=== PATIENT | male | born 1940 | race Caucasian/White ===

== ENCOUNTER → 2018-08-05 | Day surgery (SDC) | payer OTHER ==
[~2018-08-05] VITALS: Ht 193 cm; Wt 144.2 kg
[~2018-08-05] MED LIST: ASPIRIN EC81 MG PO; ATORVASTATIN CA20 MG PO; CLOPIDOGREL75 MG PO; COMBIVENT RESPIM4 GM IH; COUMADIN5 MG PO; FUROSEMIDE40 MG PO; LEVOTHYROXINE50 MCG PO; LIDOCAINE 1% W/EPINEPHRINE 20 ML VIAL ONE; METFORMIN HCL500 MG PO; METOPROLOL TART50 MG PO; POTASSIUM CHLO20 ME1 PO; UMECLIDINIUM INH; VILANTEROL INH
[2018-08-05 12:15] VITALS: BP 109/57
[2018-08-05 12:40] VITALS: BP 86/48
--- NOTE | 2018-08-05 14:20 | Operative Report ---
DATE OF PROCEDURE: August 05, 2018 INDICATIONS: Palpitations with history of atrial fibrillation. PROCEDURE PERFORMED: Insertable loop recorder. COMPLICATIONS: None. BLOOD LOSS: None. RECOMMENDATIONS: Remote monitoring. Left anterior chest wall was anesthetized using subcutaneous lidocaine. A [employer] LINQ, serial number [id number], was inserted without complications. Skin approximated using Dermabond. Patient discharged home the same day. Job#: [id number]
== END | disposition home or self-care (01) ==
LOC: CATH LAB 10:37
PROVIDERS: ATTEND Internal Medicine Interventional Cardiology
DX: I48.91 Unspecified atrial fibrillation (principal); C34.90 Malignant neoplasm of unspecified part of unspecified bronchus or lung; I87.2 Venous insufficiency (chronic) (peripheral); E66.9 Obesity, unspecified; F17.210 Nicotine dependence, cigarettes, uncomplicated; Z79.02 Long term (current) use of antithrombotics/antiplatelets; Z79.84 Long term (current) use of oral hypoglycemic drugs; Z79.82 Long term (current) use of aspirin; Z79.01 Long term (current) use of anticoagulants; Z68.38 Body mass index [BMI] 38.0-38.9, adult
CPT/HCPCS: 33282; C1764

== ENCOUNTER 2019-11-09 16:26 | Inpatient (IN) | payer MEDICARE ==
[~2019-11-09] VITALS: Ht 188 cm; Wt 149.7 kg
[~2019-11-09 16:26] MED LIST changes: -LIDOCAINE 1% W/EPINEPHRINE 20 ML VIAL ONE
--- NOTE | 2019-11-09 16:30 | NUR ---
RT NOTIFIED UPON PATIENTS ARRIVAL OF NEED FOR BIPAP.
[2019-11-09 17:03] LABS: BASOPHILS % 0.1 % (0.0-1.0); HEMATOCRIT 43.8 % (38.2-49.6); LYMPHOCYTES # (AUTO) 0.6 (1.0-3.2); LYMPHOCYTES % 5.2 % (18.0-39.1); MEAN CORPUSCULAR HEMOGLOBIN 30.7 pg (28-32); MEAN CORPUSCULAR VOLUME 96.1 fL (81-99); MONOCYTES # (AUTO) 1.4 (0.2-0.8); MONOCYTES % 11.5 % (4.4-11.3); NEUTROPHILS # (AUTO) 9.8 (2.1-6.9); NEUTROPHILS % 82.9 % (38.7-80.0); PLATELET COUNT 215 x10e3/uL (140-360); RED BLOOD COUNT 4.56 x10e6/uL (4.3-5.7); RED CELL DISTRIBUTION WIDTH 13.4 % (11.7-14.4)
[2019-11-09 17:22] LABS: ALBUMIN 3.1 g/dL (3.5-5.0); ALBUMIN/GLOBULIN RATIO 0.8 (0.8-2.0); ANION GAP 16.2 mmol/L (8-16); CALCIUM 8.7 mg/dL (8.4-10.2); CREATININE, SERUM 1.32 mg/dL (0.72-1.25); POTASSIUM 4.2 mmol/L (3.5-5.1)
[2019-11-09 17:29] LABS: B-TYPE NATRIURETIC PEPTIDE2 60.3 pg/mL (0-100)
[2019-11-09] MEDS ORDERED: SODIUM CHLORIDE 0.9% 1000ML 1,000 ML ONE ×2 (17:37→21:08)
--- NOTE | 2019-11-09 17:39 | Diagnostic Imaging Report ---
EXAM: CHEST SINGLE (PORTABLE) DATE: 11/09/2019 4:36 PM INDICATION: COPD COMPARISON: None FINDINGS: Implanted cardiac monitoring device is noted overlying the left hemithorax. The trachea is midline. Increased opacity present within the left lower lung zone which may reflect atelectasis and/or small pleural effusion. There is no evidence for large focal consolidation or pneumothorax. Suspected calcified granuloma noted overlying the right upper lung zone. The cardiomediastinal silhouette is partially obscured but appears grossly unremarkable. No acute osseous abnormality identified. IMPRESSION: Increased opacity within the left lower lung zone which likely reflects atelectasis and/or small pleural effusion. Underlying airspace process cannot be entirely excluded on the basis of this examination. Signed by: Dr. Jackson Delgado MD on 11/09/2019 5:36 PM
[2019-11-09] MEDS: LEVOFLOXACIN 750MG/D5W 150ML 150 ML IV SCH (17:41)
[2019-11-09] MEDS: PIPER-TAZ 3.375 GM 50 ML IV SCH (17:41)
[2019-11-09] MEDS ORDERED: SODIUM CHLORIDE 0.9% IV ONE (17:45)
[2019-11-09 18:46] LABS: ABG PCO2 60 mmHg (41-51); ABG PH 7.31 (7.31-7.41)
[2019-11-09 18:47] LABS: ABG HCO3 30 mmol/L (23-28); ABG PO2 155 mmHg (80-105)
[2019-11-09] MEDS ORDERED: DEXTROSE 50% SYRINGE 50 ML IV PRN (19:15)
[2019-11-09 20:20] VITALS: BP_SYST 150; BP_DIAS 42; BP_DIAS 82
--- NOTE | 2019-11-09 20:20 | NUR ---
Received to 193 from ER. Placed on EKG, pulse ox & NBP for monitoring. IV NS bolus infusing at this time. Admission history, vaccine review & Initial admission history completed. See interventions. Placed in Droplet isolation for Flu.
[2019-11-09 20:28] LABS: CREATINE KINASE MB 7.2 ng/mL (0-5.0)
[2019-11-09] MEDS ORDERED: ELIQUIS5 MG PO (20:47)
[2019-11-09] MEDS ORDERED: PACERONE400 MG PO (20:47)
[2019-11-09 20:49] VITALS: BP 139/77
[2019-11-09 21:00] VITALS: BP 137/74
[2019-11-09] MEDS: ALBUTEROL/IPRATROPIUM 3 ML NEB NEB SCH (21:00)
[2019-11-09] MEDS: INSULIN LISPRO 100 UNIT/1 ML 3ML VIAL SQ SCH (21:00)
[2019-11-09] MEDS ORDERED: ATORVASTATIN 20 MG TAB PO SCH (21:00)
[2019-11-09] MEDS ORDERED: OSELTAMIVIR PHOSPHATE 75 MG CAP PO ONE (21:25)
[2019-11-09] MEDS: OSELTAMIVIR PHOSPHATE 75 MG CAP PO SCH (21:27)
[2019-11-09] MEDS: ATORVASTATIN 40 MG TAB PO SCH (21:27)
[2019-11-09 21:45] VITALS: BP 142/80
[2019-11-09 23:00] VITALS: BP 135/74
[2019-11-10] VITALS (22 sets, daily range): BP systolic 95–151; BP diastolic 62–97
[2019-11-10] MEDS: PIPER-TAZ 3.375 GM 50 ML IV SCH ×4 (00:13→18:22)
[2019-11-10] MEDS: ALBUTEROL/IPRATROPIUM 3 ML NEB NEB SCH ×4 (01:30→19:30)
--- NOTE | 2019-11-10 02:40 | Consultation ---
DATE OF CONSULTATION: The patient of Dr. Wang, Dr. Kindra Delarosa, Dr. Gomez. HISTORY OF PRESENT ILLNESS: Apurva 79-year-old gentleman admitted with shortness of breath, was blue in the emergency room, placed on BiPAP and is positive for influenza A, did not receive his flu shot. He has had a history of atrial fibrillation. He has a loop recorder. He has no history of sleep apnea, though he does snore. History of lung cancer with right upper lobe wedge resection three years ago. Continues to smoke three cigarettes a day. ALLERGIES: NO KNOWN ALLERGIES. MEDICATIONS: Include: 1. Spiriva. 2. Metformin. 3. Potassium. 4. Warfarin. 5. Anoro aspirin. 6. Lipitor. 7. Plavix. 8. Lasix. 9. Levothyroxine. 10. Metoprolol. SOCIAL HISTORY: Born in [place]. 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 PHYSICAL EXAMINATION: GENERAL: A well-developed, burly white male. VITAL SIGNS: Temperature 99.6, pulse 88, respirations 29, blood pressure 120/80. HEAD: Normocephalic and atraumatic. LUNGS: Diminished breath sounds bilaterally. HEART: Regular rhythm. ABDOMEN: Obese. EXTREMITIES: Edematous, stasis changes. IMPRESSION: Apparent left lower lobe pneumonia, influenza. PLAN: Plan is to continue a Tamiflu 2 regimens. Continue BiPAP as tolerated. Avoid intubation if possible. Cigarette smoking cessation was recommended. Monitor blood sugars. Continue bronchodilators. Thank you for this kind of referral. MD SOLANGE Rice/NEO /[id number]
[2019-11-10 05:42] LABS: BASOPHILS % 0.2 % (0.0-1.0); EOSINOPHILS % 0.1 % (0.0-6.0); HEMATOCRIT 41.3 % (38.2-49.6); HEMOGLOBIN 12.6 g/dL (14.0-18.0); LYMPHOCYTES # (AUTO) 0.9 (1.0-3.2); LYMPHOCYTES % 9.6 % (18.0-39.1); MEAN CORPUSCULAR HGB CONC 30.5 g/dL (31-35); MEAN CORPUSCULAR VOLUME 98.3 fL (81-99); MONOCYTES # (AUTO) 1.2 (0.2-0.8); MONOCYTES % 13.1 % (4.4-11.3); NEUTROPHILS # (AUTO) 6.8 (2.1-6.9); NEUTROPHILS % 76.7 % (38.7-80.0); PLATELET COUNT 194 x10e3/uL (140-360); RED CELL DISTRIBUTION WIDTH 13.4 % (11.7-14.4)
[2019-11-10 05:54] LABS: ANION GAP 12.1 mmol/L (8-16); BLOOD UREA NITROGEN 13 mg/dL (7-26); BUN/CREATININE RATIO 14 (6-25); CALCIUM 7.9 mg/dL (8.4-10.2); CARBON DIOXIDE 27 mmol/L (22-29); CHLORIDE 103 mmol/L (98-107); CREATININE, SERUM 0.91 mg/dL (0.72-1.25); EST GLOMERULAR FILTRATION RATE > 60 ML/MIN (60-); GLUCOSE 130 mg/dL (74-118); POTASSIUM 4.1 mmol/L (3.5-5.1); SODIUM 138 mmol/L (136-145)
[2019-11-10] MEDS: LEVOTHYROXINE SODIUM 50 MCG TAB PO SCH (06:14)
[2019-11-10] MEDS: INSULIN LISPRO 100 UNIT/1 ML 3ML VIAL SQ SCH ×4 (07:30→21:36)
--- NOTE | 2019-11-10 08:24 | Diagnostic Imaging Report ---
Chest, 1 view, 11/10/2019. History: Shortness of breath. Comparison: 11/09/2019. Findings: The cardiomediastinal silhouette and pulmonary vasculature are within normal limits for a portable exam. A calcified granuloma is present in the right upper lobe. Patchy opacities are present in the lingula and left lower lobe. The right lung is clear. There are no acute osseous or soft tissue abnormalities. Impression: Left sided pulmonary opacities without significant change. Signed by: Tj Stevenson on 11/10/2019 8:21 AM
[2019-11-10] MEDS: CLOPIDOGREL BISULFATE 75 MG TAB PO SCH (11:26)
[2019-11-10] MEDS: ASPIRIN 81 MG ENTERIC COATED PO SCH (11:26)
[2019-11-10] MEDS: OSELTAMIVIR PHOSPHATE 75 MG CAP PO SCH ×2 (11:26→17:59)
[2019-11-10] MEDS: METOPROLOL TARTRATE 50 MG TAB PO SCH (11:27)
[2019-11-10 11:52] LABS: CREATINE KINASE MB 5.7 ng/mL (0-5.0)
[2019-11-10] MEDS: AMIODARONE HCL 200 MG TAB PO SCH (12:03)
[2019-11-10] MEDS: APIXABAN 5 MG TABLET PO SCH (12:04)
[2019-11-10] MEDS: POTASSIUM CHLORIDE 20 MEQ TAB CR PO SCH (12:04)
--- NOTE | 2019-11-10 13:20 | NUR ---
Pt sleeping soundly and no family present. Followed up w/ RN. Will follow up w/ pt as able. JAMI SWANN [employer] Spiritual Care Department O: [phone]
[2019-11-10 14:01] LABS: BILIRUBIN,URINE NEGATIVE (NEGATIVE); CLARITY,URINE SL CLOUDY (CLEAR); COLOR,URINE YELLOW (YELLOW); KETONES,URINE NEGATIVE (NEGATIVE); LEUKOCYTE ESTERASE ,URINE NEGATIVE (NEGATIVE); NITRITE,URINE NEGATIVE (NEGATIVE); PROTEIN,URINE DIPSTICK TRACE (NEGATIVE); URINE UROBILINOGEN 0.2 mg/dL (0.2 - 1)
[2019-11-10 14:10] LABS: AMORPHOUS SEDIMENT,URINE MODERATE (FEW); BACTERIA,URINE MODERATE /HPF; EPITHELIAL CELLS,URINE FEW /LPF; RBC,URINE 0-5 /HPF (0-5)
[2019-11-10] MEDS ORDERED: SODIUM CHLORIDE 0.9% 250ML 250 ML ONE (14:21)
[2019-11-10] MEDS: FUROSEMIDE 40 MG TAB PO SCH (14:28)
--- NOTE | 2019-11-10 15:07 | Diagnostic Imaging Report ---
EXAMINATION: CT scan of the chest without contrast. TECHNIQUE: Spiral CT images of the chest were performed from the lung apices to the level of the adrenal glands. No intravenous contrast was administered per referring physician request. Coronal and sagittal reformatted images were obtained. COMPARISON: Chest radiograph 11/09/2019, chest radiograph 11/10/2019 CLINICAL HISTORY:Shortness of breath, pneumonia DISCUSSION: ABSENCE OF INTRAVENOUS CONTRAST DECREASES SENSITIVITY FOR DETECTION OF FOCAL LESIONS AND VASCULAR PATHOLOGY. LINES/TUBES: None. LUNGS AND AIRWAYS: Postsurgical changes in the anterior right lung apex. Scattered foci of bandlike atelectasis or fibrotic change in the right upper lobe, lingula and, to a lesser extent the left lower lobe. Multifocal groundglass and nodular opacities predominantly within the lingula but also affecting the lower lobes. Calcified granuloma in the right lower lobe superior segment abutting the major fissure. Otherwise no gross mass lesion. No bronchiectasis. Filling defect in the left lower lobe posterior basal segmental bronchus. PLEURA: No pneumothorax or pleural effusions. HEART AND MEDIASTINUM: Visualized thyroid gland is unremarkable. No ectasia or aneurysmal dilatation of the thoracic aorta. Pulmonary outflow tract is of normal caliber. Atherosclerotic calcification of the aortic arch and [place] coronary arteries. No pericardial effusion. LYMPH NODES: Hilar and mediastinal lymph nodes are increased in number but not enlarged by CT criteria. ABDOMEN: Visualized portions of the liver, spleen, gallbladder, adrenals, and pancreas are unremarkable with the exception of a subcentimeter hypoattenuating lesion in hepatic segment 5, partially visualized, too small to further characterize but likely to represent a small cyst. BONES AND SOFT TISSUES: No osseous destructive lesions. No focal soft tissue abnormalities. IMPRESSION: Patchy multifocal groundglass and nodular opacities predominantly within the lingula and affecting the lower lobes to a lesser extent are nonspecific though concerning for viral or atypical infection. Left lower lobe basal segmental mucous plugging. Postsurgical changes of the right lung apex with scattered foci of bandlike atelectasis or fibrotic change. Atherosclerotic vascular disease. Signed by: Dr. Justin Dyer M.D. on 11/10/2019 3:03 PM
--- NOTE | 2019-11-10 16:04 | History and Physical ---
PRIMARY CARE PHYSICIAN: Dr. Fidel Delarosa. CONSULTANTS: 1. Dr. Elijah Mariee. 2. Dr. Justin Sharp. CHIEF COMPLAINT: Sepsis with acute respiratory failure, required BiPAP, pneumonia, influenza A. HISTORY OF PRESENT ILLNESS: The patient is a 79-year-old male with multiple chronic medical problems. The patient has COPD. He also has coronary artery disease. The patient came to the hospital with respiratory failure, but required BiPAP. The patient is also influenza A positive. Chest x-ray showed bilateral lower lobe infiltrates, more so on the left compared to the right. The patient is admitted for further evaluation and treatment. He is admitted to the ICU because of the respiratory failure on BiPAP. The patient's lactic acid level was also elevated. PAST MEDICAL HISTORY: Diabetes type 2, coronary artery disease, atrial fibrillation, COPD, smoker, hypothyroidism, hypertension, dyslipidemia, obstructive sleep apnea. PAST SURGICAL HISTORY: Loop recorder. SOCIAL HISTORY: The patient is a smoker. He does not use alcohol. No regular drugs. ALLERGIES: NO KNOWN ALLERGIES. HOME MEDICATIONS: List is reviewed. REVIEW OF SYSTEMS: As mentioned above. PHYSICAL EXAMINATION: VITAL SIGNS: Temperature 100, blood pressure 120/70, pulse rate is 85, respirations 18. GENERAL: The patient is more awake, more comfortable. HEENT: Normocephalic, atraumatic. Anicteric. NECK: Supple grossly. PULMONARY: Bilaterally coarse with some rhonchi and diminished breath sounds at the bases. CARDIOVASCULAR: S1 and S2. Regular rate and rhythm. ABDOMEN: Soft, obese. EXTREMITIES: 1+ edema with chronic venous skin changes. NEUROLOGIC: No focal deficits. The patient is awake. LABORATORY DATA: Chemistry; sodium is 138, potassium 4.1, chloride 103, bicarb 27, BUN 13, creatinine 0.9, glucose 130. Lactic acid level was 2.8. WBC is 11.8, hemoglobin 14, hematocrit 43.8, platelets 215. Serologies, influenza A positive. IMAGING TESTS: Chest x-ray shown that the patient has bilateral infiltrates, more significant in the right. IMPRESSION: 1. Sepsis without shock. The patient has fever and lactic acid level was elevated associated with respiratory failure, required BiPAP. 2. Acute exacerbation of chronic obstructive pulmonary disease with acute hypoxia. 3. Multiple baseline problems. PLAN: Continue with antibiotics. Nebulizer treatment. Insulin sliding scale coverage. Home medication. Steroids. Neb treatments. Pain control if needed. We will monitor the patient closely. The patient has already been seen by Dr. Elijah Mariee and associates and Dr. Justin Sharp. MD ANGEL Chase/NEO /[id number]
[2019-11-10] MEDS: LEVOFLOXACIN 750MG/D5W 150ML 150 ML IV SCH (17:59)
--- NOTE | 2019-11-10 21:16 | Consultation ---
DATE OF CONSULTATION: 11/10/2019 Cardiology Consultation REQUESTING PHYSICIAN: Diogo Wang MD REASON FOR CONSULTATION: Atrial fibrillation. HISTORY OF PRESENT ILLNESS: This is a 79-year-old man with hypertension, diabetes mellitus, atrial fibrillation, status post PVI, peripheral arterial disease, history of lung cancer with right upper lobe wedge resection, who presents with complaints of shortness of breath. The patient reports he began to feel poorly on Thursday with fever and chills. The patient complained of shortness of breath while in the ER. However, the patient called the EMS yesterday after he fell out of bed and was unable to get back up. The patient was found to be hypoxic and the patient was transported to the ER for further care. Testing in the ER demonstrated the patient was positive for influenza A and the patient was admitted to the ICU for BiPAP support. Cardiology is consulted for management of his cardiac conditions. He denies chest pain, shortness of breath, palpitations, orthopnea, or PND. REVIEW OF SYSTEMS: Negative except as per HPI. PAST MEDICAL HISTORY: 1. Hypertension. 2. Diabetes mellitus. 3. Atrial fibrillation, status post PVI. 4. Peripheral arterial disease, status post intervention. 5. History of lung cancer, status post wedge resection. ALLERGIES: PLEASE SEE EMR. MEDICATIONS: Please see medication list. SOCIAL HISTORY: Does smoke as well as drink alcohol. FAMILY HISTORY: Noncontributory to current illness. PHYSICAL EXAMINATION: VITAL SIGNS: Temperature 98.3 degrees, pulse 85, respiratory rate 29, blood pressure 135/82, and oxygen saturation 96% on nasal cannula. GENERAL: Obese gentleman, well developed, in no acute distress, awake and alert. HEENT: Normocephalic, atraumatic. Pupils equal. No scleral icterus. NECK: Supple. No thyromegaly or cervical lymphadenopathy. No carotid bruits. LUNGS: Clear to auscultation bilaterally. No wheezes or crackles. CARDIOVASCULAR: Normal rate. Regular rhythm. No murmur. Normal S1 and S2. ABDOMEN: Soft and nontender. EXTREMITIES: Trace edema. NEUROLOGIC: Nonfocal exam. LABORATORY DATA: Sodium 138, potassium 4.1, chloride 103, CO2 of 27, BUN 13, and creatinine 0.91. WBC 8.86, hemoglobin 12.6, hematocrit 41.3, platelets 194. Chest x-ray; left-sided pulmonary opacities without significant change. Telemetry; normal sinus rhythm. IMPRESSION: 1. Left-sided pneumonia. 2. Influenza A. 3. Acute hypoxic respiratory failure. 4. Atrial fibrillation, status post PVI. 5. Peripheral arterial disease, status post intervention. 6. Hypertension. 7. Diabetes mellitus. RECOMMENDATIONS: Continue home cardiac medications. Monitor the patient closely on telemetry. Antibiotics and antimicrobial therapy per primary service. The patient's last echocardiogram at the office revealed preserved LV systolic function with the estimated LVEF of 50% to 55%. Monitor volume status closely to keep the patient euvolemic. No further cardiac evaluation is indicated at this time. Thank you for this consult. We will continue to follow. Crys Solomon MD ABS/MODL /[id number]
[2019-11-10] MEDS: ATORVASTATIN 40 MG TAB PO SCH (21:33)
[2019-11-11] VITALS (25 sets, daily range): BP systolic 99–149; BP diastolic 52–85
[2019-11-11] MEDS: ALBUTEROL/IPRATROPIUM 3 ML NEB NEB SCH ×4 (00:30→20:00)
[2019-11-11] MEDS: PIPER-TAZ 3.375 GM 50 ML IV SCH ×4 (00:30→17:03)
[2019-11-11 05:21] LABS: BASOPHILS % 0.1 % (0.0-1.0); EOSINOPHILS # (AUTO) 0.2 (0.0-0.4); EOSINOPHILS % 2.5 % (0.0-6.0); HEMATOCRIT 39.8 % (38.2-49.6); HEMOGLOBIN 12.1 g/dL (14.0-18.0); LYMPHOCYTES # (AUTO) 0.8 (1.0-3.2); LYMPHOCYTES % 11.6 % (18.0-39.1); MEAN CORPUSCULAR HEMOGLOBIN 30.3 pg (28-32); MEAN CORPUSCULAR HGB CONC 30.4 g/dL (31-35); MEAN CORPUSCULAR VOLUME 99.5 fL (81-99); MONOCYTES # (AUTO) 0.9 (0.2-0.8); MONOCYTES % 12.4 % (4.4-11.3); NEUTROPHILS # (AUTO) 5.3 (2.1-6.9); PLATELET COUNT 191 x10e3/uL (140-360); RED CELL DISTRIBUTION WIDTH 13.2 % (11.7-14.4)
[2019-11-11 05:52] LABS: ALANINE AMINOTRANSFERASE 89 IU/L (0-55); ALBUMIN 2.6 g/dL (3.5-5.0); ALBUMIN/GLOBULIN RATIO 0.8 (0.8-2.0); ALKALINE PHOSPHATASE 64 IU/L (40-150); ANION GAP 13.3 mmol/L (8-16); BLOOD UREA NITROGEN 14 mg/dL (7-26); BUN/CREATININE RATIO 13 (6-25); CALCIUM 8.4 mg/dL (8.4-10.2); CARBON DIOXIDE 31 mmol/L (22-29); CHLORIDE 102 mmol/L (98-107); CREATININE, SERUM 1.08 mg/dL (0.72-1.25); EST GLOMERULAR FILTRATION RATE > 60 ML/MIN (60-); GLUCOSE 136 mg/dL (74-118); PHOSPHORUS 2.6 MG/DL (2.3-4.7); POTASSIUM 4.3 mmol/L (3.5-5.1); SODIUM 142 mmol/L (136-145)
[2019-11-11 06:00] LABS: THYROID STIMULATING HORMONE 0.996 uIU/mL (0.350-4.940)
[2019-11-11] MEDS: LEVOTHYROXINE SODIUM 50 MCG TAB PO SCH (06:03)
[2019-11-11] MEDS: INSULIN LISPRO 100 UNIT/1 ML 3ML VIAL SQ SCH ×4 (07:30→20:56)
[2019-11-11] MEDS: ASPIRIN 81 MG ENTERIC COATED PO SCH (08:21)
[2019-11-11] MEDS: APIXABAN 5 MG TABLET PO SCH ×2 (08:21→16:38)
[2019-11-11] MEDS: AMIODARONE HCL 200 MG TAB PO SCH (08:21)
[2019-11-11] MEDS: OSELTAMIVIR PHOSPHATE 75 MG CAP PO SCH ×2 (08:22→16:38)
[2019-11-11] MEDS: POTASSIUM CHLORIDE 20 MEQ TAB CR PO SCH (08:22)
[2019-11-11] MEDS: FUROSEMIDE 40 MG TAB PO SCH (08:22)
[2019-11-11] MEDS: CLOPIDOGREL BISULFATE 75 MG TAB PO SCH (08:22)
[2019-11-11] MEDS: METOPROLOL TARTRATE 50 MG TAB PO SCH (08:23)
[2019-11-11] MEDS ORDERED: PREDNISONE 20 MG TAB PO ONE (09:15)
[2019-11-11] MEDS: DOXYCYCLINE HYCLATE TABLET 100 MG TAB PO SCH ×2 (09:17→20:56)
--- NOTE | 2019-11-11 09:32 | Diagnostic Imaging Report ---
Chest, portable AP view History: Pneumonia and hypoxia Comparison: Chest CT dated test IMPRESSION: The cardiac silhouette is stable in size. Unchanged left pulmonary opacities in the lingula and lower lobe. No sizable pleural effusion. No pneumothorax. No acute osseous abnormalities. Signed by: Willem Cabrales MD on 11/11/2019 9:29 AM
[2019-11-11 10:17] LABS: ABG PH 7.24 (7.31-7.41)
[2019-11-11 10:18] LABS: ABG HCO3 34 mmol/L (23-28); ABG PCO2 80 mmHg (41-51); ABG PO2 167 mmHg (80-105)
--- NOTE | 2019-11-11 10:35 | NUR ---
Pt sleeping soundly and no family present. Followed up w/ RN. Will follow up w/ pt as able. JAMI SWANN [employer] Spiritual Care Department O: [phone]
[2019-11-11] MEDS ORDERED: ETOMIDATE 40 MG/ 20ML VIAL IV ONE (12:41)
[2019-11-11] MEDS ORDERED: SUCCINYLCHOLINE CHLORIDE 20 MG/ML 10ML VIAL ONE (12:41)
[2019-11-11] MEDS ORDERED: CEPACOL SORE THROAT LOZENGES PO PRN (13:30)
[2019-11-11] MEDS: VANCOMYCIN 1GM/NS 250 ML 250 ML IV SCH ×2 (14:38→22:19)
--- NOTE | 2019-11-11 15:31 | Progress Note ---
DATE: 11/11/2019 Cardiology Progress Note SUBJECTIVE: The patient denies chest pain or shortness of breath. OBJECTIVE: VITAL SIGNS: Temperature 100.4 degrees, pulse 78, respiratory rate 18, blood pressure 142/72, oxygen saturation 95% on 8 L nasal cannula. GENERAL: Morbidly obese gentleman in no acute distress. Awake and alert. LUNGS: Clear to auscultation bilaterally. No wheezes or crackles. CARDIOVASCULAR: Normal rate, regular rhythm. No murmur. Normal S1, S2. ABDOMEN: Soft, nontender. EXTREMITIES: Trace edema. CARDIAC MEDICATIONS: Metoprolol tartrate 100 mg p.o. daily, furosemide 80 mg p.o. daily, Plavix 75 mg p.o. daily, amiodarone 200 mg p.o. daily, apixaban 5 mg p.o. daily, aspirin 81 mg p.o. daily, levothyroxine 25 mcg p.o. daily, atorvastatin 40 mg p.o. daily. LABORATORY DATA: WBC 7.27, hemoglobin 12.1, hematocrit 39.8, platelets 191. Sodium 142, potassium 4.3, chloride 102, CO2 of 31, BUN 14, and creatinine 1.08. TELEMETRY: Normal sinus rhythm. IMPRESSION: 1. Left-sided pneumonia. 2. Influenza A. 3. Acute hypoxic respiratory failure. 4. Atrial fibrillation, status post PVI. 5. Peripheral arterial disease status post intervention. 6. Hypertension. 7. Diabetes mellitus. RECOMMENDATIONS: Continue home cardiac medications. Apixaban should be dosed twice daily. We will adjust this medication. Monitor patient closely on telemetry. Antibiotics and antimicrobial therapy per primary service. The patient's last echocardiogram at the office revealed preserved LV systolic function with estimated LVEF 50% to 55%. Monitor patient closely. Monitor volume status closely. Keep patient euvolemic. No further cardiac evaluation is indicated at this time. Thank you for this consult. We will continue to follow. Crys Solomon MD ABS/MODL /[id number]
[2019-11-11] MEDS: PREDNISONE 20 MG TAB PO SCH (16:38)
[2019-11-11] MEDS: BENZONATATE 100 MG CAP PO SCH (16:38)
[2019-11-11] MEDS: ATORVASTATIN 40 MG TAB PO SCH (20:56)
[2019-11-12] VITALS (23 sets, daily range): BP systolic 104–145; BP diastolic 59–122
[2019-11-12] MEDS: PIPER-TAZ 3.375 GM 50 ML IV SCH ×5 (00:38→23:50)
[2019-11-12] MEDS: ALBUTEROL/IPRATROPIUM 3 ML NEB NEB SCH ×4 (00:45→19:10)
[2019-11-12] MEDS: LEVOTHYROXINE SODIUM 50 MCG TAB PO SCH (05:36)
[2019-11-12 05:38] LABS: BASOPHILS % 0.1 % (0.0-1.0); HEMATOCRIT 39.1 % (38.2-49.6); HEMOGLOBIN 11.6 g/dL (14.0-18.0); LYMPHOCYTES # (AUTO) 0.5 (1.0-3.2); LYMPHOCYTES % 6.8 % (18.0-39.1); MEAN CORPUSCULAR HEMOGLOBIN 29.8 pg (28-32); MEAN CORPUSCULAR HGB CONC 29.7 g/dL (31-35); MEAN CORPUSCULAR VOLUME 100.5 fL (81-99); MONOCYTES # (AUTO) 0.6 (0.2-0.8); MONOCYTES % 9.1 % (4.4-11.3); NEUTROPHILS # (AUTO) 5.9 (2.1-6.9); NEUTROPHILS % 83.6 % (38.7-80.0); PLATELET COUNT 188 x10e3/uL (140-360); RED BLOOD COUNT 3.89 x10e6/uL (4.3-5.7); RED CELL DISTRIBUTION WIDTH 12.9 % (11.7-14.4)
[2019-11-12 05:47] LABS: ANION GAP 11.6 mmol/L (8-16); BLOOD UREA NITROGEN 17 mg/dL (7-26); BUN/CREATININE RATIO 16 (6-25); CALCIUM 8.6 mg/dL (8.4-10.2); CARBON DIOXIDE 32 mmol/L (22-29); CHLORIDE 101 mmol/L (98-107); CREATININE, SERUM 1.08 mg/dL (0.72-1.25); EST GLOMERULAR FILTRATION RATE > 60 ML/MIN (60-); GLUCOSE 204 mg/dL (74-118); POTASSIUM 4.6 mmol/L (3.5-5.1); SODIUM 140 mmol/L (136-145)
--- NOTE | 2019-11-12 07:39 | Diagnostic Imaging Report ---
EXAMINATION: CHEST SINGLE (PORTABLE) INDICATION: ^sob ^[id number] ^[id number] COMPARISON: 11/11/2019 FINDINGS: AP view TUBES and LINES: Cardiac loop recorder overlying the left mid chest remains unchanged. LUNGS: Lungs are well inflated. Worsening bilateral interstitial edema. Bibasilar atelectasis are unchanged. PLEURA: Small left pleural effusion, unchanged. No pneumothorax. HEART AND MEDIASTINUM: Stable moderate enlargement of the cardiac silhouette. Enlarged pulmonary arteries consistent with pulmonary hypertension. BONES AND SOFT TISSUES: No acute osseous lesion. Soft tissues are unremarkable. UPPER ABDOMEN: No free air under the diaphragm. IMPRESSION: Interval worsening bilateral interstitial edema with a stable small left pleural effusion. Signed by: Dr. Melony Juarez M.D. on 11/12/2019 7:36 AM
[2019-11-12] MEDS: ASPIRIN 81 MG ENTERIC COATED PO SCH (08:08)
[2019-11-12] MEDS: VANCOMYCIN 1GM/NS 250 ML 250 ML IV SCH ×2 (08:08→20:33)
[2019-11-12] MEDS: PREDNISONE 20 MG TAB PO SCH (08:09)
[2019-11-12] MEDS: CLOPIDOGREL BISULFATE 75 MG TAB PO SCH (08:09)
[2019-11-12] MEDS: POTASSIUM CHLORIDE 20 MEQ TAB CR PO SCH (08:09)
[2019-11-12] MEDS: FUROSEMIDE 40 MG TAB PO SCH (08:09)
[2019-11-12] MEDS: APIXABAN 5 MG TABLET PO SCH ×2 (08:09→16:12)
[2019-11-12] MEDS: METOPROLOL TARTRATE 50 MG TAB PO SCH (08:09)
[2019-11-12] MEDS: AMIODARONE HCL 200 MG TAB PO SCH (08:09)
[2019-11-12] MEDS: INSULIN LISPRO 100 UNIT/1 ML 3ML VIAL SQ SCH ×4 (08:10→20:59)
[2019-11-12] MEDS: DOXYCYCLINE HYCLATE TABLET 100 MG TAB PO SCH ×2 (08:10→20:33)
[2019-11-12] MEDS: OSELTAMIVIR PHOSPHATE 75 MG CAP PO SCH ×2 (08:10→16:12)
[2019-11-12] MEDS: BENZONATATE 100 MG CAP PO SCH (08:10)
[2019-11-12 08:40] LABS: BAND NEUTROPHILS % (MANUAL) 2 %; LYMPHOCYTES % (MANUAL) 4 % (19-48); MONOCYTES % (MANUAL) 2 % (3.4-9.0); NEUTROPHILS % (MANUAL) 92 % (40-74); PLATELET ESTIMATE ADEQUATE; PLATELET MORPHOLOGY COMMENT NORMAL; RBC MORPHOLOGY COMMENT ABNORMAL
[2019-11-12] MEDS: ALPRAZOLAM 0.25 MG TAB PO PRN ×3 (09:27→23:21)
--- NOTE | 2019-11-12 17:14 | Progress Note ---
DATE: 11/12/2019 Cardiology Progress Note SUBJECTIVE: Mr. Mitchell continues to remain weak. His shortness of breath is improved. He denies any leg swelling. PHYSICAL EXAMINATION: VITAL SIGNS: Afebrile, heart rate 69, blood pressure 124/88, and O2 saturation is 91%. CARDIOVASCULAR: Regular rhythm. Systolic murmur. LUNGS: Decreased breath sounds. EXTREMITIES: 1+ edema bilaterally. LABORATORY DATA: Telemetry shows sinus rhythm. Hemoglobin 11.6. Creatinine is normal. ASSESSMENT: 1. Pneumonia and influenza. 2. Atrial fibrillation. RECOMMENDATIONS: The patient remains anticoagulated with apixaban. He has remained in sinus rhythm. At this point, this anticoagulation as well as low-dose amiodarone as well as beta-tamela should be continued. Aspirin can be discontinued. The patient can remain on clopidogrel and Eliquis only. MD BRYAN Gu/NEO /[id number]
[2019-11-12] MEDS: QUETIAPINE FUMARATE 25 MG TAB PO SCH (20:33)
[2019-11-12] MEDS: ATORVASTATIN 40 MG TAB PO SCH (20:33)
[2019-11-13] VITALS (27 sets, daily range): BP systolic 101–157; BP diastolic 56–127
[2019-11-13] MEDS: ALBUTEROL/IPRATROPIUM 3 ML NEB NEB SCH ×4 (01:15→20:22)
[2019-11-13 05:55] LABS: BASOPHILS % 0.3 % (0.0-1.0); EOSINOPHILS # (AUTO) 0.1 (0.0-0.4); EOSINOPHILS % 1.1 % (0.0-6.0); HEMATOCRIT 40.1 % (38.2-49.6); HEMOGLOBIN 12.2 g/dL (14.0-18.0); LYMPHOCYTES % 11.3 % (18.0-39.1); MEAN CORPUSCULAR HGB CONC 30.4 g/dL (31-35); MEAN CORPUSCULAR VOLUME 98.5 fL (81-99); MONOCYTES # (AUTO) 0.9 (0.2-0.8); MONOCYTES % 9.5 % (4.4-11.3); NEUTROPHILS # (AUTO) 6.9 (2.1-6.9); NEUTROPHILS % 77.2 % (38.7-80.0); PLATELET COUNT 203 x10e3/uL (140-360); RED BLOOD COUNT 4.07 x10e6/uL (4.3-5.7); RED CELL DISTRIBUTION WIDTH 12.7 % (11.7-14.4)
[2019-11-13] MEDS: LEVOTHYROXINE SODIUM 50 MCG TAB PO SCH (06:05)
[2019-11-13] MEDS: PIPER-TAZ 3.375 GM 50 ML IV SCH ×4 (06:05→23:35)
[2019-11-13 06:39] LABS: ALANINE AMINOTRANSFERASE 88 IU/L (0-55); ALBUMIN 2.6 g/dL (3.5-5.0); ALBUMIN/GLOBULIN RATIO 0.7 (0.8-2.0); ALKALINE PHOSPHATASE 57 IU/L (40-150); ANION GAP 13.4 mmol/L (8-16); BLOOD UREA NITROGEN 16 mg/dL (7-26); BUN/CREATININE RATIO 20 (6-25); CALCIUM 8.4 mg/dL (8.4-10.2); CARBON DIOXIDE 33 mmol/L (22-29); CHLORIDE 100 mmol/L (98-107); CREATININE, SERUM 0.82 mg/dL (0.72-1.25); EST GLOMERULAR FILTRATION RATE > 60 ML/MIN (60-); GLUCOSE 121 mg/dL (74-118); POTASSIUM 4.4 mmol/L (3.5-5.1); SODIUM 142 mmol/L (136-145)
[2019-11-13] MEDS ORDERED: PREDNISONE 20 MG TAB PO SCH (07:30)
[2019-11-13] MEDS: INSULIN LISPRO 100 UNIT/1 ML 3ML VIAL SQ SCH ×4 (07:30→20:56)
[2019-11-13] MEDS: AMIODARONE HCL 200 MG TAB PO SCH (08:11)
[2019-11-13] MEDS: POTASSIUM CHLORIDE 20 MEQ TAB CR PO SCH (08:11)
[2019-11-13] MEDS: APIXABAN 5 MG TABLET PO SCH ×2 (08:11→16:46)
[2019-11-13] MEDS: OSELTAMIVIR PHOSPHATE 75 MG CAP PO SCH ×2 (08:12→16:46)
[2019-11-13] MEDS: FUROSEMIDE 40 MG TAB PO SCH (08:12)
[2019-11-13] MEDS: DOXYCYCLINE HYCLATE TABLET 100 MG TAB PO SCH ×2 (08:12→20:09)
[2019-11-13] MEDS: METOPROLOL TARTRATE 50 MG TAB PO SCH (08:12)
[2019-11-13] MEDS: CLOPIDOGREL BISULFATE 75 MG TAB PO SCH (08:12)
[2019-11-13] MEDS: ALPRAZOLAM 0.25 MG TAB PO PRN (08:13)
[2019-11-13 08:41] LABS: ANION GAP 12.3 mmol/L (8-16); BLOOD UREA NITROGEN 15 mg/dL (7-26); BUN/CREATININE RATIO 16 (6-25); CALCIUM 8.7 mg/dL (8.4-10.2); CARBON DIOXIDE 34 mmol/L (22-29); CHLORIDE 98 mmol/L (98-107); CREATININE, SERUM 0.92 mg/dL (0.72-1.25); EST GLOMERULAR FILTRATION RATE > 60 ML/MIN (60-); GLUCOSE 173 mg/dL (74-118); POTASSIUM 4.3 mmol/L (3.5-5.1); SODIUM 140 mmol/L (136-145)
[2019-11-13 08:53] LABS: BASOPHILS % 0.3 % (0.0-1.0); EOSINOPHILS # (AUTO) 0.1 (0.0-0.4); HEMATOCRIT 42.2 % (38.2-49.6); HEMOGLOBIN 12.9 g/dL (14.0-18.0); LYMPHOCYTES # (AUTO) 0.9 (1.0-3.2); LYMPHOCYTES % 10.2 % (18.0-39.1); MEAN CORPUSCULAR HEMOGLOBIN 30.1 pg (28-32); MEAN CORPUSCULAR HGB CONC 30.6 g/dL (31-35); MEAN CORPUSCULAR VOLUME 98.4 fL (81-99); MONOCYTES # (AUTO) 0.9 (0.2-0.8); MONOCYTES % 10.4 % (4.4-11.3); NEUTROPHILS # (AUTO) 6.9 (2.1-6.9); NEUTROPHILS % 77.4 % (38.7-80.0); PLATELET COUNT 198 x10e3/uL (140-360); RED BLOOD COUNT 4.29 x10e6/uL (4.3-5.7); RED CELL DISTRIBUTION WIDTH 12.6 % (11.7-14.4)
[2019-11-13] MEDS: VANCOMYCIN 1GM/NS 250 ML 250 ML IV SCH ×2 (09:03→20:48)
--- NOTE | 2019-11-13 13:55 | Progress Note ---
DATE: 11/13/2019 Cardiology Progress Note SUBJECTIVE: Mr. Mitchell is weak. He has had some shortness of breath. PHYSICAL EXAMINATION: VITAL SIGNS: Afebrile, heart rate is 78, and blood pressure is 148/90. CARDIOVASCULAR: Regular rhythm, systolic murmur. LUNGS: Clear to auscultation with decreased breath sounds bilaterally. EXTREMITIES: Trace edema bilaterally. LABORATORY DATA: Telemetry shows sinus rhythm. Hemoglobin is 12.9. Serum creatinine is normal. Chest x-ray done yesterday shows mild pleural effusions and pulmonary edema bilaterally. ASSESSMENT: 1. Pneumonia and influenza. 2. Atrial fibrillation. 3. Venous insufficiency. RECOMMENDATIONS: Anticoagulate with apixaban. The patient is in sinus rhythm. Amiodarone should also be continued. Aspirin will be discontinued. MD BRYAN Gu/NEO /[id number]
--- NOTE | 2019-11-13 14:11 | NUR ---
consult pneumonea flue chf [phone] DICTATED
--- NOTE | 2019-11-13 14:11 | NUR ---
consult pneumonea flue chf [phone]
--- NOTE | 2019-11-13 18:00 | NUR ---
PT LETHARGIC ABG CALLED TO DR JOHNS, RAPID RESPONSE FOR INTUBATION. JUJU NOTIFIED. OBTAINED ORDERS FOR SEDATION.
[2019-11-13 18:31] LABS: ABG PH 7.27 (7.31-7.41)
[2019-11-13 18:33] LABS: ABG HCO3 42 mmol/L (23-28); ABG PCO2 93 mmHg (41-51); ABG PO2 92 mmHg (80-105)
[2019-11-13] MEDS: FENTANYL CITRATE INJ 2,000 MCG in SODIUM CHLORIDE 0.9% 250ML 210 ML IV PRN (19:00)
--- NOTE | 2019-11-13 19:24 | Diagnostic Imaging Report ---
EXAMINATION: CHEST SINGLE (PORTABLE) INDICATION: Intubated, verify tube position COMPARISON: Chest x-ray 11/12/2019 FINDINGS: TUBES and LINES: ET tube tip within the mid intrathoracic trachea. LUNGS/PLEURA: Lungs are within normal limits. Prominent pulmonary vasculature. Bilateral lower lung haziness. No pneumothorax. HEART AND MEDIASTINUM: Cardiac size is mildly enlarged. BONES AND SOFT TISSUES: No acute osseous lesion. Soft tissues are unremarkable. Degenerative changes in the spine and shoulders. UPPER ABDOMEN: No free air under the diaphragm. IMPRESSION: 1. ET tube tip within the mid intrathoracic trachea. 2. Mild cardiomegaly and pulmonary vascular congestion. 3. Bilateral lower lung haziness may be due to atelectasis or pleural effusions. Pneumonia not excluded. Signed by: Manish Flores DO on 11/13/2019 7:21 PM
[2019-11-13] MEDS: QUETIAPINE FUMARATE 25 MG TAB PO SCH (20:09)
[2019-11-13] MEDS: ATORVASTATIN 40 MG TAB PO SCH (20:09)
[2019-11-13 20:38] LABS: ABG PH 7.39 (7.31-7.41)
[2019-11-13 20:39] LABS: ABG HCO3 42 mmol/L (23-28); ABG PCO2 69 mmHg (41-51); ABG PO2 184 mmHg (80-105)
--- NOTE | 2019-11-13 20:45 | NUR ---
Dr. Diane noted of critical ABG results. ABG ordered for AM. No vent changes. Addendum: 11/13/19 at 2249 by Pato Fong RN notified
[2019-11-14] VITALS (26 sets, daily range): BP systolic 104–143; BP diastolic 58–98
[2019-11-14] MEDS: ALBUTEROL/IPRATROPIUM 3 ML NEB NEB SCH ×2 (00:30→07:25)
[2019-11-14 05:04] LABS: BASOPHILS % 0.1 % (0.0-1.0); EOSINOPHILS # (AUTO) 0.1 (0.0-0.4); EOSINOPHILS % 1.4 % (0.0-6.0); HEMATOCRIT 39.1 % (38.2-49.6); LYMPHOCYTES # (AUTO) 1.1 (1.0-3.2); LYMPHOCYTES % 12.8 % (18.0-39.1); MEAN CORPUSCULAR HGB CONC 30.7 g/dL (31-35); MEAN CORPUSCULAR VOLUME 97.8 fL (81-99); MONOCYTES # (AUTO) 0.7 (0.2-0.8); MONOCYTES % 8.3 % (4.4-11.3); NEUTROPHILS # (AUTO) 6.5 (2.1-6.9); NEUTROPHILS % 76.7 % (38.7-80.0); PLATELET COUNT 196 x10e3/uL (140-360); RED CELL DISTRIBUTION WIDTH 12.6 % (11.7-14.4)
[2019-11-14 05:24] LABS: BLOOD UREA NITROGEN 18 mg/dL (7-26); BUN/CREATININE RATIO 22 (6-25); CALCIUM 8.6 mg/dL (8.4-10.2); CARBON DIOXIDE 37 mmol/L (22-29); CHLORIDE 100 mmol/L (98-107); CREATININE, SERUM 0.83 mg/dL (0.72-1.25); EST GLOMERULAR FILTRATION RATE > 60 ML/MIN (60-); GLUCOSE 108 mg/dL (74-118); SODIUM 144 mmol/L (136-145)
[2019-11-14] MEDS: PIPER-TAZ 3.375 GM 50 ML IV SCH ×3 (05:42→17:54)
[2019-11-14] MEDS: LEVOTHYROXINE SODIUM 50 MCG TAB PO SCH (05:42)
[2019-11-14] MEDS: FENTANYL CITRATE INJ 2,000 MCG in SODIUM CHLORIDE 0.9% 250ML 210 ML IV PRN (05:42)
[2019-11-14 06:15] LABS: ABG PH 7.39 (7.31-7.41)
[2019-11-14 06:16] LABS: ABG HCO3 43 mmol/L (23-28); ABG PCO2 71 mmHg (41-51); ABG PO2 152 mmHg (80-105)
[2019-11-14] MEDS: INSULIN LISPRO 100 UNIT/1 ML 3ML VIAL SQ SCH ×4 (07:30→20:48)
--- NOTE | 2019-11-14 07:45 | NUR ---
PT AT BEDSIDE, STATES SHE DID NOT WANT AWAKE AT ALL WANTED HIM TO BE COMPLETELY SEDATED THIS RN AND DATA CONTROL CLERK SUPERVISOR EXPLAINED THAT PT WAS SEDATED ENOUGH TO BE COMFORTABLE BUT NEEDED TO BE SOMEWHAT RESPONSIVE IN ORDER TO ASSESS NEUROLOGICAL STATUS. VERBALIZED UNDERSTANDING BUT STATS THIS WAS NOT HIS WISHES
--- NOTE | 2019-11-14 07:50 | NUR ---
THIS RN AND RIGGER THIRD IN ROOM, SPOKE TO PATIENT AT LENGTH PT FIRST STATED HE WANTED THE TUBE OUT THEN ASKED WHAT HIS PROGNOSIS WOULD BE, THIS RN EXPLAINED THE PROCESS OF EXTUBATING AND THE POSSIBILITY OF EVENTS THAT COULD HAPPEN IF PATIENT IS EXTUBATED BEFORE BEING ABLE TO BREATHE ADEQUATELY. PT VERBALIZED UNDERSTANDING AT THIS TIME THIS RN DIRECTLY ASKED AGAIN DO YOU WANT THE BREATHING TUBE REMOVED PT DID NOT RESPOND OR WRITE ANYTHING AT THIS TIME. THIS RN ASKED IF HE WAS OKAY PT NODDED HEAD YES NOTHING FURTHER WAS WRITTEN DOWN.
--- NOTE | 2019-11-14 08:04 | NUR ---
Rapid called and pt intubated on 11/13/19. Pt will be placed on PT hold. New orders needed to resume skilled PT when appropriate. Thank you. Addendum: 11/14/19 at 0806 by CARLA BOLDEN PTA Amended: Links added.
[2019-11-14] MEDS: DOXYCYCLINE HYCLATE TABLET 100 MG TAB PO SCH (09:00)
[2019-11-14] MEDS: OSELTAMIVIR PHOSPHATE 75 MG CAP PO SCH ×2 (09:00→17:00)
[2019-11-14] MEDS: FUROSEMIDE 40 MG TAB PO SCH (09:00)
[2019-11-14] MEDS: APIXABAN 5 MG TABLET PO SCH (09:00)
[2019-11-14] MEDS: METOPROLOL TARTRATE 50 MG TAB PO SCH (09:00)
[2019-11-14] MEDS: CLOPIDOGREL BISULFATE 75 MG TAB PO SCH (09:00)
[2019-11-14] MEDS ORDERED: MIDAZOLAM HCL 2 MG/2 ML VIAL IV PRN (09:00)
[2019-11-14] MEDS: AMIODARONE HCL 200 MG TAB PO SCH (09:00)
[2019-11-14] MEDS: POTASSIUM CHLORIDE 20 MEQ TAB CR PO SCH (09:00)
--- NOTE | 2019-11-14 09:00 | Diagnostic Imaging Report ---
EXAMINATION: CHEST SINGLE (PORTABLE) INDICATION: Respiratory failure COMPARISON: Chest radiograph 11/13/2019 FINDINGS: LINES/TUBES:Endotracheal tube terminates 3 7-m above the yeison. EKG leads overlie the chest. LUNGS:The lungs are well-inflated. There is perihilar fullness and indistinctness of the pulmonary vasculature. PLEURA:No pleural effusion or pneumothorax. MEDIASTINUM:The cardiomediastinal silhouette appears normal in size and shape. BONES/SOFT TISSUES:No acute osseous injury. ABDOMEN:No free air under the diaphragm. IMPRESSION: Mild interstitial edema. Mild bibasilar subsegmental atelectasis. Signed by: Chivo Pickett MD on 11/14/2019 8:56 AM
[2019-11-14] MEDS: VANCOMYCIN 1GM/NS 250 ML 250 ML IV SCH ×2 (09:08→20:48)
[2019-11-14] MEDS ORDERED: PANTOPRAZOLE 40 MG 10ML VIAL IV ONE (09:30)
--- NOTE | 2019-11-14 09:30 | NUR ---
PT EXPLAINED THAT HE NEEDED AN NGT AT THIS TIME, PT NODDING HEAD NO, THIS RN DIRECTLY ASKED DO YOU NOT WANT AN NGT THAT WILL ALLOW US TO GIVE NUTRITION DOWN THE LINE AND ALSO GIVE MEDICATIONS PT NODDED HEAD NO.
--- NOTE | 2019-11-14 10:00 | NUR ---
IN ROOM, PT WROTE DOWN " PULL THE PLUG, " NODDED HEAD TO WANTING TO HAVE THE TUBE REMOVED THIS RN EXPLAINED THAT WAS HIS RIGHT BUT VERSED HAS BEEN GIVEN 40 MINUTES AGO AND WHEN ASKED BEFORE PT DID NOT RESPOND PT AND STATES THEY UNDERSTOOD WHAT I WAS SAYING AND AGREED TO TALK TO CHAPLAIN FARRELL FOR AN ETHICS CONSULT TO MAKE A DECISION.
[2019-11-14] MEDS: PROPOFOL IV EMULSION 10MG/ML 100 ML IV SCH (11:24)
--- NOTE | 2019-11-14 13:15 | NUR ---
ICU Staff submitted an Ethics Consult Service request concerning the patient's Advanced Directives and the patient's 's desire for clinical information before removal of his breathing tube. Assessment: The district sales manager spoke with the pt & his . The pt appeared anxious and uncomfortable. His was anxious and frustrated stating they needed more information concerning her 's illness and prognosis. She stated that they needed answers to their questions to make an informed decision. The district sales manager shared the pt's 's request with pt's nurse who relayed her request for follow up with one of his physicians who later spoke with them. Recommendation: Given the pt/'s emotional state concerning his illness they could benefit from additional Spiritual Care services. Thank you for this consult. The district sales manager will follow up as able to provide spiritual/emotion support. Please re-consult as needed. JAMI SWANN Serologist/Ethics Consult Service [facility] O: [phone]
--- NOTE | 2019-11-14 16:26 | Consultation ---
DATE OF CONSULTATION: HISTORY OF PRESENT ILLNESS: This is a very pleasant 79-year-old gentleman, comes in with shortness of breath. He was hypoxemic in the emergency room. He was placed on BiPAP. His test for influenza A came back positive. He did not receive the flu vaccination. He also has history of atrial fibrillation. The patient also have obesity, diabetes mellitus, hypothyroidism. He was admitted, started on IV antibiotic. I was asked to see him. The patient is currently in the Intensive Care Unit. Events noted since review and consulted review of systems on admission, he does have history of hypertension, diabetes mellitus type 2 with neuropathy, atrial fibrillation status post PVI, peripheral vascular disease, history of lung cancer with right upper lobe wedge resection, comes in with shortness of breath and fever and chills, feeling really bad, came to emergency room and was hypoxemic, started on BiPAP. He has been seen by Cardiology, been seen by Pulmonary. Infectious Disease was asked to see the patient. PAST MEDICAL HISTORY: Hypertension, diabetes with neuropathy, atrial fibrillation, PVI, peripheral vascular disease, lung cancer. PAST SURGICAL HISTORY: Lung wedge resection. SOCIAL HISTORY: He does smoke and drink, unfortunately, details not available. FAMILY HISTORY: Hypertension. REVIEW OF SYSTEMS: He is currently in Intensive Care Unit. Does not seems to be short of breath, but stable. PHYSICAL EXAMINATION: GENERAL: The patient is intubated, comfortable, follows commands, does not seem in acute distress. VITAL SIGNS: Stable. Currently afebrile. When he first came, he is running 100.4. HEENT: Not icteric. NECK: Supple. CHEST: Few rhonchi bilateral. COR: S1 and S2. No S3, S4, or murmur. ABDOMEN: Soft. Bowel sounds present. No tenderness. EXTREMITIES: No edema. LABORATORY DATA: Reviewed. When he first came his white count was 7.27, hemoglobin 12, platelet 191. His blood gas also noted when he first came in pH 7.24 with pCO2 of 80, pO2 of 167. Sodium 144, potassium 4, and creatinine 0.83. White count is 8.4, hemoglobin 12. His chest x-ray showed an ET tube with mild cardiomegaly, congestion bilateral lungs haziness. IMPRESSION: 1. Respiratory failure due to community-acquired pneumonia, influenza A. 2. Concern about superimposed bacterial infection. 3. History of lung cancer. 4. History of congestive heart failure. PLAN: 1. I agree with blood cultures. 2. I agree with sputum cultures. 3. I agree with diabetic control. 4. He is currently on vancomycin and Zosyn and Tamiflu as well as doxycycline. 5. Continue with above for the time being. Plan on 8 days treatment of antibiotic. Discussed with the Medical team. We will follow vancomycin level to manage his fluid status, congestive heart failure to manage his vent as per Pulmonary. I agree with the plan. MD ASHLEY Pacheco/NEO /[id number]
--- NOTE | 2019-11-14 17:31 | Progress Note ---
DATE: SUBJECTIVE: The patient remains in intensive care unit, remains intubated. Family at the bedside. OBJECTIVE: HEENT: Normocephalic. CHEST: Few crackles bilateral. COR: S1 and S2. No S3, S4 or murmur. ABDOMEN: Soft. ASSESSMENT: 1. Sepsis on admission, influenza present on present admission. 2. Superimposed bacterial pneumonia. 3. Atrial fibrillation. 4. Obesity. PLAN: Continue with antibiotic as ordered. Discontinue doxycycline. Continue supportive care. Discussed with the medical team at length. MD ASHLEY Pacheco/MODL /[id number]
--- NOTE | 2019-11-14 18:42 | NUR ---
Nutrition Intervention Note RD Recommendation(s) for Physician: If pt is to remain intubated, recommend enteral nutrition -If on propofol: Vital High Protein @ goal rate of 70 mL/hr Water flush per MD (provides 1680 kcal, 147 g protein, and 1404 mL water/fluid) *propofol @ 12 mL/hr would provide an additional 317 kcal -If not on propofol: Vital 1.2 @ goal rate of 75 mL/hr Water flush per MD (provides 2160 kcal, 135 g protein, and 1460 mL water/fluid) Plan of Care: RD following, monitoring for tolerance and adequacy Nutrition reason for involvement: Length of stay/mechanical ventilation RD Assessment (11/14/19) Pt is a 79 year old male admitted with pneumonia, hypoxia, respiratory distress, and renal insufficiency. Pt was intubated on 11/13 and receiving propofol @ 12 mL/hr (provides 317 kcal) per RN at time of visit. There were no family members present. Per documentation, pt was previously eating 25-100% of meals during admission. If pt is to remain intubated, recommend enteral nutrition. Will continue to monitor. Principal Problems/Diagnoses: pneumonia, hypoxia, respiratory distress, and renal insufficiency PMH: diabetes, CAD, afib, COPD, smoker, hypothyroid, HTN, dyslipidemia, and obstructive sleep apnea I/O:1920/1800 GI: last recorded BM 11/14 Skin: intact Labs: (11/14/19) HgbA1c 7.5%, Glu 173 Meds: piperacillin/tazobactam, propofol, midazolam, vancomycin, fentanyl, potassium chloride, atorvastatin, insulin lispro, levothyroxine, metorpolol, lasix, pantoprazole, Ht: 74 inches Wt: 330 lbs BMI: 42.4 kg/m2 IBW: 190 lbs Malnutrition Evaluation (11/14/19) The patient does not meet criteria for a specified degree of malnutrition at this time. Will re-evaluate at follow-up as appropriate. Nutrition Prescription (Diet Order): NPO Estimated Nutritional Needs: 9080-3770 calories/day (22-25 kcal/kg IBW) 130-216 g protein/day (1.5-2.5 g pro/kg IBW) Diet Adequacy: Not meeting calorie needs, Not meeting protein needs (pt is NPO) Tolerance: Pt is NPO Diet Education Needs Assessment: Diet education not indicated at this time. Nutrition Care Level: Moderate Nutrition Diagnosis: Swallowing difficulty related to respiratory failure/mechanical ventilation as evidenced by NPO status. Goal: Patient will meet 75-100% of estimated needs by follow up Progress: N/A Interventions: -Tube feeding recommendation - Composition, Rate, Route, Collaboration with other providers Monitoring/Evaluation: -Total energy intake, Total protein intake, Formula/Solution, IVF, Prescription medication, Weight change Signed: Inez Sanford RD, LD
--- NOTE | 2019-11-14 19:02 | Progress Note ---
DATE: 11/14/2019 Cardiology Progress Note. SUBJECTIVE: No major events overnight. OBJECTIVE: VITAL SIGNS: Temperature afebrile, pulse 67, respiratory rate 20, blood pressure 110/72, saturating 97% on mechanical ventilation. GENERAL: Well developed, well nourished, intubated and sedated. No acute distress. CARDIOVASCULAR: Regular rate and rhythm. No murmurs, rubs, or gallops. LUNGS: Bibasilar crackles and rhonchi. ABDOMEN: Obese, soft, nontender. INPATIENT MEDICATIONS: Reviewed. LABORATORY DATA: Reviewed. TELEMETRY DATA: Reviewed, shows normal sinus rhythm. ASSESSMENT/PLAN: 1. Influenza pneumonia. 2. Atrial fibrillation. 3. Venous insufficiency. RECOMMENDATIONS: Anticoagulation, apixaban, currently in sinus rhythm. Continue amiodarone. Discontinue aspirin. We will continue to follow. MD CELINA Oviedo/NEO /[id number]
[2019-11-14] MEDS: ATORVASTATIN 40 MG TAB PO SCH (20:14)
[2019-11-14] MEDS: ENOXAPARIN SODIUM INJ 100 MG/ML SYR SC SCH (20:48)
[2019-11-15] VITALS (24 sets, daily range): BP systolic 106–188; BP diastolic 58–110
[2019-11-15] MEDS: PIPER-TAZ 3.375 GM 50 ML IV SCH ×4 (00:17→18:00)
[2019-11-15] MEDS: PROPOFOL IV EMULSION 10MG/ML 100 ML IV SCH ×2 (01:18→06:36)
[2019-11-15] MEDS: FENTANYL CITRATE INJ 2,000 MCG in SODIUM CHLORIDE 0.9% 250ML 210 ML IV PRN (01:40)
[2019-11-15 05:07] LABS: BASOPHILS % 0.4 % (0.0-1.0); EOSINOPHILS # (AUTO) 0.3 (0.0-0.4); EOSINOPHILS % 3.9 % (0.0-6.0); HEMATOCRIT 38.6 % (38.2-49.6); HEMOGLOBIN 11.9 g/dL (14.0-18.0); LYMPHOCYTES # (AUTO) 1.4 (1.0-3.2); LYMPHOCYTES % 18.6 % (18.0-39.1); MEAN CORPUSCULAR HEMOGLOBIN 30.1 pg (28-32); MEAN CORPUSCULAR HGB CONC 30.8 g/dL (31-35); MEAN CORPUSCULAR VOLUME 97.7 fL (81-99); MONOCYTES # (AUTO) 0.6 (0.2-0.8); MONOCYTES % 8.5 % (4.4-11.3); NEUTROPHILS % 67.8 % (38.7-80.0); PLATELET COUNT 223 x10e3/uL (140-360); RED BLOOD COUNT 3.95 x10e6/uL (4.3-5.7)
[2019-11-15] MEDS: LEVOTHYROXINE SODIUM 50 MCG TAB PO SCH (05:15)
[2019-11-15 05:27] LABS: ANION GAP 11.9 mmol/L (8-16); BLOOD UREA NITROGEN 18 mg/dL (7-26); BUN/CREATININE RATIO 22 (6-25); CALCIUM 8.4 mg/dL (8.4-10.2); CARBON DIOXIDE 35 mmol/L (22-29); CHLORIDE 104 mmol/L (98-107); CREATININE, SERUM 0.82 mg/dL (0.72-1.25); EST GLOMERULAR FILTRATION RATE > 60 ML/MIN (60-); GLUCOSE 108 mg/dL (74-118); POTASSIUM 3.9 mmol/L (3.5-5.1); SODIUM 147 mmol/L (136-145)
--- NOTE | 2019-11-15 07:05 | NUR ---
Pt sleeping soundly and no family present. Will follow as able. JAMI SWANN Elementary Teacher Spiritual Care Department O: [phone] Pager: [phone] ([phone] number calling from)
--- NOTE | 2019-11-15 07:19 | Diagnostic Imaging Report ---
EXAMINATION: CHEST SINGLE (PORTABLE) INDICATION: ^intubated ^[id number] ^[id number] COMPARISON: 11/12/2019 FINDINGS: AP view TUBES and LINES: Partially seen endotracheal tube. The tip cannot be evaluated due to underpenetration. LUNGS: Limited by body habitus. Patient's chin obscures lung apices. Pulmonary vascular congestion and mild interstitial edema. PLEURA: Bilateral small pleural effusions. No visible pneumothorax. HEART AND MEDIASTINUM: The cardiomediastinal silhouette is enlarged. BONES AND SOFT TISSUES: No acute osseous lesion. Soft tissues are unremarkable. UPPER ABDOMEN: No free air under the diaphragm. IMPRESSION: Limited as above. Pulmonary vascular congestion and mild interstitial edema, slightly worsened from prior exam. Small bilateral pleural effusions, increased or new from prior exam. Underlying atelectasis/pneumonia cannot be excluded. Signed by: Dr. Kasi Bazan MD on 11/15/2019 7:16 AM
[2019-11-15] MEDS: INSULIN LISPRO 100 UNIT/1 ML 3ML VIAL SQ SCH ×4 (07:30→21:00)
[2019-11-15] MEDS: AMIODARONE HCL 200 MG TAB PO SCH (09:00)
[2019-11-15] MEDS: CLOPIDOGREL BISULFATE 75 MG TAB PO SCH (09:00)
[2019-11-15] MEDS: VANCOMYCIN 1GM/NS 250 ML 250 ML IV SCH ×3 (09:00→21:25)
[2019-11-15] MEDS: METOPROLOL TARTRATE 50 MG TAB PO SCH (09:00)
[2019-11-15] MEDS: POTASSIUM CHLORIDE 20 MEQ TAB CR PO SCH (09:00)
[2019-11-15] MEDS: FUROSEMIDE 40 MG TAB PO SCH (09:00)
[2019-11-15] MEDS: ENOXAPARIN SODIUM INJ 100 MG/ML SYR SC SCH ×2 (10:01→21:25)
[2019-11-15] MEDS: PANTOPRAZOLE 40 MG 10ML VIAL IV SCH (10:02)
--- NOTE | 2019-11-15 10:45 | NUR ---
PT WAKING UP FROM SEDATION, VERY ALERT AND ABLE TO WRITE. PT WROTE "I WANT TO NOW, JUST PROLONGING IT" EXPLAINED TO PT MD WILL BE HERE SHORTLY AND WILL DISCUSS HIS WANTS THEN. PT AGREED TO WAIT FOR DR. BURDICK. WILL CONTINUE TO MONITOR
--- NOTE | 2019-11-15 10:53 | NUR ---
PT REFUSED TO HAVE TEMP OR FINGERSTICK TAKEN. WILL CONTINUE TO MONITOR
--- NOTE | 2019-11-15 11:24 | NUR ---
PT REMAINS IN ICU ON VENT CXR TODAY WORSE IV ABX ZOSYN AND VANCOMYCIN ASKED DR BRAY FOR LTAC EVAL "TOO UNSTABLE" DR SUTHERLAND AWARE OF PT
[2019-11-15] MEDS ORDERED: DEXAMETHASONE SOD PHOS INJ 4 MG/ML VIAL IV NR (13:15)
--- NOTE | 2019-11-15 13:33 | NUR ---
ASSESSMENT: Spiritual concern Pt accepting of his own mortality. Pt's , grandson and friend at bedside following extubation. Intervention: Provided calming pastoral presence and supportive listening. Outcome: Will continue to follow as able. JAMI SWANN Director Of Career Services Spiritual Care Department O: [phone] Pager: [phone] ([phone] number calling from)
[2019-11-15 14:20] LABS: ABG HCO3 38 mmol/L (23-28); ABG PCO2 60 mmHg (41-51); ABG PH 7.41 (7.31-7.41); ABG PO2 141 mmHg (80-105)
--- NOTE | 2019-11-15 15:09 | NUR ---
pt O2 sats 83% and is refusing to wear oxygen via nc or bipap. pt states "I want to right now". notified pts of his response and stated "that is what he wishes and wants and there's nothing I can do about it, thank you for calling me". will continue to monitor
--- NOTE | 2019-11-15 15:57 | NUR ---
am vanc dose given now d/t pt refused this a.m. had conversation w/pt and he agreed to now wear bipap and receive antibiotics. still wants to be DNAR at this time. will continue to monitor
--- NOTE | 2019-11-15 19:00 | NUR ---
Report received from Myesha Snyder RN. Pt received resting in bed AAOx3. Care plan reviewed. Pt stated he wants to continue DNR status and would like information regarding hospice care. Pt has order for palliative care in the morning per report from Nehemiah Elizabeth manager cardiac cath. Addendum: 11/16/19 at 0639 by Ana Khoury RN *Palliative care consult
--- NOTE | 2019-11-15 20:30 | NUR ---
Pts present and pt notified of his wishes for hospice/palliative care consult and order for them to see the pt tomorrow. Pt continues to refuse Bipap and fingersticks at this time.
[2019-11-15] MEDS: ATORVASTATIN 40 MG TAB PO SCH (20:46)
[2019-11-16] VITALS (20 sets, daily range): BP systolic 105–172; BP diastolic 52–95
[2019-11-16] MEDS: LEVOTHYROXINE SODIUM 50 MCG TAB PO SCH (06:00)
[2019-11-16] MEDS: PIPER-TAZ 3.375 GM 50 ML IV SCH ×4 (06:22→17:50)
[2019-11-16] MEDS: INSULIN LISPRO 100 UNIT/1 ML 3ML VIAL SQ SCH ×4 (07:30→21:00)
[2019-11-16] MEDS: ENOXAPARIN SODIUM INJ 100 MG/ML SYR SC SCH ×2 (09:00→21:31)
--- NOTE | 2019-11-16 10:11 | NUR ---
GOT PALLIATIVE ORDER OVER PRINTER WILL DISCUSS WITH PALLIATIVE NURSE AND ASSIST IF POSSIBLE.
[2019-11-16] MEDS: AMIODARONE HCL 200 MG TAB PO SCH (10:51)
[2019-11-16] MEDS: PANTOPRAZOLE 40 MG 10ML VIAL IV SCH (10:51)
[2019-11-16] MEDS: POTASSIUM CHLORIDE 20 MEQ TAB CR PO SCH (10:51)
[2019-11-16] MEDS: VANCOMYCIN 1GM/NS 250 ML 250 ML IV SCH ×2 (10:51→21:31)
[2019-11-16] MEDS: METOPROLOL TARTRATE 50 MG TAB PO SCH (10:52)
[2019-11-16] MEDS: CLOPIDOGREL BISULFATE 75 MG TAB PO SCH (10:52)
[2019-11-16] MEDS: FUROSEMIDE 40 MG TAB PO SCH (10:54)
--- NOTE | 2019-11-16 13:42 | NUR ---
ASSESSMENT: Spiritual concern Pt states "It's not that I want to , it's just that I'm not afraid of dying." Pt states in light of his illness, he doesn't "want to be a burden" to his . Pt states he is considering hospice care at home. Intervention: Provided nonjudgmental pastoral listening. Facilitated storytelling. Outcome: Pt expressed appreciation for support. No need to continue to follow at this time. JAMI SWANN Pointer Machine Operator Spiritual Care Department O: [phone]
--- NOTE | 2019-11-16 14:51 | NUR ---
SPOKE WITH DR BRAY REGARDING FAMILY REQUEST FOR HOSPICE EVALUATION. PSYCHIATRY TO SEE PATIENT 1ST BEFORE HOSPICE THEN HE WILL RE-EVALUATE HOSPICE CONSULT TOMORROW .
--- NOTE | 2019-11-16 15:00 | NUR ---
SPOKE WITH FAMILY THEY WANT HOSPICE INFORMATION. TEXTED MD ASKING, WILL MAKE REFERRAL WHEN GET ORDER
--- NOTE | 2019-11-16 19:34 | Progress Note ---
DATE: SUBJECTIVE: Mr. Mitchell is feeling better. He is off the vent, afebrile. REVIEW OF SYSTEMS: He is just weak. PHYSICAL EXAMINATION: GENERAL: He is currently alert and oriented. Follows commands. VITAL SIGNS: Stable, currently afebrile. HEENT: Not icteric. NECK: Supple. CHEST: Clear bilateral. COR: S1 and S2. No S3, S4, or murmurs. ABDOMEN: Soft. IMPRESSION: 1. Sepsis, resolved. 2. Respiratory failure, resolved. 3. Pneumonia with influenza with superimposed bacteria, resolved. Would recommend to discontinue vancomycin, discontinue Zosyn, take him off respiratory failure. This is day #7 of antibiotic. Can discontinue antibiotic in the morning. The patient is apparently DNR. MD ASHLEY Pacheco/MODHien /[id number]
[2019-11-16] MEDS: ATORVASTATIN 40 MG TAB PO SCH (21:31)
[2019-11-17] VITALS (8 sets, daily range): BP systolic 120–156; BP diastolic 57–99
[2019-11-17] MEDS: PIPER-TAZ 3.375 GM 50 ML IV SCH ×2 (00:40→06:05)
--- NOTE | 2019-11-17 04:36 | NUR ---
PT REFUSING BIPAP. WORE TOTAL OF 2 HRS DURING SHIFT, 1 HOUR AT A TIME. STATES "I DONT NEED IT" DESPITE EDUCATION REINFORCED.
[2019-11-17] MEDS: LEVOTHYROXINE SODIUM 50 MCG TAB PO SCH (06:05)
[2019-11-17] MEDS: INSULIN LISPRO 100 UNIT/1 ML 3ML VIAL SQ SCH ×4 (07:30→21:00)
[2019-11-17] MEDS: PANTOPRAZOLE 40 MG 10ML VIAL IV SCH (09:28)
[2019-11-17] MEDS: AMIODARONE HCL 200 MG TAB PO SCH (09:29)
[2019-11-17] MEDS: FUROSEMIDE 40 MG TAB PO SCH (09:30)
[2019-11-17] MEDS: POTASSIUM CHLORIDE 20 MEQ TAB CR PO SCH (09:30)
[2019-11-17] MEDS: METOPROLOL TARTRATE 50 MG TAB PO SCH (09:31)
[2019-11-17] MEDS: APIXABAN 5 MG TABLET PO SCH ×2 (09:31→16:42)
--- NOTE | 2019-11-17 16:58 | NUR ---
Follow up Note RD Recommendation(s) for Physician: -Continue current diet regimen Plan of Care: RD following, monitoring for tolerance and adequacy Nutrition reason for involvement: follow up RD Assessment (11/17/19). Pt was extubated and is now on a diet. Per documentation, pt consumed 50% of meals today. Prior to admission, pt reports eating >50% of meals. Pt is unsure if he had any recent wt changes and usually weighs 340 lbs; however, pt has a wt of 331 lbs in chart. No N/V/D/C noted. Will continue to monitor. (11/14/19) Pt is a 79 year old male admitted with pneumonia, hypoxia, respiratory distress, and renal insufficiency. Pt was intubated on 11/13 and receiving propofol @ 12 mL/hr (provides 317 kcal) per RN at time of visit. There were no family members present. Per documentation, pt was previously eating 25-100% of meals during admission. If pt is to remain intubated, recommend enteral nutrition. Will continue to monitor. Principal Problems/Diagnoses: pneumonia, hypoxia, respiratory distress, and renal insufficiency PMH: diabetes, CAD, afib, COPD, smoker, hypothyroid, HTN, dyslipidemia, and obstructive sleep apnea I/O:1450/2900 GI: last recorded BM 11/14 Skin: intact Labs: (11/17/19) Reviewed (11/14/19) HgbA1c 7.5%, Glu 173 Meds: metroprolol, lasix, protonix, levothyroxine, Lipitor, insulin lispro Ht: 74 inches Wt: 330 lbs BMI: 42.4 kg/m2 IBW: 190 lbs Malnutrition Evaluation (11/14/19) The patient does not meet criteria for a specified degree of malnutrition at this time. Will re-evaluate at follow-up as appropriate. Nutrition Prescription (Diet Order): Cardiac/ADA diet with mechanical soft diet consistency Estimated Nutritional Needs: 7242-5047 calories/day (22-25 kcal/kg IBW) 130-216 g protein/day (1.5-2.5 g pro/kg IBW) Diet Adequacy: Pt reports eating 50% of his meals. Tolerance: Tolerating PO Diet Education Needs Assessment: Pt was not interested in diet education materials at time of visit. Nutrition Care Level: low Nutrition Diagnosis: Swallowing difficulty related to respiratory failure/mechanical ventilation as evidenced by NPO status. (RESOLVED) Goal: Patient will meet 75-100% of estimated needs by follow up Progress: progressing Interventions: -carbohydrate/fat/sodium- modified diet Monitoring/Evaluation: -Total energy intake, Total protein intake, Modified diet, Weight change Signed: Inez Sanford RD, LD
--- NOTE | 2019-11-17 19:59 | Consultation ---
DATE OF CONSULTATION: 11/17/2019 Psychiatric Consultation REASON FOR CONSULTATION: Evaluate the patient's mood. HISTORY OF PRESENT ILLNESS: The patient is a 79-year-old male, admitted to the hospital for pneumonia, hypoxia, respiratory distress, and renal insufficiency. Psychiatric consultation is called to evaluate the patient's mood. As per the medical record, the patient has history of diabetes, coronary artery disease, AFib, COPD, smoker, hypothyroidism, hypertension, dyslipidemia, obstructive sleep apnea. He apparently told staff that he was depressed and considering hospice. Upon evaluation today, the patient is found to be in the room in the ICU. He is sitting up. He is obese. He is using nasal cannula and on oxygen. The patient is oriented to situation. He is calm and cooperative. He claims that he is hospitalized due to respiratory problem and the flu. He has been very anxious due to his health scare. The patient claims that he was spoke to by staff members regarding hospice. He admitted that he did not want to be a burden to his family members. However, he spoke to the attending, Dr. Wang and was told that he is getting better and so, he is feeling happy at this time, and does not want to . He does not want to be on hospice and he wants to get better. The patient denies any depression, but admits to some anxiety as he does not know what is going on at this time regarding his health. He denies feeling hopeless or helpless. Denies passive wishes, suicidal ideation. Denies any thoughts of hurting other people. Denies any hallucination. Denies any problem with sleep or appetite. The patient is oriented to self, place, year, and time. He is calm and cooperative. PAST PSYCHIATRIC HISTORY: The patient denies any past psychiatric history. He denies past suicide attempts. He claims he drinks alcohol occasionally. He denies any drug use. FAMILY HISTORY: Denies. SOCIAL HISTORY: The patient lives with his . MENTAL STATUS EXAM: The patient is elderly male, obese, oriented to situation. Mood is anxious. Affect is blunt. Psychomotor state is passive. Denies suicidal or homicidal ideation. Denies any hallucination. Thought process is concrete. No delusion or paranoia elicited. Insight and judgment are fair. Memory appears to be grossly intact. CURRENT MEDICATION: 1. Insulin. 2. Eliquis. 3. Lopressor. 4. Potassium chloride. 5. Lasix. 6. Amiodarone. 7. Pantoprazole. 8. Levothyroxine. 9. Atorvastatin. 10. Hydralazine. 11. Benzocaine/menthol. 12. Dextrose. CURRENT LABS: WBC 7.38, RBC 3.95, hemoglobin 11.9, hematocrit 38.6, platelets 223. Sodium 147, potassium 3.9, chloride 104, CO2 35, BUN 18, and creatinine 0.82. AST 100, ALT 88. ASSESSMENT: 1. Adjustment disorder with mixed mood. 2. Rule out major depression. PLAN: 1. Add a small dose of Zoloft 25 mg p.o. daily. 2. Monitor for mood. 3. Supportive therapy. 4. Discussed with nursing staff and Case Management. Thank you for this consultation. Dictated by Anya Pacheco PA-C Talia Butler MD QTV/MODL /[id number]
[2019-11-17] MEDS: ATORVASTATIN 40 MG TAB PO SCH (21:45)
--- NOTE | 2019-11-17 23:23 | Progress Note ---
DATE: 11/17/2019 SUBJECTIVE: No major events overnight. OBJECTIVE: VITAL SIGNS: Temperature afebrile, pulse 63, respiratory rate 18, blood pressure 120/99, saturating 95% on 8 L nasal cannula. GENERAL: Elderly man, well-developed, well-nourished, in no acute distress. CARDIOVASCULAR: Regular rate and rhythm. No murmurs, rubs, or gallops. LUNGS: Coarse breath sounds in bilateral bases. ABDOMEN: Soft, nontender, nondistended, obese. NEURO AND PSYCH: Alert and oriented. INPATIENT MEDICATIONS: Reviewed. LABORATORY DATA: Reviewed. TELEMETRY DATA: Reviewed, shows normal sinus rhythm. Occasional sinus bradycardia. ASSESSMENT AND PLAN: 1. Influenza pneumonia. 2. Atrial fibrillation with rapid ventricular response, now in sinus rhythm. 3. Venous insufficiency. RECOMMENDATIONS: Continue apixaban, amiodarone, and metoprolol. Remains in normal sinus rhythm. MD CELINA Oviedo/NEO /[id number]
[2019-11-18] VITALS (7 sets, daily range): BP systolic 130–166; BP diastolic 72–115
[2019-11-18 05:20] LABS: BASOPHILS % 0.5 % (0.0-1.0); EOSINOPHILS # (AUTO) 0.2 (0.0-0.4); EOSINOPHILS % 3.3 % (0.0-6.0); HEMATOCRIT 40.8 % (38.2-49.6); LYMPHOCYTES # (AUTO) 0.9 (1.0-3.2); LYMPHOCYTES % 13.9 % (18.0-39.1); MEAN CORPUSCULAR HGB CONC 29.4 g/dL (31-35); MONOCYTES # (AUTO) 0.8 (0.2-0.8); MONOCYTES % 13.4 % (4.4-11.3); NEUTROPHILS # (AUTO) 4.1 (2.1-6.9); NEUTROPHILS % 67.8 % (38.7-80.0); PLATELET COUNT 261 x10e3/uL (140-360); RED CELL DISTRIBUTION WIDTH 12.6 % (11.7-14.4)
[2019-11-18 05:37] LABS: BLOOD UREA NITROGEN 15 mg/dL (7-26); BUN/CREATININE RATIO 19 (6-25); CALCIUM 8.7 mg/dL (8.4-10.2); CARBON DIOXIDE 37 mmol/L (22-29); CHLORIDE 99 mmol/L (98-107); CREATININE, SERUM 0.78 mg/dL (0.72-1.25); EST GLOMERULAR FILTRATION RATE > 60 ML/MIN (60-); GLUCOSE 116 mg/dL (74-118); SODIUM 144 mmol/L (136-145)
[2019-11-18] MEDS: LEVOTHYROXINE SODIUM 50 MCG TAB PO SCH (06:22)
[2019-11-18] MEDS: INSULIN LISPRO 100 UNIT/1 ML 3ML VIAL SQ SCH ×4 (07:30→20:35)
[2019-11-18] MEDS: PANTOPRAZOLE 40 MG 10ML VIAL IV SCH (09:36)
[2019-11-18] MEDS: POTASSIUM CHLORIDE 20 MEQ TAB CR PO SCH (09:38)
[2019-11-18] MEDS: APIXABAN 5 MG TABLET PO SCH ×2 (09:38→16:43)
[2019-11-18] MEDS: FUROSEMIDE 40 MG TAB PO SCH (09:39)
[2019-11-18] MEDS: SERTRALINE HCL 50 MG TAB PO SCH (09:40)
[2019-11-18] MEDS: AMIODARONE HCL 200 MG TAB PO SCH (10:16)
[2019-11-18] MEDS ORDERED: BISACODYL 10 MG SUPP PR PRN (11:00)
--- OUTSIDE RECORDS SUMMARY | 2019-11-18 11:06 | XMS REPORT ---
Author Author [facility] Address Unknown Phone Unavailable Care Team Providers Care Police Superintendent Name Role Phone KEATON BRAY Unavailable Unavailable Problems This patient has no known problems. Allergies, Adverse Reactions, Alerts This patient has no known allergies or adverse reactions. Medications This patient has no known medications. Encounters Start Date/Time End Date/Time Encounter Type Admission Type Attending [facility] Care Facility Care Department Encounter ID 2019-03-10 14:06:00 2019-03-10 14:06:00 Outpatient [facility] [id number] Results Test Description Test Time Test Comments Text Results Atomic Results Result Comments CHEST SINGLE (PORTABLE) 2019-11-15 07:13:00 [place] [address] Patient Name: JACK HURLEY MR #: [id number] : 1940 Age/Sex: 79/M Req #: [id number] Adm Physician: KEATON BRAY MD Ordered by: PERNELL BURDICK MD Report #: [id number] Location: ICU Room/Bed: [place] [address] Procedure: [id number] DX/CHEST SINGLE (PORTABLE) Exam Date: 11/15/19 Exam Time: 519 REPORT STATUS: Signed EXAMINATION: CHEST SINGLE (PORTABLE) INDICA TION: intubated [id number] COMPARISON: 11/12/2019 FINDINGS: AP view TUBES and LINES: Partially seen endotracheal tube. The tip cannot be evaluated due to underpenetration. LUNGS: Limited by body habitus. Patient's chin obscures lung apices. Pulmonary vascular congestion and mild interstitial edema. PLEURA: Bilateral small pleural effusions. No visible pneumothorax. HEART AND MEDIASTINUM: The cardiomediastinal silhouette is enlarged. BONES AND SOFT TISSUES: No acute osseous lesion. Soft tissues are unremarkable. UPPER ABDOMEN: No free air under the diaphragm. IMPRESSION: Limited as above. Pulmonary vascular congestion and mild interstitial edema, slightly worsened from prior exam. Small bilateral pleural effusions, increased or new from prior exam. Underlying atelectasis/pneumonia cannot be excluded. Signed by: Dr. Kasi Amezquita MD on 11/15/2019 7:16 AM Dictated By: KASI AMEZQUITA MD 5 Transcribed By: LUIS on 11/15/19715 COPY TO: PERNELL BURDICK MD CHEST SINGLE (PORTABLE) 2019-11-14 08:55:00 [place] [address] Patient Name: JACK HURLEY MR #: [id number] : 1940 Age/Sex: 79/M Req #: [id number] Adm Physician: KEATON BRAY MD Ordered by: PERNELL BURDICK MD Report #: [id number] Location: ICU Room/Bed: ICU [facility] Procedure: [id number] DX/CHEST SINGLE (PORTABLE) Exam Date: 11/14/19 Exam Time: 0555 REPORT STATUS: Signed EXAMINATION: CHEST SINGLE (PORTABLE) INDICA TION: Respiratory failure COMPARISON: Chest radiograph 11/13/2019 FINDINGS: LINES/TUBES:Endotracheal tube terminates 3 7-m above the yeison. EKG leads overlie the chest. LUNGS:The lungs are well-inflated. There is perihilar fullness and indistinctness of the pulmonary vasculature. PLEURA:No pleural effusion or pneumothorax. MEDIASTINUM:The cardiomediastinal silhouette appears normal in size and shape. BONES/SOFT TISSUES:No acute osseous injury. ABDOMEN:No free air under the diaphragm. IMPRESSION: Mild interstitial edema. Mild bibasilar subsegmental atelectasis. Signed by: Tiffanie Hernandez MD on 11/14/2019 8:56 AM Dictated By: TIFFANIE HERNANDEZ MD 5 Transcribed By: LUIS on 11/14/19855 COPY TO: PERNELL BURDICK MD CHEST SINGLE (PORTABLE) 2019-11-13 19:18:00 [place] [address] Patient Name: JACK HURLEY MR #: [id number] : 1940 Age/Sex: 79/M Req #: [id number] Adm Physician: KEATON BRAY MD Ordered by: TJ BRAY DO Report #: [id number] Location: ICU Room/Bed: ICU [facility] Procedure: [id number] DX/CHEST SINGLE (PORTABLE) Exam Date: 11/13/19 Exam Time: 1825 REPORT STATUS: Signed EXAMINATION: CHEST SINGLE (PORTABLE) INDIC ATION: Intubated, verify tube position COMPARISON: Chest x-ray 11/12/2019 FINDINGS: TUBES and LINES: ET tube tip within the mid intrathoracic trachea. LUNGS/PLEURA: Lungs are within normal limits. Prominent pulmonary vasculature. Bilateral lower lung haziness. No pneumothorax. HEART AND MEDIASTINUM: Cardiac size is mildly enlarged. BONES AND SOFT TISSUES: No acute osseous lesion. Soft tissues are unremarkable. Degenerative changes in the spine and shoulders. UPPER ABDOMEN: No free air under the diaphragm. IMPRESSION: 1. ET tube tip within the mid intrathoracic trachea. 2. Mild cardiomegaly and pulmonary vascular congestion. 3. Bilateral lower lung haziness may be due to atelectasis or pleural effusions. Pneumonia not excluded. Signed by: Manish Bach DO on 11/13/2019 7:21 PM Dictated By: MANISH BACH DO 20 Transcribed By: LUIS on 11/13/191920 COPY TO: TJ BRAY DO CHEST SINGLE (PORTABLE) 2019-11-12 07:34:00 [place] [address] Patient Name: JACK HURLEY MR #: [id number] : 1940 Age/Sex: 79/M Req #: [id number] Adm Physician: KEATON BRAY MD Ordered by: PERNELL BURDICK MD Report #: [id number] Location: ICU Room/Bed: ICU [facility] Procedure: [id number] DX/CHEST SINGLE (PORTABLE) Exam Date: 11/12/19 Exam Time: 0600 REPORT STATUS: Signed EXAMINATION: CHEST SINGLE (PORTABLE) INDICA TION: sob [id number] COMPARISON: 11/11/2019 FINDINGS: AP view TUBES and LINES: Cardiac loop recorder overlying the left mid chest remains unchanged. LUNGS: Lungs are well inflated. Worsening bilateral interstitial edema. Bibasilar atelectasis are unchanged. PLEURA: Small left pleural effusion, unchanged. No pneumothorax. HEART AND MEDIASTINUM: Stable moderate enlargement of the cardiac silhouette. Enlarged pulmonary arteries consistent with pulmonary hypertension. BONES AND SOFT TISSUES: No acute osseous lesion. Soft tissues are unremarkable. UPPER ABDOMEN: No free air under the diaphragm. IMPRESSION: Interval worsening bilateral interstitial edema with a stable small left pleural effusion. Signed by: Dr. Melony Juarez M.D. on 11/12/2019 7:36 AM Dictated By: MELONY JUAREZ MD 5 Transcrib ed By: LUIS on 11/12/19735 COPY TO: PERNELL BURDICK MD CHEST SINGLE (PORTABLE) 2019-11-11 09:27:00 [place] [address] Patient Name: JACK HURLEY MR #: [id number] : 1940 Age/Sex: 79/M Req #: [id number] Adm Physician: KEATON BRAY MD Ordered by: PERNELL BURDICK MD Report #: [id number] Location: ICU Room/Bed: ICU [facility] Procedure: [id number] DX/CHEST SINGLE (PORTABLE) Exam Date: 11/11/19 Exam Time: 0815 REPORT STATUS: Signed Chest, portable AP view History: Pneumonia and h ypoxia Comparison: Chest CT dated test IMPRESSION: The cardiac silhouette is stable in size. Unchanged left pulmonary opacities in the lingula and lower lobe. No sizable pleural effusion. No pneumothorax. No acute osseous abnormalities. Signed by: Willem Lofton MD on 11/11/2019 9:29 AM Dictated By: WILLEM LOFTON MD 8 Transcribed By: LUIS on 11/11/19928 COPY TO: PERNELL BURDICK MD CT CHEST WO 2019-11-10 14:50:00 [facility] [address] [place] [address] Patient Name: JACK HURLEY MR #: [id number] : 1940 Age/Sex: 79/M Req #: [id number] Adm Physician: KEATON BRAY MD Ordered by: KEATON BRAY MD Report #: [id number] Location: ICU Room/Bed: ICU [facility] Procedure: [id number] CT/CT CHEST WO Exam Date: 11/10/19 Exam Time: 1353 REPORT STATUS: Signed EXAMINATION: CT scan of the chest without contrast. TECHNIQUE: Spiral CT images of the chest were performed from the lung apices to the level of the adrenal glands. No intravenous contrast was administered per referring physician request. Coronal and sagittal reformatted images were obtained. COMPARISON: Chest radiograph 11/09/2019, chest radiograph 11/10/2019 CLINICAL HISTORY:Shortness of breath, pneumonia DISCUSSION: ABSENCE OF INTRAVENOUS CONTRAST DECREASES SENSITIVITY FOR DETECTION OF FOCAL LESIONS AND VASCULAR PATHOLOGY. LINES/TUBES: None. LUNGS AND AIRWAYS: Postsurgical changes in the anterior right lung apex. Scattered foci of bandlike atelectasis or fibrotic change in the right upper lobe, lingula and, to a lesser extent the left lower lobe. Multifocal groundglass and nodular opacities predominantly within the lingula but also affecting the lower lobes. Calcified granuloma in the right lower lobe superior segment abutting the major fissure. Otherwise no gross mass lesion. No bronchiectasis. Filling defect in the left lower lobe posterior basal segmental bronchus. PLEURA: No pneumothorax or pleural effusions. HEART AND MEDIASTINUM: Visualized thyroid gland is unremarkable. No ectasia or aneurysmal dilatation of the thoracic aorta. Pulmonary outflow tract is of normal caliber. Atherosclerotic calcification of the aortic arch and [place] coronary arteries. No pericardial effusion. LYMPH NODES: Hilar and mediastinal lymph nodes are increased in number but not enlarged by CT criteria. ABDOMEN: Visualized portions of the liver, spleen, gallbladder, adrenals, and pancreas are unremarkable with the exception of a subcentimeter hypoattenuating lesion in hepatic segment 5, partially visualized, too small to further characterize but likely to represent a small cyst. BONES AND SOFT TISSUES: No osseous destructive lesions. No focal soft tissue abnormalities. IMPRESSION: Patchy multifocal groundglass and nodular opacities predominantly within the lingula and affecting the lower lobes to a lesser extent are nonspecific though concerning for viral or atypical infection. Left lower lobe basal segmental mucous plugging. Postsurgical changes of the right lung apex with scattered foci of bandlike atelectasis or fibrotic change. Atherosclerotic vascular disease. Signed by: Dr. Pernell Dyer M.D. on 11/10/2019 3:03 PM Dictated By: PERNELL DYER MD 1503 Transcribed By: LUIS on 11/10/19 1503 COPY TO: KEATON BRAY MD CHEST SINGLE (PORTABLE) 2019-11-10 08:19:00 [place] [address] Patient Name: JACK HURLEY MR #: [id number] : 1940 Age/Sex: 79/M Req #: [id number] Adm Physician: KEATON BRAY MD Ordered by: PERNELL BURDICK MD Report #: [id number] Location: ICU Room/Bed: ICU [facility] Procedure: [id number] DX/CHEST SINGLE (PORTABLE) Exam Date: 11/10/19 Exam Time: 0540 REPORT STATUS: Signed Chest, 1 view, 11/10/2019. History: Shor tness of breath. Comparison: 11/09/2019. Findings: The cardiomediastinal silhouette and pulmonary vasculature are within normal limits for a portable exam. A calcified granuloma is present in the right upper lobe. Patchy opacities are present in the lingula and left lower lobe. The right lung is clear. There are no acute osseous or soft tissue abnormalities. Impression: Left sided pulmonary opacities without significant change. Signed by: Tj Stevenson on 11/10/2019 8:21 AM Dictated By: TJ STEVENSON MD 0 Transcribed By: LUIS on 11/10/19820 COPY TO: PERNELL BURDICK MD CHEST SINGLE (PORTABLE) 2019-11-09 17:31:00 [place] [address] Patient Name: JACK HURLEY MR #: [id number] : 1940 Age/Sex: 79/M Req #: [id number] Adm Physician: Ordered by: TJ BRAY DO Report #: [id number] Location: ER Room/Bed: Procedure: [id number] DX/CHEST SINGLE (PORTABLE) Exam Date: 11/09/19 Exam Time: 1715 REPORT STATUS: Signed EXAM: CHEST SINGLE (PORTABLE) DATE: 11/09/2019 4:36 PM INDICATION: COPD COMPARISON: None FINDINGS: Implanted cardiac monitoring device is noted overlying the left hemithorax. The trachea is midline. Increased opacity present within the left lower lung zone which may reflect atelectasis and/or small pleural effusion. There is no evidence for large focal consolidation or pneumothorax. Suspected calcified granuloma noted overlying the right upper lung zone. The cardiomediastinal silhouette is partially obscured but appears grossly unremarkable. No acute osseous abnormality identified. IMPRESSION: Increased opacity within the left lower lung zone which likely reflects atelectasis and/or small pleural effusion. Underlying airspace process cannot be entirely excluded on the basis of this examination. Signed by: Dr. Jackson Delgado MD on 11/09/2019 5:36 PM Dictated By: JACKSON DELGADO MD 1736 Transcribed By: LUIS on 11/09/19 173 COPY TO: TJ BRAY DO
--- OUTSIDE RECORDS SUMMARY | 2019-11-18 11:06 | XMS REPORT | Summary of Care ---
Author Author KELI Tilley, ANMOL Organization Unknown Address Unknown Phone Unavailable Care Team Providers Care Colorer Machine Name Role Phone KELI Tilley, ANMOL Unavailable Unavailable LORA ROBERTS, RENATO Unavailable Unavailable BIENVENIDO ROBERTS, LEONARDO GUNTER Unavailable Unavailable JEAN ROBERTS, ZEKE Unavailable Unavailable Functional Status Name Dates Details Functional status health issues are not documented Status: Name Dates Details Cognitive status health issues are not documented Status: Problems Name Dates Details Nodule of right lung (793.11, R91.1) Status: Active Primary cancer of right upper lobe of lung (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.3, C34.11) Status: Active Medications Name Dates Details Aspirin 81 MG TABS Active Atorvastatin Calcium 40 MG Oral Tablet * Refills: 0 Active Clopidogrel Bisulfate 75 MG Oral Tablet * Refills: 0 Active Dofetilide 500 MCG Oral Capsule * Refills: 0 Active Furosemide 80 MG Oral Tablet * Refills: 0 Active Levothyroxine Sodium TABS * Refills: 0 Active MetFORMIN HCl - 500 MG Oral Tablet * Refills: 0 Active Metoprolol Tartrate 100 MG Oral Tablet * Refills: 0 Active Potassium Chloride 20 MEQ TBCR * Refills: 0 Active Warfarin Sodium 7.5 MG Oral Tablet * Refills: 0 Active Allergies and Adverse Reactions Name Dates Details No Known Allergies (Allergy) Status: Active Procedures Procedure Dates Details History of Thoracoscopy Completed 12-May-2018 Immunization Name Dates Details Immunizations not documented Social History Name Dates Details - Status: Name Dates Details Current every day smoker Vital Signs Date Test Result Details 5-Qin-741852:00 BP Systolic 140 mm[Hg] Status: Comments: Location: LUE; Position: Sitting BP Diastolic 84 mm[Hg] Status: Comments: Location: LUE; Position: Sitting Height 76 in Status: Weight 315 lb Status: Body Mass Index Calculated 38.34 kg/m2 Status: Body Surface Area Calculated 2.69 m2 Status: Heart Rate 67 /min Status: Results Date Description Value Details 76-Ywu-678127:23 XRAY Chest 2 views [id number] Chest 2 views SEE NOTES Comments: Clinical Indication: Coughing - preop examComparison: 02/16/2018FINDINGS:The PA and lateral chest radiographs shows normal lung volumes withoutinterstitial or airspace opacities, pleural effusions or pn eumothorax.The heart size and pulmonary vasculature are normal. The trachea is midline.There are no clinically significant osseous abnormalities noted.IMPRESSION:No chest radiographic evidence of acute cardiopulmonary disease.SL: [id number]--Kynr by: Bakari Bae MDDictated Date/time: 05/10/18 11:16Electronically Signed by: Bakari Bae MD 05/10/1811:16FINAL REPORT 13-Aqc-04972:24 XRAY Chest 2 views 80941 Chest 2 views SEE NOTES Comments: Patient Name: JACK HURLEY : 2Age: 77 years, Male MR: [id number]: Chest 2 views DX 05/28/2018 9:25 AM CDTExamination: Chest, 2 views. Indication: Pulmonary nodule. P ostoperative evaluation.Clinical information: - R91.1 Solitary pulmonary nodule.Comparison: Portable chest 05/14/2018. CT biopsy 02/16/2018Findings:Lines/tubes: None.Heart: Normal cardiac silhouette.Vessels: The pulmonary vasculature is within normal limits. Atheroscleroticcalcifications of the aortic arch.Mediastinum: No mediastinal or hilar mass or lymphadenopathy. Lungs: No parenchymal mass. No focal consolidation. Pulmonary nodulemeasuring 9.9 mm projects over the right upper lobe between the right [id number] and 6th ribs.Pleura: No pleural effusion. No pneumothorax.Soft tissues: Normal. No axillary mass or lymphadenopathy.Bones: No acute osseous abnormality. Degenerative changes of the thoracicspine.IMPRESSION:No acute radiographic abnormality.Right upper lobe pulmonary nodule.SL: [id number]--Tbff by: Diogo Menchaca MDDictated Date/time: 05/28/18 10:30Electronically Signed by: Diogo Menchaca MD 05/28/1810:37FINAL REPORT Plan of Care Name Dates Details Planned Observations Planned Goals not documented Interventions Provided Plan* He will continue to follow up with his oncologist. I would be happy to see her in the future if needed. Instructions Name Dates Details Instructions not documented Encounters Appointment; JANIS NASCIMENTO M.D. Encounter Diagnosis: Problem not documented On: 18-Dec-2017 10:00 Appointment; RADIOLOGY, MD PROVIDER Encounter Diagnosis: Problem not documented On: 08-Feb-2018 10:00 Appointment; JANIS NASCIMENTO M.D. Encounter Diagnosis: Problem not documented On: 22-Feb-2018 9:15 Appointment; ANMOL DICKEY M.D. Encounter Diagnosis: Problem not documented On: 19-Apr-2018 13:15 Appointment; ANMOL DICKEY M.D. Encounter Diagnosis: Problem not documented On: 31-May-2018 10:00
[2019-11-18] MEDS: SENNA-S TABLET PO SCH (16:43)
--- NOTE | 2019-11-18 17:04 | Progress Note ---
DATE: 11/18/2019 Cardiology Progress Note SUBJECTIVE: No major events overnight. Still on high-flow nasal cannula. OBJECTIVE: VITAL SIGNS: Temperature afebrile, pulse 56, respiratory rate 20, blood pressure 146/94, and saturating 95% on 6 L nasal cannula. GENERAL: Well-developed, well-nourished male, in no acute distress. CARDIOVASCULAR: Regular rate and rhythm. No murmurs, rubs, or gallops. LUNGS: Coarse breath sounds bilaterally. ABDOMEN: Soft, nontender, and nondistended. Obese. NEURO AND PSYCH: Alert and oriented x3. INPATIENT MEDICATIONS: Reviewed. LABORATORY DATA: Reviewed. TELEMETRY DATA: Reviewed. Shows normal sinus rhythm with sinus bradycardia. ASSESSMENT AND PLAN: 1. Influenza pneumonia. 2. Respiratory failure, now extubated. 3. Atrial fibrillation with rapid ventricular response, now in sinus rhythm. 4. Chronic venous insufficiency. RECOMMENDATIONS: Continue apixaban and amiodarone. We will cut the dose of metoprolol given bradycardia. Continues to recover from his pneumonia. Thank you for this consult. We will continue to follow. MD EVANGELINA OviedoP/MODL /[id number]
[2019-11-18] MEDS: ATORVASTATIN 40 MG TAB PO SCH (20:40)
--- NOTE | 2019-11-18 20:56 | Progress Note ---
DATE: 11/18/2019 Psychiatric Progress Note SUBJECTIVE: The patient evaluated and events noted. The patient is in the room. He is alert, awake, and oriented to situation. is in the room. He states that he is doing really well. He denies any depression, but reports feeling less anxious. He denies any problem with sleep or appetite. He denies any hallucination. He denies any suicidal ideation. He denies any hallucination. He denies any side effects from medication. ASSESSMENT: Adjustment disorder with mixed mood. PLAN: 1. Continue with Zoloft 25 mg p.o. daily. 2. Monitor for mood. 3. Supportive therapy. Dictated by Anya Pacheco PA-C Talia Butler MD QTV/MODL /[id number]
--- NOTE | 2019-11-18 23:49 | NUR ---
received patient from ICU, he is on med surg, and with telemetry status. he is awake alert oriented, moved with the bed. per reports he worked with PT and able to walk to bathroom. he had 2x bowel movements today. no distress noted at this time, will continue to monitor.
[2019-11-19] VITALS (7 sets, daily range): BP systolic 92–174; BP diastolic 57–97
--- NOTE | 2019-11-19 03:02 | NUR ---
Disregard this discharge assessment as the nurse documented on incorrect pt. Nurse Linda Lares RN to correct upon return this morning at 0700 and Charge nurse Myesha Snyder RN will be notified of need for data correction as well. Addendum: 11/19/19 at 0304 by Ana Khoury RN Amended: Links added. Addendum: 11/19/19 at 0712 by Gadiel Black RN Done.
[2019-11-19] MEDS: HYDRALAZINE HCL 20 MG/ML VIAL IV PRN ×2 (04:54→22:00)
[2019-11-19] MEDS: LEVOTHYROXINE SODIUM 50 MCG TAB PO SCH (06:38)
[2019-11-19] MEDS: INSULIN LISPRO 100 UNIT/1 ML 3ML VIAL SQ SCH ×4 (07:30→22:00)
[2019-11-19] MEDS: APIXABAN 5 MG TABLET PO SCH ×2 (08:30→18:05)
[2019-11-19] MEDS: PANTOPRAZOLE 40 MG 10ML VIAL IV SCH (08:30)
[2019-11-19] MEDS: POTASSIUM CHLORIDE 20 MEQ TAB CR PO SCH (08:31)
[2019-11-19] MEDS: SENNA-S TABLET PO SCH ×2 (08:31→17:00)
[2019-11-19] MEDS: AMIODARONE HCL 200 MG TAB PO SCH (08:31)
[2019-11-19] MEDS: METOPROLOL TARTRATE 50 MG TAB PO SCH (08:32)
[2019-11-19] MEDS: SERTRALINE HCL 50 MG TAB PO SCH (08:32)
[2019-11-19] MEDS: FUROSEMIDE 40 MG TAB PO SCH (08:36)
--- NOTE | 2019-11-19 11:34 | NUR ---
Rounds performed, order received for home O2. Home O2 eval pending, awaiting O2 sat documentation, spoke to RT. PT working with patient.
--- NOTE | 2019-11-19 13:48 | NUR ---
Spoke with patient, he states [facility]. Informed him he will likely remain with [facility]. Patient is on Bipap at this time. States he does not have one at home. Patient states he is probably going home on [place]. Choice signed for rhema, and choice and order placed on the chart but not sent d/t patient likely remaining here through Thursday. Also SNF is a possibility
--- NOTE | 2019-11-19 18:00 | NUR ---
Handoff report to Laura NAVA, made aware patient requires C-pap when sleeping
--- NOTE | 2019-11-19 18:11 | Progress Note ---
DATE: 11/19/2019 SUBJECTIVE: The patient denies chest pain or shortness of breath. He was noted to desaturate off supplemental oxygen. OBJECTIVE: VITAL SIGNS: Temperature 97.6 degrees, pulse 78, respiratory rate 24, blood pressure 154/96, oxygen saturation 99% on 3 L nasal cannula. GENERAL: Morbidly obese gentleman in no acute distress. Awake and alert. LUNGS: Clear to auscultation bilaterally. No wheezes or crackles. CARDIOVASCULAR: Normal rate, regular rhythm. No murmur. Normal S1, S2. ABDOMEN: Soft, nontender. EXTREMITIES: Trace edema. CARDIAC MEDICATIONS: 1. Lasix 80 mg p.o. daily. 2. Metoprolol tartrate 50 mg p.o. daily. 3. Amiodarone 200 mg p.o. daily. 4. Apixaban 5 mg p.o. b.i.d. 5. Levothyroxine 75 mcg p.o. daily. 6. Atorvastatin 40 mg p.o. at bedtime. LABORATORY DATA: None today. TELEMETRY: Normal sinus rhythm. IMPRESSION: 1. Influenza. 2. Pneumonia. 3. Sepsis secondary to above. 4. Acute respiratory failure, now extubated. 5. Atrial fibrillation with rapid ventricular response, currently sinus rhythm. 6. Chronic venous insufficiency. 7. Peripheral arterial disease, status post intervention. 8. Hypertension. 9. Diabetes mellitus. RECOMMENDATIONS: Continue current cardiac medications. Monitor the patient closely on telemetry. Continue Eliquis for CVA prophylaxis. Monitor volume status closely. Goal to keep patient euvolemic. No further cardiac evaluation is indicated at this time. Continue supportive care. Thank you for this consult. We will continue to follow. Crys Solomon MD ABS/MODL /[id number]
--- NOTE | 2019-11-19 20:00 | NUR ---
pt received. pt assessed. no ss of distress noted. assisted pt up to bedside commode and back to bed. tele in place. 02 nc noted. no co pain. will cont to follow poc. call davey within reach.
[2019-11-19] MEDS: ATORVASTATIN 40 MG TAB PO SCH (22:00)
[2019-11-20] VITALS (8 sets, daily range): BP systolic 131–163; BP diastolic 61–84
[2019-11-20] MEDS ORDERED: ALBUTEROL/IPRATROPIUM 3 ML NEB NEB SCH (01:00)
--- NOTE | 2019-11-20 03:00 | NUR ---
pt stated bed was uncomfortable. assisted pt to reclining chair. no distress noted. call davey within reach.
--- NOTE | 2019-11-20 03:50 | NUR ---
pt resting in chair. no ss of distress noted. call davey within reach.
[2019-11-20] MEDS: LEVOTHYROXINE SODIUM 50 MCG TAB PO SCH (05:31)
--- NOTE | 2019-11-20 07:00 | NUR ---
BEDSIDE SHIFT REPORT RECEIVED FROM THE JUICE BAR TEAM MEMBER RN. EDUCATED PT ABOUT FALL PRECAUTIONS. CALL LIGHT WITH IN EASY REACH. INSTRUCTED PT TO USE CALL LIGHT FOR ALL THE NEEDS. PT VERBALIZED UNDERSTANDING. BED IS LOW AND LOCKED. SIDE RAILS X2. BED ALARM IS ON. AT BEDSIDE. PT DENIES NEEDS AT THIS TIME.
[2019-11-20] MEDS: INSULIN LISPRO 100 UNIT/1 ML 3ML VIAL SQ SCH ×4 (07:30→20:54)
[2019-11-20] MEDS: AMIODARONE HCL 200 MG TAB PO SCH (08:24)
[2019-11-20] MEDS: FUROSEMIDE 40 MG TAB PO SCH (08:25)
[2019-11-20] MEDS: APIXABAN 5 MG TABLET PO SCH ×2 (08:25→16:18)
[2019-11-20] MEDS: METOPROLOL TARTRATE 50 MG TAB PO SCH (08:26)
[2019-11-20] MEDS: SERTRALINE HCL 50 MG TAB PO SCH (08:26)
[2019-11-20] MEDS: POTASSIUM CHLORIDE 20 MEQ TAB CR PO SCH (08:27)
[2019-11-20] MEDS: PANTOPRAZOLE 40 MG 10ML VIAL IV SCH (08:35)
[2019-11-20] MEDS: SENNA-S TABLET PO SCH ×2 (08:35→16:18)
--- NOTE | 2019-11-20 10:00 | NUR ---
PT REFUSED SENNA TABLET AND INFORMED DOESN'T WANT ANY MORE
[2019-11-20] MEDS: ALBUTEROL/IPRATROPIUM 3 ML NEB NEB SCH ×3 (14:00→23:00)
--- NOTE | 2019-11-20 17:12 | Progress Note ---
DATE: 11/20/2019 Cardiology Progress Note SUBJECTIVE: The patient denies chest pain or shortness of breath. OBJECTIVE: VITAL SIGNS: Temperature 96.6 degrees, pulse 56, respiratory rate 20, blood pressure 159/81, oxygen saturation 96% on 2 L nasal cannula. GENERAL: Morbidly obese woman, no acute distress. Awake and alert. LUNGS: Clear to auscultation bilaterally. No wheeze or crackles. CARDIOVASCULAR: Normal rate, regular rhythm. No murmur. Normal S1, S2. ABDOMEN: Soft, nontender. EXTREMITIES: Trace edema. CARDIAC MEDICATIONS: Apixaban 5 mg p.o. b.i.d., metoprolol tartrate 50 mg p.o. daily, furosemide 80 mg p.o. daily, amiodarone 200 mg p.o. daily, levothyroxine 25 mcg p.o. daily, atorvastatin 40 mg p.o. at bedtime. LABORATORY DATA: None today. TELEMETRY: Sinus bradycardia. IMPRESSION: 1. Influenza. 2. Pneumonia. 3. Sepsis secondary to above. 4. Acute respiratory failure, now extubated. 5. Atrial fibrillation with rapid ventricular response, currently sinus rhythm. 6. Chronic venous insufficiency. 7. Peripheral arterial disease, status post intervention. 8. Hypertension. 9. Diabetes mellitus. RECOMMENDATIONS: Continue current cardiac medications. Monitor patient closely on telemetry. Continue Eliquis for CVA prophylaxis. Monitor volume status. Goal to keep the patient net even. No further cardiac evaluation is indicated at this time. Continue supportive care. Thank you for this consult. We will continue to follow. Crys Solomon MD ABS/MODL /[id number]
--- NOTE | 2019-11-20 19:00 | NUR ---
BEDSIDE SHIFT REPORT GIVEN TO THE PAPER FEEDER RN. PT DENIED FURTHER NEEDS
--- NOTE | 2019-11-20 19:25 | NUR ---
Received bedside report from day nurse. Patient sitting in chair, no s/s of distress at this time. All safety measures in place. Family at bedside. Will continue to monitor.
[2019-11-20] MEDS: ATORVASTATIN 40 MG TAB PO SCH (20:54)
--- NOTE | 2019-11-20 22:11 | NUR ---
Patient sitting in recliner chair on room air. No s/s of distress at this time. All safety measures in place. Call light placed within reach. Will continue to monitor.
[2019-11-21] VITALS (8 sets, daily range): BP systolic 132–194; BP diastolic 63–84
[2019-11-21] MEDS: ALBUTEROL/IPRATROPIUM 3 ML NEB NEB SCH ×5 (03:00→23:20)
[2019-11-21] MEDS: LEVOTHYROXINE SODIUM 50 MCG TAB PO SCH (05:51)
--- NOTE | 2019-11-21 07:00 | NUR ---
BEDSIDE SHIFT REPORT RECEIVED FROM THE QUALITY SYSTEM MANAGER RN. EDUCATED PT ABOUT FALL PRECAUTIONS. CALL LIGHT WITH IN EASY REACH. INSTRUCTED PT TO USE CALL LIGHT FOR ALL THE NEEDS. PT VERBALIZED UNDERSTANDING. BED IS LOW AND LOCKED. SIDE RAILS X2. PT DENIES NEEDS AT THIS TIME.
--- NOTE | 2019-11-21 07:10 | NUR ---
Bedside report given to oncoming nurse. Patient resting in recliner chair, no s/s of distress or c/o pain at this time. All safety measures in place.
[2019-11-21] MEDS: INSULIN LISPRO 100 UNIT/1 ML 3ML VIAL SQ SCH ×4 (07:30→21:00)
[2019-11-21] MEDS: AMIODARONE HCL 200 MG TAB PO SCH (08:02)
[2019-11-21] MEDS: APIXABAN 5 MG TABLET PO SCH ×2 (08:02→17:00)
[2019-11-21] MEDS: FUROSEMIDE 40 MG TAB PO SCH (08:02)
[2019-11-21] MEDS: METOPROLOL TARTRATE 50 MG TAB PO SCH (08:03)
[2019-11-21] MEDS: SERTRALINE HCL 50 MG TAB PO SCH (08:03)
[2019-11-21] MEDS: PANTOPRAZOLE 40 MG 10ML VIAL IV SCH (08:04)
[2019-11-21] MEDS: SENNA-S TABLET PO SCH ×2 (08:04→16:41)
[2019-11-21] MEDS: POTASSIUM CHLORIDE 20 MEQ TAB CR PO SCH (08:04)
[2019-11-21 11:20] LABS: BASOPHILS % 0.3 % (0.0-1.0); EOSINOPHILS # (AUTO) 0.1 (0.0-0.4); EOSINOPHILS % 1.9 % (0.0-6.0); HEMATOCRIT 38.1 % (38.2-49.6); HEMOGLOBIN 12.1 g/dL (14.0-18.0); LYMPHOCYTES # (AUTO) 0.8 (1.0-3.2); LYMPHOCYTES % 11.2 % (18.0-39.1); MEAN CORPUSCULAR HEMOGLOBIN 30.5 pg (28-32); MEAN CORPUSCULAR HGB CONC 31.8 g/dL (31-35); MONOCYTES # (AUTO) 0.9 (0.2-0.8); MONOCYTES % 13.2 % (4.4-11.3); NEUTROPHILS # (AUTO) 4.9 (2.1-6.9); NEUTROPHILS % 72.4 % (38.7-80.0); PLATELET COUNT 268 x10e3/uL (140-360); RED BLOOD COUNT 3.97 x10e6/uL (4.3-5.7); RED CELL DISTRIBUTION WIDTH 13.4 % (11.7-14.4)
[2019-11-21 11:35] LABS: BLOOD UREA NITROGEN 11 mg/dL (7-26); BUN/CREATININE RATIO 12 (6-25); CARBON DIOXIDE 30 mmol/L (22-29); CHLORIDE 98 mmol/L (98-107); CREATININE, SERUM 0.91 mg/dL (0.72-1.25); EST GLOMERULAR FILTRATION RATE > 60 ML/MIN (60-); GLUCOSE 157 mg/dL (74-118); SODIUM 137 mmol/L (136-145)
--- NOTE | 2019-11-21 12:30 | NUR ---
TIJERINA REMOVED PER THE ORDER FROM DR. BRAY. PT TOLERATED WELL. DENIED FURTHER NEEDS.
--- NOTE | 2019-11-21 12:35 | NUR ---
VOID DUE AT 1830.
--- NOTE | 2019-11-21 15:11 | NUR ---
Received order for home health. Anticipate dc tomorrow. CM spoke to pt at bedside. Pt is agreeable to have home health set up. States to use company in network with insurance. Choice letter signed for [facility], [facility] and [facility]. Copy to pt. IMM letter delivered and explained to pt. He verbalized understanding. Signed copy in chart. Copy to pt. CM contact information given to pt's for any questions/concerns. Pt declines need for any DME. States he has his walker already that he uses. Home O2 eval was completed. Pt sat 93% on RA, and 92% on exertion. Home Health referral was faxed to [facility] at [phone]/ .
--- NOTE | 2019-11-21 15:30 | NUR ---
PT VOIDED 300 ML. DENIES NEEDS AT THIS TIME. NO DISCOMFORT NOTED.
--- NOTE | 2019-11-21 19:00 | NUR ---
BEDSIDE SHIFT REPORT GIVEN TO THE CROSSBAR FRAME WIRER RN. PT DENIED FURTHER NEEDS.
--- NOTE | 2019-11-21 19:16 | NUR ---
RECEIVED PT SITTING ON THE CHAIR AOX3 .DENIES PAIN .RESPIRATIONS ARE EVEN AND UNLABORED .CALL LIGHT WITH IN REACH .CONTINUE TO MONITOR
[2019-11-21] MEDS: ATORVASTATIN 40 MG TAB PO SCH (22:03)
[2019-11-22] VITALS: BP 166/74
[2019-11-22] MEDS: ALBUTEROL/IPRATROPIUM 3 ML NEB NEB SCH ×2 (03:00→07:59)
[2019-11-22 04:00] VITALS: BP 140/72
[2019-11-22] MEDS: LEVOTHYROXINE SODIUM 50 MCG TAB PO SCH (06:00)
--- NOTE | 2019-11-22 06:04 | NUR ---
PT RESTED DURING THE NIGHT .DENIES PAIN ..CALL LIGHT WITH IN REACH .CONTINUE TO MONITOR
--- NOTE | 2019-11-22 07:09 | NUR ---
BEDSIDE REPORT GIVEN TO THE ONCOMING NURSE .PT IS IN STABLE CONDITION
[2019-11-22] MEDS: INSULIN LISPRO 100 UNIT/1 ML 3ML VIAL SQ SCH (07:30)
[2019-11-22 08:10] VITALS: BP 146/66
[2019-11-22] MEDS: SENNA-S TABLET PO SCH (08:54)
[2019-11-22] MEDS: APIXABAN 5 MG TABLET PO SCH (08:55)
[2019-11-22] MEDS: POTASSIUM CHLORIDE 20 MEQ TAB CR PO SCH (08:56)
[2019-11-22] MEDS: METOPROLOL TARTRATE 50 MG TAB PO SCH (08:56)
[2019-11-22] MEDS: AMIODARONE HCL 200 MG TAB PO SCH (08:56)
[2019-11-22] MEDS: SERTRALINE HCL 50 MG TAB PO SCH (08:57)
[2019-11-22] MEDS ORDERED: OMEPRAZOLE 20 MG CAP PO SCH (09:00)
[2019-11-22] MEDS: FUROSEMIDE 40 MG TAB PO SCH (09:02)
--- NOTE | 2019-11-22 09:36 | NUR ---
Follow up Note RD Recommendation(s) for Physician: -Continue current diet regimen Plan of Care: RD following, monitoring for tolerance and adequacy Nutrition reason for involvement: follow up RD Assessment 11/22: Follow up: Pt was seen sitting in his chair, consuming breakfast. Pt reported that he has good appetite, denied N/V/C/D/chewing or swallowing issues. Pt also denied education. Pt did have some complaints regarding diet restrictions, reported to the pt the MD wants him to follow this diet. Pt verbalized understanding and reported his and himself try to follow the DM diet at home. Pt is on NC. Possible d/c today. Pt has been consuming 25-75% of his meals per meal assessment. Will continue to monitor. (11/17/19). Pt was extubated and is now on a diet. Per documentation, pt consumed 50% of meals today. Prior to admission, pt reports eating >50% of meals. Pt is unsure if he had any recent wt changes and usually weighs 340 lbs; however, pt has a wt of 331 lbs in chart. No N/V/D/C noted. Will continue to monitor. (11/14/19) Pt is a 79 year old male admitted with pneumonia, hypoxia, respiratory distress, and renal insufficiency. Pt was intubated on 11/13 and receiving propofol @ 12 mL/hr (provides 317 kcal) per RN at time of visit. There were no family members present. Per documentation, pt was previously eating 25-100% of meals during admission. If pt is to remain intubated, recommend enteral nutrition. Will continue to monitor. Principal Problems/Diagnoses: pneumonia, hypoxia, respiratory distress, and renal insufficiency PMH: diabetes, CAD, afib, COPD, smoker, hypothyroid, HTN, dyslipidemia, and obstructive sleep apnea I/O:4312/2800 ml GI: last recorded BM 11/22 Skin: intact Labs: 11/22: POC GM: 137-167 (11/17/19) Reviewed (11/14/19) HgbA1c 7.5%, Glu 173 Meds: metroprolol, lasix, protonix, levothyroxine, Lipitor, insulin lispro, K-DUR given, dulcolax Ht: 74 inches Wt: 330 lbs BMI: 42.4 kg/m2 IBW: 190 lbs Malnutrition Evaluation (11/14/19) The patient does not meet criteria for a specified degree of malnutrition at this time. Will re-evaluate at follow-up as appropriate. Nutrition Prescription (Diet Order): Cardiac/ADA diet with mechanical soft diet consistency Estimated Nutritional Needs: 7361-1354 calories/day (22-25 kcal/kg IBW) 130-216 g protein/day (1.5-2.5 g pro/kg IBW) Diet Adequacy: Pt reports eating 50% of his meals. Tolerance: Tolerating PO Diet Education Needs Assessment: Pt was not interested in diet education materials at time of visit. Nutrition Care Level: low Nutrition Diagnosis: Swallowing difficulty related to respiratory failure/mechanical ventilation as evidenced by NPO status. (RESOLVED) Goal: Patient will meet 75-100% of estimated needs by follow up Progress: progressing Interventions: -carbohydrate/fat/sodium/mech soft- modified diet Monitoring/Evaluation: -Total energy intake, Total protein intake, Modified diet, Weight change Signed: Tatiana Monreal RD, LD
[2019-11-22 10:04] VITALS: BP 146/66
--- NOTE | 2019-11-22 11:38 | NUR ---
Spoke with Chiquita with intake at [facility]. They will be able to see pt on 11/24/19 HOME HEALTH DISCHARGE NOTE PATIENT ADDRESS WHERE SERVICE WILL BE RECEIVED: [address], [place] [address] PATIENT CONTACT NUMBER: [phone] NAME OF HOME HEALTH COMPANY: [facility] TELEPHONE/FAX NUMBER OF COMPANY: P [phone] / F [phone] ADDRESS OF COMPANY: [facility] [place] [address] SERVICES TO RECEIVE: SN, PT, OT ANTICIPATED DATE SERVICES WILL BEGIN: November 24, 2019 Please call the company above if you have not received a call to schedule a home visit within 24 hours of discharge.
--- NOTE | 2019-11-22 12:08 | Progress Note ---
DATE: Cardiology Progress Note SUBJECTIVE: The patient feels better. Denies any chest pain or shortness of breath. OBJECTIVE: VITAL SIGNS: Temperature is 97.4, heart rate is 60, respirations are 20, blood pressure is 146/66, and oxygen saturation is 99% on 3 L nasal cannula. GENERAL: Well-appearing, in no apparent distress. CARDIOVASCULAR: Regular rate and rhythm. No murmurs. Normal S1 and S2. LUNGS: Clear to auscultation. ABDOMEN: Soft, nontender, and nondistended. EXTREMITIES: Trace edema. CARDIOVASCULAR MEDICATIONS: Reviewed. LABORATORY DATA: Showed a creatinine of 0.9 yesterday with a hemoglobin of 12. Telemetry monitoring revealed normal sinus rhythm. IMPRESSION: 1. Influenza. 2. Pneumonia. 3. Sepsis. 4. Acute respiratory failure, now improved. 5. Paroxysmal atrial fibrillation. 6. Chronic venous insufficiency. 7. Peripheral arterial disease. 8. Hypertension. 9. Diabetes mellitus. RECOMMENDATIONS: Continue current cardiovascular medications. Vital signs are stable. Continue Eliquis for CVA prophylaxis. Maintain the patient at night even with diuresis. No further cardiac testing is required at this point in time. He is safe for discharge from cardiovascular standpoint. Angelo De La Torre DO BM/MODL /[id number]
[2019-11-22 12:21] VITALS: BP 178/93
--- NOTE | 2019-11-22 12:49 | Discharge Summary ---
PRIMARY CARE PHYSICIAN: Dr. Amrit Delarosa. CONSULTANTS: 1. Dr. Mariee. 2. Dr. Keila Miles. 3. Dr. Talia Butler. 4. Dr. Justin Sharp. FINAL DIAGNOSES: 1. Status post respiratory failure, status post ventilator support. 2. Influenza. 3. Pneumonia. 4. Atrial fibrillation with rapid ventricular rate response, resolved. 5. Morbid obesity. 6. Baseline sleep apnea, pulmonary hypertension, multiple other medical problems. SUMMARY: The patient is a 79-year-old male came in with sepsis associated with influenza and pneumonia, went into respiratory failure, required intubation. The patient did better. He was subsequently extubated on BiPAP and then subsequently transferred out of the ICU. The patient responded to antibiotics. He did much better. He completed the course of Tamiflu. He is off antibiotics. His rapid atrial fibrillation is now resolved to control rate. The patient is on Eliquis. He did not require oxygen. Oxygen evaluation was done and the patient passed. The patient is comfortable. He will go home today. He will resume his home medication. I will change the amiodarone from 400 mg to 200 mg daily. We will change Eliquis from 5 mg daily to 5 mg twice a day. 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 The patient is stable and discharged home today. Prescription for amiodarone 200 mg daily given and Eliquis 5 mg b.i.d. given. Medication reconciliation is done. MD ANGEL Chase/NEO /[id number]
== END 2019-11-22 11:50 | disposition home health service (06) | DRG 871 ==
LOC: ER 16:26 → ERHOLD 17:43 → ICU 20:20 → IMCU 11-18 23:30 → MED/SURG2 11-19 18:37
PROVIDERS: ADMIT Internal Medicine; ATTEND Internal Medicine
PROC: 5A1945Z Respiratory Ventilation, 24-96 Consecutive Hours (ICD-10-PCS; principal; 2019-11-13)
PROC: 0BH18EZ Insertion of Endotracheal Airway into Trachea, Via Natural or Artificial Opening Endoscopic (ICD-10-PCS; 2019-11-13)
DX: A41.89 Other specified sepsis (principal); J15.9 Unspecified bacterial pneumonia; J96.01 Acute respiratory failure with hypoxia; Z68.41 Body mass index [BMI] 40.0-44.9, adult; J44.1 Chronic obstructive pulmonary disease with (acute) exacerbation; J44.0 Chronic obstructive pulmonary disease with (acute) lower respiratory infection; J09.X2 Influenza due to identified novel influenza A virus with other respiratory manifestations; I48.0 Paroxysmal atrial fibrillation; Z79.01 Long term (current) use of anticoagulants; E66.01 Morbid (severe) obesity due to excess calories; G47.30 Sleep apnea, unspecified; I27.20 Pulmonary hypertension, unspecified; E11.51 Type 2 diabetes mellitus with diabetic peripheral angi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; Z79.4 Long term (current) use of insulin; I87.2 Venous insufficiency (chronic) (peripheral); F43.23 Adjustment disorder with mixed anxiety and depressed mood; Z85.118 Personal history of other malignant neoplasm of bronchus and lung; E03.9 Hypothyroidism, unspecified; I11.0 Hypertensive heart disease with heart failure; I50.9 Heart failure, unspecified; F17.210 Nicotine dependence, cigarettes, uncomplicated
CPT/HCPCS: 36415; 36600; 71045; 71250; 80048; 80053; 80202; 81001; 82550; 82553; 82805; 82948; 83036; 83605; 83735; 83880; 84100; 84443; 84484; 85025; 87040; 87070; 87205; 87400; 93005; 94002; 94003; 94640; 94660; 96372; 96376; 97139; 99284; J0330; J0360; J1100; J1650; J2250; J2543; J3370; J7030; J7050; J7512

== ENCOUNTER 2020-05-11 12:48 | Emergency (ER) | payer MEDICARE ==
[~2020-05-11] VITALS: Ht 188 cm; Wt 149.7 kg
[~2020-05-11 12:48] MED LIST changes: +ELIQUIS5 MG PO; +PACERONE400 MG PO
--- OUTSIDE RECORDS SUMMARY | 2020-05-11 12:51 | XMS REPORT | Summary of Care ---
Author Author [facility] Organization [facility] Address Unknown Phone Unavailable Encounter CRISTOBAL Quintero(MATT) [id number] Date(s): 05/28/18 - 05/28/18 [facility] [id number] [place] [address]- Discharge Disposition: Home or Self Care Attending Physician: Carlin Marcus MD Vital Signs No data available for this section Problem List Condition Effective Dates Status Health Status Informan t AF (atrial Active fibrillation)(Confir med) H/O Active hyperlipidemia(Confi rmed) Abnormal Resolved angiogram(Confirmed) 1 Poor circulation of Resolved extremity(Confirmed) Borderline Active diabetes(Confirmed) 1lower legs with stents Allergies, Adverse Reactions, Alerts Substance Reaction Severity Status NKDA Active Medications No data available for this section Results ELECTROLYTES Most recent to 1 oldest [Reference Range]: Sodium Lvl [135-145 142 mEq/L mEq/L] (05/28/18 9:45 AM) Potassium Lvl 4.5 mEq/L [3.5-5.1 mEq/L] (05/28/18 9:45 AM) Chloride Lvl [95-109 105 mEq/L mEq/L] (05/28/18 9:45 AM) CO2 [24-32 mEq/L] 30 mEq/L (05/28/18 9:45 AM) AGAP [10.0-20.0 11.5 mEq/L mEq/L] (05/28/18 9:45 AM) CHEM PANEL Most recent to 1 oldest [Reference Range]: Creatinine Lvl 1.11 mg/dL [0.50-1.40 mg/dL] (05/28/18 9:45 AM) eGFR 65 mL/min/1.73m2 1 *NA* (05/28/18 9:45 AM) BUN [7-22 mg/dL] 22 mg/dL (05/28/18 9:45 AM) Glucose Lvl [70-99 135 mg/dL mg/dL] *HI* (05/28/18 9:45 AM) Calcium Lvl 8.9 mg/dL [8.5-10.5 mg/dL] (05/28/18 9:45 AM) 1Result Comment: The eGFR is calculated using the CKD-EPI formula. In most young, healthy individuals the eGFR will be >90 mL/min/1.73m2. The eGFR declines with age. An eGFR of 60-89 may be normal in some populations, particularly the elderly, for whom the CKD-EPI formula has not been extensively validated. Use of the eGFR is not recommended in the following populations: Individuals with unstable creatinine concentrations, including patients and those with serious co-morbid conditions. Patients with extremes in muscle mass or diet. The data above are obtained from the National Kidney Disease Education Program ( NKDEP) which additionally recommends that when the eGFR is used in patients with extremes of body mass index for purposes of drug dosing, the eGFR should be mul tiplied by the estimated BMI. HEMATOLOGY Most recent to 1 oldest [Reference Range]: WBC [3.7-10.4 K/CMM] 9.4 K/CMM (05/28/18 9:45 AM) RBC [4.70-6.10 4.71 M/CMM M/CMM] (05/28/18 9:45 AM) Hgb [14.0-18.0 g/dL] 13.9 g/dL *LOW* (05/28/18 9:45 AM) Hct [42.0-54.0 %] 42.9 % (05/28/18 9:45 AM) MCV [80.0-94.0 fL] 91.1 fL (05/28/18 9:45 AM) MCH [27.0-31.0 pg] 29.6 pg (05/28/18 9:45 AM) MCHC [32.0-36.0 32.5 g/dL g/dL] (05/28/18 9:45 AM) RDW [11.5-14.5 %] 14.3 % (05/28/18 9:45 AM) MPV [7.4-10.4 fL] 9.0 fL (05/28/18 9:45 AM) Platelet [133-450 270 K/CMM K/CMM] (05/28/18 9:45 AM) Segs [45.0-75.0 %] 64.5 % (05/28/18 9:45 AM) Lymphocytes 19.0 % [20.0-40.0 %] *LOW* (05/28/18 9:45 AM) Monocytes [2.0-12.0 10.7 % %] (05/28/18 9:45 AM) Eosinophils [0.0-4.0 4.9 % %] *HI* (05/28/18 9:45 AM) Basophils [0.0-1.0 0.9 % %] (05/28/18 9:45 AM) Segs-Bands # 6.1 K/CMM [1.5-8.1 K/CMM] (05/28/18 9:45 AM) Lymphocytes # 1.8 K/CMM [1.0-5.5 K/CMM] (05/28/18 9:45 AM) Monocytes # [0.0-0.8 1.0 K/CMM K/CMM] *HI* (05/28/18 9:45 AM) Eosinophils # 0.5 K/CMM [0.0-0.5 K/CMM] (05/28/18 9:45 AM) Basophils # [0.0-0.2 0.1 K/CMM K/CMM] (05/28/18 9:45 AM) Immunizations Given and Recorded Vaccine Date Status Refusal Reason pneumococcal 23-valent vaccine 05/13/18 Given Procedures Procedure Date Related Diagnosis Body Site Status Angiography1 Completed Cardiac ablation using fluoroscopy guidance Compl eted 1stents in legs Social History Social History Type Response Alcohol Current, Type Beer, Liquor. Frequency: Daily. Smoking Status Current every day smoker; R denita to change: No; Concerns about tobacco use in household: No; Exposure to Tobacco S moke None; Cigarette Smoking Last 365 Days No; Reg Smoking Cessation Coun seling No entered on: 05/12/18 Assessment and Plan No data available for this section
--- OUTSIDE RECORDS SUMMARY | 2020-05-11 12:51 | XMS REPORT | Summary of Care ---
Author Author [facility] [place] [place] Organization [facility] [place] [place] Address Unknown Phone Unavailable Encounter CRISTOBAL Quintero(MATT) [id number] Date(s): 01/26/18 - 01/29/[address] 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 (Final) - Hypertensive heart disease with heart failure (Final) - Chronic systolic (congestive) heart failure (Final) - Morbid (severe) obesity due to excess calories (Final) - Nicotine dependence, cigarettes, uncomplicated (Final) - Body mass index (BMI) 38.0-38.9, adult (Final) - Supraventricular tachycardia (Final) - Obstructive sleep apnea (adult) (pediatric) (Final) - Solitary pulmonary nodule (Final) - Abnormal coagulation profile (Final) - long term care administrator (current) use of oral hypoglycemic drugs (Final) - Adverse effect of anticoagulants, initial encounter (Final) - Hypothyroidism, unspecified (Final) - Centrilobular emphysema (Final) - Other chronic pain (Final) - Anemia, unspecified (Final) - Atrial premature depolarization (Final) - Dysuria (Final) - Discharge Disposition: Home or Self Care Attending Physician: Anju Lamb MD Admitting Physician: Anju Lamb MD Referring Physician: Anju Lamb MD Vital Signs 1 2 3 Most recent to oldest [Reference Range]: 193.04 cm (01/26/18 5:57 AM) Height 145.636 kg (01/28/18 5:11 AM) Current Weight 97.2 DegF (01/29/18 4:00 AM) 97.6 DegF (01/29/18 12:00 AM) 97.1 DegF (01/28/18 7:25 PM) Temperature Oral [96.4-99.1 DegF] 117/56 mmHg (01/29/18 11:00 AM) 123/58 mmHg (01/29/18 9:00 AM) 121/65 mmHg (01/29/18 6:08 AM) Blood Pressure [90-140/60-90 mmHg] 18 BRMIN (01/28/18 5:35 PM) 18 BRMIN (01/28/18 12:23 PM) 18 BRMIN (01/28/18 9:23 AM) Respiratory Rate [14-20 BRMIN] 143.636 kg (01/26/18 5:57 AM) Weight 38.55 m2 (01/26/18 5:57 AM) Body Mass Index Problem List No data available for this section Allergies, Adverse Reactions, Alerts Substance Reaction Severity Status NKDA Active Medications ANES fentaNYL 25 microgram, 0.5 mL, Route: IVP, Drug form: INJ, Q5Min, Dosing Weight 143.636, kg, PRN Pain Score 4-6, Priority: Routine, Start date: 01/26/18 9:48:00 CIGARETTE EXAMINER, Dur ation: 4 doses or times, Stop date: 01/27/18 0:00:00 CIGARETTE EXAMINER Notes: (Same as: Sublimaze) Preservative free. Start Date: 01/26/18 Stop Date: 01/27/18 Status: Completed ANES flumazenil 0.2 mg, 2 mL, Route: IVP, Drug form: INJ, PRN, Dosing Weight 143.636, kg, PRN Be nzodiazepine Reversal, Initial dose, Start date: 01/26/18 9:48:00 CIGARETTE EXAMINER, Duration: 30 day, Stop date: 02/25/18 10:47:00 CDT Notes: (Same as: Romazicon) Start Date: 01/26/18 Stop Date: 01/29/18 Status: Discontinued ANES hydrALAZINE 10 mg, 0.5 mL, Route: IVP, Drug form: INJ, Q20Min, Dosing Weight 143.636, kg, OH N Elevated BP, Start date: 01/26/18 9:48:00 CIGARETTE EXAMINER, Duration: 2 doses or times, Sto p date: 01/27/18 0:00:00 CIGARETTE EXAMINER Notes: (Same as: Apresoline)Push over 5 minutes Start Date: 01/26/18 Stop Date: 01/27/18 Status: Completed ANES labetalol 10 mg, 2 mL, Route: IVP, Drug form: INJ, Q5Min, Dosing Weight 143.636, kg, PRN E levated BP, Start date: 01/26/18 9:48:00 CIGARETTE EXAMINER, Duration: 5 doses or times, Stop d ate: 01/27/18 0:00:00 CIGARETTE EXAMINER Start Date: 01/26/18 Stop Date: 01/27/18 Status: Completed ANES naloxone 0.4 mg, 1 mL, Route: IVP, Drug form: INJ, Q2MIN, Dosing Weight 143.636, kg, PRN Narcotic Reversal, Start date: 01/26/18 9:48:00 CIGARETTE EXAMINER, Duration: 8 doses or times, Stop date: 01/27/18 0:00:00 CIGARETTE EXAMINER Notes: Same as Narcan Start Date: 01/26/18 Stop Date: 01/27/18 Status: Completed ANES ondansetron 4 mg, 2 mL, Route: IVP, Drug form: INJ, ONCE, Dosing Weight 143.636, kg, PRN Geremias sea & Vomiting, Start date: 01/26/18 9:48:00 CIGARETTE EXAMINER Notes: (Same as: Tommie) MEDICATION WASTE Product Size: 4 mgProduct Was sanjiv: ___ mg Start Date: 01/26/18 Stop Date: 01/29/18 Status: Discontinued atorvastatin 40 mg, 1 tab, Route: PO, Drug form: TAB, Bedtime, Dosing Weight 143.636, kg, Sta rt date: 01/26/18 21:00:00 CIGARETTE EXAMINER, Duration: 30 day, Stop date: 02/24/18 21:00:00 C DT Notes: (Same as: Lipitor) Start Date: 01/26/18 Stop Date: 01/29/18 Status: Discontinued atorvastatin 40 mg oral tablet 40 mg = 1 tab, PO, Bedtime, # 30 tab, 0 Refill(s) Start Date: 01/26/18 Status: Ordered cisatracurium (ANES) Route: IV, Drug form: INJ, ONCE, Stop date: 01/26/18 9:12:00 CIGARETTE EXAMINER Start Date: 01/26/18 Stop Date: 01/26/18 Status: Completed clopidogrel 75 mg, 1 tab, Route: PO, Drug form: TAB, Daily, Dosing Weight 143.636, kg, Start date: 01/27/18 9:00:00 CIGARETTE EXAMINER, Duration: 30 day, Stop date: 02/25/18 9:00:00 CDT Notes: (Same As: Plavix) Start Date: 01/27/18 Stop Date: 01/29/18 Status: Discontinued clopidogrel 75 mg oral tablet 75 mg = 1 tab, PO, Daily, # 30 tab, 0 Refill(s) Start Date: 01/26/18 Status: Ordered Dextrose 50% Syringe 12.5 gm, 25 mL, Route: IVP, Drug Form: INJ, Dosing Weight 143.636, kg, PRN, PRN Blood Glucose Results, Start date: 01/26/18 22:24:00 CIGARETTE EXAMINER, Duration: 30 day, Stop date: 02/25/18 23:23:00 CDT Start Date: 01/26/18 Stop Date: 01/29/18 Status: Discontinued Dextrose 50% Syringe 25 gm, 50 mL, Route: IVP, Drug Form: INJ, Dosing Weight 143.636, kg, PRN, PRN Bl ood Glucose Results, Start date: 01/26/18 22:24:00 CIGARETTE EXAMINER, Duration: 30 day, Stop d ate: 02/25/18 23:23:00 CDT Start Date: 01/26/18 Stop Date: 01/29/18 Status: Discontinued dofetilide 500 microgram, 1 cap, Route: PO, Drug form: CAP, ONCE, Start date: 01/29/18 13:4 5:00 CIGARETTE EXAMINER, Stop date: 01/29/18 13:45:00 CIGARETTE EXAMINER Notes: (Same as: Tikosyn)Providers should enter the orders via the "Dofetilide I nitiation Orders MPP" to ensure compliance with the REMS program. Start Date: 01/29/18 Stop Date: 01/29/18 Status: Deleted dofetilide 500 microgram, 1 cap, Route: PO, Drug form: CAP, Q12H, Dosing Weight 143.636, kg , Start date: 01/26/18 21:00:00 CIGARETTE EXAMINER, Duration: 30 day, Stop date: 02/25/18 9:00: 00 CDT Notes: (Same as: Tikosyn)Providers should enter the orders via the "Dofetilide I nitiation Orders MPP" to ensure compliance with the REMS program. Start Date: 01/26/18 Stop Date: 01/29/18 Status: Discontinued dofetilide 500 mcg oral capsule 500 microgram = 1 cap, PO, Q12H, # 14 cap, 0 Refill(s) Start Date: 01/29/18 Stop Date: 01/29/18 Status: Discontinued dofetilide 500 mcg oral capsule 500 microgram = 1 cap, PO, Q12H, # 60 cap, 0 Refill(s) Start Date: 01/29/18 Status: Ordered fentaNYL (ANES) Route: IV, Drug form: INJ, ONCE, Stop date: 01/26/18 9:12:00 CIGARETTE EXAMINER Start Date: 01/26/18 Stop Date: 01/26/18 Status: Completed furosemide 80 mg, 1 tab, Route: PO, Drug form: TAB, BID, Dosing Weight 143.636, kg, Start d ate: 01/27/18 9:00:00 CIGARETTE EXAMINER, Duration: 30 day, Stop date: 02/25/18 17:00:00 CDT Notes: (Same as: Lasix) May cause GI upset. Give with food or milk. Start Date: 01/27/18 Stop Date: 01/29/18 Status: Discontinued furosemide 80 mg oral tablet 80 mg = 1 tab, PO, BID, 0 Refill(s) Start Date: 01/26/18 Status: Ordered glucagon 1 mg, Route: IM, Drug form: PDR/INJ, PRN, Dosing Weight 143.636, kg, PRN Blood G lucose Results, Start date: 01/26/18 22:24:00 CIGARETTE EXAMINER, Duration: 30 day, Stop date: 02/25/18 23:23:00 CDT Start Date: 01/26/18 Stop Date: 01/29/18 Status: Discontinued insulin lispro 2 unit, 0.02 mL, Route: SUB-Q, Drug form: SOLN, TID-Before Meals, Dosing Weight 143.636, kg, PRN Blood Glucose Results, Start date: 01/26/18 22:24:00 CIGARETTE EXAMINER, Durat ion: 30 day, Stop date: 02/25/18 22:23:00 CDT Notes: (Same as: Humalog ) Roll in palms of hands gently; Do not shake `vigorou sly. "Single Patient Use Only " WASTE: F/P - Black; E - Municipal Trash [address] able for 28 days at room temperature.Expires in days from Da te Start Date: 01/26/18 Stop Date: 01/29/18 Status: Discontinued insulin lispro 4 unit, 0.04 mL, Route: SUB-Q, Drug form: SOLN, TID-Before Meals, Dosing Weight 143.636, kg, PRN Blood Glucose Results, Start date: 01/26/18 22:24:00 CIGARETTE EXAMINER, Durat ion: 30 day, Stop date: 02/25/18 22:23:00 CDT Notes: (Same as: Humalog ) Roll in palms of hands gently; Do not shake `vigorou sly. "Single Patient Use Only " WASTE: F/P - Black; E - [facility] [address] [address] able for 28 days at room temperature.Expires in days from Da te Start Date: 01/26/18 Stop Date: 01/29/18 Status: Discontinued insulin lispro 3 unit, 0.03 mL, Route: SUB-Q, Drug form: SOLN, TID-Before Meals, Dosing Weight 143.636, kg, PRN Blood Glucose Results, Start date: 01/26/18 22:24:00 CIGARETTE EXAMINER, Durat ion: 30 day, Stop date: 02/25/18 22:23:00 CDT Notes: (Same as: Humalog ) Roll in palms of hands gently; Do not shake `vigorou sly. "Single Patient Use Only " WASTE: F/P - Black; E - [facility] [address] [address] able for 28 days at room temperature.Expires in days from Da te Start Date: 01/26/18 Stop Date: 01/29/18 Status: Discontinued insulin lispro 5 unit, 0.05 mL, Route: SUB-Q, Drug form: SOLN, TID-Before Meals, Dosing Weight 143.636, kg, PRN Blood Glucose Results, Start date: 01/26/18 22:24:00 CIGARETTE EXAMINER, Durat ion: 30 day, Stop date: 02/25/18 22:23:00 CDT Notes: (Same as: Humalog ) Roll in palms of hands gently; Do not shake `vigorou sly. "Single Patient Use Only " WASTE: F/P - Black; E - [facility] [address] able for 28 days at room temperature.Expires in days from Da te Start Date: 01/26/18 Stop Date: 01/29/18 Status: Discontinued insulin lispro 1 unit, 0.01 mL, Route: SUB-Q, Drug form: SOLN, TID-Before Meals, Dosing Weight 143.636, kg, PRN Blood Glucose Results, Start date: 01/26/18 22:24:00 CIGARETTE EXAMINER, Durat ion: 30 day, Stop date: 02/25/18 22:23:00 CDT Notes: (Same as: Humalog ) Roll in palms of hands gently; Do not shake `vigorou sly. "Single Patient Use Only " WASTE: F/P - Black; E - [facility] [address] able for 28 days at room temperature.Expires in days from Da te Start Date: 01/26/18 Stop Date: 01/29/18 Status: Discontinued insulin lispro 2 unit, 0.02 mL, Route: SUB-Q, Drug form: SOLN, Bedtime, Dosing Weight 143.636, kg, PRN Blood Glucose Results, Start date: 01/26/18 22:24:00 CIGARETTE EXAMINER, Duration: 30 d ay, Stop date: 02/25/18 22:23:00 CDT Notes: (Same as: Humalog ) Roll in palms of hands gently; Do not shake `vigorou sly. "Single Patient Use Only " WASTE: F/P - Black; E - [facility] [address] able for 28 days at room temperature.Expires in days from Da te Start Date: 01/26/18 Stop Date: 01/29/18 Status: Discontinued insulin lispro 5 unit, 0.05 mL, Route: SUB-Q, Drug form: SOLN, Bedtime, Dosing Weight 143.636, kg, PRN Blood Glucose Results, Start date: 01/26/18 22:24:00 CIGARETTE EXAMINER, Duration: 30 d ay, Stop date: 02/25/18 22:23:00 CDT Notes: (Same as: Humalog ) Roll in palms of hands gently; Do not shake `vigorou sly. "Single Patient Use Only " WASTE: F/P - Black; E - [facility] [address] able for 28 days at room temperature.Expires in days from Da te Start Date: 01/26/18 Stop Date: 01/29/18 Status: Discontinued insulin lispro 4 unit, 0.04 mL, Route: SUB-Q, Drug form: SOLN, Bedtime, Dosing Weight 143.636, kg, PRN Blood Glucose Results, Start date: 01/26/18 22:24:00 CIGARETTE EXAMINER, Duration: 30 d ay, Stop date: 02/25/18 22:23:00 CDT Notes: (Same as: Humalog ) Roll in palms of hands gently; Do not shake `vigorou sly. "Single Patient Use Only " WASTE: F/P - Black; E - [facility] [address] able for 28 days at room temperature.Expires in days from Da te Start Date: 01/26/18 Stop Date: 01/29/18 Status: Discontinued insulin lispro 3 unit, 0.03 mL, Route: SUB-Q, Drug form: SOLN, Bedtime, Dosing Weight 143.636, kg, PRN Blood Glucose Results, Start date: 01/26/18 22:24:00 CIGARETTE EXAMINER, Duration: 30 d ay, Stop date: 02/25/18 22:23:00 CDT Notes: (Same as: Humalog ) Roll in palms of hands gently; Do not shake `vigorou sly. "Single Patient Use Only " WASTE: F/P - Black; E - [facility] [address] able for 28 days at room temperature.Expires in days from Da te Start Date: 01/26/18 Stop Date: 01/29/18 Status: Discontinued insulin lispro 1 unit, 0.01 mL, Route: SUB-Q, Drug form: SOLN, Bedtime, Dosing Weight 143.636, kg, PRN Blood Glucose Results, Start date: 01/26/18 22:24:00 CIGARETTE EXAMINER, Duration: 30 d ay, Stop date: 02/25/18 22:23:00 CDT Notes: (Same as: Humalog ) Roll in palms of hands gently; Do not shake `vigorou sly. "Single Patient Use Only " WASTE: F/P - Black; E - [facility] [address] able for 28 days at room temperature.Expires in days from Da te Start Date: 01/26/18 Stop Date: 01/29/18 Status: Discontinued levothyroxine 25 microgram, 1 tab, Route: PO, Drug form: TAB, Q630AM, Dosing Weight 143.636, k g, Start date: 01/27/18 6:30:00 CIGARETTE EXAMINER, Duration: 30 day, Stop date: 02/25/18 6:30: 00 CDT Start Date: 01/27/18 Stop Date: 01/29/18 Status: Discontinued levothyroxine 25 mcg (0.025 mg) oral tablet 25 microgram = 1 tab, PO, Daily, # 30 tab, 0 Refill(s) Start Date: 01/26/18 Status: Ordered Lovenox 60 mg, 0.6 mL, Route: SUB-Q, Drug form: INJ, ONCE, Dosing Weight 143.636, kg, St art date: 01/28/18 17:40:00 CIGARETTE EXAMINER, Stop date: 01/28/18 17:40:00 CIGARETTE EXAMINER Notes: Nurse to ensure documentation of patient education per anticoagulation po licy. (Same as: Lovenox) Start Date: 01/28/18 Stop Date: 01/28/18 Status: Completed Lovenox 60 mg, 0.6 mL, Route: SUB-Q, Drug form: INJ, ONCE, Dosing Weight 143.636, kg, Pr iority: STAT, Start date: 01/27/18 18:25:00 CIGARETTE EXAMINER, Stop date: 01/27/18 18:25:00 CS T Notes: Nurse to ensure documentation of patient education per anticoagulation po licy. (Same as: Lovenox) Start Date: 01/27/18 Stop Date: 01/27/18 Status: Completed magnesium sulfate 2 gm, 50 mL, Route: IVPB, Drug form: INJ, ONCE, Dosing Weight 143.636, kg, Start date: 01/26/18 22:25:00 CIGARETTE EXAMINER, Stop date: 01/26/18 22:25:00 CIGARETTE EXAMINER Notes: WASTE: F/P - Sink; E - Municipal Trash Bin Start Date: 01/26/18 Stop Date: 01/26/18 Status: Completed metFORMIN 500 mg oral tablet 500 mg = 1 tab, PO, BID-Meals, # 30 tab, 0 Refill(s) Start Date: 01/26/18 Status: Ordered metFORMIN 500 mg oral tablet 500 mg, 1 tab, Route: PO, Drug form: TAB, BID-Meals, Dosing Weight 143.636, kg, Start date: 01/27/18 8:00:00 CIGARETTE EXAMINER, Duration: 30 day, Stop date: 02/25/18 17:00:00 CDT Notes: (Same as: Glucophage) Take with meal Start Date: 01/27/18 Stop Date: 01/29/18 Status: Discontinued metoprolol tartrate 100 mg, 1 tab, Route: PO, Drug form: TAB, Q12H, Dosing Weight 143.636, kg, Start date: 01/26/18 21:00:00 CIGARETTE EXAMINER, Duration: 30 day, Stop date: 02/25/18 9:00:00 CDT Notes: (Same as: Lopressor) Start Date: 01/26/18 Stop Date: 01/29/18 Status: Discontinued metoprolol tartrate 100 mg oral tablet 100 mg = 1 tab, PO, BID, # 60 tab, 0 Refill(s) Start Date: 01/26/18 Status: Ordered nicotine 14 mg, 1 patch, Route: TOP, Drug form: ERFILM, Daily, Dosing Weight 143.636, kg, Priority: NOW, Start date: 01/27/18 16:50:00 CIGARETTE EXAMINER, Duration: 30 day, Stop date: 02/26/18 9:00:00 CDT Start Date: 01/27/18 Stop Date: 01/29/18 Status: Discontinued NS 1,000 mL 1,000 mL, Rate: 100 ml/hr, Infuse over: 10 hr, Route: IVPB, Dosing Weight 143.63 6 kg, Total Volume: 1,000, Start date: 01/26/18 5:56:00 CIGARETTE EXAMINER, Duration: 30 day, S top date: 02/25/18 5:55:00 CDT, 2.8, m2 Start Date: 01/26/18 Stop Date: 01/29/18 Status: Discontinued pantoprazole 40 mg, 1 tab, Route: PO, Drug form: ECTAB, Daily, Dosing Weight 143.636, kg, Sta rt date: 01/27/18 9:00:00 CIGARETTE EXAMINER, Duration: 14 day, Stop date: 02/09/18 9:00:00 CDT Start Date: 01/27/18 Stop Date: 01/29/18 Status: Discontinued potassium chloride 20 mEq, 1 tab, Route: PO, Drug form: ERTAB, Daily, Dosing Weight 143.636, kg, St art date: 01/27/18 9:00:00 CIGARETTE EXAMINER, Duration: 30 day, Stop date: 02/25/18 9:00:00 CD T Notes: (Same as: K-Dur 20)"Do Not Crush" With food and full glass of water Start Date: 01/27/18 Stop Date: 01/29/18 Status: Discontinued potassium chloride 20 mEq, PO, Daily, 0 Refill(s) Start Date: 01/26/18 Status: Ordered propofol (ANES) Route: IV, Drug form: INJ, ONCE, Stop date: 01/26/18 9:12:00 CIGARETTE EXAMINER Start Date: 01/26/18 Stop Date: 01/26/18 Status: Completed protamine (ANES) Route: IV, Drug form: INJ, ONCE, Stop date: 01/26/18 12:10:00 CIGARETTE EXAMINER Start Date: 01/26/18 Stop Date: 01/26/18 Status: Completed remove patch 1 patch, Route: TOP, Drug form: ERFILM, Daily, Start date: 01/28/18 9:00:00 CIGARETTE EXAMINER, Duration: 30 day, Stop date: 02/26/18 9:00:00 CDT Notes: Remove old patch before application of new patch.WASTE: F/P - P Waste Jarvis ck; E - P Waste Black Start Date: 01/28/18 Stop Date: 01/29/18 Status: Discontinued Saline Flush 0.9% 10 ml, Route: IVP, Drug Form: INJ, Dosing Weight 143.636, kg, PRN, PRN Line Flus h, Start date: 01/26/18 18:44:00 CIGARETTE EXAMINER, Duration: 30 day, Stop date: 02/25/18 19:4 3:00 CDT Notes: Same as: BD Posiflush Sterile Start Date: 01/26/18 Stop Date: 01/29/18 Status: Discontinued Saline Flush 0.9% 10 ml, Route: IVP, Drug Form: INJ, Dosing Weight 143.636, kg, Q12H, Start date: 01/26/18 21:00:00 CIGARETTE EXAMINER, Duration: 30 day, Stop date: 02/25/18 9:00:00 CDT Notes: Same as: BD Posiflush Sterile Start Date: 01/26/18 Stop Date: 01/29/18 Status: Discontinued Sodium Chloride 0.9% IV (ANES) 1000 mL Route: IV, Total Volume: 1,000, Start date: 01/26/18 8:08:00 CIGARETTE EXAMINER, Stop date: 9:08:00 CIGARETTE EXAMINER Start Date: 01/26/18 Stop Date: 01/26/18 Status: Completed Spiriva 18 mcg inhalation capsule 18 microgram = 1 inhalation, INHALATION, RDaily, 0 Refill(s) Start Date: 01/29/18 Status: Ordered Spiriva 18 mcg inhalation capsule 18 microgram, 1 inhalation, Route: INHALATION, Drug form: CAP, RDaily, Dosing We ight 143.636, kg, Start date: 01/27/18 8:00:00 CIGARETTE EXAMINER, Duration: 30 day, Stop date: 02/25/18 8:00:00 CDT Notes: (Same As: Spiriva) Start Date: 01/27/18 Stop Date: 01/29/18 Status: Discontinued sucralfate 1 gm, 1 tab, Route: PO, Drug form: TAB, Q12H, Dosing Weight 143.636, kg, Start d ate: 01/26/18 21:00:00 CIGARETTE EXAMINER, Duration: 14 day, Stop date: 02/09/18 9:00:00 CDT Notes: May interfere w/enteral feeds - Take 1 hr before or 2 hr after antacids, dairy pdt, meals & minerals - On empty stomach.For patients unable to swallow tablet, dissolve in 10mL - 30mL of water or juice and stir before giving. (Same As: Carafate) Start Date: 01/26/18 Stop Date: 01/29/18 Status: Discontinued warfarin 7.5 mg, 1 tab, Route: PO, Drug form: TAB, Q5PM, Dosing Weight 143.636, kg, Start date: 01/28/18 17:00:00 CIGARETTE EXAMINER, Duration: 1 doses or times, Stop date: 01/28/18 17 :00:00 CIGARETTE EXAMINER Notes: Nurse to ensure documentation of patient education per anticoagulation po licy.Avoid large intake of vitamin-K containing foods diet.WASTE: F/P - P Waste Black; E - P Waste Black(Same As: Coumadin) Start Date: 01/28/18 Stop Date: 01/28/18 Status: Completed warfarin 7.5 mg, Route: PO, Drug form: TAB, Daily, Dosing Weight 143.636, kg, Start date: 01/27/18 9:00:00 CIGARETTE EXAMINER, Duration: 30 day, Stop date: 02/25/18 9:00:00 CDT Start Date: 01/27/18 Stop Date: 01/27/18 Status: Discontinued warfarin 7.5 mg, 1 tab, Route: PO, Drug form: TAB, Q5PM, Dosing Weight 143.636, kg, Start date: 01/29/18 17:00:00 CIGARETTE EXAMINER, Duration: 1 doses or times, Stop date: 01/29/18 17 :00:00 CIGARETTE EXAMINER Notes: Nurse to ensure documentation of patient education per anticoagulation po licy.Avoid large intake of vitamin-K containing foods diet.WASTE: F/P - P Waste Black; E - P Waste Black(Same As: Coumadin) Start Date: 01/29/18 Stop Date: 01/29/18 Status: Completed warfarin 7.5 mg, 1 tab, Route: PO, Drug form: TAB, ONCE, Dosing Weight 143.636, kg, Prior ity: STAT, Start date: 01/27/18 18:25:00 CIGARETTE EXAMINER, Stop date: 01/27/18 18:25:00 CIGARETTE EXAMINER Notes: Nurse to ensure documentation of patient education per anticoagulation po licy.Avoid large intake of vitamin-K containing foods diet.WASTE: F/P - P Waste Black; E - P Waste Black(Same As: Coumadin) Start Date: 01/27/18 Stop Date: 01/27/18 Status: Completed warfarin 7.5 mg oral tablet 7.5 mg = 1 tab, PO, Daily, 0 Refill(s) Start Date: 01/26/18 Status: Ordered Results BLOOD BANK RESULTS 1 2 3 Most recent to oldest [Reference Range]: B POS *Unknown* (01/26/18 6:02 AM) ABO/Rh Negative (01/26/18 6:02 AM) Antibody Scrn ELECTROLYTES 1 2 3 Most recent to oldest [Reference Range]: 141 mEq/L (01/29/18 5:09 AM) 143 mEq/L (01/28/18 4:38 AM) 142 mEq/L (01/27/18 4:14 AM) Sodium Lvl [135-145 mEq/L] 3.9 mEq/L (01/29/18 5:09 AM) 3.7 mEq/L (01/28/18 4:38 AM) 3.9 mEq/L (01/27/18 4:14 AM) Potassium Lvl [3.5-5.1 mEq/L] 106 mEq/L (01/29/18 5:09 AM) 106 mEq/L (01/28/18 4:38 AM) 107 mEq/L (01/27/18 4:14 AM) Chloride Lvl [95-109 mEq/L] 28 mEq/L (01/29/18 5:09 AM) 31 mEq/L (01/28/18 4:38 AM) 30 mEq/L (01/27/18 4:14 AM) CO2 [24-32 mEq/L] 10.9 mEq/L (01/29/18 5:09 AM) 9.7 mEq/L *LOW* (01/28/18 4:38 AM) 8.9 mEq/L *LOW* (01/27/18 4:14 AM) AGAP [10.0-20.0 mEq/L] CHEM PANEL 1 2 3 Most recent to oldest [Reference Range]: 0.97 mg/dL (01/29/18 5:09 AM) 0.85 mg/dL (01/28/18 4:38 AM) 0.76 mg/dL (01/27/18 4:14 AM) Creatinine Lvl [0.50-1.40 mg/dL] 76 mL/min/1.73m2 1 *NA* (01/29/18 5:09 AM) 85 mL/min/1.73m2 2 *NA* (01/28/18 4:38 AM) 89 mL/min/1.73m2 3 *NA* (01/27/18 4:14 AM) eGFR 15 mg/dL (01/29/18 5:09 AM) 13 mg/dL (01/28/18 4:38 AM) 11 mg/dL (01/27/18 4:14 AM) BUN [7-22 mg/dL] 142 mg/dL *HI* (01/29/18 5:09 AM) 135 mg/dL *HI* (01/28/18 4:38 AM) 139 mg/dL *HI* (01/27/18 4:14 AM) Glucose Lvl [70-99 mg/dL] 8.3 mg/dL *LOW* (01/29/18 5:09 AM) 8.4 mg/dL *LOW* (01/28/18 4:38 AM) 8.6 mg/dL (01/27/18 4:14 AM) Calcium Lvl [8.5-10.5 mg/dL] 2.2 mg/dL *LOW* (01/29/18 5:09 AM) 2.0 mg/dL *LOW* (01/28/18 4:38 AM) 2.8 mg/dL (01/27/18 4:14 AM) Phosphorus [2.5-4.5 mg/dL] 2.0 mg/dL (01/29/18 5:09 AM) 2.1 mg/dL (01/28/18 4:38 AM) 2.3 mg/dL (01/27/18 4:14 AM) Magnesium Lvl [1.8-2.4 mg/dL] 1Result Comment: The eGFR is calculated using [...] be mul tiplied by the estimated BMI. 2Result Comment: The eGFR is calculated using the [...] be mul tiplied by the estimated BMI. 3Result Comment: The eGFR is calculated using the [...] be mul tiplied by the estimated BMI. PARATHYROID PROFILE 1 2 3 Most recent to oldest [Reference Range]: 1.11 mMol/L (01/29/18 5:09 AM) 1.09 mMol/L (01/28/18 4:38 AM) Ca Ion WB [1.05-1.25 mMol/L] 1.11 mMol/L (01/29/18 5:09 AM) 1.06 mMol/L (01/28/18 4:38 AM) Ca Norm WB [1.05-1.25 mMol/L] URINE AND STOOL 1 2 3 Most recent to oldest [Reference Range]: Slight *ABN* (01/27/18 7:06 PM) UA Turbidity [Clear] Yellow *NA* (01/27/18 7:06 PM) UA Color [Yellow] 5.0 (01/27/18 7:06 PM) UA pH [5.0-8.0] 1.017 (01/27/18 7:06 PM) UA Spec Grav [<=1.030] Negative mg/dL *NA* (01/27/18 7:06 PM) UA Glucose [Negative mg/dL] Large *ABN* (01/27/18 7:06 PM) UA Blood [Negative] Negative mg/dL *NA* (01/27/18 7:06 PM) UA Ketones [Negative mg/dL] 70 mg/dL *ABN* (01/27/18 7:06 PM) UA Protein [Negative mg/dL] <=1.0 mg/dL *NA* (01/27/18 7:06 PM) UA Urobilinogen [0.1-1.0 mg/dL] Negative *NA* (01/27/18 7:06 PM) UA Bili [Negative] Small *ABN* (01/27/18 7:06 PM) UA Leuk Est [Negative] Negative (01/27/18 7:06 PM) UA Nitrite [Negative] 36 /HPF *HI* (01/27/18 7:06 PM) UA WBC [0-5 /HPF] >182 /HPF *HI* (01/27/18 7:06 PM) UA RBC [0-2 /HPF] Many /HPF *ABN* (01/27/18 7:06 PM) UA Bacteria [None Seen /HPF] None Seen *NA* (01/27/18 7:06 PM) UA Sq Epi Few /LPF *NA* (01/27/18 7:06 PM) UA Mucus [None Seen /LPF] HEMATOLOGY 1 2 3 Most recent to oldest [Reference Range]: 9.4 K/CMM (01/29/18 5:09 AM) 10.3 K/CMM (01/28/18 4:38 AM) 11.8 K/CMM *HI* (01/27/18 4:14 AM) WBC [3.7-10.4 K/CMM] 4.02 M/CMM *LOW* (01/29/18 5:09 AM) 3.97 M/CMM *LOW* (01/28/18 4:38 AM) 4.13 M/CMM *LOW* (01/27/18 4:14 AM) RBC [4.70-6.10 M/CMM] 12.5 g/dL *LOW* (01/29/18 5:09 AM) 12.4 g/dL *LOW* (01/28/18 4:38 AM) 12.8 g/dL *LOW* (01/27/18 4:14 AM) Hgb [14.0-18.0 g/dL] 37.2 % *LOW* (01/29/18 5:09 AM) 36.8 % *LOW* (01/28/18 4:38 AM) 38.1 % *LOW* (01/27/18 4:14 AM) Hct [42.0-54.0 %] 92.4 fL (01/29/18 5:09 AM) 92.7 fL (01/28/18 4:38 AM) 92.3 fL (01/27/18 4:14 AM) MCV [80.0-94.0 fL] 31.1 pg *HI* (01/29/18 5:09 AM) 31.3 pg *HI* (01/28/18 4:38 AM) 31.0 pg (01/27/18 4:14 AM) MCH [27.0-31.0 pg] 33.6 g/dL (01/29/18 5:09 AM) 33.7 g/dL (01/28/18 4:38 AM) 33.6 g/dL (01/27/18 4:14 AM) MCHC [32.0-36.0 g/dL] 14.3 % (01/29/18 5:09 AM) 14.1 % (01/28/18 4:38 AM) 14.3 % (01/27/18 4:14 AM) RDW [11.5-14.5 %] 8.7 fL (01/29/18 5:09 AM) 8.6 fL (01/28/18 4:38 AM) 8.5 fL (01/27/18 4:14 AM) MPV [7.4-10.4 fL] 221 K/CMM (01/29/18 5:09 AM) 218 K/CMM (01/28/18 4:38 AM) 221 K/CMM (01/27/18 4:14 AM) Platelet [133-450 K/CMM] 68.0 % (01/29/18 5:09 AM) 73.3 % (01/28/18 4:38 AM) 81.7 % *HI* (01/27/18 4:14 AM) Segs [45.0-75.0 %] 16.9 % *LOW* (01/29/18 5:09 AM) 14.4 % *LOW* (01/28/18 4:38 AM) 7.3 % *LOW* (01/27/18 4:14 AM) Lymphocytes [20.0-40.0 %] 10.4 % (01/29/18 5:09 AM) 8.9 % (01/28/18 4:38 AM) 9.6 % (01/27/18 4:14 AM) Monocytes [2.0-12.0 %] 3.8 % (01/29/18 5:09 AM) 3.0 % (01/28/18 4:38 AM) 0.6 % (01/27/18 4:14 AM) Eosinophils [0.0-4.0 %] 0.9 % (01/29/18 5:09 AM) 0.4 % (01/28/18 4:38 AM) 0.8 % (01/27/18 4:14 AM) Basophils [0.0-1.0 %] 6.4 K/CMM (01/29/18 5:09 AM) 7.5 K/CMM (01/28/18 4:38 AM) 9.7 K/CMM *HI* (01/27/18 4:14 AM) Segs-Bands # [1.5-8.1 K/CMM] 1.6 K/CMM (01/29/18 5:09 AM) 1.5 K/CMM (01/28/18 4:38 AM) 0.9 K/CMM *LOW* (01/27/18 4:14 AM) Lymphocytes # [1.0-5.5 K/CMM] 1.0 K/CMM *HI* (01/29/18 5:09 AM) 0.9 K/CMM *HI* (01/28/18 4:38 AM) 1.1 K/CMM *HI* (01/27/18 4:14 AM) Monocytes # [0.0-0.8 K/CMM] 0.4 K/CMM (01/29/18 5:09 AM) 0.3 K/CMM (01/28/18 4:38 AM) 0.1 K/CMM (01/27/18 4:14 AM) Eosinophils # [0.0-0.5 K/CMM] 0.1 K/CMM (01/29/18 5:09 AM) 0.1 K/CMM (01/27/18 4:14 AM) 0.1 K/CMM (01/26/18 8:02 PM) Basophils # [0.0-0.2 K/CMM] 19.9 seconds *HI* (01/29/18 5:09 AM) 18.3 seconds *HI* (01/28/18 4:38 AM) 17.8 seconds *HI* (01/27/18 3:00 PM) PT [12.0-14.7 seconds] 1.68 *HI* (01/29/18 5:09 AM) 1.51 *HI* (01/28/18 4:38 AM) 1.46 *HI* (01/27/18 3:00 PM) INR [0.85-1.17] 177 seconds *NA* (01/26/18 1:13 PM) 355 seconds *NA* (01/26/18 10:56 AM) 366 seconds *NA* (01/26/18 10:18 AM) POC Activated Clotting Time 43.9 seconds *HI* (01/29/18 5:09 AM) 44.2 seconds *HI* (01/28/18 4:38 AM) 40.7 seconds *HI* (01/27/18 3:00 PM) PTT [22.9-35.8 seconds] Immunizations No data available for this section Procedures No data available for this section Social History Social History Type Response Smoking Status Current every day smoker; R denita to change: No; Concerns about tobacco use in household: No; Exposure to Tobacco S moke None; Cigarette Smoking Last 365 Days No; Reg Smoking Cessation Coun seling No entered on: 02/16/18 Assessment and Plan Extracted from: Title: EP Discharge Summary * Author: Alec Molina MD Date: 01/29/18 Patient: JACK MITCHELL Age: 77 years Sex: Male : 1940 Associated Diagnoses: None Author: Alec Molina MD Results Review General results Labs (Last four charted values) WBC 9.4(JAN 29)10.3(JAN 28)H 11.8(JAN 27)H 12.1(JAN 26) Hgb L 12.5(JAN 29)L 12.4(JAN 28)L 12.8(JAN 27)L 13.1(JAN 26) Hct L 37.2(JAN 29)L 36.8(JAN 28)L 38.1(JAN 27)L 39.9(JAN 26) Plt 221(JAN 29)218(JAN 28)221(JAN 27)229(JAN 26) Na 141(JAN 29)143(JAN 28)142(JAN 27)144(JAN 26) K 3.9(JAN 29)3.7(JAN 28)3.9(JAN 27)3.8(JAN 26) CO2 28(JAN 29)31(JAN 28)30(JAN 27)30(JAN 26) Cl 106(JAN 29)106(JAN 28)107(JAN 27)107(JAN 26) Cr 0.97(JAN 29)0.85(JAN 28)0.76(JAN 27)1.01(JAN 26) BUN 15(JAN 29)13(JAN 28)11(JAN 27)13(JAN 26) Glucose Random H 142(JAN 29)H 135(JAN 28)H 139(JAN 27)H 226(JAN 26) Mg 2.0(JAN 29)2.1(JAN 28)2.3(JAN 27)L 1.6(JAN 26) Phos L 2.2(JAN 29)L 2.0(JAN 28)2.8(JAN 27)3.0(JAN 26) Ca L 8.3(JAN 29)L 8.4(JAN 28)8.6(JAN 27)8.5(JAN 26) PT H 19.9(JAN 29)H 18.3(JAN 28)H 17.8(JAN 27)H 18.9(JAN 26) INR H 1.68(JAN 29)H 1.51(JAN 28)H 1.46(JAN 27)H 1.57(JAN 26) PTT H 43.9(JAN 29)H 44.2(JAN 28)H 40.7(JAN 27) Physical Examination General: Alert and oriented, No acute distress. Eye: Normal conjunctiva, Vision unchanged. HENT: Normocephalic, Oral mucosa is moist. Neck: Supple, No jugular venous distention. Respiratory: Symmetrical chest wall expansion, faint expiratory wheezing, no crackles . Cardiovascular: Normal rate, Regular rhythm. Gastrointestinal: Soft, Non-tender, Non-distended. Musculoskeletal No swelling. No deformity. Integumentary: No pallor, No rash. Neurologic: Alert, Oriented, No focal deficits. Psychiatric: Cooperative, Appropriate mood & affect. Hospital Course Mr. Mitchell is a 77-year-old man with a active heavy tobacco abuse (40-50 pack years, currently 5-10 cigarettes per day), morbid obesity, chronic A. fib, chronic systolic heart failure, and hypertension who was admitted for PVI ablation. During his workup for his pulmonary vein isolation, CT of the chest on 01/21/2018 revealed a 1.3 cm spiculated nodule in the right upper lobe. He is s/p PVI 01/26/18 and admitted for Dofetilide initiation. Has received 6 doses. QTc remains stable at 484. He is in sinus rhythm with PACs. He will continue on Tikosyn 500 mcg PO BID until follow up with Dr. Lamb in 2 week. He was also restarted on Warfarin 7.5 mg daily. For his pulmonary nodule, Pulmonary and IR were consulted. They plan for outpatient biopsy, and to hold Plavix for 5 days prior, which he takes for PAD with stents. His dysuria resolved after one day without any treatment for UTI, and urine culture is thus far negative. Follow up with PCP if urinary symptoms recur. Discharge Plan Discharge Summary Plan Discharge Status: improved. Discharge instructions given: to patient. Discharge disposition: discharge to home self care. Prescriptions: written and given to patient. Diagnosis Afib ([id number] I48.91, Working, Medical). Course Well controlled. Education and Follow-up Counseled: patient. Addendum I have seen and examined rh e patient with Dr. Molina on 01-29-18. I have reviewed all by Adonis, clinical information. I was present during the discharge of the patient. Anju ROBERTS on 02/01/2018 11:21 Extracted from: Title: [facility] Progress Note Author: Nataliia Rocha Date: 01/29/18 [employer] ATTENDANT Patient: JACK MITCHELL Age: 77 years Sex: Male : 1940 Associated Diagnoses: None Author: Whit Rocha [employer] ATTENDANT Chief Complaint post PVI ablation 01/26 no complaints wwants to go home Subjective sitting at side of bed denies chest pain comfortable in RA no complaints wwants to go home Review of Systems Constitutional: No fever, No chills. Eye: No icterus. Respiratory: No shortness of breath, No cough. Cardiovascular: No chest pain, No peripheral edema. Gastrointestinal: no Constipation, no Abdominal pain. Genitourinary: No dysuria, No hematuria. Integumentary: Skin lesion, No rash, No pruritus. Neurologic: Alert and oriented X4. Health Status Allergies: Allergic Reactions (All) Severity Not Documented NKDA- No reactions were documented., Allergies (1) ActiveReaction NKDANone Documented Current medications: Home Medications (9) Active atorvastatin 40 mg oral tablet 40 mg = 1 tab, PO, Bedtime clopidogrel 75 mg oral tablet 75 mg = 1 tab, PO, Daily dofetilide 500 mcg oral capsule 500 microgram = 1 cap, PO, Q12H furosemide 80 mg oral tablet 80 mg = 1 tab, PO, BID levothyroxine 25 mcg (0.025 mg) oral tablet 25 microgram = 1 tab, PO, Daily metFORMIN 500 mg oral tablet 500 mg = 1 tab, PO, BID-Meals metoprolol tartrate 100 mg oral tablet 100 mg = 1 tab, PO, BID potassium chloride 20 mEq, PO, Daily warfarin 7.5 mg oral tablet 7.5 mg = 1 tab, PO, Daily , Medications (32) Active Scheduled: (15) atorvastatin 40mg tab 40 mg 1 tab, PO, Bedtime clopidogrel 75 mg TAB 75 mg 1 tab, PO, Daily dofetilide 500 microgram CAP 500 microgram 1 cap, PO, Q12H furosemide 80 mg TAB 80 mg 1 tab, PO, BID levothyroxine 25 microgram TAB 25 microgram 1 tab, PO, Q630AM metFORMIN 500 mg TAB 500 mg 1 tab, PO, BID-Meals metoprolol tartrate 100 mg TAB 100 mg 1 tab, PO, Q12H nicotine 14 mg/24hr PATCH 14 mg 1 patch, TOP, Daily nicotine patch removal 1 patch, TOP, Daily pantoprazole 40 mg ECT 40 mg 1 tab, PO, Daily potassium chloride 20 mEq ERT 20 mEq 1 tab, PO, Daily sodium chloride 0.9% 10ml sterile flush syr BD 10 ml, IVP, Q12H sucralfate 1 gm TAB 1 gm 1 tab, PO, Q12H tiotropium bromide 18 microgram INH cap 5's 18 microgram 1 inhalation, INHALATION, RDaily warfarin 7.5 mg TAB 7.5 mg 1 tab, PO, Q5PM Continuous: (1) sodium chloride 0.9% 1000 ml INJ 1,000 mL 1,000 mL, IVPB, 100 ml/hr PRN: (16) Dextrose 50% 50 ml INJ syringe 12.5 gm 25 mL, IVP, PRN Dextrose 50% 50 ml INJ syringe 25 gm 50 mL, IVP, PRN flumazenil 0.5 mg/5 ml VL INJ 0.2 mg 2 mL, IVP, PRN glucagon recombinant 1 mg PDR 1 mg, IM, PRN insulin lispro 100 unit/ml 3 ml Vial 1 unit 0.01 mL, SUB-Q, TID-Before Meals insulin lispro 100 unit/ml 3 ml Vial 2 unit 0.02 mL, SUB-Q, TID-Before Meals insulin lispro 100 unit/ml 3 ml Vial 3 unit 0.03 mL, SUB-Q, TID-Before Meals insulin lispro 100 unit/ml 3 ml Vial 4 unit 0.04 mL, SUB-Q, TID-Before Meals insulin lispro 100 unit/ml 3 ml Vial 5 unit 0.05 mL, SUB-Q, TID-Before Meals insulin lispro 100 unit/ml 3 ml Vial 1 unit 0.01 mL, SUB-Q, Bedtime insulin lispro 100 unit/ml 3 ml Vial 3 unit 0.03 mL, SUB-Q, Bedtime insulin lispro 100 unit/ml 3 ml Vial 4 unit 0.04 mL, SUB-Q, Bedtime insulin lispro 100 unit/ml 3 ml Vial 5 unit 0.05 mL, SUB-Q, Bedtime insulin lispro 100 unit/ml 3 ml Vial 2 unit 0.02 mL, SUB-Q, Bedtime ondansetron 4 mg/2ml INJ VL 4 mg 2 mL, IVP, ONCE sodium chloride 0.9% 10ml sterile flush syr BD 10 ml, IVP, PRN Problem list: No qualifying data available Objective VS/Measurements Measurements from flowsheet : Measurements 01/26/2018 05:57 Heparin Dosing Weight (kg) 109.53 01/26/2018 05:57 Height 193.04 cm Height Collection Method Stated Weight 143.636 kg Dosing Weight Difference Percent 2.597 % Dosing Weight Collection Method Measured Body Surface Area 2.7753 m2 Body Mass Index 38.55 m2 , Vital Signs (last 24 hrs) Last Charted Temp Oral97.2 DegF (JAN 29 04:00) Heart Rate Utnara93 bpm (JAN 29 12:01) Resp Rate 18 BRMIN (JAN 28 17:35) CEE643 mmHg (JAN 29 11:00) DBPL 56mmHg (JAN 29 11:00) VvK275 % (JAN 29 09:00) General: Alert and oriented, No acute distress. Eye: Pupils are equal, round and reactive to light, Extraocular movements are intact, Normal conjunctiva, Vision unchanged. HENT: Normocephalic, Tympanic membranes are clear, Normal hearing, Oral mucosa is moist. Neck: Supple, Non-tender. Respiratory: Lungs are clear to auscultation, Respirations are non-labored, Breath sounds are equal. Cardiovascular: Normal rate. irregular rhythm Gastrointestinal: Soft, Non-tender, Non-distended, Normal bowel sounds. Musculoskeletal Normal range of motion. Normal strength. No tenderness. No swelling. Integumentary: Warm, Dry, Intact, No pallor. Neurologic: Alert, Oriented, Normal sensory, Normal motor function, No focal deficits, Cranial Nerves II-XII are grossly intact, Gag reflex normal. Psychiatric: Cooperative. Review / Management Results review: Labs (Last four charted values) WBC 9.4(JAN 29)10.3(JAN 28)H 11.8(JAN 27)H 12.1(JAN 26) Hgb L 12.5(JAN 29)L 12.4(JAN 28)L 12.8(JAN 27)L 13.1(JAN 26) Hct L 37.2(JAN 29)L 36.8(JAN 28)L 38.1(JAN 27)L 39.9(JAN 26) Plt 221(JAN 29)218(JAN 28)221(JAN 27)229(JAN 26) Na 141(JAN 29)143(JAN 28)142(JAN 27)144(JAN 26) K 3.9(JAN 29)3.7(JAN 28)3.9(JAN 27)3.8(JAN 26) CO2 28(JAN 29)31(JAN 28)30(JAN 27)30(JAN 26) Cl 106(JAN 29)106(JAN 28)107(JAN 27)107(JAN 26) Cr 0.97(JAN 29)0.85(JAN 28)0.76(JAN 27)1.01(JAN 26) BUN 15(JAN 29)13(JAN 28)11(JAN 27)13(JAN 26) Glucose Random H 142(JAN 29)H 135(JAN 28)H 139(JAN 27)H 226(JAN 26) Mg 2.0(JAN 29)2.1(JAN 28)2.3(JAN 27)L 1.6(JAN 26) Phos L 2.2(JAN 29)L 2.0(JAN 28)2.8(JAN 27)3.0(JAN 26) Ca L 8.3(JAN 29)L 8.4(JAN 28)8.6(JAN 27)8.5(JAN 26) PT H 19.9(JAN 29)H 18.3(JAN 28)H 17.8(JAN 27)H 18.9(JAN 26) INR H 1.68(JAN 29)H 1.51(JAN 28)H 1.46(JAN 27)H 1.57(JAN 26) PTT H 43.9(JAN 29)H 44.2(JAN 28)H 40.7(JAN 27). CT chest dated 01/21/18- reviewed with Dr. Jha Impression and Plan Mr Mitchell is a 77 y/o male with PMH of PAH (Paroxysmal Atrial FIBrillation), s/p PVI ablation today,, HTN, ?COPD, current smoker (for several years) Pulmonary Nodule- RUL, 1.3 cm, - also given spiculated, and patient histroy, would need biopsy of RUL. Will get IR consult , in plan for biopsy of RUL with IR - IR team Dr. Lynch recommendations note d - primary team informed of recommendatio ns - pt to be discharged today, [place] [phone] IR, wherein received, to call pt per IR PAF- paroxysmal atrial fibrillation- post PVI ablation. patient on meds per EP Cardiology. - plan for anticoagulation per Cardiolog y team Suspected COPD- given patient with long time hx of tobacco smoking and still current- will need outpatient PFT - wconitnue Spriva for home (RX given) Chronic systolic heart failure- meds per Cardiology Morbid Obesity/GAMAL- will need out patient sleep study Thank you for allowing us participate in caring this patient. Tobacco smoking- smoking cessation Discussed with Dr. Jha Addendum Hypophosphatemia- monitor l evel, out patient follow up, on KCL by Whit Rocha NP on 02/05/2018 11:06 Extracted from: Title: Interventional Radiology Author: Ana Cano NP Date: 01/27/18 Interventional Radiology Consultation Reason for consultation: targeted lung biopsy of right upper lobe lung nodule Referring Physician: Dr. Diego Delgado History of Present Illness: Mr. Mitchell is a 77 year old male with a past medical history of afib, CHF, chronic systolic CHF, hypertension, tobacco abuse, chronic back pain, morbid obesity, PVD, and morbid obesity. He was admitted on 01/26/18 for a PVI ablation and during his work up for pulmonary vein isolation was found to have a RUL lung nodule. Interventional Radiology is consulted for biopsy of this lesion. Past Medical History: afib chronic systolic CHF hypertension tobacco abuse chronic back pain PVD morbid obesity chronic bronchitis Past Surgical HIstory: hernia repair Social History: He is and lives with his . He is retired. Tobacco continues to smoke 5-10 cigarettes per day and has smoked for > 20 years. Family History: mom with CAD and diabetes dad wtih colon CA Allergies Reviewed: Allergies: NKDA Current Medications: Medications (33) Active Scheduled Meds (12): 01/26/18 atorvastatin 40 mg PO Bedtime 01/27/18 clopidogrel 75 mg PO Daily 01/26/18 dofetilide 500 microgram PO Q12 H 01/27/18 furosemide 80 mg PO BID 01/27/18 levothyroxine 25 microgram PO Q 630AM 01/27/18 metFORMIN (metFORMIN 500 mg ora l tablet) 500 mg PO BID-Meals 01/26/18 metoprolol (metoprolol tartrate ) 100 mg PO Q12H 01/27/18 pantoprazole 40 mg PO Daily 01/27/18 potassium chloride 20 mEq PO Da fabiano 01/26/18 sodium chloride (Saline Flush 0 .9%) 10 ml IVP Q12H 01/26/18 sucralfate 1 gm PO Q12H 01/27/18 tiotropium (Spiriva 18 mcg inha lation capsule) 18 microgram INHAL[address] RDaily Unscheduled Meds: None PRN Meds (15): 01/26/18 Dextrose 50% in Water IV (Dextr ose 50% Syringe) 12.5 gm IVP PRN 01/26/18 Dextrose 50% in Water IV (Dextr ose 50% Syringe) 25 gm IVP PRN 01/26/18 flumazenil (ANES flumazenil) 0. 2 mg IVP PRN 01/26/18 glucagon 1 mg IM PRN 01/26/18 insulin lispro 1 unit SUB-Q TID -Before Meals 01/26/18 insulin lispro 2 unit SUB-Q TID -Before Meals 01/26/18 insulin lispro 3 unit SUB-Q TID -Before Meals 01/26/18 insulin lispro 4 unit SUB-Q TID -Before Meals 01/26/18 insulin lispro 5 unit SUB-Q TID -Before Meals 01/26/18 insulin lispro 1 unit SUB-Q Bed time 01/26/18 insulin lispro 3 unit SUB-Q Bed time 01/26/18 insulin lispro 4 unit SUB-Q Bed time 01/26/18 insulin lispro 5 unit SUB-Q Bed time 01/26/18 insulin lispro 2 unit SUB-Q Bed time 01/26/18 sodium chloride (Saline Flush 0 .9%) 10 ml IVP PRN One Time Meds (5): (Completed) cisatracurium (cisatracurium (ANES)) IV ONCE (Completed) fentaNYL (fentaNYL (ANES)) IV ONCE 01/26/18 (Completed) magnesium sulfate 2 gm IVPB ONCE 25 ml/hr (Completed) propofol (propofol (ANES)) IV ONCE (Completed) protamine (protamine (ANES)) IV ONCE Continuous Infusions (1): 01/26/18 Sodium Chloride 0.9% IV 1,000 m L (NS 1,000 mL) 1,000 mL 100 ml/hr Labs: 24hr Labs 01/27 0414 Glucose Qwz433 H BUN11 Creatinine Lvl0.76 Sodium Aae807 Potassium Lvl3.9 Chloride Wqv750 CO230 AGAP8.9 L Calcium Lvl8.6 eGFR89 Magnesium Lvl2.3 Phosphorus2.8 WBC11.8 H RBC4.13 L Hgb12.8 L Hct38.1 L MCV92.3 MCH31.0 MCHC33.6 RDW14.3 Cmxywkrp567 MPV8.5 Segs81.7 H Monocytes9.6 Lymphocytes7.3 L Eosinophils0.6 Basophils0.8 Segs-Bands #9.7 H Lymphocytes #0.9 L Monocytes #1.1 H Eosinophils #0.1 Basophils #0.1 01/26 2044 POC Performing LocatioSee Note Glucose IYV699 H 01/26 2002 Glucose Nuo608 H BUN13 Creatinine Lvl1.01 Sodium Gea227 Potassium Lvl3.8 Chloride Zfb021 CO230 AGAP10.8 Calcium Lvl8.5 eGFR72 Magnesium Lvl1.6 L Phosphorus3.0 WBC12.1 H RBC4.32 L Hgb13.1 L Hct39.9 L MCV92.3 MCH30.3 MCHC32.8 RDW14.3 Sqwkmkin798 MPV8.7 Segs86.0 H Monocytes7.7 Lymphocytes5.1 L Eosinophils0.3 Basophils0.9 Segs-Bands #10.4 H Lymphocytes #0.6 L Monocytes #0.9 H Basophils #0.1 01/26 1844 PT18.9 H INR1.57 H WBC12.7 H RBC4.36 L Hgb13.3 L Hct40.6 L MCV93.1 MCH30.5 MCHC32.7 RDW14.3 Vbfgfqbh303 MPV8.7 Segs81.4 H Monocytes9.4 Lymphocytes8.2 L Eosinophils0.5 Basophils0.5 Segs-Bands #10.4 H Lymphocytes #1.0 Monocytes #1.2 H Eosinophils #0.1 Basophils #0.1 01/26 1313 POC Activated Tbbnchqb609 POC Performing LocatioSee Note 01/26 1228 POC Performing LocatioSee Note Glucose CWU440 H INR: 1.57 High (01/26/18 19:35:06)No qualifying data available. Imaging Studies: pulmonary vein mapping CTA 01/21/18- 1. Pulmonary vein anatomy and measureme nts are as above. 2. Right upper lobe spiculated nodule m easuring 1.3 cm, concerning for a primary neoplasm. Further evaluation with tissue diagnosis or PET/CT is recommended. 3. Left upper lobe cavitary lesion with peripheral groundglass opacity measuring up to 1.7 cm. This may represent a neoplastic process or an infectious/inflammatory process. Short-term follow-up CT thorax or PET/CT is recommended in 3 months. 4. Small left upper lobe 3 mm nodule, i ndeterminate. 5. Mild centrilobular emphysema. 6. Mildly ectatic ascending aorta measu ring up to 3.7 cm. 7. Fatty infiltration of the liver. Review of Systems: Constitutional Symptoms: no fever, + malaise Eyes: no visual changes Ears, Nose, Mouth, Throat: no dysphagia, no hearing deficit Cardiovascular: no chest pain, + hypertension, + afib, + chronic systolic CHF Respiratory: + chronic bronchitis, + chronic cough, RUL lung nodule Gastorintenstinal: no nausea, vomiting, diarrhea Genitourinary: no dysuria, no frequency, no urgency Musculoskeletal: + chronic back pain Integumentary: no rash, no hives Neurological: no weakness, no headache, no seizures Psychiatry: no anxiety, no depression, no insomnia Endocrine: no diabetes or thyroid dysfunction, + obesity Physical Examination: VitalsTmp(F)Tmp(C)JnlfjJJTQUHbpmcONTyY2WQI7HQDM5 01/27 11:00 113/[id number]--- --- 01/27 10:00 130/[id number]--- --- 01/27 09:00 114/[id number]-- ---- 01/27 08:2196.735.94oral ------ 01/27 08:00 8219----- ---- 24 Hr Tmax: 98.0F (36.67c) at 01/26 17:0 0Vital Signs are the last 5 in the past 48 hours. 24 Hr Tmin: 96.7F (35.94c) at 01/27 08: 21Weights are the last 5 in 60 days, plus initial. DateWt(kg)Wt(lb)Ht(cm)Ht(in)MethodBMIBSA 01/26 (initial)143.64 316.00Measured 38. 52.78 86163.04 76.00Stated 24 Hr Point of Care Glucoses 01/26 2044Glucose PKF261 H 01/26 1228Glucose WYR035 H Most Recent Scores: 01/27/18Pain Intensity NRS (0-10)0 01/27/18Glasgow Coma Score15 01/27/18Johns Torres Fall Score16 01/26/18Braden Score20 Lines, Tubes, and Drains: 01/26/2018 06:43 Peripheral Lines: Antec ubital Left Over the needle catheter Surgical Procedures: (no date)EPS PVI ABLATION CARTO [id number](primary surgeon unspecified) General: Active, alert, obese male in no acute distress Head: Normocephalic, atraumatic Eyes: sclera is clear Hearing: normal to spoken voice Speech: Adequate vocabulary, no impediments Nose: [place] nasal turbinates, septum midline, no drainage or deformities Mouth: moist mucous membranes, dentition is fair Neck: Supple, without JVD Resp: even and non labored, but diminished bilaterally with few scattered rhonchi throughout lung do CV: RRR, without murmurs, rubs or gallops ABD: large, soft with positive bowel sounds x 4 quads. Back/Extremities: lower extremities are with a trace of edema Neuro: He is alert and oriented to all spheres and follows simple commands. Skin: Clear, no rashes or jaundice Impression: 1. RUL lung nodule 2. chronic systolic CHF 3. afib 4. morbid obesity 5. tobacco abuse 6. anemia 7. hypertension Plan: Plan is for image guided targeted biopsy of right upper lobe lung nodule under moderate sedation in Interventional Radiology. However, patient has taken Plavix 75 mg and Coumadin (last doses were 01/24/18). Discussed with patient that he would need to be off of Plavix for 5 days and also INR would need to be < 1.5 prior to biopsy being done. Therefore, will place procedure on hold for now. Dr. Delgado of the primary team was notified via phone regarding need to defer biopsy at this time. He will let us know if patient will remain hospitalized to have procedure done on or after 01/29 or if patient will return for the procedure as an outpatient. THANK YOU FOR CONSULTING INTERVENTIONAL RADIOLOGY. IF YOU HAVE ANY QUESTIONS, PLEASE CONTACT [phone]. Addendum I have personally interview ed and examined the patient with the Nurse Practitioner and I by Syed, agree with assessment and p jayla as delineated in the note above. A total of approximately Jaswinder _20__ minutes was spent wit h the patient, with one half of the time spent on counseling, Vaibhav lab and imaging review and discussion. on D/W Dr Delgado. We will prefe r this performed as an outpatient and i asked that the primary 01/27/2018 team call our scheduling de mary ellen. 12:25
--- OUTSIDE RECORDS SUMMARY | 2020-05-11 12:51 | XMS REPORT | Summary of Care ---
Author Author [facility] Address Unknown Phone Unavailable Encounter [facility](FIN) [id number] Date(s): 05/12/18 - 05/14/18 [facility] [id number] [place] [address]- Encounter Diagnosis Solitary pulmonary nodule (Final) - Discharge Disposition: Home or Self Care Vital Signs 1 2 3 Most recent to oldest [Reference Range]: 193.04 cm (05/10/18 8:38 AM) Height 98.2 DegF (05/14/18 7:00 AM) 98 DegF (05/14/18 12:00 AM) 98.1 DegF (05/13/18 8:00 PM) Temperature Oral [96.4-99.1 DegF] 142/72 mmHg *HI* (05/14/18 12:03 PM) 133/65 mmHg (05/14/18 11:00 AM) 122/65 mmHg (05/14/18 10:00 AM) Blood Pressure [90-140/60-90 mmHg] 22 BRMIN *HI* (05/14/18 12:03 PM) 23 BRMIN *HI* (05/14/18 11:00 AM) 23 BRMIN *HI* (05/14/18 10:00 AM) Respiratory Rate [14-20 BRMIN] 57 bpm *LOW* (05/12/18 8:09 AM) 61 bpm (05/10/18 10:32 AM) Peripheral Pulse Rate [60-100 bpm] 159.1 kg (05/13/18 6:22 AM) 146.909 kg (05/10/18 8:38 AM) Weight 39.42 m2 (05/10/18 8:38 AM) Body Mass Index Problem List Condition Effective Dates Status Health Status Informan t AF (atrial Active fibrillation)(Confir med) H/O Active hyperlipidemia(Confi rmed) Abnormal Resolved angiogram(Confirmed) 1 Poor circulation of Resolved extremity(Confirmed) Borderline Active diabetes(Confirmed) 1lower legs with stents Allergies, Adverse Reactions, Alerts Substance Reaction Severity Status NKDA Active Medications *Please bring pt's own anoro ellipta to pharmacy for label* *Please bring pt's own anoro ellipta to pharmacy for label*, ATTN:RN, Drug form: MISC, Route: MISC, QSHIFT, 05/13/18 0:00:00 CDT, Duration: 30 day, Stop date: 0 06/11/18 16:00:00 CDT Start Date: 05/13/18 Stop Date: 05/14/18 Status: Discontinued acetaminophen 650 mg, 2 tab, Route: PO, Drug form: TAB, Q4H, Dosing Weight 146.909, kg, PRN Pa in Score 1-3, Start date: 05/12/18 12:47:00 CDT, Duration: 30 day, Stop date: 12:46:00 CDT Notes: Do not exceed 4 gm/day. (Same as: Tylenol) Start Date: 05/12/18 Stop Date: 05/14/18 Status: Discontinued acetaminophen-hydrocodone 325 mg-5 mg oral tablet 2 tab, Route: PO, Drug Form: TAB, Dosing Weight 146.909, kg, Q6H, PRN Pain Score 4-6, Start date: 05/12/18 12:47:00 CDT, Duration: 30 day, Stop date: 06/11/18 1 2:46:00 CDT Notes: (Same as: [place] 325/5) Do not exceed 4gm/day of acetaminophen. Start Date: 05/12/18 Stop Date: 05/14/18 Status: Discontinued albuterol-ipratropium 2.5-0.5 mg inhalation solution 3 ml, Route: NEB, Drug Form: SOLN, Dosing Weight 146.909, kg, RQID, PRN Respirat ory Pathway, Start date: 05/12/18 15:15:00 CDT, Duration: 30 day, Stop date: 15:14:00 CDT Notes: (Same as: Duoneb) Start Date: 05/12/18 Stop Date: 05/14/18 Status: Discontinued albuterol-ipratropium CFC free 100 mcg-20 mcg/inh inhalation aerosol 1 puff, INHALATION, QID, 0 Refill(s) Start Date: 05/10/18 Stop Date: 05/12/18 Status: Discontinued albuterol-ipratropium CFC free 100 mcg-20 mcg/inh inhalation aerosol 1 puff, Route: INHALATION, Drug Form: AERO, Dosing Weight 146.909, kg, QID, Star t date: 05/12/18 13:00:00 CDT, Duration: 30 day, Stop date: 06/11/18 9:00:00 CDT Notes: Same as: Combivent RespimatWASTE: Aerosol - Return to Pharmacy Start Date: 05/12/18 Stop Date: 05/12/18 Status: Discontinued Ancef + sterile water 10 mL 1 gm, Route: IVP, Q8H, Dosing Weight 146.909, kg, Start date: 05/12/18 20:00:00 CDT, Duration: 3 doses or times, Stop date: 05/13/18 12:00:00 CDT, ABX Indicatio n: Surgical Prophylaxis Notes: (Same As: Ancef, Kefzol) MEDICATION WASTE Product Size: 1000 mgP roduct Wasted: ___ mg Start Date: 05/12/18 Stop Date: 05/13/18 Status: Completed Anoro Ellipta 62.5 mcg-25 mcg inhalation powder 1 puff, INHALER, Daily, # 1 ea, 3 Refill(s) Start Date: 05/10/18 Stop Date: 05/12/18 Status: Discontinued Anoro Ellipta 62.5 mcg-25 mcg inhalation powder 1 puff, Route: INHALER, Drug Form: PWDR, Dosing Weight 146.909, kg, Daily, Start date: 05/13/18 9:00:00 CDT, Duration: 30 day, Stop date: 06/11/18 9:00:00 CDT Start Date: 05/13/18 Stop Date: 05/14/18 Status: Discontinued Anoro Ellipta 62.5 mcg-25 mcg inhalation powder 1 puff, Route: INHALER, Drug Form: PWDR, Dosing Weight 146.909, kg, Daily, Start date: 05/13/18 9:00:00 CDT, Duration: 30 day, Stop date: 06/11/18 9:00:00 CDT Notes: (Same as: Becky Beck) Start Date: 05/13/18 Stop Date: 05/12/18 Status: Canceled aspirin 81 mg tablet, enteric coated 81 mg = 1 tab, PO, Daily, last dose 05/06/18, # 90 tab, 3 Refill(s) Start Date: 05/10/18 Status: Ordered aspirin 81 mg tablet, enteric coated 81 mg, 1 tab, Route: PO, Drug form: ECTAB, Daily, Dosing Weight 146.909, kg, Sta rt date: 05/12/18 15:00:00 CDT, Duration: 30 day, Stop date: 06/11/18 9:00:00 CD T Notes: Do not crush or chew.(Same As: Ecotrin) Start Date: 05/12/18 Stop Date: 05/14/18 Status: Discontinued atorvastatin 40 mg, 1 tab, Route: PO, Drug form: TAB, Bedtime, Dosing Weight 146.909, kg, Sta rt date: 05/12/18 21:00:00 CDT, Duration: 30 day, Stop date: 06/10/18 21:00:00 C DT Notes: (Same as: Lipitor) Start Date: 05/12/18 Stop Date: 05/14/18 Status: Discontinued ceFAZolin (ANES) Route: IV, Drug form: INJ, ONCE, Stop date: 05/12/18 13:01:00 CDT Start Date: 05/12/18 Stop Date: 05/12/18 Status: Completed clopidogrel 75 mg, 1 tab, Route: PO, Drug form: TAB, Daily, Dosing Weight 146.909, kg, Start date: 05/13/18 9:00:00 CDT, Duration: 30 day, Stop date: 06/11/18 9:00:00 CDT Notes: (Same As: Plavix) Start Date: 05/13/18 Stop Date: 05/14/18 Status: Discontinued dexamethasone (ANES) Route: IV, Drug form: INJ, ONCE, Stop date: 05/12/18 13:01:00 CDT Start Date: 05/12/18 Stop Date: 05/12/18 Status: Completed Dextrose 50% Syringe 25 gm, 50 mL, Route: IVP, Drug Form: INJ, Dosing Weight 146.909, kg, PRN, PRN Bl ood Glucose Results, Start date: 05/12/18 12:02:00 CDT, Duration: 30 day, Stop d ate: 06/11/18 12:01:00 CDT Start Date: 05/12/18 Stop Date: 05/14/18 Status: Discontinued Dextrose 50% Syringe 12.5 gm, 25 mL, Route: IVP, Drug Form: INJ, Dosing Weight 146.909, kg, PRN, PRN Blood Glucose Results, Start date: 05/12/18 12:02:00 CDT, Duration: 30 day, Stop date: 06/11/18 12:01:00 CDT Start Date: 05/12/18 Stop Date: 05/14/18 Status: Discontinued dofetilide 500 microgram, 2 cap, Route: PO, Drug form: CAP, Q12H, Start date: 05/12/18 21:0 0:00 CDT, Duration: 30 day, Stop date: 06/11/18 9:00:00 CDT Notes: (Same as: Phillip)Providers should enter the orders via the "Dofetilide I nitiation Orders MPP" to ensure compliance with the REMS program. Start Date: 05/12/18 Stop Date: 05/13/18 Status: Discontinued dofetilide 500 mcg oral capsule dofetilide 500 mcg oral capsule, 500 microgram, Drug form: CAP, Route: PO, Q12H, 05/12/18 21:00:00 CDT, Duration: 30 day, Stop date: 06/11/18 9:00:00 CDT Start Date: 05/12/18 Stop Date: 05/12/18 Status: Deleted enoxaparin 80 mg/0.8 mL subcutaneous solution SUB-Q, Q12H, 05/10, 05/11,05/12, 0 Refill(s) Start Date: 05/10/18 Stop Date: 05/14/18 Status: Discontinued ePHEDrine (ANES) Route: IV, Drug form: INJ, ONCE, Stop date: 05/12/18 13:06:00 CDT Start Date: 05/12/18 Stop Date: 05/12/18 Status: Completed Exparel 20 mL, Route: InFILtration(local), Drug Form: INJ, Dosing Weight 146.909, kg, [employer], For Hemorrhoidectomy, Start date: 05/12/18 11:00:00 CDT, Duration: 1 day, Stop date: 05/13/18 10:59:00 CDT Notes: (Same as: Exparel) NOT FOR IV use Postoperative analgesia: Infi ltration (local): Dose is based on surgical site and volume required to cover th e area (in general, the maximum total dose is 266 mg).Bunionectomy: 7 mL into th e tissues surrounding the osteotomy and 1 mL into the subcutaneous tissue of the surgical site (total dose = 8 mL [106 mg])Hemorrhoidectomy: 30 mL (20 mL vial d iluted with 10 mL NS) divided and administered as 6 injections of 5 mL each (tot al dose = 30 mL [266 mg]) Start Date: 05/12/18 Stop Date: 05/14/18 Status: Discontinued fentaNYL (ANES) Route: IV, Drug form: INJ, ONCE, Stop date: 05/12/18 13:01:00 CDT Start Date: 05/12/18 Stop Date: 05/12/18 Status: Completed furosemide 80 mg, 2 tab, Route: PO, Drug form: TAB, BID, Dosing Weight 146.909, kg, Start d ate: 05/12/18 17:00:00 CDT, Duration: 30 day, Stop date: 06/11/18 9:00:00 CDT Notes: (Same as: Lasix) May cause GI upset. Give with food or milk. Start Date: 05/12/18 Stop Date: 05/14/18 Status: Discontinued glucagon 1 mg, Route: IM, Drug form: PDR/INJ, PRN, Dosing Weight 146.909, kg, PRN Blood G lucose Results, Start date: 05/12/18 12:02:00 CDT, Duration: 30 day, Stop date: 06/11/18 12:01:00 CDT Start Date: 05/12/18 Stop Date: 05/14/18 Status: Discontinued glycopyrrolate (ANES) Route: IV, Drug form: INJ, ONCE, Stop date: 05/12/18 12:56:00 CDT Start Date: 05/12/18 Stop Date: 05/12/18 Status: Completed hydrALAZINE 20 mg, 1 mL, Route: IVP, Drug form: INJ, Q4H, Dosing Weight 146.909, kg, PRN Hyp ertension, Start date: 05/12/18 12:09:00 CDT, Duration: 30 day, Stop date: 06/11 12:08:00 CDT, SBP > 150 Notes: (Same as: Apresoline)Push over 5 minutes Start Date: 05/12/18 Stop Date: 05/14/18 Status: Discontinued hydromorphone 4 mg, 2 tab, Route: PO, Drug form: TAB, Q4H, Dosing Weight 146.909, kg, PRN Pain Score 7-10, Start date: 05/12/18 12:47:00 CDT, Stop date: 06/11/18 12:46:00 CDT Notes: (Same as: Dilaudid) Start Date: 05/12/18 Stop Date: 05/14/18 Status: Discontinued insulin lispro 8 unit, 0.08 mL, Route: SUB-Q, Drug form: SOLN, TID-Before Meals, Dosing Weight 146.909, kg, PRN Blood Glucose Results, Start date: 05/12/18 12:02:00 CDT, Durat ion: 30 day, Stop date: 06/11/18 12:01:00 CDT Notes: (Same as: Humalog ) Roll in palms of hands gently; Do not shake `vigorou sly. "Single Patient Use Only " WASTE: F/P - Black; E - [employer] Trash Bin St able for 28 days at room temperature.Expires in days from Da te Start Date: 05/12/18 Stop Date: 05/14/18 Status: Discontinued insulin lispro 10 unit, 0.1 mL, Route: SUB-Q, Drug form: SOLN, TID-Before Meals, Dosing Weight 146.909, kg, PRN Blood Glucose Results, Start date: 05/12/18 12:02:00 CDT, Durat ion: 30 day, Stop date: 06/11/18 12:01:00 CDT Notes: (Same as: Humalog ) Roll in palms of hands gently; Do not shake `vigorou sly. "Single Patient Use Only " WASTE: F/P - Black; E - [employer] Trash [employer] [address] able for 28 days at room temperature.Expires in days from Da te Start Date: 05/12/18 Stop Date: 05/14/18 Status: Discontinued insulin lispro 6 unit, 0.06 mL, Route: SUB-Q, Drug form: SOLN, TID-Before Meals, Dosing Weight 146.909, kg, PRN Blood Glucose Results, Start date: 05/12/18 12:02:00 CDT, Durat ion: 30 day, Stop date: 06/11/18 12:01:00 CDT Notes: (Same as: Humalog ) Roll in palms of hands gently; Do not shake `vigorou sly. "Single Patient Use Only " WASTE: F/P - Black; E - [employer] Trash [facility] [address] able for 28 days at room temperature.Expires in days from Da te Start Date: 05/12/18 Stop Date: 05/14/18 Status: Discontinued insulin lispro 2 unit, 0.02 mL, Route: SUB-Q, Drug form: SOLN, TID-Before Meals, Dosing Weight 146.909, kg, PRN Blood Glucose Results, Start date: 05/12/18 12:02:00 CDT, Durat ion: 30 day, Stop date: 06/11/18 12:01:00 CDT Notes: (Same as: Humalog ) Roll in palms of hands gently; Do not shake `vigorou sly. "Single Patient Use Only " WASTE: F/P - Black; E - [employer] Trash [address] able for 28 days at room temperature.Expires in days from Da te Start Date: 05/12/18 Stop Date: 05/14/18 Status: Discontinued insulin lispro 4 unit, 0.04 mL, Route: SUB-Q, Drug form: SOLN, TID-Before Meals, Dosing Weight 146.909, kg, PRN Blood Glucose Results, Start date: 05/12/18 12:02:00 CDT, Durat ion: 30 day, Stop date: 06/11/18 12:01:00 CDT Notes: (Same as: Humalog ) Roll in palms of hands gently; Do not shake `vigorou sly. "Single Patient Use Only " WASTE: F/P - Black; E - [facility] Trash Bin [address] able for 28 days at room temperature.Expires in days from Da te Start Date: 05/12/18 Stop Date: 05/14/18 Status: Discontinued ketOROLAC (ANES) IV, ONCE Start Date: 05/12/18 Stop Date: 05/12/18 Status: Completed Lactated Ringers Injection IV (ANES) 1000 mL Route: IV, Total Volume: 1,000, Start date: 05/12/18 11:16:00 CDT, Stop date: 12:16:00 CDT Start Date: 05/12/18 Stop Date: 05/12/18 Status: Completed Lactated Ringers Injection IV 1000 mL 1,000 mL, Rate: 25 ml/hr, Infuse over: 40 hr, Route: IV, Dosing Weight 146.909 k g, Total Volume: 1,000, Start date: 05/12/18 11:17:00 CDT, Duration: 30 day, Sto p date: 06/11/18 11:16:00 CDT, 2.83, m2 Start Date: 05/12/18 Stop Date: 05/12/18 Status: Discontinued levothyroxine 25 microgram, 1 tab, Route: PO, Drug form: TAB, Q630AM, Dosing Weight 146.909, k g, Start date: 05/13/18 6:30:00 CDT, Duration: 30 day, Stop date: 06/11/18 6:30: 00 CDT Notes: Take 1 hour before or 2 hours after meal; Enteral feeds may interefere wi th the absorption of this medication. (Same as:Levothroid) Start Date: 05/13/18 Stop Date: 05/14/18 Status: Discontinued lidocaine (ANES) Route: IV, Drug form: INJ, ONCE, Stop date: 05/12/18 12:56:00 CDT Start Date: 05/12/18 Stop Date: 05/12/18 Status: Completed Lovenox 40 mg, 0.4 mL, Route: SUB-Q, Drug form: INJ, [id number], Dosing Weight 146.909, kg , Start date: 05/13/18 9:00:00 CDT, Duration: 30 day, Stop date: 06/11/18 9:00:0 0 CDT Notes: (Same as: Lovenox) Start Date: 05/13/18 Stop Date: 05/14/18 Status: Discontinued metoprolol 100 mg, 2 tab, Route: PO, Drug form: TAB, Q12H, Start date: 05/12/18 21:00:00 CD T, Duration: 30 day, Stop date: 06/11/18 9:00:00 CDT Notes: (Same as: Lopressor) Start Date: 05/12/18 Stop Date: 05/14/18 Status: Discontinued metoprolol tartrate 100 mg oral tablet metoprolol tartrate 100 mg oral tablet, 100 mg, Route: PO, BID, 05/12/18 17:00:0 0 CDT, Duration: 30 day, Stop date: 06/11/18 9:00:00 CDT Start Date: 05/12/18 Stop Date: 05/12/18 Status: Deleted midazolam (ANES) Route: IV, Drug form: SOLN, ONCE, Stop date: 05/12/18 12:56:00 CDT Start Date: 05/12/18 Stop Date: 05/12/18 Status: Completed neostigmine (ANES) Route: IV, Drug form: INJ, ONCE, Stop date: 05/12/18 13:42:00 CDT Start Date: 05/12/18 Stop Date: 05/12/18 Status: Completed [place] 5/325 oral tablet 1 tab, Route: PO, Drug Form: TAB, Dosing Weight 146.909, kg, Q4H, PRN Pain Score 1-3, Start date: 05/12/18 17:16:00 CDT, Duration: 30 day, Stop date: 06/11/18 1 7:15:00 CDT Notes: (Same as: [place] 325/5) Do not exceed 4gm/day of acetaminophen. Start Date: 05/12/18 Stop Date: 05/14/18 Status: Discontinued [place] 5/325 oral tablet 2 tab, Route: PO, Drug Form: TAB, Dosing Weight 146.909, kg, Q4H, PRN Pain Score 4-6, Start date: 05/12/18 17:16:00 CDT, Duration: 30 day, Stop date: 06/11/18 1 7:15:00 CDT Notes: (Same as: [place] 325/5) Do not exceed 4gm/day of acetaminophen. Start Date: 05/12/18 Stop Date: 05/14/18 Status: Discontinued normal saline 0.9% IV 1,000 mL 1,000 mL, Rate: 75 ml/hr, Infuse over: 13.3 hr, Route: IV, Dosing Weight 146.909 kg, Total Volume: 1,000, Start date: 05/12/18 12:47:00 CDT, Duration: 30 day, S top date: 06/11/18 12:46:00 CDT, 2.83, m2 Start Date: 05/12/18 Stop Date: 05/14/18 Status: Discontinued potassium chloride 20 mEq, 1 tab, Route: PO, Drug form: ERTAB, Daily, Dosing Weight 146.909, kg, St art date: 05/13/18 9:00:00 CDT, Duration: 30 day, Stop date: 06/11/18 9:00:00 CD T Notes: (Same as: K-Dur 20)"Do Not Crush"For patients unable to swallow tablet, d issolve in one half glass of water. Allow about 2 minutes for the tablets to dis integrate. Stir before giving to prepare slurry and administer.Please exclude Pa tients with feeding tube less than 14 [place] (Dobhoff, J-tube etc) and pediat moira and patients. With food and full glass of water Start Date: 05/13/18 Stop Date: 05/14/18 Status: Discontinued propofol (ANES) Route: IV, Drug form: INJ, ONCE, Stop date: 05/12/18 12:56:00 CDT Start Date: 05/12/18 Stop Date: 05/12/18 Status: Completed rocuronium (ANES) Route: IV, Drug form: INJ, ONCE, Stop date: 05/12/18 12:31:00 CDT Start Date: 05/12/18 Stop Date: 05/12/18 Status: Completed Sodium Chloride 0.9% IV (ANES) 1000 mL Route: IV, Total Volume: 1,000, Start date: 05/12/18 11:30:00 CDT, Stop date: 12:30:00 CDT Start Date: 05/12/18 Stop Date: 05/12/18 Status: Completed Spiriva 18 mcg inhalation capsule 18 microgram, 1 inhalation, Route: INHALATION, Drug form: CAP, RDaily, Dosing We ight 146.909, kg, Start date: 05/13/18 8:00:00 CDT, Duration: 30 day, Stop date: 06/11/18 8:00:00 CDT Notes: (Same As: Spiriva). Start Date: 05/13/18 Stop Date: 05/14/18 Status: Discontinued Results BLOOD BANK RESULTS 1 2 3 Most recent to oldest [Reference Range]: B POS *Unknown* (05/10/18 10:16 AM) ABO/Rh Negative (05/10/18 10:16 AM) Antibody Scrn Product available (05/10/18 8:39 AM) RBC product ELECTROLYTES 1 2 3 Most recent to oldest [Reference Range]: 139 mEq/L (05/14/18 6:50 AM) 138 mEq/L (05/13/18 3:52 AM) 143 mEq/L (05/12/18 1:53 PM) Sodium Lvl [135-145 mEq/L] 4.0 mEq/L (05/14/18 6:50 AM) 4.5 mEq/L (05/13/18 3:52 AM) 4.8 mEq/L (05/12/18 1:53 PM) Potassium Lvl [3.5-5.1 mEq/L] 104 mEq/L (05/14/18 6:50 AM) 106 mEq/L (05/13/18 3:52 AM) 109 mEq/L (05/12/18 1:53 PM) Chloride Lvl [95-109 mEq/L] 27 mEq/L (05/14/18 6:50 AM) 25 mEq/L (05/13/18 3:52 AM) 30 mEq/L (05/12/18 1:53 PM) CO2 [24-32 mEq/L] 12.0 mEq/L (05/14/18 6:50 AM) 11.5 mEq/L (05/13/18 3:52 AM) 8.8 mEq/L *LOW* (05/12/18 1:53 PM) AGAP [10.0-20.0 mEq/L] CHEM PANEL 1 2 3 Most recent to oldest [Reference Range]: 0.91 mg/dL (05/14/18 6:50 AM) 1.14 mg/dL (05/13/18 3:52 AM) 0.91 mg/dL (05/12/18 1:53 PM) Creatinine Lvl [0.50-1.40 mg/dL] 83 mL/min/1.73m2 1 *NA* (05/14/18 6:50 AM) 63 mL/min/1.73m2 2 *NA* (05/13/18 3:52 AM) 82 mL/min/1.73m2 3 *NA* (05/12/18 1:53 PM) eGFR 18 mg/dL (05/14/18 6:50 AM) 18 mg/dL (05/13/18 3:52 AM) 15 mg/dL (05/12/18 1:53 PM) BUN [7-22 mg/dL] 118 mg/dL *HI* (05/14/18 6:50 AM) 180 mg/dL *HI* (05/13/18 3:52 AM) 121 mg/dL *HI* (05/12/18 1:53 PM) Glucose Lvl [70-99 mg/dL] 8.4 mg/dL *LOW* (05/14/18 6:50 AM) 8.2 mg/dL *LOW* (05/13/18 3:52 AM) 8.0 mg/dL *LOW* (05/12/18 1:53 PM) Calcium Lvl [8.5-10.5 mg/dL] 1Result Comment: The eGFR is calculated [...] be mul tiplied by the estimated BMI. SPECIAL CHEMISTRY 1 2 3 Most recent to oldest [Reference Range]: 7.2 % *HI* (05/10/18 10:29 AM) Hgb A1C [<=5.6 %] URINE AND STOOL 1 2 3 Most recent to oldest [Reference Range]: Clear (05/10/18 10:16 AM) UA Turbidity [Clear] Ltyellow *NA* (05/10/18 10:16 AM) UA Color 5.0 (05/10/18 10:16 AM) UA pH [5.0-8.0] 1.008 (05/10/18 10:16 AM) UA Spec Grav [<=1.030] Negative mg/dL *NA* (05/10/18 10:16 AM) UA Glucose [Negative mg/dL] Negative (05/10/18 10:16 AM) UA Blood [Negative] Negative mg/dL *NA* (05/10/18 10:16 AM) UA Ketones [Negative mg/dL] Negative mg/dL (05/10/18 10:16 AM) UA Protein [Negative mg/dL] <=1.0 mg/dL *NA* (05/10/18 10:16 AM) UA Urobilinogen [0.1-1.0 mg/dL] Negative *NA* (05/10/18 10:16 AM) UA Bili [Negative] Negative (05/10/18 10:16 AM) UA Leuk Est [Negative] Negative (05/10/18 10:16 AM) UA Nitrite [Negative] 1 /HPF (05/10/18 10:16 AM) UA WBC [0-5 /HPF] 2 /HPF (05/10/18 10:16 AM) UA RBC [0-2 /HPF] None Seen *NA* (05/10/18 10:16 AM) UA Sq Epi HEMATOLOGY 1 2 3 Most recent to oldest [Reference Range]: 10.9 K/CMM *HI* (05/14/18 6:04 AM) 14.0 K/CMM *HI* (05/13/18 3:52 AM) 7.1 K/CMM (05/12/18 1:53 PM) WBC [3.7-10.4 K/CMM] 4.59 M/CMM *LOW* (05/14/18 6:04 AM) 4.43 M/CMM *LOW* (05/13/18 3:52 AM) 4.37 M/CMM *LOW* (05/12/18 1:53 PM) RBC [4.70-6.10 M/CMM] 13.8 g/dL *LOW* (05/14/18 6:04 AM) 13.2 g/dL *LOW* (05/13/18 3:52 AM) 13.3 g/dL *LOW* (05/12/18 1:53 PM) Hgb [14.0-18.0 g/dL] 42.0 % (05/14/18 6:04 AM) 40.4 % *LOW* (05/13/18 3:52 AM) 40.2 % *LOW* (05/12/18 1:53 PM) Hct [42.0-54.0 %] 91.5 fL (05/14/18 6:04 AM) 91.2 fL (05/13/18 3:52 AM) 92.1 fL (05/12/18 1:53 PM) MCV [80.0-94.0 fL] 30.0 pg (05/14/18 6:04 AM) 29.9 pg (05/13/18 3:52 AM) 30.5 pg (05/12/18 1:53 PM) MCH [27.0-31.0 pg] 32.8 g/dL (05/14/18 6:04 AM) 32.7 g/dL (05/13/18 3:52 AM) 33.1 g/dL (05/12/18 1:53 PM) MCHC [32.0-36.0 g/dL] 14.4 % (05/14/18 6:04 AM) 13.9 % (05/13/18 3:52 AM) 14.0 % (05/12/18 1:53 PM) RDW [11.5-14.5 %] 9.0 fL (05/14/18 6:04 AM) 9.2 fL (05/13/18 3:52 AM) 9.0 fL (05/12/18 1:53 PM) MPV [7.4-10.4 fL] 248 K/CMM (05/14/18 6:04 AM) 236 K/CMM (05/13/18 3:52 AM) 206 K/CMM (05/12/18 1:53 PM) Platelet [133-450 K/CMM] 69.1 % (05/14/18 6:04 AM) 85.7 % *HI* (05/13/18 3:52 AM) 66.2 % (05/12/18 1:53 PM) Segs [45.0-75.0 %] 17.4 % *LOW* (05/14/18 6:04 AM) 6.7 % *LOW* (05/13/18 3:52 AM) 23.5 % (05/12/18 1:53 PM) Lymphocytes [20.0-40.0 %] 9.6 % (05/14/18 6:04 AM) 7.3 % (05/13/18 3:52 AM) 7.5 % (05/12/18 1:53 PM) Monocytes [2.0-12.0 %] 2.8 % (05/14/18 6:04 AM) 2.2 % (05/12/18 1:53 PM) 3.1 % (05/10/18 10:16 AM) Eosinophils [0.0-4.0 %] 1.1 % *HI* (05/14/18 6:04 AM) 0.3 % (05/13/18 3:52 AM) 0.6 % (05/12/18 1:53 PM) Basophils [0.0-1.0 %] 7.5 K/CMM (05/14/18 6:04 AM) 12.0 K/CMM *HI* (05/13/18 3:52 AM) 4.7 K/CMM (05/12/18 1:53 PM) Segs-Bands # [1.5-8.1 K/CMM] 1.9 K/CMM (05/14/18 6:04 AM) 0.9 K/CMM *LOW* (05/13/18 3:52 AM) 1.7 K/CMM (05/12/18 1:53 PM) Lymphocytes # [1.0-5.5 K/CMM] 1.0 K/CMM *HI* (05/14/18 6:04 AM) 1.0 K/CMM *HI* (05/13/18 3:52 AM) 0.5 K/CMM (05/12/18 1:53 PM) Monocytes # [0.0-0.8 K/CMM] 0.3 K/CMM (05/14/18 6:04 AM) 0.2 K/CMM (05/12/18 1:53 PM) 0.3 K/CMM (05/10/18 10:16 AM) Eosinophils # [0.0-0.5 K/CMM] 0.1 K/CMM (05/14/18 6:04 AM) 0.1 K/CMM (05/10/18 10:16 AM) Basophils # [0.0-0.2 K/CMM] 14.7 seconds (05/10/18 10:16 AM) PT [12.0-14.7 seconds] 1.15 (05/10/18 10:16 AM) INR [0.85-1.17] 32.1 seconds (05/10/18 10:16 AM) PTT [22.9-35.8 seconds] Immunizations Given and Recorded Vaccine Date Status [...] No entered on: 05/12/18 Assessment and Plan Extracted from: Title: Clinical Document Author: Augustina Delarosa CALL OR CONTACT CENTRE COACH Date: 05/14/18 Discharge Summary Name: Record Number: Admission Date: 05/12/2018 Discharge Date: 05/14/2018 Copies to: Diagnoses: Right lung cancer Procedures: Right Thoracoscopy with wedge resection of the right upper lobe. Chief Complaint: Right lung cancer s/p wedge resection of the right upper lobe. PMH: right lung cancer, atrial fibrillation s/p ablation, smoker, DM, hypothyroidism, PVD Hospital course: Pt admitted with right lung cancer and underwent a right thoracoscopy with wedge resection of the right upper lobe. Pt did well after surgery. Chest tube was removed on post op day #2. Chest x ray was stable after chest tube removed and pt was discharged to home in stable condition. Discharge condition: Stable Discharge therapy: Medications: As per medication reconcillation sheet. Diet: Cardiac, Diabetic diet. Activity: As tolerated, no heavy lifting until follow up. Follow up: Pt is to follow up in two weeks with Dr. Marcus and his oncologist. Extracted from: Title: Clinical Document Author: Augustina Delarosa NP Date: 05/14/18 Progress Note - Daily [facility] Completed: Apr, 10:45 by Augustina Delarosa CALL OR CONTACT CENTRE COACH RM: [facility] - [address], [id number] (: 1940) M Attending: Carlin Marcus MDPhone: Service: Thoracic/Cardiac Darek Service Reason for Admission: R91.1 Working DRG: Code status: None Specified=FULL CODECurrent diet: Isolation: No Isolation/Standard Precautions Allergies: NKDA POD#2 SURGERY: s/p Right thoracoscopy with wedge resection of the right upper lobe. SUBJECTIVE: Pt up in the chair and doing well. OBJECTIVE 24hr Labs 05/14 0650 Glucose Ews618 H BUN18 Creatinine Lvl0.91 Sodium Syt831 Potassium Lvl4.0 Chloride Ygt699 CO227 AGAP12.0 Calcium Lvl8.4 L eGFR83 05/14 0604 WBC10.9 H RBC4.59 L Hgb13.8 L Hct42.0 MCV91.5 MCH30.0 MCHC32.8 RDW14.4 Fpduqsiw751 MPV9.0 Segs69.1 Monocytes9.6 Lcsigqwgqwi41.4 L Eosinophils2.8 Basophils1.1 H Segs-Bands #7.5 Lymphocytes #1.9 Monocytes #1.0 H Eosinophils #0.3 Basophils #0.1 05/13 2058 POC Performing LocatioSee Note Glucose DWR987 H 05/13 1623 POC Performing LocatioSee Note Glucose NUJ817 H 05/13 1152 POC Performing LocatioSee Note Glucose OTB436 H Nam still necessary (Yes/No): Line still necessary (Yes/No): VitalsTmp(F)VngwwBWJNRqP1PRA6 05/14 10:00----76-----23------ 06/15 09:00----70174/500405--- 05/14 08:00----22504/7020------ 05/14 07:00----12026/8320------ 05/14 06:00----66-----25------ 24 Hr Tmax: 98.1F (36.72c) at 05/13 20:0 0Vital Signs are the last 5 in the past 48 hours. DateWt(kg)Wt(lb)Ht(cm)Ht(in)Method .10 350.02Measured 05/10 (initial)146.91 323.20Measured .04 76.00Stated I&ORecordInOutBal 04/1524hr Tot 0 0 0 04/1424hr Tot [id number] Medications (28) Active Scheduled Meds (11): 05/12/18 aspirin (aspirin 81 mg tablet, enteric coated) 81 mg PO Daily 05/12/18 atorvastatin 40 mg PO Bedtime 05/13/18 clopidogrel 75 mg PO Daily 05/13/18 enoxaparin (Lovenox) 40 mg SUB- Q [id number] 05/12/18 furosemide 80 mg PO BID 05/13/18 levothyroxine 25 microgram PO Q 630AM 05/12/18 metoprolol 100 mg PO Q12H 05/13/18 non-formulary (*Please bring pt 's own anoro ellipta to pharmacy for label*) MISC QSHIFT 05/13/18 potassium chloride 20 mEq PO Da fabiano 05/13/18 tiotropium (Spiriva 18 mcg inha lation capsule) 18 microgram INHALATION RDaily 05/13/18 umeclidinium-vilanterol (Anoro Ellipta 62.5 mcg-25 mcg inhalation powder) 1 puff INHALER Daily Unscheduled Meds (1): 05/12/18 bupivacaine liposome (Exparel) 20 mL InFILtration(local) ONCALL PRN Meds (15): 05/12/18 Dextrose 50% in Water IV (Dextr ose 50% Syringe) 12.5 gm IVP PRN 05/12/18 Dextrose 50% in Water IV (Dextr ose 50% Syringe) 25 gm IVP PRN 05/12/18 acetaminophen-hydrocodone (acet aminophen-hydrocodone 325 mg-5 mg oral tablet) 2 tab PO Q6H 05/12/18 acetaminophen-hydrocodone (Norc o 5/325 oral tablet) 1 tab PO Q4H 05/12/18 acetaminophen-hydrocodone (Norc o 5/325 oral tablet) 2 tab PO Q4H 05/12/18 acetaminophen 650 mg PO Q4H 05/12/18 albuterol-ipratropium (albutero l-ipratropium 2.5-0.5 mg inhalation solution) 3 ml NEB RQID 05/12/18 glucagon 1 mg IM PRN 05/12/18 hydrALAZINE 20 mg IVP Q4H 05/12/18 hydromorphone 4 mg PO Q4H 05/12/18 insulin lispro 2 unit SUB-Q TID -Before Meals 05/12/18 insulin lispro 4 unit SUB-Q TID -Before Meals 05/12/18 insulin lispro 6 unit SUB-Q TID -Before Meals 05/12/18 insulin lispro 8 unit SUB-Q TID -Before Meals 05/12/18 insulin lispro 10 unit SUB-Q TI D-Before Meals One Time Meds: None Continuous Infusions (1): 05/12/18 Sodium Chloride 0.9% IV 1,000 m L (normal saline 0.9% IV 1,000 mL) 1,000 mL 75 ml/hr INCISIONS & DRAINS: Incisions clean, dry, intact. Right chest tube removed. PHYSICAL EXAM: Pt is alert and oriented x 3. WALLS. Lungs: clear and diminished. Heart: IRRR, no murmur. Rhythm AFib in the 60's. Abdomen: large, soft, nontender, BS+. Extremities: 1+ edema, +pulses. ASSESSMENT & PLAN: Pt with right lung cancer and is s/p right thoracoscopy with wedge resection of the right upper lobe. -Pt doing well. Right chest tube removed . Chest x ray post removal is stable. Pt tolerated well. -H/H 13.8/42, stable. -Will discharge to home and follow up [facility] Dr. Marcus and his oncologist two weeks after discharge. DIAGNOSES & PROBLEMS Right lung cancer s/p right thoracoscopy with wedge resection of the right upper lobe. Ready for Discharge (Yes/No)? 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 We discussed all the options and decided to proceed with a wedge resection thoracoscopically. In detail: The patient was taken to the operating room and was given general anesthesia with double-lumen endotracheal intubation. He was then positioned in left lateral decubitus and the right chest was prepped and draped in usual sterile manner. 3 small incisions were made 1 and the seventh intercostal space anterior axillary line 1 in the third intercostal space anterior axillary line and one posteriorly in the seventh intercostal space posterior axillary line. The thoracoscope was inserted and the lesion was identified in the upper lobe. There are area of the lung was then grabbed with a lung forceps and what was thought to be fairly generous wedge resection of the upper lobe was performed using the stapler. Frozen section did confirm adenocarcinoma with clean margins. A 32 Macedonian chest tube was then inserted from the middle incision and positioned posteriorly and superiorly. Was used to infiltrate all the incised areas. The incision was then closed with 2-0 Vicryl subcutaneous tissue skin wa s approximated with a running septically 4-0 Monocryl. Patient tolerated procedure well. Please send a copy of this to the chart my office Dr. Valentino and Dr Lewis
--- OUTSIDE RECORDS SUMMARY | 2020-05-11 12:51 | XMS REPORT | Summary of Care ---
Author Author [facility] Organization [facility] Address Unknown Phone Unavailable Encounter CRISTOBAL Quintero(MATT) [id number] Date(s): 01/21/18 - 01/21/18 [facility] [address] [employer] provided by [facility] [place] [address]- Encounter Diagnosis Persistent atrial fibrillation (Final) - 01/26/18 Shortness of breath (Final) - Solitary pulmonary nodule (Final) - Centrilobular emphysema (Final) - Fatty (change of) liver, not elsewhere classified (Final) - Thoracic aortic ectasia (Final) - Discharge Disposition: Home or Self Care Attending Physician: Anju Lamb MD Referring Physician: Anju Lamb MD Vital Signs Most recent to 1 2 oldest [Reference Range]: Height 193.04 cm 193.04 cm (01/21/18 10:12 AM) (01/21/18 9:47 AM) Weight 140 kg 140 kg (01/21/18 10:12 AM) (01/21/18 9:47 AM) Body Mass Index 37.57 m2 37.57 m2 (01/21/18 10:12 AM) (01/21/18 9:47 AM) Problem List No data available for this section Allergies, Adverse Reactions, Alerts Substance Reaction Severity Status NKDA Active Medications No data available for this section Results CHEM PANEL Most recent to 1 oldest [Reference Range]: eGFR 59 mL/min/1.73m2 1 *NA* (01/21/18 10:29 AM) POC Creatinine 1.2 mg/dL [0.5-1.4 mg/dL] (01/21/18 10:29 AM) 1Result Comment: The eGFR is calculated [...] be mul tiplied by the estimated BMI. Immunizations No data available for this section Procedures No data available for this section Social History Social History Type Response Smoking Status Current every day smoker; R denita to change: No; Concerns about tobacco use in household: No; Exposure to Tobacco S moke None; Cigarette Smoking Last 365 Days No; Reg Smoking Cessation Coun seling No entered on: 02/16/18 Assessment and Plan No data available for this section
--- OUTSIDE RECORDS SUMMARY | 2020-05-11 12:51 | XMS REPORT | Summary of Care ---
Author Author [facility] Organization [facility] Address Unknown Phone Unavailable Encounter HQ Encntr_alias(FIN) [id number] Date(s): 08/22/16 - 08/22/16 [facility] - [place] [address] [phone]- [phone] Discharge Disposition: Home or Self Care Attending Physician: Jorge Christensen MD Vital Signs No data available for this section Problem List No data available for this section Allergies, Adverse Reactions, Alerts No data available for this section Medications No data available for this section Results No data available for this section Immunizations No data available for this section Procedures No data available for this section Social History No data available for this section Assessment and Plan No data available for this section
--- OUTSIDE RECORDS SUMMARY | 2020-05-11 12:51 | XMS REPORT | Summary of Care ---
Author Author [facility] Organization [facility] Address Unknown Phone Unavailable Encounter CRISTOBAL Quintero(MATT) [id number] Date(s): 03/10/19 - 03/10/19 [facility] [address] [place] [address]- [phone] Discharge Disposition: Home or Self Care Attending Physician: Elijah Mariee MD Referring Physician: Elijah Mariee MD Vital Signs 1 2 3 Most recent to oldest [Reference Range]: 193.04 cm (03/10/19 2:13 PM) 193.04 cm (03/09/19 3:27 PM) Height 98.1 DegF (03/10/19 4:00 PM) 98.0 DegF (03/10/19 8:48 AM) Temperature Oral [96.4-99.1 DegF] 112/85 mmHg (03/10/19 5:54 PM) 128/83 mmHg (03/10/19 4:00 PM) 113/62 mmHg (03/10/19 2:12 PM) Blood Pressure [90-140/60-90 mmHg] 15 BRMIN (03/10/19 5:54 PM) 27 BRMIN *HI* (03/10/19 4:00 PM) 24 BRMIN *HI* (03/10/19 2:12 PM) Respiratory Rate [14-20 BRMIN] 147.273 kg (03/10/19 2:13 PM) 147.636 kg (03/09/19 3:27 PM) Weight 39.52 m2 (03/10/19 2:13 PM) 39.62 m2 (03/09/19 3:27 PM) Body Mass Index Problem List Condition Effective Dates Status Health Status Informan t AF (atrial Active fibrillation)(Confir med) H/O Active hyperlipidemia(Confi rmed) Abnormal Resolved angiogram(Confirmed) 1 Poor circulation of Resolved extremity(Confirmed) Borderline Active diabetes(Confirmed) 1lower legs with stents Allergies, Adverse Reactions, Alerts Substance Reaction Severity Status NKDA Active Medications AMIODarone 400 mg, 2 tab, Route: PO, Drug form: TAB, BID-Meals, Dosing Weight 147.636, kg, Start date: 03/10/19 17:00:00 CDT, Duration: 30 day, Stop date: 04/09/19 8:00:00 CDT Notes: (Same as: Cordarone) Start Date: 03/10/19 Stop Date: 03/10/19 Status: Discontinued AMIODarone 200 mg oral tablet 400 mg = 2 tab, PO, BID-Meals, 0 Refill(s) Start Date: 03/10/19 Status: Ordered AMIODarone 900 mg in D5W 500 ml IV 900 mg + Dextrose 5% in Water IV 482 mL 900 mg, 18 mL, Rate: 1 mg/min for 6 hours, then D/C, Dosing Weight 147.636, kg, Route: IV, Total Volume: 500, Start Date: 03/10/19 9:50:00 CDT, Duration: 6 hr, Stop date: 03/10/19 15:58:00 CDT, Replace Every: 24 hr Notes: Central administration only for concentration > 2 mg/ml. Use Glass Bottle or Non PVC Bag"Use 0.22 micron in-line filter" Start Date: 03/10/19 Stop Date: 03/10/19 Status: Completed Anoro Ellipta 62.5 mcg-25 mcg inhalation powder 1 puff, INHALER, Daily, # 1 ea, 3 Refill(s) Start Date: 03/10/19 Status: Ordered apixaban 5 mg oral tablet 5 mg = 1 tab, PO, Q12H, 0 Refill(s) Start Date: 03/10/19 Status: Ordered aspirin 81 mg tablet, enteric coated 81 mg, 1 tab, Route: PO, Drug form: ECTAB, Daily, Dosing Weight 147.636, kg, Sta rt date: 03/11/19 9:00:00 CDT, Duration: 30 day, Stop date: 04/09/19 9:00:00 CDT Notes: Do not crush or chew.(Same As: Ecotrin) Start Date: 03/11/19 Stop Date: 03/10/19 Status: Canceled atorvastatin 40 mg, 1 tab, Route: PO, Drug form: TAB, Bedtime, Dosing Weight 147.636, kg, Sta rt date: 03/10/19 21:00:00 CDT, Duration: 30 day, Stop date: 04/08/19 21:00:00 C DT Notes: (Same as: Lipitor) Start Date: 03/10/19 Stop Date: 03/10/19 Status: Canceled Eliquis 5 mg, 1 tab, Route: PO, Drug form: TAB, ONCE, Dosing Weight 147.273, kg, Priorit y: NOW, Start date: 03/10/19 17:09:00 CDT, Stop date: 03/10/19 17:09:00 CDT Notes: Same as: Eliquis Start Date: 03/10/19 Stop Date: 03/10/19 Status: Completed Eliquis 5 mg, 1 tab, Route: PO, Drug form: TAB, Q12H, Dosing Weight 147.636, kg, Start d ate: 03/10/19 21:00:00 CDT, Duration: 30 day, Stop date: 04/09/19 9:00:00 CDT Notes: Same as: Eliquis Start Date: 03/10/19 Stop Date: 03/10/19 Status: Canceled furosemide 80 mg, 2 tab, Route: PO, Drug form: TAB, BID, Dosing Weight 147.636, kg, Start d ate: 03/10/19 17:00:00 CDT, Duration: 30 day, Stop date: 04/09/19 9:00:00 CDT Notes: (Same as: Lasix) May cause GI upset. Give with food or milk. Start Date: 03/10/19 Stop Date: 03/10/19 Status: Discontinued ipratropium 0.02% inhalation solution 0.5 mg = 2.5 mL, NEB, RQID, 0 Refill(s) Start Date: 03/10/19 Status: Ordered ipratropium 0.02% inhalation solution 0.5 mg, 2.5 mL, Route: NEB, Drug form: SOLN, RQID, Start date: 03/10/19 15:00:00 CDT, Duration: 30 day, Stop date: 04/09/19 11:00:00 CDT Notes: SEE RT DOCUMENTATION(Same as:Atrovent) Start Date: 03/10/19 Stop Date: 03/10/19 Status: Discontinued levothyroxine 25 microgram, 1 tab, Route: PO, Drug form: TAB, Q630AM, Dosing Weight 147.636, k g, Start date: 03/11/19 6:30:00 CDT, Duration: 30 day, Stop date: 04/09/19 6:30: 00 CDT Notes: Take 1 hour before or 2 hours after meal; Enteral feeds may interefere wi th the absorption of this medication. (Same as:Levothroid) Start Date: 03/11/19 Stop Date: 03/10/19 Status: Canceled metFORMIN 500 mg, 1 tab, Route: PO, Drug form: TAB, ONCE, Dosing Weight 147.636, kg, Prior ity: NOW, Start date: 03/10/19 13:40:00 CDT, Stop date: 03/10/19 13:40:00 CDT Notes: (Same as: Glucophage) Take with meal Start Date: 03/10/19 Stop Date: 03/10/19 Status: Completed metFORMIN 500 mg oral tablet 500 mg, 1 tab, Route: PO, Drug form: TAB, BID-Meals, Dosing Weight 147.636, kg, Start date: 03/11/19 8:00:00 CDT, Duration: 30 day, Stop date: 04/09/19 17:00:00 CDT Notes: (Same as: Glucophage) Take with meal Start Date: 03/11/19 Stop Date: 03/10/19 Status: Canceled metoprolol 100 mg oral tablet, extended release 100 mg = 1 tab, PO, Daily, # 90 tab, 0 Refill(s) Start Date: 03/10/19 Status: Ordered nitroglycerin SL Tab 0.4 mg, 1 tab, Route: SL, Drug form: TAB, Q5Min, Dosing Weight 147.636, kg, PRN Chest Pain, Start date: 03/10/19 9:49:00 CDT, Duration: 3 doses or times, Stop d ate: Limited # of times Notes: (Same as:Nitroquick, Nitrostat)"Do Not Crush" Sublingual tablet Start Date: 03/10/19 Stop Date: 03/10/19 Status: Discontinued potassium chloride 20 mEq, 1 tab, Route: PO, Drug form: ERTAB, Daily, Dosing Weight 147.636, kg, St art date: 03/11/19 9:00:00 CDT, Duration: 30 day, Stop date: 04/09/19 9:00:00 CD T Notes: (Same as: K-Dur 20)"Do Not Crush" Give with food and full glass of water For patients unable to swallow tablet, dissolve in one half glass of water. Allo w about 2 minutes for the tablets to disintegrate. Stir before giving to prepare slurry and administer.Please exclude Patients with feeding tube less than 14 [place] (Dobhoff, J-tube etc) and pediatric and patients. Start Date: 03/11/19 Stop Date: 03/10/19 Status: Canceled Spiriva 18 mcg inhalation capsule 18 microgram, 1 inhalation, Route: INHALATION, Drug form: CAP, RDaily, Dosing We ight 147.636, kg, Start date: 03/11/19 8:00:00 CDT, Duration: 30 day, Stop date: 04/09/19 8:00:00 CDT Start Date: 03/11/19 Stop Date: 03/10/19 Status: Deleted Toprol-XL 100 mg oral tablet, extended release 100 mg, 1 tab, Route: PO, Drug form: ERTAB, Daily, Start date: 03/11/19 9:00:00 CDT, Duration: 30 day, Stop date: 04/09/19 9:00:00 CDT Notes: (Same as: Toprol XL) May split tab, but do not crush. Start Date: 03/11/19 Stop Date: 03/10/19 Status: Canceled Results ELECTROLYTES Most recent to 1 oldest [Reference Range]: Sodium Lvl [135-145 138 mEq/L mEq/L] (03/09/19 3:35 PM) Potassium Lvl 3.7 mEq/L [3.5-5.1 mEq/L] (03/09/19 3:35 PM) Chloride Lvl [95-109 105 mEq/L mEq/L] (03/09/19 3:35 PM) CO2 [24-32 mEq/L] 30 mEq/L (03/09/19 3:35 PM) AGAP [10.0-20.0 6.7 mEq/L mEq/L] *LOW* (03/09/19 3:35 PM) CHEM PANEL Most recent to 1 oldest [Reference Range]: Creatinine Lvl 1.06 mg/dL [0.50-1.40 mg/dL] (03/09/19 3:35 PM) eGFR 68 mL/min/1.73m2 1 *NA* (03/09/19 3:35 PM) BUN [7-22 mg/dL] 20 mg/dL (03/09/19 3:35 PM) B/C Ratio [6-25] 19 (03/09/19 3:35 PM) Glucose Lvl [70-99 159 mg/dL mg/dL] *HI* (03/09/19 3:35 PM) Total Protein 7.3 g/dL [6.4-8.4 g/dL] (03/09/19 3:35 PM) Albumin Lvl [3.5-5.0 3.3 g/dL g/dL] *LOW* (03/09/19 3:35 PM) Globulin [2.7-4.2 4.0 g/dL g/dL] (03/09/19 3:35 PM) A/G Ratio [0.7-1.6] 0.8 (03/09/19 3:35 PM) Calcium Lvl 9.0 mg/dL [8.5-10.5 mg/dL] (03/09/19 3:35 PM) ALT [0-65 unit/L] 52 unit/L (03/09/19 3:35 PM) AST [0-37 unit/L] 34 unit/L (03/09/19 3:35 PM) Alk Phos [39-136 104 unit/L unit/L] (03/09/19 3:35 PM) Bili Total [0.2-1.3 0.6 mg/dL mg/dL] (03/09/19 3:35 PM) 1Result Comment: The eGFR is calculated using [...] 1 oldest [Reference Range]: WBC [3.7-10.4 K/CMM] 9.8 K/CMM (03/09/19 3:35 PM) RBC [4.70-6.10 4.74 M/CMM M/CMM] (03/09/19 3:35 PM) Hgb [14.0-18.0 g/dL] 14.6 g/dL (03/09/19 3:35 PM) Hct [42.0-54.0 %] 44.1 % (03/09/19 3:35 PM) MCV [80.0-94.0 fL] 93.1 fL (03/09/19 3:35 PM) MCH [27.0-31.0 pg] 30.8 pg (03/09/19 3:35 PM) MCHC [32.0-36.0 33.1 g/dL g/dL] (03/09/19 3:35 PM) RDW [11.5-14.5 %] 14.2 % (03/09/19 3:35 PM) MPV [7.4-10.4 fL] 8.7 fL (03/09/19 3:35 PM) Platelet [133-450 236 K/CMM K/CMM] (03/09/19 3:35 PM) Segs [45.0-75.0 %] 68.7 % (03/09/19 3:35 PM) Lymphocytes 17.0 % [20.0-40.0 %] *LOW* (03/09/19 3:35 PM) Monocytes [2.0-12.0 10.4 % %] (03/09/19 3:35 PM) Eosinophils [0.0-4.0 3.1 % %] (03/09/19 3:35 PM) Basophils [0.0-1.0 0.8 % %] (03/09/19 3:35 PM) Neutrophils # 6.8 K/CMM [1.5-8.1 K/CMM] (03/09/19 3:35 PM) Lymphocytes # 1.7 K/CMM [1.0-5.5 K/CMM] (03/09/19 3:35 PM) Monocytes # [0.0-0.8 1.0 K/CMM K/CMM] *HI* (03/09/19 3:35 PM) Eosinophils # 0.3 K/CMM [0.0-0.5 K/CMM] (03/09/19 3:35 PM) Basophils # [0.0-0.2 0.1 K/CMM K/CMM] (03/09/19 3:35 PM) Immunizations Given and Recorded Vaccine Date Status [...] Days No; Reg Smoking Cessation Coun seling No; Other Tobacco Frequency 3 cigarettes per day; entered on: 03/10/19 Assessment and Plan No data available for this section
--- OUTSIDE RECORDS SUMMARY | 2020-05-11 12:51 | XMS REPORT | Summary of Care ---
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 (Final) - Other intermediate project manager (current) drug therapy (Final) - Discharge Disposition: Home or Self Care Attending Physician: Kiran Berrios MD Referring Physician: Kiran Berrios MD Vital Signs 1 2 3 Most recent to oldest [Reference Range]: 193.04 cm (02/16/18 9:08 AM) Height 127/72 mmHg (02/16/18 4:30 PM) 140/77 mmHg (02/16/18 3:30 PM) 149/66 mmHg *HI* (02/16/18 3:00 PM) Blood Pressure [90-140/60-90 mmHg] 0 BRMIN *LOW* (02/16/18 4:30 PM) 0 BRMIN *LOW* (02/16/18 3:30 PM) 10 BRMIN *LOW* (02/16/18 3:00 PM) Respiratory Rate [14-20 BRMIN] 143.636 kg (02/16/18 9:08 AM) Weight 38.55 m2 (02/16/18 9:08 AM) Body Mass Index Problem List Condition Effective Dates Status Health Status Informan t AF (atrial Active fibrillation)(Confir med) H/O Active hyperlipidemia(Confi rmed) Abnormal Resolved angiogram(Confirmed) 1 Poor circulation of Resolved extremity(Confirmed) Borderline Active diabetes(Confirmed) 1lower legs with stents Allergies, Adverse Reactions, Alerts Substance Reaction Severity Status NKDA Active Medications acetaminophen-hydrocodone 325 mg-10 mg oral tablet 1 tab, Route: PO, Drug Form: TAB, Dosing Weight 143.636, kg, Q4H, PRN Pain Score 4-6, Start date: 02/16/18 13:26:00 CDT, Duration: 30 day, Stop date: 03/18/18 1 3:25:00 CDT Notes: Do not exceed 4gm/day of acetaminophen. (Same as: Adams 325/10) Start Date: 02/16/18 Stop Date: 02/17/18 Status: Discontinued fentaNYL 50 microgram, Route: IV, ONCE, Dosing Weight 143.636, kg, Start date: 02/16/18 1 3:00:00 CDT, Stop date: 02/16/18 13:00:00 CDT, Start Date: 02/16/18 Stop Date: 02/16/18 Status: Completed midazolam 1 mg, Route: IV, ONCE, Dosing Weight 143.636, kg, Start date: 02/16/18 13:00:00 CDT, Stop date: 02/16/18 13:00:00 CDT Start Date: 02/16/18 Stop Date: 02/16/18 Status: Completed ondansetron 4 mg, 2 mL, Route: IVP, Drug form: INJ, Q8H, Dosing Weight 143.636, kg, PRN Naus ea & Vomiting, Start date: 02/16/18 13:26:00 CDT, Duration: 30 day, Stop date: 03/18/18 13:25:00 CDT Notes: (Same as: Tommie) MEDICATION WASTE Product Size: 4 mgProduct Was sanjiv: ___ mg Start Date: 02/16/18 Stop Date: 02/17/18 Status: Discontinued Results HEMATOLOGY Most recent to 1 oldest [Reference Range]: PT [12.0-14.7 13.3 seconds seconds] (02/16/18 9:54 AM) INR [0.85-1.17] 1.01 (02/16/18 9:54 AM) PTT [22.9-35.8 29.7 seconds seconds] (02/16/18 9:54 AM) Immunizations Given and Recorded Vaccine Date Status Refusal Reason pneumococcal 23-valent vaccine 05/13/18 Given Procedures Procedure Date Related Diagnosis Body Site Status Biopsy, lung or mediastinum, percutaneous 02/16/18 Completed needle Angiography1 Completed Cardiac ablation using fluoroscopy guidance [...] Plan Extracted from: Title: Clinical Document Author: Sharlene Todd MD te: 02/16/18 Interventional Radiology History and Phy sical History of Present Illness: 77 yo M who presents for lung biopsy aft er spiculated nodule found on CTA performed for PVI. No complaints. Past Medical History: No qualifying data available Past Surgical History: No qualifying data available Social History: Tobacco Details: Use: Current every day smoker. Ready to change: No. Household tobacco concerns: No. Tobacco smoke exposure: None. Did the Patient Smoke Cigarettes Anytime During the Last 365 Days? No. Cessation Counseling Provided? No. Family History: No qualifying data available Allergies Reviewed: Allergies: NKDA Current Medications: Medications (0) Active Scheduled Meds: None Unscheduled Meds: None PRN Meds: None One Time Meds: None Continuous Infusions: None Labs: 24hr Labs 02/16 0954 PT13.3 INR1.01 PTT29.7 Review of Systems: Constitutional Symptoms: no fever, no chills, no fatigue HEENT: no headache, no blurred vision, no sore throat Cardiovascular: no chest pain, no SOB, no orthopnea Respiratory: same as CVS, no cough, no hemoptysis Gastrointestinal: no abdominal pain Genitourinary: no dysuria, no frequency, no urgency Musculoskeletal: no join pain, no myalgia Integumentary: no rash or open wound Neurological: no seizure, no dizziness Psychiatric: no anxiety and/or depression Endocrine: no polyuria, no polydipsia Hematologic/Lymphatic: no bleeding, no bruising Physical Examination: Gen: AAO x3, NAD, WNWD VitalsTmp(F)[id number] (no data in last 48 hours) 24 Hr Tmax: No Data AvailableVital Signs are the last 5 in the past 48 hours. HEENT: normocephalic, PERRLA, no drainage, moist mucous membranes Neck: Supple, no JVD Resp: Clear to auscultation bilaterally CV: RRR, no murmurs, rubs, or gallops Abd: soft, non-tender, non-distended, BS present, no palpable masses Extrem: no edema Neuro: cranial nerves intact Skin: Clear, no rashes or jaundice Impression/Plan: CT-guided biopsy of right lung nodule today.
--- OUTSIDE RECORDS SUMMARY | 2020-05-11 12:51 | XMS REPORT | Continuity of Care Document ---
Author Author Elissa Fanear Bal, JACK SOUZA Organization [employer] Address Unknown Phone Unavailable Care Team Providers Care Calender Operator Name Role Phone Skigit Information Clinical Ink Unavailable Un available Problems Problem Status Onset Date Classification Date Reported Comments Source JIHAN /C CARDIOVERSION Active 03/09/2019 [facility] XRAY/LAB Active 05/28/2018 [facility] UNK Active 0 04/20/2018 [facility] R91.1 Active 04/20/2018 [facility] Malignant neoplasm of upper lobe, right bronchus or lung 02/27/2018 05/25/2018 [facility] BEDDED OP/ CT CHEST BX (RT LUNG BX) NO Active 02/10/2018 [facility] Persistent atrial fibrillation 02/03/2018 05/07/2018 [facility] PERSISTENT ATRIAL FIBRILLATION; SOB Active 12/24/2017 [facility] CCL EP STUDY PVI ABLATION W. CARTO/ GENE Active 12/24/2017 [facility] M48.06 - "SPINAL STENOSIS, LUMBAR REGION Active 07/23/2016 CLAUDY [facility] CLAUD[facility] Shortness of breath 04/29/2018 [facility] Centrilobular emphysema 05/07/2018 [facility] Fatty (change of) liver, not elsewhere classified 04/29/2018 [facility] Thoracic aortic ectasia 04/29/2018 [facility] Solitary pulmonary nodule 05/17/2018 [facility] Atrial fibrillation (disorder) Active Problem [facility] History of - raised blood lipids (contex t-dependent category) Active Prob zofia 03/12/2019 [facility] Imaging result abnormal (finding) Resolved Problem lower legs with stents [facility] Peripheral vascular disease (disorder) Resolved Problem 03/12/2019 [facility] Prediabetes (finding) Active Problem 03/12/2019 [facility] 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 05/07/2018 [facility] Hypertensive heart disease with heart failure 05/07/2018 [facility] Chronic systolic (congestive) heart failure 05/07/2018 [facility] Morbid (severe) obesity due to excess calories 05/07/2018 [facility] Nicotine dependence, cigarettes, uncomplicated 05/07/2018 [facility] Body mass index (BMI) 38.0-38.9, adult 05/07/2018 [facility] Supraventricular tachycardia 05/07/2018 [facility] Obstructive sleep apnea (adult) (pediatric) 05/07/2018 [facility] Abnormal coagulation profile 05/07/2018 [facility] FPC (current) use of oral hypoglycemic drugs 05/07/2018 [facility] Adverse effect of anticoagulants, initial encounter 05/07/2018 [facility] Hypothyroidism, unspecified 05/07/2018 [facility] Other chronic pain 05/07/2018 [facility] Anemia, unspecified 05/07/2018 [facility] Atrial premature depolarization 05/07/2018 [facility] Dysuria 05/07/2018 [facility] FPC (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 05/25/2018 [facility] 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 Allow about 2 minutes for the tab lets to disintegrate. Stir before giving to prepare slurry and administer. Please exclude Patients with feeding tube less than 14 Nigerian (Dobhoff, J-tube etc) and pediatric and patients. No Longer Active 03/11/2019 [facility] 24 HR Metoprolol Tartrate 100 MG Extende d Release Tablet [Toprol] Notes: (Same as: Toprol XL) May split t ab, but do not crush. No Longer Active 03/11/2019 [facility] Aspirin 81 MG Enteric Coated Tablet Notes: Do not crush or chew. (Same As: Ecotrin) No Longer Active 03/11/2019 [facility] Metformin hydrochloride 500 MG Oral Tablet Notes: (Same as: Glucophage) Take with meal No Longer Active 03/11/2019 [facility] tiotropium 0.018 MG/ACTUAT Inhalant Powder [Spiriva] 18 microgram, 1 inhalation, Route: INHALATION, Drug form: Rod LEGER, Dosing Weight 147.636, kg, Start date: 03/11/19 8:00:00 CDT, Duration: 30 day, Stop date: 04/09/19 8:00:00 CDT No Longer Active 03/11/2019 [facility] Thyroxine Notes: Take 1 hour b efore or 2 hours after meal; Enteral feeds may interefere with the absorption of this medication. (Same as:Levothroid) No Longer Active 03/11/2019 [facility] atorvastatin Notes: (Same as: Lipitor) Inactive 03/11/2019 [facility] Eliquis Notes: Same as: Eliquis Inactive 03/11/2019 [facility] Eliquis Notes: Same as: Eliquis Inactive 03/10/2019 [facility] Ipratropium Yoder 0.2 MG/ML Inhalant Solution 0.5 mg = 2.5 mL, NEB, RQID, 0 Refill(s) Active 03/10/2019 [facility] apixaban 5 mg oral tablet 5 mg = 1 tab, PO, Q12H, 0 Refill(s) Active 03/10/2019 [facility] AMIODarone 200 mg oral tablet 400 mg = 2 tab, PO, BID- Meals, 0 Refill(s) Active 03/10/2019 [facility] Furosemide Notes: (Same as: La six) May cause GI upset. Give with food or milk. Inactive 03/10/2019 [facility] Amiodarone Notes: (Same as: Co rdarone) Inactive 03/10/2019 [facility] ipratropium 0.02% inhalation solution Notes: SEE RT DOCUMENTATION (Same as:Atrovent) Inactive 03/10/2019 [facility] Metformin Notes: (Same as: Glu cophage) Take with meal Inactive 03/10/2019 [facility] metoprolol 100 mg oral tablet, extended release 100 mg = 1 tab, PO, Daily, # 90 tab, 0 Refill(s) Active 03/10/2019 [facility] Anoro Ellipta 62.5 mcg-25 mcg inhalation powder 1 puff, INHALER, Daily, # 1 ea, 3 Refill(s) Active 03/10/2019 [facility] AMIODarone 900 mg in D5W 500 ml IV 900 m g + Dextrose 5% in Water IV 482 mL 2 mg/ml. Use Glass Bottle or Non PVC Ba g "Use 0.22 micron in-line filter" Inactive 03/10/2019 [facility] Nitroglycerin Notes: (Same as: Nitroquick, Nitrostat) "Do Not Crush" Sublingual tablet Inactive 03/10/2019 [facility] Potassium Chloride Notes: (Christos e as: K-Dur 20) "Do Not Crush" For patients unable to swallow tablet, dissolve in one half glass of water. Allow about 2 minutes for the tablets to disintegrate. Stir before giving to prepare slurry and administer. Please exclude Patients with feeding tube less than 14 Nigerian (Dobhoff, J-tube etc) and pediatric and patients. With food and full glass of water No Longer Active 05/13/2018 [facility] Anoro Ellipta 62.5 mcg-25 mcg inhalation powder 1 puff, Route: INHALER, Drug Form: PWDR, Dosing Weight 146.909, kg, Daily, Start date: 05/13/18 9:00:00 CDT, Duration: 30 day, Stop date: 06/11/18 9:00:00 CDT No Longer Active 05/13/2018 [facility] Lovenox Notes: (Same as: Loven ox) No Longer Active 05/13/2018 [facility] clopidogrel Notes: (Same As: P lavix) No Longer Active 05/13/2018 [facility] tiotropium 0.018 MG/ACTUAT Inhalant Powder [Spiriva] Notes: (Same As: Spiriva). No Longer Active 05/13/2018 [facility] Thyroxine Notes: Take 1 hour b efore or 2 hours after meal; Enteral feeds may interefere with the absorption of this medication. (Same as:Levothroid) No Longer Active 05/13/2018 [facility] *Please bring pt's own anoro ellipta to pharmacy for label* *Please bring pt's own anoro ellipta to pharmacy for label*, ATTN:ELIJAH, Drug form: MISC, Route: MISC, QSHIFT, 05/13/18 0:00:00 CDT, Duration: 30 day, Stop date: 06/11/18 16:00:00 CDT No Longer Active 05/13/2018 [facility] metoprolol Notes: (Same as: Lo pressor) No Longer Active 05/13/2018 [facility] dofetilide Notes: (Same as: Anson smith) Providers should enter the orders via the "Dofetilide Initiation Orders MPP" to ensure compliance with the REMS program. No Longer Active 05/13/2018 [facility] dofetilide 500 mcg oral capsule dofetilide 500 mcg oral capsule, 500 microgram, Drug form: CAP, Route: PO, Q12H, 05/12/18 21:00:00 CDT, Duration: 30 day, Stop date: 06/11/18 9:00:00 CDT Inactive 05/13/2018 [facility] atorvastatin Notes: (Same as: Lipitor) No Longer Active 05/13/2018 [facility] Ancef + sterile water 10 mL No shanda: (Same As: Meche Mcgill) MEDICATION WASTE Product Size: 1000 mg Product Wasted: ___ mg No Longer Active 05/13/2018 [facility] Acetaminophen 325 MG / Hydrocodone Noelle trate 5 MG Oral Tablet [[place] 5/325] Notes: (Same as: [place] 325/5) Do not ex ceed 4gm/day of acetaminophen. No Longer Activ e 05/12/2018 [facility] metoprolol tartrate 100 mg oral tablet metoprolol tartrate 100 mg oral tablet, 100 mg, Route: PO, BID, 05/12/18 17:00:00 CDT, Duration: 30 day, Stop date: 06/11/18 9:00:00 CDT Inactive 05/12/2018 [facility] Furosemide Notes: (Same as: La six) May cause GI upset. Give with food or milk. No Longer Active 05/12/2018 [facility] Albuterol 0.833 MG/ML / Ipratropium Brom maria e 0.167 MG/ML Inhalant Solution Notes: (Same as: Duoneb) No Longer Active 05/12/2018 [facility] Aspirin 81 MG Enteric Coated Tablet Notes: Do not crush or chew. (Same As: Ecotrin) No Longer Active 05/12/2018 [facility] neostigmine (ANES) Route: IV, Drug form: INJ, ONCE, Stop date: 05/12/18 13:42:00 CDT Inactive 05/12/2018 [facility] ketOROLAC (ANES) IV, ONCE Inactive 05/12/2018 [facility] ePHEDrine (ANES) Route: IV, Dr ug form: INJ, ONCE, Stop date: 05/12/18 13:06:00 CDT Inactive 05/12/2018 [facility] dexamethasone (ANES) Route: IV , Drug form: INJ, ONCE, Stop date: 05/12/18 13:01:00 CDT Inactive 05/12/2018 [facility] ceFAZolin (ANES) Route: IV, Dr ug form: INJ, ONCE, Stop date: 05/12/18 13:01:00 CDT Inactive 05/12/2018 [facility] fentaNYL (ANES) Route: IV, Dakota g form: INJ, ONCE, Stop date: 05/12/18 13:01:00 CDT Inactive 05/12/2018 [facility] Albuterol 0.1 MG/ACTUAT / Ipratropium Br omide 0.02 MG/ACTUAT Metered Dose Inhaler Notes: Same as: Combivent Respimat WAST E: Aerosol - Return to Pharmacy Inactive 05/12/2018 [facility] lidocaine (ANES) Route: IV, Dr ug form: INJ, ONCE, Stop date: 05/12/18 12:56:00 CDT Inactive 05/12/2018 [facility] glycopyrrolate (ANES) Route: I V, Drug form: INJ, ONCE, Stop date: 05/12/18 12:56:00 CDT Inactive 05/12/2018 [facility] propofol (ANES) Route: IV, Dakota g form: INJ, ONCE, Stop date: 05/12/18 12:56:00 CDT Inactive 05/12/2018 [facility] midazolam (ANES) Route: IV, Dr ug form: SOLN, ONCE, Stop date: 05/12/18 12:56:00 CDT Inactive 05/12/2018 [facility] Acetaminophen Notes: Do not ex ceed 4 gm/day. (Same as: Tylenol) No Longer Active 05/12/2018 [facility] Acetaminophen 325 MG / Hydrocodone Noelle trate 5 MG Oral Tablet Notes: (Same as: [place] 325/5) Do not ex ceed 4gm/day of acetaminophen. No Longer Active 05/12/2018 [facility] normal saline 0.9% IV 1,000 mL 1,000 mL, Rate: 75 ml/hr, Infuse over: 13.3 hr, Route: IV, Dosing Weight 146.909 kg, Total Volume: 1,000, Start date: 05/12/18 12:47:00 CDT, Duration: 30 day, Stop date: 06/11/18 12:46:00 CDT, 2.83, m2 No Longer Active 05/12/2018 [facility] Hydromorphone Notes: (Same as: Dilaudid) No Longer Active 05/12/2018 [facility] rocuronium (ANES) Route: IV, D rug form: INJ, ONCE, Stop date: 05/12/18 12:31:00 CDT Inactive 05/12/2018 [facility] Hydralazine Notes: (Same as: A presoline) Push over 5 minutes No Longer Active 05/12/2018 [facility] Insulin Lispro Notes: (Same as : Humalog ) Roll in palms of hands gently; Do not shake `vigorously. "Single Patient Use Only " WASTE: F/P - Black; E - Municipal Trash Bin Stable for 28 days at room temp erature. Expires in days from Date No Longer Active 05/12/2018 [facility] Glucagon 1 mg, Route: IM, Drug form: PDR/INJ, PRN, Dosing Weight 146.909, kg, PRN Blood Glucose Results, Start date: 05/12/18 12:02:00 CDT, Duration: 30 day, Stop date: 06/11/18 12:01:00 CDT No Longer Active 05/12/2018 [facility] Dextrose 50% Syringe 25 gm, 50 mL, Route: IVP, Drug Form: INJ, Dosing Weight 146.909, kg, PRN, PRN Blood Glucose Results, Start date: 05/12/18 12:02:00 CDT, Duration: 30 day, Stop date: 06/11/18 12:01:00 CDT No Longer Active 05/12/2018 [facility] Sodium Chloride 0.9% IV (ANES) 1000 mL Route: IV, Total Volume: 1,000, Start date: 05/12/18 11:30:00 CDT, Stop date: 05/12/18 12:30:00 CDT Inactive 05/12/2018 [facility] Calcium Chloride 0.0014 MEQ/ML / Potassi um Chloride 0.004 MEQ/ML / Sodium Chloride 0.103 MEQ/ML / Sodium Lactate 0.028 MEQ/ML Injectable Solution 1,000 mL, Rate: 25 ml/hr, Infuse over: 4 0 hr, Route: IV, Dosing Weight 146.909 kg, Total Volume: 1,000, Start date: 05/12/18 11:17:00 CDT, Duration: 30 day, Stop date: 06/11/18 11:16:00 CDT, 2.83, m2 Inactive 05/12/2018 [facility] Lactated Ringers Injection IV (ANES) 1000 mL Route: IV, Total Volume: 1,000, Start date: 05/12/18 11:16:00 CDT, Stop date: 05/12/18 12:16:00 CDT Inactive 05/12/2018 [facility] Exparel Notes: (Same as: Mervat costello) NOT FOR IV use Postoperative analgesia: Infiltration (local): Dose is based on surgical site and volume required to cover the area (in general, the maximum total dose is 266 mg). Bunionectomy: 7 mL into the tissues surrounding the osteotomy and 1 mL into the subcutaneous tissue of the surgical site (total dose = 8 mL [106 mg]) Hemorrhoidectomy: 30 mL (20 mL vial diluted with 10 mL NS) divided and administered as 6 injections of 5 mL each (total dose = 30 mL [266 mg]) No Longer Active 05/12/2018 [facility] enoxaparin 80 mg/0.8 mL subcutaneous solution SUB-Q, Q12H, 05/10, 05/11,05/12, 0 Refill(s) No Longer Active 05/10/2018 [facility] Albuterol 0.1 MG/ACTUAT / Ipratropium Br omide 0.02 MG/ACTUAT Metered Dose Inhaler 1 puff, INHALATION, QID, 0 Refill(s) No Longer Active 05/10/2018 [facility] Aspirin 81 MG Enteric Coated Tablet 81 mg = 1 tab, PO, Daily, last dose 05/06/18, # 90 tab, 3 Refill(s) Active 05/10/2018 [facility] Anoro Ellipta 62.5 mcg-25 mcg inhalation powder 1 puff, INHALER, Daily, # 1 ea, 3 Refill(s) No Longer Active 05/10/2018 [facility] Ondansetron Notes: (Same as: Nasim echeverria) MEDICATION WASTE Product Size: 4 mg Product Wasted: ___ mg No Longer Active 02/16/2018 [facility] Acetaminophen 325 MG / Hydrocodone Noelle trate 10 MG Oral Tablet Notes: Do not exceed 4gm/day of acetamin ophen. (Same as: [place] 325/10) No Longer Active 02/16/2018 [facility] Midazolam 1 mg, Route: IV, ONC E, Dosing Weight 143.636, kg, Start date: 02/16/18 13:00:00 CDT, Stop date: 02/16/18 13:00:00 CDT Inactive 02/16/2018 [facility] Fentanyl 50 microgram, Route: IV, ONCE, Dosing Weight 143.636, kg, Start date: 02/16/18 13:00:00 CDT, Stop date: 02/16/18 13:00:00 CDT, Inactive 02/16/2018 [facility] Warfarin Notes: Nurse to ensur e documentation of patient education per anticoagulation policy. Avoid large intake of vitamin-K containing foods diet. WASTE: F/P - P Waste Black; E - P Waste Black (Same As: Coumadin) Inactive 01/29/2018 [facility] tiotropium 0.018 MG/ACTUAT Inhalant Powder [Spiriva] 18 microgram = 1 inhalation, INHALATION, RDaily, 0 Refill(s) Active 01/29/2018 [facility] dofetilide Notes: (Same as: Anson smith) Providers should enter the orders via the "Dofetilide Initiation Orders MPP" to ensure compliance with the REMS program. Inactive 01/29/2018 [facility] nt dofetilide 500 mcg oral capsule 500 microgram = 1 cap, PO, Q12H, # 60 cap, 0 Refill(s) Active 01/29/2018 [facility] dofetilide 500 mcg oral capsule 500 microgram = 1 cap, PO, Q12H, # 14 cap, 0 Refill(s) Inactive 01/29/2018 [facility] ntdanie Lovenox Notes: Nurse to ensure documentation of patient education per anticoagulation policy. (Same as: Lovenox) Inactive 01/28/2018 [facility] Warfarin Notes: Nurse to ensur e documentation of patient education per anticoagulation policy. Avoid large intake of vitamin-K containing foods diet. WASTE: F/P - P Waste Black; E - P Waste Black (Same As: Coumadin) Inactive 01/28/2018 [facility] remove patch Notes: Remove old patch before application of new patch. WASTE: F/P - P Waste Black; E - P Waste Black No Longer Active 01/28/2018 [facility] Lovenox Notes: Nurse to ensure documentation of patient education per anticoagulation policy. (Same as: Lovenox) Inactive 01/28/2018 [facility] Warfarin Notes: Nurse to ensur e documentation of patient education per anticoagulation policy. Avoid large intake of vitamin-K containing foods diet. WASTE: F/P - P Waste Black; E - P Waste Black (Same As: Coumadin) Inactive 01/28/2018 [facility] Nicotine 14 mg, 1 patch, Route : TOP, Drug form: ERFILM, Daily, Dosing Weight 143.636, kg, Priority: NOW, Start date: 01/27/18 16:50:00 FURNACE MECHANIC HELPER, Duration: 30 day, Stop date: 02/26/18 9:00:00 CDT No Longer Active 01/27/2018 [facility] clopidogrel Notes: (Same As: P lavix) No Longer Active 01/27/2018 [facility] Potassium Chloride Notes: (Christos e as: K-Dur 20) "Do Not Crush" With food and full glass of water No Longer Active 01/27/2018 [facility] nter pantoprazole 40 mg, 1 tab, Rou te: PO, Drug form: ECTAB, Daily, Dosing Weight 143.636, kg, Start date: 01/27/18 9:00:00 FURNACE MECHANIC HELPER, Duration: 14 day, Stop date: 02/09/18 9:00:00 CDT No Longer Active 01/27/2018 [facility] Warfarin 7.5 mg, Route: PO, Dr ug form: TAB, Daily, Dosing Weight 143.636, kg, Start date: 01/27/18 9:00:00 FURNACE MECHANIC HELPER, Duration: 30 day, Stop date: 02/25/18 9:00:00 CDT Inactive 01/27/2018 [facility] Furosemide Notes: (Same as: La six) May cause GI upset. Give with food or milk. No Longer Active 01/27/2018 [facility]ter tiotropium 0.018 MG/ACTUAT Inhalant Powder [Spiriva] Notes: (Same As: Spiriva) No Longer Active 01/27/2018 [facility] Metformin hydrochloride 500 MG Oral Tablet Notes: (Same as: Glucophage) Take with meal No Longer Active 01/27/2018 [facility] Thyroxine 25 microgram, 1 tab, Route: PO, Drug form: TAB, Q630AM, Dosing Weight 143.636, kg, Start date: 01/27/18 6:30:00 FURNACE MECHANIC HELPER, Duration: 30 day, Stop date: 02/25/18 6:30:00 CDT No Longer Active 01/27/2018 [facility] Magnesium Sulfate Notes: WASTE : F/P - Sink; E - Municipal Trash Bin Inactive 01/27/2018 [facility] Insulin Lispro Notes: (Same as : Humalog ) Roll in palms of hands gently; Do not shake `vigorously. "Single Patient Use Only " WASTE: F/P - Black; E - Municipal Trash Bin Stable for 28 days at room temp erature. Expires in days from Date No Longer Active 01/27/2018 [facility] Dextrose 50% Syringe 12.5 gm, 25 mL, Route: IVP, Drug Form: INJ, Dosing Weight 143.636, kg, PRN, PRN Blood Glucose Results, Start date: 01/26/18 22:24:00 FURNACE MECHANIC HELPER, Duration: 30 day, Stop date: 02/25/18 23:23:00 CDT No Longer Active 01/27/2018 [facility] Glucagon 1 mg, Route: IM, Drug form: PDR/INJ, PRN, Dosing Weight 143.636, kg, PRN Blood Glucose Results, Start date: 01/26/18 22:24:00 FURNACE MECHANIC HELPER, Duration: 30 day, Stop date: 02/25/18 23:23:00 CDT No Longer Active 01/27/2018 [facility] atorvastatin Notes: (Same as: Lipitor) No Longer Active 01/27/2018 [facility] metoprolol tartrate Notes: (Sa me as: Lopressor) No Longer Active 01/27/2018 [facility] Saline Flush 0.9% Notes: Same as: BD Posiflush Sterile No Longer Active 01/27/2018 [facility] Sucralfate Notes: May interfer e w/enteral feeds - Take 1 hr before or 2 hr after antacids, dairy pdt, meals & minerals - On empty stomach. For patients unable to swallow tablet, dissolve in 10mL - 30mL of w ater or juice and stir before giving. (Same As: Carafate) No Longer Active 01/27/2018 [facility] dofetilide Notes: (Same as: Anson smith) Providers should enter the orders via the "Dofetilide Initiation Orders MPP" to ensure compliance with the REMS program. No Longer Active 01/27/2018 [facility] nter Saline Flush 0.9% Notes: Same as: BD Posiflush Sterile No Longer Active 01/27/2018 [facility] protamine (ANES) Route: IV, Dr ug form: INJ, ONCE, Stop date: 01/26/18 12:10:00 FURNACE MECHANIC HELPER Inactive 01/26/2018 [facility] Ondansetron Notes: (Same as: Nasim echeverria) MEDICATION WASTE Product Size: 4 mg Product Wasted: ___ mg No Longer Active 01/26/2018 [facility] Fentanyl Notes: (Same as: Subl imaze) Preservative free. No Longer Active 01/26/2018 [facility] Hydralazine Notes: (Same as: A presoline) Push over 5 minutes No Longer Active 01/26/2018 [facility] Labetalol 10 mg, 2 mL, Route: IVP, Drug form: INJ, Q5Min, Dosing Weight 143.636, kg, PRN Elevated BP, Start date: 01/26/18 9:48:00 FURNACE MECHANIC HELPER, Duration: 5 doses or times, Stop date: 01/27/18 0:00:00 FURNACE MECHANIC HELPER No Longer Active 01/26/2018 [facility] Flumazenil Notes: (Same as: Ro mazicon) No Longer Active 01/26/2018 [facility] Naloxone Notes: Same as Narcan No Longer Active 01/26/2018 [facility] fentaNYL (ANES) Route: IV, Dakota g form: INJ, ONCE, Stop date: 01/26/18 9:12:00 FURNACE MECHANIC HELPER Inactive 01/26/2018 [facility] nter cisatracurium (ANES) Route: IV , Drug form: INJ, ONCE, Stop date: 01/26/18 9:12:00 FURNACE MECHANIC HELPER Inactive 01/26/2018 [facility] nter propofol (ANES) Route: IV, [place] g form: INJ, ONCE, Stop date: 01/26/18 9:12:00 FURNACE MECHANIC HELPER Inactive 01/26/2018 [facility] nter Sodium Chloride 0.9% IV (ANES) 1000 mL Route: IV, Total Volume: 1,000, Start date: 01/26/18 8:08:00 FURNACE MECHANIC HELPER, Stop date: 01/26/18 9:08:00 FURNACE MECHANIC HELPER Inactive 01/26/2018 [facility] warfarin 7.5 mg oral tablet 7. 5 mg = 1 tab, PO, Daily, 0 Refill(s) Active 01/26/2018 [facility] furosemide 80 mg oral tablet 8 0 mg = 1 tab, PO, BID, 0 Refill(s) Active 01/26/2018 [facility] Potassium Chloride 20 mEq, PO, Daily, 0 Refill(s) Active 01/26/2018 [facility] levothyroxine 25 mcg (0.025 mg) oral tablet 25 microgram = 1 tab, PO, Daily, # 30 tab, 0 Refill(s) Active 01/26/2018 [facility] nt metoprolol tartrate 100 mg oral tablet 100 mg = 1 tab, PO, BID, # 60 tab, 0 Refill(s) Active 01/26/2018 [facility] nt Metformin hydrochloride 500 MG Oral Tablet 500 mg = 1 tab, PO, BID-Meals, # 30 tab, 0 Refill(s) Active 01/26/2018 [facility] nter atorvastatin 40 mg oral tablet 40 mg = 1 tab, PO, Bedtime, # 30 tab, 0 Refill(s) Active 01/26/2018 [facility] nter clopidogrel 75 mg oral tablet 75 mg = 1 tab, PO, Daily, # 30 tab, 0 Refill(s) Active 01/26/2018 [facility] NS 1,000 mL 1,000 mL, Rate: 10 0 ml/hr, Infuse over: 10 hr, Route: IVPB, Dosing Weight 143.636 kg, Total Volume: 1,000, Start date: 01/26/18 5:56:00 FURNACE MECHANIC HELPER, Duration: 30 day, Stop date: 02/25/18 5:55:00 CDT, 2.8, m2 No Longer Active 01/26/2018 [facility] Allergies, Adverse Reactions, Alerts No Known Medication Allergies Immunizations Immunization Date Given Site Status Last Updated Comments Source pneumococcal 23-valent vaccine 05/13/2018 Right deltoid completed [facility] Results Order Name Results Value Reference Range Date Interpretation Comments Source CHEM PANEL B/C Ratio 19 6 - 25 03/09/2019 [facility] CHEM PANEL AGAP 6.7 10.0 - 20.0 03/09/2019 [facility] CHEM PANEL Globulin 4.0 2.7 - 4.2 03/09/2019 [facility] CHEM PANEL A/G Ratio 0.8 0.7 - 1.6 03/09/[address] [facility] eGFR 68 03/09/2019 Result Comment: The eGFR is calculated using the [...] from the National Kidney Disease Education Program (NKDEP) which additionally recommends that when the eGFR is used in patients with extremes of body mass index for purposes of drug dosing, the eGFR should be multiplied by the estimated BMI. [facility] CHEM PANEL Alk Phos 104 39 - 136 03/09/2019 [facility] CHEM PANEL Bili Total 0.6 0.2 - 1.3 03/09/2019 [facility] CHEM PANEL AST 34 0 - 37 03/09/2019 [facility] CHEM PANEL ALT 52 0 - 65 03/09/2019 [facility] CHEM PANEL Albumin Lvl 3.3 3.5 - 5.0 03/09/2019 [facility] CHEM PANEL Calcium Lvl 9.0 8.5 - 10.5 03/09/2019 [facility] CHEM PANEL Total Protein 7.3 6.4 - 8.4 03/09/2019 [facility] CHEM PANEL Sodium Lvl 138 135 - 145 03/09/2019 [facility] CHEM PANEL Chloride Lvl 105 95 - 109 03/09/2019 [facility] CHEM PANEL Potassium Lvl 3.7 3.5 - 5.1 03/09/2019 [facility] CHEM PANEL CO2 30 24 - 32 03/09/2019 [facility] CHEM PANEL Creatinine Lvl 1.06 0.50 - 1.40 03/09/2019 [facility] CHEM PANEL Glucose Lvl 159 70 - 99 03/09/2019 [facility] CHEM PANEL BUN 20 7 - 22 03/09/2019 [facility] HEMATOLOGY Segs 68.7 45.0 - 75.0 03/09/2019 [facility] HEMATOLOGY Monocytes 10.4 2.0 - 12.0 03/09/2019 [facility] HEMATOLOGY Lymphocytes 17.0 20.0 - 40.0 03/09/2019 [facility] HEMATOLOGY Basophils # 0.1 0.0 - 0.2 03/09/2019 [facility] HEMATOLOGY Eosinophils # 0.3 0.0 - 0.5 03/09/2019 [facility] HEMATOLOGY Lymphocytes # 1.7 1.0 - 5.5 03/09/2019 [facility] HEMATOLOGY Neutrophils # 6.8 1.5 - 8.1 03/09/2019 [facility] HEMATOLOGY Basophils 0.8 0.0 - 1.0 03/09/2019 [facility] HEMATOLOGY Eosinophils 3.1 0.0 - 4.0 03/09/2019 [facility] HEMATOLOGY Monocytes # 1.0 0.0 - 0.8 03/09/2019 [facility] HEMATOLOGY RDW 14.2 11.5 - 14.5 03/09/2019 [facility] HEMATOLOGY Platelet 236 133 - 450 03/09/2019 [facility] HEMATOLOGY MPV 8.7 7.4 - 10.4 03/09/2019 [facility] HEMATOLOGY Hgb 14.6 14.0 - 18.0 03/09/2019 [facility] HEMATOLOGY Hct 44.1 42.0 - 54.0 03/09/2019 [facility] HEMATOLOGY MCV 93.1 80.0 - 94.0 03/09/2019 [facility] RBC 4.74 4.70 - 6.10 03/09/2019 [facility] WBC 9.8 3.7 - 10.4 03/09/2019 [facility] MCH 30.8 27.0 - 31.0 03/09/2019 [facility] MCHC 33.1 32.0 - 36.0 03/09/2019 [facility] ELECTROLYTES CO2 30 24 - 32 05/28/2018 [facility] ELECTROLYTES Sodium Lvl 142 135 - 145 05/28/2018 [facility] ELECTROLYTES Potassium Lvl 4.5 3.5 - 5.1 05/28/2018 [facility] ELECTROLYTES Chloride Lvl 105 95 - 109 05/28/2018 [facility] ELECTROLYTES Glucose Lvl 135 70 - 99 05/28/2018 [facility] ELECTROLYTES BUN 22 7 - 22 05/28/2018 [facility] ELECTROLYTES Creatinine Lvl 1.1 1 0.50 - 1.40 05/28/2018 [facility] ELECTROLYTES Calcium Lvl 8.9 8.5 - 10.5 05/28/2018 [facility] ELECTROLYTES eGFR 65 05/28/2018 Result Comment: The eGFR is calculated using the [...] from the National Kidney Disease Education Program (NKDEP) which additionally recommends that when the eGFR is used in patients with extremes of body mass index for purposes of drug dosing, the eGFR should be multiplied by the estimated BMI. [facility] ELECTROLYTES AGAP 11.5 10.0 - 20.0 05/28/2018 [facility] HEMATOLOGY Monocytes 10.7 2.0 - 12.0 05/28/2018 [facility] HEMATOLOGY Segs 64.5 45.0 - 75.0 05/28/2018 [facility] Lymphocytes 19.0 20.0 - 40.0 05/28/2018 [facility] HEMATOLOGY Eosinophils 4.9 0.0 - 4.0 05/28/2018 [facility] Basophils 0.9 0.0 - 1.0 05/28/2018 [facility] Lymphocytes # 1.8 1.0 - 5.5 05/28/2018 [facility] Eosinophils # 0.5 0.0 - 0.5 05/28/2018 [facility] Segs-Bands # 6.1 1.5 - 8.1 05/28/2018 [facility] Basophils # 0.1 0.0 - 0.2 05/28/2018 [facility] Monocytes # 1.0 0.0 - 0.8 05/28/2018 [facility] MCV 91.1 80.0 - 94.0 05/28/2018 [facility] MCH 29.6 27.0 - 31.0 05/28/2018 [facility] RDW 14.3 11.5 - 14.5 05/28/2018 [facility] Platelet 270 133 - 450 05/28/2018 [facility] MPV 9.0 7.4 - 10.4 05/28/2018 [facility] RBC 4.71 4.70 - 6.10 05/28/2018 [facility] Hct 42.9 42.0 - 54.0 05/28/2018 [facility] Hgb 13.9 14.0 - 18.0 05/28/2018 [facility] MCHC 32.5 32.0 - 36.0 05/28/2018 [facility] WBC 9.4 3.7 - 10.4 05/28/2018 [facility] CHEM PANEL eGFR 83 05/14/2018 Result Comment: The eGFR is calculated using the [...] from the National Kidney Disease Education Program (NKDEP) which additionally recommends that when the eGFR is used in patients with extremes of body mass index for purposes of drug dosing, the eGFR should be multiplied by the estimated BMI. [facility] CHEM PANEL Creatinine Lvl 0.91 0.50 - 1.40 05/14/2018 [facility] CHEM PANEL Sodium Lvl 139 135 - 145 05/14/2018 [facility] CHEM PANEL Potassium Lvl 4.0 3.5 - 5.1 05/14/2018 [facility] CHEM PANEL CO2 27 24 - 32 05/14/2018 [facility] CHEM PANEL Chloride Lvl 104 95 - 109 05/14/2018 [facility] CHEM PANEL AGAP 12.0 10.0 - 20.0 05/14/2018 [facility] CHEM PANEL Calcium Lvl 8.4 8.5 - 10.5 05/14/2018 [facility] CHEM PANEL BUN 18 7 - 22 05/14/2018 [facility] CHEM PANEL Glucose Lvl 118 70 - 99 05/14/2018 [facility] HEMATOLOGY Basophils # 0.1 0.0 - 0.2 05/14/2018 [facility] HEMATOLOGY Eosinophils # 0.3 0.0 - 0.5 05/14/2018 [facility] HEMATOLOGY Monocytes # 1.0 0.0 - 0.8 05/14/2018 [facility] Lymphocytes # 1.9 1.0 - 5.5 05/14/2018 [facility] HEMATOLOGY Segs-Bands # 7.5 1.5 - 8.1 05/14/2018 [facility] HEMATOLOGY Basophils 1.1 0.0 - 1.0 05/14/2018 [facility] HEMATOLOGY Eosinophils 2.8 0.0 - 4.0 05/14/2018 [facility] Monocytes 9.6 2.0 - 12.0 05/14/2018 [facility] Lymphocytes 17.4 20.0 - 40.0 05/14/2018 [facility] Segs 69.1 45.0 - 75.0 05/14/2018 [facility] MPV 9.0 7.4 - 10.4 05/14/2018 [facility] Platelet 248 133 - 450 05/14/2018 [facility] RDW 14.4 11.5 - 14.5 05/14/2018 [facility] MCV 91.5 80.0 - 94.0 05/14/2018 [facility] MCHC 32.8 32.0 - 36.0 05/14/2018 [facility] MCH 30.0 27.0 - 31.0 05/14/2018 [facility] Hgb 13.8 14.0 - 18.0 05/14/2018 [facility] Hct 42.0 42.0 - 54.0 05/14/2018 [facility] WBC 10.9 3.7 - 10.4 05/14/2018 [facility] RBC 4.59 4.70 - 6.10 05/14/2018 [facility] CHEM PANEL eGFR 63 05/13/2018 Result Comment: The eGFR is calculated using the [...] from the National Kidney Disease Education Program (NKDEP) which additionally recommends that when the eGFR is used in patients with extremes of body mass index for purposes of drug dosing, the eGFR should be multiplied by the estimated BMI. [facility] CHEM PANEL Chloride Lvl 106 95 - 109 05/13/2018 [facility] CHEM PANEL CO2 25 24 - 32 05/13/2018 [facility] CHEM PANEL Potassium Lvl 4.5 3.5 - 5.1 05/13/2018 [facility] CHEM PANEL Sodium Lvl 138 135 - 145 05/13/2018 [facility] CHEM PANEL Creatinine Lvl 1.14 0.50 - 1.40 05/13/2018 [facility] CHEM PANEL BUN 18 7 - 22 05/13/2018 [facility] CHEM PANEL Glucose Lvl 180 70 - 99 05/13/2018 [facility] CHEM PANEL Calcium Lvl 8.2 8.5 - 10.5 05/13/2018 [facility] CHEM PANEL AGAP 11.5 10.0 - 20.0 05/13/2018 [facility] HEMATOLOGY Monocytes # 1.0 0.0 - 0.8 05/13/2018 [facility] HEMATOLOGY Basophils 0.3 0.0 - 1.0 05/13/2018 [facility] Segs-Bands # 12.0 1.5 - 8.1 05/13/2018 [facility] Lymphocytes # 0.9 1.0 - 5.5 05/13/2018 [facility] Segs 85.7 45.0 - 75.0 05/13/2018 [facility] Monocytes 7.3 2.0 - 12.0 05/13/2018 [facility] Lymphocytes 6.7 20.0 - 40.0 05/13/2018 [facility] MPV 9.2 7.4 - 10.4 05/13/2018 [facility] MCHC 32.7 32.0 - 36.0 05/13/2018 [facility] RDW 13.9 11.5 - 14.5 05/13/2018 [facility] MCH 29.9 27.0 - 31.0 05/13/2018 [facility] Platelet 236 133 - 450 05/13/2018 [facility] RBC 4.43 4.70 - 6.10 05/13/2018 [facility] WBC 14.0 3.7 - 10.4 05/13/2018 [facility] MCV 91.2 80.0 - 94.0 05/13/2018 [facility] Hct 40.4 42.0 - 54.0 05/13/2018 [facility] Hgb 13.2 14.0 - 18.0 05/13/2018 [facility] ELECTROLYTES AGAP 8.8 10.0 - 20.0 05/12/2018 [facility] ELECTROLYTES eGFR 82 05/12/2018 Result Comment: The eGFR is calculated using the [...] from the National Kidney Disease Education Program (NKDEP) which additionally recommends that when the eGFR is used in patients with extremes of body mass index for purposes of drug dosing, the eGFR should be multiplied by the estimated BMI. [facility] ELECTROLYTES BUN 15 7 - 22 05/12/2018 [facility] ELECTROLYTES CO2 30 24 - 32 05/12/2018 [facility] ELECTROLYTES Creatinine Lvl 0.9 1 0.50 - 1.40 05/12/2018 [facility] ELECTROLYTES Potassium Lvl 4.8 3.5 - 5.1 05/12/2018 [facility] ELECTROLYTES Sodium Lvl 143 135 - 145 05/12/2018 [facility] ELECTROLYTES Chloride Lvl 109 95 - 109 05/12/2018 [facility] ELECTROLYTES Calcium Lvl 8.0 8.5 - 10.5 05/12/2018 [facility] ELECTROLYTES Glucose Lvl 121 70 - 99 05/12/2018 [facility] HEMATOLOGY Platelet 206 133 - 450 05/12/2018 [facility] HEMATOLOGY MPV 9.0 7.4 - 10.4 05/12/2018 [facility] HEMATOLOGY RDW 14.0 11.5 - 14.5 05/12/2018 [facility] MCHC 33.1 32.0 - 36.0 05/12/2018 [facility] HEMATOLOGY Hgb 13.3 14.0 - 18.0 05/12/2018 [facility] HEMATOLOGY WBC 7.1 3.7 - 10.4 05/12/2018 [facility] HEMATOLOGY RBC 4.37 4.70 - 6.10 05/12/2018 [facility] HEMATOLOGY Hct 40.2 42.0 - 54.0 05/12/2018 [facility] HEMATOLOGY MCV 92.1 80.0 - 94.0 05/12/2018 [facility] MCH 30.5 27.0 - 31.0 05/12/2018 [facility] HEMATOLOGY Monocytes # 0.5 0.0 - 0.8 05/12/2018 [facility] HEMATOLOGY Eosinophils # 0.2 0.0 - 0.5 05/12/2018 [facility] HEMATOLOGY Lymphocytes # 1.7 1.0 - 5.5 05/12/2018 [facility] HEMATOLOGY Segs-Bands # 4.7 1.5 - 8.1 05/12/2018 [facility] HEMATOLOGY Basophils 0.6 0.0 - 1.0 05/12/2018 [facility] HEMATOLOGY Lymphocytes 23.5 20.0 - 40.0 05/12/2018 [facility] HEMATOLOGY Segs 66.2 45.0 - 75.0 05/12/2018 [facility] HEMATOLOGY Eosinophils 2.2 0.0 - 4.0 05/12/2018 [facility] HEMATOLOGY Monocytes 7.5 2.0 - 12.0 05/12/2018 [facility] SPECIAL CHEMISTRY Hgb A1C 7.2 <=5.6 % 05/10/2018 [facility] BLOOD BANK RESULTS ABO/Rh B POS 05/10/2018 [facility] BLOOD BANK RESULTS Antibody Scrn Negative (05/10/18 10:16 AM) 05/10/2018 [facility] HEMATOLOGY Eosinophils 3.1 0.0 - 4.0 05/10/2018 [facility] HEMATOLOGY Basophils # 0.1 0.0 - 0.2 05/10/2018 [facility] HEMATOLOGY Eosinophils # 0.3 0.0 - 0.5 05/10/2018 [facility] HEMATOLOGY PTT 32.1 22.9 - 35.8 05/10/2018 [facility] HEMATOLOGY PT 14.7 12.0 - 14.7 05/10/2018 [facility] HEMATOLOGY INR 1.15 0.85 - 1.17 05/10/2018 [facility] URINE AND STOOL UA Color Ltyellow 05/10/2018 [facility] URINE AND STOOL UA Urobilinogen <=1.0 mg/dL 0.1 - 1.0 05/10/2018 [facility] URINE AND STOOL UA Leuk Est Negative (05/10/18 10:16 AM) Negative 05/10/2018 [facility] URINE AND STOOL UA Nitrite Negative (05/10/18 10:16 AM) Negative 05/10/2018 [facility] URINE AND STOOL UA Glucose Negative mg/dL Negative mg/dL 05/10/2018 [facility] URINE AND STOOL UA Bili Negative *NA* (05/10/18 10:16 AM) Negative 05/10/2018 [facility] URINE AND STOOL UA Ketones Negative mg/dL Negative mg/dL 05/10/2018 [facility] URINE AND STOOL UA Blood Negative (05/10/18 10:16 AM) Negative 05/10/2018 [facility] URINE AND STOOL UA RBC 2 0 - 2 05/10/2018 [facility] URINE AND STOOL UA WBC 1 0 - 5 05/10/2018 [facility] URINE AND STOOL UA Protein Negative mg/dL Negative mg/dL 05/10/2018 [facility] URINE AND STOOL UA Spec Grav 1.008 <=1.030 05/10/2018 [facility] URINE AND STOOL UA Turbidity Clear (05/10/18 10:16 AM) Clear 05/10/2018 [facility] URINE AND STOOL UA Sq Epi None Seen 05/10/2018 [facility] URINE AND STOOL UA pH 5.0 5.0 - 8.0 05/10/2018 [facility] BLOOD BANK RESULTS RBC product Product available (05/10/18 8:39 AM) 05/10/2018 [facility] HEMATOLOGY INR 1.01 0.85 - 1.17 02/16/2018 [facility] HEMATOLOGY PT 13.3 12.0 - 14.7 02/16/2018 [facility] HEMATOLOGY PTT 29.7 22.9 - 35.8 02/16/2018 [facility] CHEM PANEL Magnesium Lvl 2.0 1.8 - 2.4 01/29/2018 [facility] CHEM PANEL Phosphorus 2.2 2.5 - 4.5 01/29/2018 [facility] ELECTROLYTES AGAP 10.9 10.0 - 20.0 01/29/2018 [facility] ELECTROLYTES eGFR 76 01/29/2018 Result Comment: The eGFR is calculated using the [...] from the National Kidney Disease Education Program (NKDEP) which additionally recommends that when the eGFR is used in patients with extremes of body mass index for purposes of drug dosing, the eGFR should be multiplied by the estimated BMI. [facility] ELECTROLYTES Glucose Lvl 142 70 - 99 01/29/2018 [facility] ELECTROLYTES Sodium Lvl 141 135 - 145 01/29/2018 [facility] ELECTROLYTES Chloride Lvl 106 95 - 109 01/29/2018 [facility] ELECTROLYTES CO2 28 24 - 32 01/29/2018 [facility] ELECTROLYTES Potassium Lvl 3.9 3.5 - 5.1 01/29/2018 [facility] ELECTROLYTES Creatinine Lvl 0.9 7 0.50 - 1.40 01/29/2018 [facility] ELECTROLYTES BUN 15 7 - 22 01/29/2018 [facility] ELECTROLYTES Calcium Lvl 8.3 8.5 - 10.5 01/29/2018 [facility] HEMATOLOGY MCV 92.4 80.0 - 94.0 01/29/2018 [facility] HEMATOLOGY MCH 31.1 27.0 - 31.0 01/29/2018 [facility] HEMATOLOGY WBC 9.4 3.7 - 10.4 01/29/2018 [facility] HEMATOLOGY Platelet 221 133 - 450 01/29/2018 [facility] HEMATOLOGY MPV 8.7 7.4 - 10.4 01/29/2018 [facility] HEMATOLOGY MCHC 33.6 32.0 - 36.0 01/29/2018 [facility] HEMATOLOGY RDW 14.3 11.5 - 14.5 01/29/2018 [facility] HEMATOLOGY Hct 37.2 42.0 - 54.0 01/29/2018 [facility] HEMATOLOGY RBC 4.02 4.70 - 6.10 01/29/2018 [facility] HEMATOLOGY Hgb 12.5 14.0 - 18.0 01/29/2018 [facility] HEMATOLOGY Monocytes # 1.0 0.0 - 0.8 01/29/2018 [facility] HEMATOLOGY Eosinophils # 0.4 0.0 - 0.5 01/29/2018 [facility] HEMATOLOGY Basophils # 0.1 0.0 - 0.2 01/29/2018 [facility] HEMATOLOGY Lymphocytes # 1.6 1.0 - 5.5 01/29/2018 [facility] HEMATOLOGY Basophils 0.9 0.0 - 1.0 01/29/2018 [facility] HEMATOLOGY Segs-Bands # 6.4 1.5 - 8.1 01/29/2018 [facility] HEMATOLOGY Eosinophils 3.8 0.0 - 4.0 01/29/2018 [facility] HEMATOLOGY Segs 68.0 45.0 - 75.0 01/29/2018 [facility] HEMATOLOGY Lymphocytes 16.9 20.0 - 40.0 01/29/2018 [facility] HEMATOLOGY Monocytes 10.4 2.0 - 12.0 01/29/2018 [facility] HEMATOLOGY PTT 43.9 22.9 - 35.8 01/29/2018 [facility] HEMATOLOGY PT 19.9 12.0 - 14.7 01/29/2018 [facility] HEMATOLOGY INR 1.68 0.85 - 1.17 01/29/2018 [facility] PARATHYROID PROFILE Ca Ion WB 1.11 1.05 - 1.25 01/29/2018 [facility] PARATHYROID PROFILE Ca Norm WB 1.11 1.05 - 1.25 01/29/2018 [facility] CHEM PANEL Magnesium Lvl 2.1 1.8 - 2.4 01/28/2018 [facility] CHEM PANEL Phosphorus 2.0 2.5 - 4.5 01/28/2018 [facility] CHEM PANEL eGFR 85 01/28/2018 Result Comment: The eGFR is calculated using the [...] from the National Kidney Disease Education Program (NKDEP) which additionally recommends that when the eGFR is used in patients with extremes of body mass index for purposes of drug dosing, the eGFR should be multiplied by the estimated BMI. [facility] CHEM PANEL Sodium Lvl 143 135 - 145 01/28/2018 [facility] CHEM PANEL Chloride Lvl 106 95 - 109 01/28/2018 [facility] CHEM PANEL Potassium Lvl 3.7 3.5 - 5.1 01/28/2018 [facility] CHEM PANEL Creatinine Lvl 0.85 0.50 - 1.40 01/28/2018 [facility] CHEM PANEL BUN 13 7 - 22 01/28/2018 [facility] CHEM PANEL CO2 31 24 - 32 01/28/2018 [facility] CHEM PANEL Glucose Lvl 135 70 - 99 01/28/2018 [facility] CHEM PANEL Calcium Lvl 8.4 8.5 - 10.5 01/28/2018 [facility] CHEM PANEL AGAP 9.7 10.0 - 20.0 01/28/2018 [facility] HEMATOLOGY Lymphocytes 14.4 20.0 - 40.0 01/28/2018 [facility] HEMATOLOGY Segs 73.3 45.0 - 75.0 01/28/2018 [facility] HEMATOLOGY Lymphocytes # 1.5 1.0 - 5.5 01/28/2018 [facility] HEMATOLOGY Segs-Bands # 7.5 1.5 - 8.1 01/28/2018 [facility] HEMATOLOGY Basophils 0.4 0.0 - 1.0 01/28/2018 [facility] HEMATOLOGY Eosinophils 3.0 0.0 - 4.0 01/28/2018 [facility] HEMATOLOGY Monocytes 8.9 2.0 - 12.0 01/28/2018 [facility] HEMATOLOGY Monocytes # 0.9 0.0 - 0.8 01/28/2018 [facility] HEMATOLOGY Eosinophils # 0.3 0.0 - 0.5 01/28/2018 [facility] HEMATOLOGY PT 18.3 12.0 - 14.7 01/28/2018 [facility] HEMATOLOGY PTT 44.2 22.9 - 35.8 01/28/2018 [facility] HEMATOLOGY INR 1.51 0.85 - 1.17 01/28/2018 [facility] HEMATOLOGY MCHC 33.7 32.0 - 36.0 01/28/2018 [facility] HEMATOLOGY RDW 14.1 11.5 - 14.5 01/28/2018 [facility] HEMATOLOGY Hgb 12.4 14.0 - 18.0 01/28/2018 [facility] HEMATOLOGY Hct 36.8 42.0 - 54.0 01/28/2018 [facility] HEMATOLOGY RBC 3.97 4.70 - 6.10 01/28/2018 [facility] HEMATOLOGY MCV 92.7 80.0 - 94.0 01/28/2018 [facility] HEMATOLOGY WBC 10.3 3.7 - 10.4 01/28/2018 [facility] HEMATOLOGY MPV 8.6 7.4 - 10.4 01/28/2018 [facility] HEMATOLOGY MCH 31.3 27.0 - 31.0 01/28/2018 [facility] HEMATOLOGY Platelet 218 133 - 450 01/28/2018 [facility] PARATHYROID PROFILE Ca Ion WB 1.09 1.05 - 1.25 01/28/2018 [facility] PARATHYROID PROFILE Ca Norm WB 1.06 1.05 - 1.25 01/28/2018 [facility] URINE AND STOOL UA Protein 70 mg/dL Negative mg/dL 01/28/2018 [facility] URINE AND STOOL UA Bacteria Many /HPF None Seen /HPF 01/28/2018 [facility] URINE AND STOOL UA Glucose Negative mg/dL Negative mg/dL 01/28/2018 [facility] URINE AND STOOL UA Mucus Few /LPF None Seen /LPF 01/28/2018 [facility] URINE AND STOOL UA RBC >182 0 - 2 01/28/2018 [facility] URINE AND STOOL UA WBC 36 0 - 5 01/28/2018 [facility] URINE AND STOOL UA Sq Epi None Seen 01/28/2018 [facility] URINE AND STOOL UA Blood Large *ABN* (01/27/18 7:06 PM) Negative 01/28/2018 [facility] URINE AND STOOL UA Bili Negative *NA* (01/27/18 7:06 PM) Negative 01/28/2018 [facility] URINE AND STOOL UA Ketones Negative mg/dL Negative mg/dL 01/28/2018 [facility] URINE AND STOOL UA Urobilinogen <=1.0 mg/dL 0.1 - 1.0 01/28/2018 [facility] URINE AND STOOL UA Leuk Est Small *ABN* (01/27/18 7:06 PM) Negative 01/28/2018 [facility] URINE AND STOOL UA Nitrite Negative (01/27/18 7:06 PM) Negative 01/28/2018 [facility] URINE AND STOOL UA Color Yellow *NA* (01/27/18 7:06 PM) Yellow 01/28/2018 [facility] URINE AND STOOL UA Spec Grav 1.017 <=1.030 01/28/2018 [facility] URINE AND STOOL UA pH 5.0 5.0 - 8.0 01/28/2018 [facility] URINE AND STOOL UA Turbidity Slight *ABN* (01/27/18 7:06 PM) Clear 01/28/2018 [facility] HEMATOLOGY PTT 40.7 22.9 - 35.8 01/27/2018 [facility] HEMATOLOGY PT 17.8 12.0 - 14.7 01/27/2018 [facility] HEMATOLOGY INR 1.46 0.85 - 1.17 01/27/2018 [facility] CHEM PANEL Phosphorus 2.8 2.5 - 4.5 01/27/2018 [facility] CHEM PANEL Magnesium Lvl 2.3 1.8 - 2.4 01/27/2018 [facility] CHEM PANEL eGFR 89 01/27/2018 Result Comment: The eGFR is calculated using the [...] from the National Kidney Disease Education Program (NKDEP) which additionally recommends that when the eGFR is used in patients with extremes of body mass index for purposes of drug dosing, the eGFR should be multiplied by the estimated BMI. [facility] CHEM PANEL Calcium Lvl 8.6 8.5 - 10.5 01/27/2018 [facility] CHEM PANEL Glucose Lvl 139 70 - 99 01/27/2018 [facility] CHEM PANEL BUN 11 7 - 22 01/27/2018 [facility] CHEM PANEL Creatinine Lvl 0.76 0.50 - 1.40 01/27/2018 [facility] CHEM PANEL Sodium Lvl 142 135 - 145 01/27/2018 [facility] CHEM PANEL Potassium Lvl 3.9 3.5 - 5.1 01/27/2018 [facility] CHEM PANEL Chloride Lvl 107 95 - 109 01/27/2018 [facility] CHEM PANEL CO2 30 24 - 32 01/27/2018 [facility] CHEM PANEL AGAP 8.9 10.0 - 20.0 01/27/2018 [facility] HEMATOLOGY Basophils # 0.1 0.0 - 0.2 01/27/2018 [facility] HEMATOLOGY Eosinophils # 0.1 0.0 - 0.5 01/27/2018 [facility] HEMATOLOGY Monocytes # 1.1 0.0 - 0.8 01/27/2018 [facility] HEMATOLOGY Lymphocytes # 0.9 1.0 - 5.5 01/27/2018 [facility] HEMATOLOGY Segs 81.7 45.0 - 75.0 01/27/2018 [facility] HEMATOLOGY Segs-Bands # 9.7 1.5 - 8.1 01/27/2018 [facility] HEMATOLOGY Basophils 0.8 0.0 - 1.0 01/27/2018 [facility] HEMATOLOGY Eosinophils 0.6 0.0 - 4.0 01/27/2018 [facility] HEMATOLOGY Monocytes 9.6 2.0 - 12.0 01/27/2018 [facility] HEMATOLOGY Lymphocytes 7.3 20.0 - 40.0 01/27/2018 [facility] HEMATOLOGY MPV 8.5 7.4 - 10.4 01/27/2018 [facility] HEMATOLOGY Platelet 221 133 - 450 01/27/2018 [facility] HEMATOLOGY Hgb 12.8 14.0 - 18.0 01/27/2018 [facility] HEMATOLOGY RDW 14.3 11.5 - 14.5 01/27/2018 [facility] HEMATOLOGY WBC 11.8 3.7 - 10.4 01/27/2018 [facility] HEMATOLOGY RBC 4.13 4.70 - 6.10 01/27/2018 [facility] HEMATOLOGY MCH 31.0 27.0 - 31.0 01/27/2018 [facility] HEMATOLOGY MCHC 33.6 32.0 - 36.0 01/27/2018 [facility] HEMATOLOGY Hct 38.1 42.0 - 54.0 01/27/2018 [facility] HEMATOLOGY MCV 92.3 80.0 - 94.0 01/27/2018 [facility] HEMATOLOGY Basophils # 0.1 0.0 - 0.2 01/27/2018 [facility] HEMATOLOGY POC Activated Clotting Ti me 177 01/26/2018 [facility] HEMATOLOGY POC Activated Clotting Ti me 355 01/26/2018 [facility] HEMATOLOGY POC Activated Clotting Ti me 366 01/26/2018 [facility] BLOOD BANK RESULTS ABO/Rh B POS 01/26/2018 [facility] BLOOD BANK RESULTS Antibody Scrn Negative (01/26/18 6:02 AM) 01/26/2018 [facility] CHEM PANEL eGFR 59 01/21/2018 Result Comment: The eGFR is calculated using the [...] from the National Kidney Disease Education Program (NKDEP) which additionally recommends that when the eGFR is used in patients with extremes of body mass index for purposes of drug dosing, the eGFR should be multiplied by the estimated BMI. [facility] CHEM PANEL POC Creatinine 1.2 0.5 - 1.4 01/21/2018 [facility] Pathology Reports No Data Provided for This Section Diagnostic Reports Report Value Date Source Chest 2 views DX Patient Name: JACK MITCHELL : 1940 Age: 77 years, Male MR: [id number] Study: Chest 2 views DX 05/28/2018 9:25 AM CDT Examination: Chest, 2 views. Indication: Pulmonary nodule. Postoperative evaluation. Clinical information: - R91.1 Solitary pulmonary nodule. Comparison: Portable chest 05/14/2018. CT biopsy 02/16/2018 Findings: Lines/tubes: None. Heart: Normal cardiac silhouette. Vessels: The pulmonary vasculature is within normal limits. Atherosclerotic calcifications of the aortic arch. Mediastinum: No mediastinal or hilar mass or lymphadenopathy. Lungs: No parenchymal mass. No focal consolidation. Pulmonary nodule measuring 9.9 mm projects over the right upper lobe between the right posterior 5th and 6th ribs. Pleura: No pleural effusion. No pneumothorax. Soft tissues: Normal. No axillary mass or lymphadenopathy. Bones: No acute osseous abnormality. Degenerative changes of the thoracic spine. IMPRESSION: No acute radiographic abnormality. Right upper lobe pulmonary nodule. SL: [id number] 05/28/2018 [facility] 1view DX Chest 1view DX 77 years old Male Clinical Indication: s/p chest tube removal - s/p chest tube removal; Comparison: 05/14/2018 at 07:00 FINDINGS: Tubes, lines, hardware: Right-sided chest tube has been removed. No evidence of pneumothorax. LUNGS: The volume of the lungs is normal. There is no evidence of consolidation. Some sutures are present in the right upper lung suggesting previous partial pneumonectomy on the right. A small dense calcified granuloma is superimposed on the right 2nd anterior rib. No pleural effusion is noted. The pulmonary vasculature is within normal limits. MEDIASTINUM: Cardiac silhouette is within normal limits of size. CHEST WALL: Unremarkable. SKELETON: The visualized osseous structures are unremarkable. IMPRESSION: 1. No radiographic evidence of acute car diopulmonary disease. 2. Previous right upper lung surgery. Gr anuloma. SL: [id number] 05/14/2018 [facility] 1view DX Chest 1view DX CLINICAL HISTORY: - S/p rt lung surgery COMPARISON: 05/13/2018 FINDINGS: Limited AP portable study. Support Devices: Stable position of right-sided chest tube. Lungs: No pneumothorax is evident. Lungs and pleural spaces are clear aside from a right upper lobe granuloma. Cardiomediastinum: Stable cardiomediastinum. Bone and Soft Tissues: No acute bony abnormality is noted. Multiple EKG leads and other wires project over the patient's chest. IMPRESSION: Stable chest with no acute abnormality noted. SL: [id number] 05/14/2018 [facility] 1view DX EXAM: XR CHEST SINGLE VIEW HISTORY: 77 years year-old Male with post op lobectomy - none TECHNIQUE: A single AP view of the chest was obtained. COMPARISON: Chest radiograph 05/12/2018 FINDINGS: The cardiomediastinal silhouette is stable. Improved aeration in the right upper lung. Suture line in the right upper lung. Right upper lobe calcified granuloma. Osseous structures are unchanged. Stable position of right chest tube. IMPRESSION: 1. Stable position of right chest tube. 2. Improved aeration in the right upper lung. SL: [id number] 05/13/2018 [facility] 1 v for Placement DX Cli nical Indication:77 years Male with Tube placement - s/p chest tube placement Comparison: Chest x-ray 05/10/2018 FINDINGS: Lines: Right chest tube with tip overlying the right lung apex. The single frontal chest radiograph shows normal left and slightly decreased right lung volumes. Linear left basilar/retrocardiac opacities. Right upper lobe calcified granuloma. Mild right upper lobe opacities. No pleural effusion. No pneumothorax. Cardiac silhouette is prominent. Pulmonary vasculature is normal. The trachea is midline. There are no acute osseous abnormalities noted. IMPRESSION: 1. Placement of right chest tube with ti p projecting over the right lung apex. No pneumothorax. 2. Mild right lung volume loss. Right up per lobe opacities which may be atelectasis or pneumonitis. 2. Left basilar/retrocardiac atelectasis . 05/12/2018 [facility] Chest 2 views DX Clinical Lara cation: Coughing - preop exam Comparison: 02/16/2018 FINDINGS: The PA and lateral chest radiographs shows normal lung volumes without interstitial or airspace opacities, pleural effusions or pneumothorax. The heart size and pulmonary vasculature are normal. The trachea is midline. There are no clinically significant osseous abnormalities noted. IMPRESSION: No chest radiographic evidence of acute cardiopulmonary disease. SL: [id number] 05/10/2018 [facility] Chest 1view DX EXAM: XR CHEST 1 VIEW DATE: 02/16/2018 4:00 PM CDT INDICATION: - Mass, Post Lung Biopsy Procedure COMPARISON: February 24, 2018 at 1402 hours TECHNIQUE: AP chest IMPRESSION: 1. Tiny right apical pneumothorax again seen, stable. 2. The biopsied right upper lobar nodul e is not well seen in the current chest radiograph. Both lungs are clear. 3. Costophrenic recesses are sharp. 4. Cardiomediastinal silhouette within normal limits. 5. No acute osseous abnormalities. 02/16/2018 [facility] Chest 1view DX EXAM: XR CHEST 1 VIEW DATE: 02/16/2018 1:26 PM CDT INDICATION: - Mass, Post Lung Biopsy Procedure COMPARISON: Chest CT 01/21/2018 TECHNIQUE: AP chest FINDINGS: Lines, tubes and hardware: None. Lungs and pleura: A tiny right apical pneumothorax is seen. The nodules seen on the recent CT from 01/21/2018 and not clearly identified on this study. Mild left basilar atelectasis is seen. No definite pleural effusion is identified. Heart and mediastinum: The heart size is normal for technique. The mediastinal contours are normal. Bones: No acute bony abnormality is identified. IMPRESSION: 1. Tiny right apical pneumothorax. 2. The nodules seen on the recent CT fr om 01/21/2018 and not clearly identified on this radiograph. 02/16/2018 [facility] Chest needle biopsy w guidance CT EXAM: VIR lung biopsy with CT guidance DATE: 02/16/2018 12:32 PM CDT PROCEDURE(S) PERFORMED: CT guided percutaneous core biopsies of right upper lobe lung nodule INDICATION: 77 years -old male with spiculated right upper lobe lung nodule. PRE-PROCEDURE DIAGNOSIS: Lung nodule POST-PROCEDURE DIAGNOSIS: Same FACULTY: Sharlene Todd MD RESIDENT/FELLOW/COMMISSIONS COORDINATOR: None SUPERVISION: Not applicable ANESTHESIA/SEDATION: Moderate sedation SPECIMEN: 20 gauge core biopsy x 3 DRAINS: None ESTIMATED BLOOD LOSS: Less than 3 mL COMPLICATIONS: None FINDINGS: Spiculated right upper lobe lung nodule. Trace pneumothorax post biopsy. PROCEDURE: After the risks, benefits, and alternatives of the procedure were explained to the patient, verbal and written consent were obtained. The patient was brought to the CT suite and placed in supine position. Tape Sewer images were obtained to localize the lesion. Patient was then prepped and draped in usual sterile fashion. A formal time-out procedure was performed. Lidocaine was used to anesthetize tissues overlying the lesion. A small skin incision was made. Using CT guidance, a 19-gauge needle was percutaneously advanced into the right upper lobe nodule via a right anterolateral approach. Three 20-gauge core biopsies of the nodule were then performed in coaxial fashion. Specimens were submitted to Pathology who deemed diagnostic material to be present. The needles were removed and hemostasis was achieved. A sterile dressing was applied. Post procedure images revealed a trace pneumothorax. The patient tolerated the procedure well and was transported to the recovery area in stable condition. IMPRESSION: Successful CT-guided percutaneous core biopsies of the right upper lobe lung nodule. Dr. Todd was present for the procedure. 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 A delayed phase CT was obtained for evaluation of the left atrial appendage. Axial, coronal, sagittal, and axial MIP reconstructions are performed at the acquisition workstation. 3D analysis by the radiologist performed for this exam. IV contrast: 90 mL of Omnipaque 350 DLP: 3104 mGy-cm FINDINGS: Normal configuration of the pulmonary veins is seen with the right upper and middle lobes draining into the right superior pulmonary vein, the right lower lobe draining into the right inferior pulmonary vein, the left upper lobe draining into the left superior pulmonary vein, and the left lower lobe draining into the left inferior pulmonary vein. Measurements of the pulmonary veins are as follows: Right superior pulmonary vein: 14 x 16 mm Right inferior pulmonary vein: 15 x 16 mm Left superior pulmonary vein: 17 x 20 mm Left inferior pulmonary vein: 15 x 14 mm The esophagus comes in closest proximity to the left inferior pulmonary vein. Left atrial appendage patent. Lines and Tubes: None. Lower Neck: The visible portions or the lower neck and thyroid are unremarkable. Heart and Great Vessels: The heart is normal in size. No pericardial effusion is seen. Scattered calcifications of the left anterior descending and left circumflex coronary arteries are noted. The ascending aorta measures 3.7 cm above the level of the main pulmonary trunk which measures 2.3 cm. Lymph Nodes: No hilar, mediastinal, axillary or internal mammary lymphadenopathy. Lungs: A right upper lobe spiculated nodule measures 1.3 cm (8:53). A peripheral left upper lobe 3 mm nodule is present (8:29). A left upper lobe cavitary lesion with peripheral groundglass opacity measures up to 1.7 cm (8:78). A 3 mm nodular density along the left oblique fissure (8:37) likely represents a perifissural lymph node. A calcified granuloma seen in the superior aspect of the right lower lobe. Mild upper lobe predominant centrilobular emphysematous changes are seen. Mild subsegmental atelectasis is seen in the right middle lobe and lingula. A small amount of mucous secretion is seen within the lower trachea. Pleura: No pleural effusion or pneumothorax. Upper abdomen: Fatty infiltration of the liver is noted. Bones and Soft Tissues: No aggressive osseous lesion is seen. Moderate anterior osteophyte formation is seen along the thoracic spine. Mild bilateral gynecomastia is noted. IMPRESSION: 1. Pulmonary vein anatomy and measureme nts [...] cm. 7. Fatty infiltration of the liver. 01/21/2018 [facility] Spine lumbar wo contrast MRI L [facility] SPINE MRI 08/22/2016. TECHNIQUE: Sagittal T1, sagittal T2 with fat saturation, axial T1 and axial T2 images were obtained. FINDINGS: Hemangioma is noted in the T12 vertebral body. The vertebrae are otherwise normal in shape, signal intensity and alignment. The intervertebral disks are desiccated but normal in height. The spinal canal is normal in size. The paravertebral musculature demonstrates moderate fatty atrophy in keeping with deconditioning. The conus medullaris terminates normally at the T12-L1 level. There is no intradural mass lesion. L1-L2: Mild disc bulge and minimal facet hypertrophy with joint fluid. No disc herniation or significant stenosis. L2-L3: Minimal disc bulge and facet hypertrophy. No disc herniations stenosis. L3-L4: Mild disc bulge asymmetric to the left with mild facet hypertrophy and joint fluid and minimal endplate. This results in minimal left lateral recess narrowing with slight contact of the descending left L4 nerve root. L4-L5: Mild to moderate disc bulge asymmetric to the left left paracentral annular tearing and mild facet hypertrophy. This results in mild left lateral recess narrowing with slight displacement descending left L5 nerve root. Minimal neural foraminal narrowing. Slight contact to the extraforaminal left L4 nerve root by disc bulge. L5-S1: Minimal disc bulge and facet hypertrophy. There is slight contact by the disc to the extraforaminal L5 nerve roots. IMPRESSION: Mild to moderate lower lumbar degenerative changes with asymmetric disc bulge at L4-L5 resulting in slight posterior displacement of the descending left L5 nerve root and contact with the extraforaminal left L4 nerve root. Lesser stenoses as detailed above. Slight annular tearing at L4-L5. 08/22/2016 [facility] Consultation Notes No Data Provided for This Section Discharge Summaries No Data Provided for This Section History and Physicals No Data Provided for This Section Vital Signs Vital Sign Value Date Comments Source Systolic (mm Hg) 112 03/10/2019 [facility] Diastolic (mm Hg) 85 03/10/2019 [facility] Respitory Rate 15 03/10/2019 [facility] Respitory Rate 27 03/10/2019 [facility] Systolic (mm Hg) 128 03/10/2019 [facility] Diastolic (mm Hg) 83 03/10/2019 [facility] Temperature Oral (F) 98.1 F 03/10/2019 [facility] BMI Calculated 39.52 03/10/2019 [facility] Weight 147.273 03/10/2019 [facility] Height 193.04 cm 03/10/2019 [facility] Systolic (mm Hg) 113 03/10/2019 [facility] Diastolic (mm Hg) 62 03/10/2019 [facility] Respitory Rate 24 03/10/2019 [facility] Temperature Oral (F) 98.0 F 03/10/2019 [facility] BMI Calculated 39.62 03/09/2019 [facility] Weight 147.636 03/09/2019 [facility] Height 193.04 cm 03/09/2019 [facility] Respitory Rate 22 05/14/2018 [facility] Systolic (mm Hg) 142 05/14/2018 [facility] Diastolic (mm Hg) 72 05/14/2018 [facility] Respitory Rate 23 05/14/2018 [facility] Systolic (mm Hg) 133 05/14/2018 [facility] Diastolic (mm Hg) 65 05/14/2018 [facility] Systolic (mm Hg) 122 05/14/2018 [facility] Diastolic (mm Hg) 65 05/14/2018 [facility] Respitory Rate 23 05/14/2018 [facility] Temperature Oral (F) 98.2 F 05/14/2018 [facility] Temperature Oral (F) 98 F 05/14/2018 [facility] Temperature Oral (F) 98.1 F 05/14/2018 [facility] Weight 159.1 05/13/2018 [facility] Heart Rate 57 05/12/2018 [facility] Heart Rate 61 05/10/2018 [facility] BMI Calculated 39.42 05/10/2018 [facility] Weight 146.909 05/10/2018 [facility] Height 193.04 cm 05/10/2018 [facility] Respitory Rate 0 02/16/2018 [facility] Systolic (mm Hg) 127 02/16/2018 [facility] Diastolic (mm Hg) 72 02/16/2018 [facility] Respitory Rate 0 02/16/2018 [facility] Systolic (mm Hg) 140 02/16/2018 [facility] Diastolic (mm Hg) 77 02/16/2018 [facility] Respitory Rate 10 02/16/2018 [facility] Systolic (mm Hg) 149 02/16/2018 [facility] Diastolic (mm Hg) 66 02/16/2018 [facility] Weight 143.636 02/16/2018 [facility] BMI Calculated 38.55 02/16/2018 [facility] Height 193.04 cm 02/16/2018 [facility] Systolic (mm Hg) 117 01/29/2018 [facility] Diastolic (mm Hg) 56 01/29/2018 [facility] Systolic (mm Hg) 123 01/29/2018 [facility] Diastolic (mm Hg) 58 01/29/2018 [facility] Systolic (mm Hg) 121 01/29/2018 [facility] Diastolic (mm Hg) 65 01/29/2018 [facility] Temperature Oral (F) 97.2 F 01/29/2018 [facility] Temperature Oral (F) 97.6 F 01/29/2018 [facility] Temperature Oral (F) 97.1 F 01/29/2018 [facility] Respitory Rate 18 01/28/2018 [facility] Respitory Rate 18 01/28/2018 [facility] Respitory Rate 18 01/28/2018 [facility] BMI Calculated 38.55 01/26/2018 [facility] Weight 143.636 01/26/2018 [facility] Height 193.04 cm 01/26/2018 [facility] Weight 140 01/21/2018 [facility] BMI Calculated 37.57 01/21/2018 [facility] Height 193.04 cm 01/21/2018 [facility] Weight 140 01/21/2018 [facility] BMI Calculated 37.57 01/21/2018 [facility] Height 193.04 cm 01/21/2018 [facility] Encounters Location Location Details Encounter Type Encounter Number Reason For Visit Attending Provider ADM Date DC Date Status Source [facility] [place] [facility] Di[facility] Services [id number] Jorge Christensen 08/22/2016 08/23/2016 [facility] Outpatient [id number] Anju Lamb 01/21/2018 01/22/2018 [facility] Inpatient [id number] Anju Lamb 01/27/2018 01/29/2018 [facility] Bedded Outpatient [id number] Kiran Berrios 8 02/16/2018 [facility] Inpatient [id number] 05/12/2018 05/14/2018 [facility] Outpatient [id number] Carlin Marcus 05/28/2018 05/29/2018 [facility] Observation [id number] Elijah Mariee 03/10/2019 03/10/2019 [facility] Procedures Procedure Code Date Perfomer Comments Source Biopsy, lung or mediastinum, percutaneous needle 19469 02/16/2018 [facility] Angiography<sup>1</sup> 524509 06 stents in legs [facility] Cardiac ablation using fluoroscopy guidance [id number] [facility] Assessment and Plan Assessment and Plan Date Source Extracted from:Title: Clinical Document Author: Augustina Delarosa SHUTTLE FINAL INSPECTOR Date: 05/14/18 Discharge Summary Name: Record Number: [...] with Dr. Marcus and his oncologist. Extracted from:Title: Clinical Document Author: Augustina Delarosa SHUTTLE FINAL INSPECTOR Date: 05/14/18 Progress Note - Daily [facility] Completed: Apr, 10:45 by Augustina Delarosa NP RM: [facility] - 08, SE ICCJACK HAMILTON 77y (: 1940) M Attending: Carlin Marcus MD Service: Thoracic/Cardiac Darek Service Reason for Admission: R91.1 Working DRG: Code status: None Specified=FULL CODE Current diet: Isolation: No Isolation/Standard Precautions Allergies: NKDA POD#2 SURGERY: s/p Right thoracoscopy with wedge resection of the right upper lobe. SUBJECTIVE: Pt up in the chair and doing well. OBJECTIVE 24hr Labs 05/14 0650 Glucose Lvl 118 H BUN 18 Creatinine Lvl 0.91 Sodium Lvl 139 Potassium Lvl 4.0 Chloride Lvl 104 CO2 27 AGAP 12.0 Calcium Lvl 8.4 L eGFR 83 05/14 0604 WBC 10.9 H RBC 4.59 L Hgb 13.8 L Hct 42.0 MCV 91.5 MCH 30.0 MCHC 32.8 RDW 14.4 Platelet 248 MPV 9.0 Segs 69.1 Monocytes 9.6 Lymphocytes 17.4 L Eosinophils 2.8 Basophils 1.1 H Segs-Bands # 7.5 Lymphocytes # 1.9 Monocytes # 1.0 H Eosinophils # 0.3 Basophils # 0.1 05/13 2058 POC Performing Locatio See Note Glucose POC 132 H 05/13 1623 POC Performing Locatio See Note Glucose POC 200 H 05/13 1152 POC Performing Locatio See Note Glucose POC 172 H Nam still necessary (Yes/No): Line still necessary (Yes/No): Vitals Tmp(F) Pulse BP RR SpO2 FIO2 05/14 10:00 ---- 76 ----- 23 --- --- 05/14 09:00 ---- 65 135/66 2 1 87 --- 05/14 08:00 ---- 64 121/70 2 0 --- --- 05/14 07:00 ---- 70 127/83 2 0 --- --- 05/14 06:00 ---- 66 ----- 25 --- --- 24 Hr Tmax: 98.1F (36.72c) at 05/13 20:0 0 Vital Signs are the last 5 in the past 48 hours. Date Wt(kg) Wt(lb) Ht(cm) Ht(in) Method 05/13 159.10 350.02 Measur ed 05/10 (initial) 146.91 323.20 Measured 05/10 193.04 76.00 Stated I&O Record In Out Bal 05/14 24hr Tot 0 0 0 05/13 24hr Tot 2106 9806 - 0376 Medications (28) Active Scheduled Meds (11): 05/12/18 aspirin (aspirin 81 mg tablet, enteric coated) 81 mg PO Daily 05/12/18 atorvastatin 40 mg PO Bedtime 05/13/18 clopidogrel 75 mg PO Daily 05/13/18 enoxaparin (Lovenox) 40 mg SUB- Q [id number] 05/12/18 furosemide 80 mg PO BID 05/13/18 [...] 1,000 mL) 1,000 mL 75 ml/hr INCISIONS and DRAINS: Incisions clean, dry, intact. Right chest tube removed. PHYSICAL EXAM: Pt is alert and oriented x 3. WALLS. Lungs: clear and diminished. Heart: IRRR, no murmur. Rhythm AFib in the 60's. Abdomen: large, soft, nontender, BS+. Extremities: 1+ edema, +pulses. ASSESSMENT and PLAN: Pt with right lung cancer and is s/p right thoracoscopy with wedge resection of the right upper lobe. -Pt doing well. Right chest tube removed . Chest x ray post removal is stable. Pt tolerated well. -H/H 13.8/42, stable. -Will discharge to home and follow up [facility] Dr. Marcus and his oncologist two weeks after discharge. DIAGNOSES and PROBLEMS Right lung cancer s/p right thoracoscopy with wedge resection of the right upper lobe. Ready for Discharge (Yes/No)? Yes Extracted from:Title: Clinical Document Author: Carlin Marcus MD Date: 05/12/18 OPERATIVE REPORT Date: May 12, 2018 Surgeon: Carlin Marcus MD [employer] Tube Tester: Gurvinder Jain Preoperative diagnosis: Right lung cancer [...] confirm adenocarcinoma with clean margins. A 32 Nigerian chest tube was then inserted from the middle incision and positioned posteriorly and superiorly. Was used to infiltrate all the incised areas. The incision was then closed with 2-0 Vicryl subcutaneous tissue skin wa s approximated with a running septically 4-0 Monocryl. Patient tolerated procedure well. Please send a copy of this to the chart my office Dr. Valentino and Dr Lewis 05/14/2018 [facility] Extracted from:Title: EP Discharge Summa ry * Author: Alec Molina MD Date: 01/29/18 Patient: JACK MITCHELL Age: 77 years Sex: Male : 1940 Associated Diagnoses: None Author: Alec Molina MD Results Review General results Labs (Last four charted values) WBC 9.4 (JAN 29) 10.3 (JAN 28) H 11.8 (JAN 27) H 12.1 (JAN 26) Hgb L 12.5 (JAN 29) L 12.4 (JAN 28) L 12.8 (JAN 27) L 13.1 (JAN 26) Hct L 37.2 (JAN 29) L 36.8 (JAN 28) L 38.1 (JAN 27) L 39.9 (JAN 26) Plt 221 (JAN 29) 218 (JAN 28) 221 (JAN 27) 229 (JAN 26) Na 141 (JAN 29) 143 (JAN 28) 142 (JAN 27) 144 (JAN 26) K 3.9 (JAN 29) 3.7 (JAN 28) 3.9 (JAN 27) 3.8 (JAN 26) CO2 28 (JAN 29) 31 (JAN 28) 30 (JAN 27) 30 (JAN 26) Cl 106 (JAN 29) 106 (JAN 28) 107 (JAN 27) 107 (JAN 26) Cr 0.97 (JAN 29) 0.85 (JAN 28) 0.76 (JAN 27) 1.01 (JAN 26) BUN 15 (JAN 29) 13 (JAN 28) 11 (JAN 27) 13 (JAN 26) Glucose Random H 142 (JAN 29) H 135 (JAN 28) H 139 (JAN 27) H 226 (JAN 26) Mg 2.0 (JAN 29) 2.1 (JAN 28) 2.3 (JAN 27) L 1.6 (JAN 26) Phos L 2.2 (JAN 29) L 2.0 (JAN 28) 2.8 (JAN 27) 3.0 (JAN 26) Ca L 8.3 (JAN 29) L 8.4 (JAN 28) 8.6 (JAN 27) 8.5 (JAN 26) PT H 19.9 (JAN 29) H 18.3 (JAN 28) H 17.8 (JAN 27) H 18.9 (JAN 26) INR H 1.68 (JAN 29) H 1.51 (JAN 28) H 1.46 (JAN 27) H 1.57 (JAN 26) PTT H 43.9 (JAN 29) H 44.2 (JAN 28) H 40.7 (JAN 27) Physical Examination General: Alert and oriented, [...] No focal deficits. Psychiatric: Cooperative, Appropriate mood and affect. Hospital Course Mr. Mitchell is a [...] written and given to patient. Diagnosis Afib ([id number]-HB I48.91, Working, Medical). Course Well controlled. Education and Follow-up Counseled: patient. Addendum by Anju Lamb MD on 02/01/2018 11:21 I have seen and examined rhe patient with Dr. Molina on 01-29-18. I have reviewed all clinical information. I was present during the discharge of the patient. Extracted from:Title: [facility] Progress Note Author: Whit Rocha NP Date: 01/29/18 Patient: JACK MITCHELL Age: 77 years Sex: Male : 1940 Associated Diagnoses: None Author: Whit Rocha NP Chief Complaint post PVI ablation 01/26 no [...] NKDA- No reactions were documented., Allergies (1) Active Reaction NKDA None Documented Current medications: Home Medications (9) Active [...] Signs (last 24 hrs) Last Charted Temp Oral 97.2 DegF (JAN 29 04:00) Heart Rate Apical 64 bpm (JAN 29 12:01) Resp Rate 18 BRMIN (JAN 28 17:35) SBP 117 mmHg (JAN 29 11:00) DBP L 56mmHg (JAN 29 11:00) SpO2 98 % (JAN 29 09:00) General: Alert and [...] review: Labs (Last four charted values) WBC 9.4 (JAN 29) 10.3 (JAN 28) H 11.8 (JAN 27) H 12.1 (JAN 26) Hgb L 12.5 (JAN 29) L 12.4 (JAN 28) L 12.8 (JAN 27) L 13.1 (JAN 26) Hct L 37.2 (JAN 29) L 36.8 (JAN 28) L 38.1 (JAN 27) L 39.9 (JAN 26) Plt 221 (JAN 29) 218 (JAN 28) 221 (JAN 27) 229 (JAN 26) Na 141 (JAN 29) 143 (JAN 28) 142 (JAN 27) 144 (JAN 26) K 3.9 (JAN 29) 3.7 (JAN 28) 3.9 (JAN 27) 3.8 (JAN 26) CO2 28 (JAN 29) 31 (JAN 28) 30 (JAN 27) 30 (JAN 26) Cl 106 (JAN 29) 106 (JAN 28) 107 (JAN 27) 107 (JAN 26) Cr 0.97 (JAN 29) 0.85 (JAN 28) 0.76 (JAN 27) 1.01 (JAN 26) BUN 15 (JAN 29) 13 (JAN 28) 11 (JAN 27) 13 (JAN 26) Glucose Random H 142 (JAN 29) H 135 (JAN 28) H 139 (JAN 27) H 226 (JAN 26) Mg 2.0 (JAN 29) 2.1 (JAN 28) 2.3 (JAN 27) L 1.6 (JAN 26) Phos L 2.2 (JAN 29) L 2.0 (JAN 28) 2.8 (JAN 27) 3.0 (JAN 26) Ca L 8.3 (JAN 29) L 8.4 (JAN 28) 8.6 (JAN 27) 8.5 (JAN 26) PT H 19.9 (JAN 29) H 18.3 (JAN 28) H 17.8 (JAN 27) H 18.9 (JAN 26) INR H 1.68 (JAN 29) H 1.51 (JAN 28) H 1.46 (JAN 27) H 1.57 (JAN 26) PTT H 43.9 (JAN 29) H 44.2 (JAN 28) H 40.7 (JAN 27) . CT chest dated 01/21/18- reviewed with Dr. [...] today, [place] [phone] [place], wherein received, to call pt per [...] smoking cessation Discussed with Dr. Jha Addendum by Whit Rocha [employer] on 02/05/2018 11:06 Hypophosphatemia- monitor level, out patient follow up, on KCL Extracted from:Title: Interventional Radiology Author: Ana Cano NP Date: [...] ml/hr Labs: 24hr Labs 01/27 0414 Glucose Lvl 139 H BUN 11 Creatinine Lvl 0.76 Sodium Lvl 142 Potassium Lvl 3.9 Chloride Lvl 107 CO2 30 AGAP 8.9 L Calcium Lvl 8.6 eGFR 89 Magnesium Lvl 2.3 Phosphorus 2.8 WBC 11.8 H RBC 4.13 L Hgb 12.8 L Hct 38.1 L MCV 92.3 MCH 31.0 MCHC 33.6 RDW 14.3 Platelet 221 MPV 8.5 Segs 81.7 H Monocytes 9.6 Lymphocytes 7.3 L Eosinophils 0.6 Basophils 0.8 Segs-Bands # 9.7 H Lymphocytes # 0.9 L Monocytes # 1.1 H Eosinophils # 0.1 Basophils # 0.1 01/26 2044 POC Performing Locatio See Note Glucose POC 205 H 01/26 2002 Glucose Lvl 226 H BUN 13 Creatinine Lvl 1.01 Sodium Lvl 144 Potassium Lvl 3.8 Chloride Lvl 107 CO2 30 AGAP 10.8 Calcium Lvl 8.5 eGFR 72 Magnesium Lvl 1.6 L Phosphorus 3.0 WBC 12.1 H RBC 4.32 L Hgb 13.1 L Hct 39.9 L MCV 92.3 MCH 30.3 MCHC 32.8 RDW 14.3 Platelet 229 MPV 8.7 Segs 86.0 H Monocytes 7.7 Lymphocytes 5.1 L Eosinophils 0.3 Basophils 0.9 Segs-Bands # 10.4 H Lymphocytes # 0.6 L Monocytes # 0.9 H Basophils # 0.1 01/26 1844 PT 18.9 H INR 1.57 H WBC 12.7 H RBC 4.36 L Hgb 13.3 L Hct 40.6 L MCV 93.1 MCH 30.5 MCHC 32.7 RDW 14.3 Platelet 228 MPV 8.7 Segs 81.4 H Monocytes 9.4 Lymphocytes 8.2 L Eosinophils 0.5 Basophils 0.5 Segs-Bands # 10.4 H Lymphocytes # 1.0 Monocytes # 1.2 H Eosinophils # 0.1 Basophils # 0.1 01/26 1313 POC Activated Clotting 177 POC Performing Locatio See Note 01/26 1228 POC Performing Locatio See Note Glucose POC 166 H INR: 1.57 High (01/26/18 19:35:06)No qualifying [...] or thyroid dysfunction, + obesity Physical Examination: Vitals Tmp(F) Tmp(C) Ttype BP MAP Pulse RR SpO2 FIO2 ETCO2 01/27 11:00 ---- ---- ---- 1 92 62 17 96 --- --- 01/27 10:00 ---- ---- ---- 1 85 76 20 99 --- --- 01/27 09:00 ---- ---- ---- 1 91 82 18 100 --- --- 01/27 08:21 96.7 35.94 oral ----- --- --- -- --- --- --- 01/27 08:00 ---- ---- ---- - ---- --- 82 19 --- --- --- 24 Hr Tmax: 98.0F (36.67c) at 01/26 17:0 0 Vital Signs are the last 5 in the past 48 hours. 24 Hr Tmin: 96.7F (35.94c) at 01/27 08: 21 Weights are the last 5 in 60 days, plus initial. Date Wt(kg) Wt(lb) Ht(cm) Ht(in) Method BMI BSA 01/26 (initial) 143.64 316.00 Measured 38.5 2.78 01/26 193.04 76.00 Stated 24 Hr Point of Care Glucoses 01/26 2044 Glucose POC 205 H 01/26 1228 Glucose POC 166 H Most Recent Scores: 01/27/18 Pain Intensity NRS (0-10 ) 0 01/27/18 Gurdeep Coma Score 15 01/27/18 Hudson Torres Fall Score 16 01/26/18 Callum Score 20 Lines, Tubes, and Drains: 01/26/2018 06:43 Peripheral Lines: Antec ubital Left Over the needle catheter Surgical Procedures: (no date) EPS PVI ABLATION CARTO [id number] (primary surgeon unspecified) General: Active, alert, obese male in no acute distress Head: Normocephalic, atraumatic Eyes: sclera is clear Hearing: normal to spoken voice Speech: Adequate vocabulary, no impediments Nose: [place] nasal turbinates, septum midline, no drainage or [...] Therefore, will place procedure on hold for n ow. Dr. Delgado of the primary team was notified via phone regarding need to defer biopsy at this time. He will let us know if patient will remain hospitalized to have procedure done on or after 01/29 or if patient will return for the procedure as an outpatient. THANK YOU FOR CONSULTING INTERVENTIONAL RADIOLOGY. IF YOU HAVE ANY QUESTIONS, PLEASE CONTACT [phone]. Addendum by Jaswinder Lynch MD on 01/27/2018 12:25 I have personally interviewed and examined the patient with the Nurse Practitioner and I agree with assessment and plan as delineated in the note above. A total of approximately _20__ minutes was spent with the patient, with one half of the time spent on counseling, lab and imaging review and discussion. D/W Dr Delgado. We will prefer this performed as an outpatient and i asked that the primary team call our scheduling desk. 01/29/2018 [facility] Plan of Care No Data Provided for This Section Social History Social History Date Source Social History TypeResponse Alcohol Current, Type Beer, Liquor. Frequency: Daily. Smoking Status Current every day smoker; Ready to change: No; Concerns about tobacco use in household: No; Exposure to Tobacco Smoke None; Cigarette Smoking Last 365 Days No; Reg Smoking Cessation Counseling No; Other Tobacco Frequency 3 cigarettes per day; entered on: 03/10/19 03/10/2019 [facility] Social History TypeResponse Alcohol Current, Type Beer, Liquor. Frequency: Daily. Smoking Status Current every day smoker; Ready to change: No; Concerns about tobacco use in household: No; Exposure to Tobacco Smoke None; Cigarette Smoking Last 365 Days No; Reg Smoking Cessation Counseling No entered on: 05/12/18 05/10/2018 [facility] No data available for this section 08/23/2016 CLAUDY Ha Family History No Data Provided for This Section Advance Directives No Data Provided for This Section Functional Status No Data Provided for This Section
--- OUTSIDE RECORDS SUMMARY | 2020-05-11 12:52 | XMS REPORT | Continuity of Care Document ---
Author Author [facility] t Organization [facility] Address [address] [place] [address] [address] [place] [address] Phone Unavailable Care Team Providers Care Patient Relations Liaison Name Role Phone LORA ROBERTS, XAVIER PCP KEATON BRAY Attphys Unavailable Savita Mariee Attphys ANMOL MARCUS M.D. Attphys Unavailable Anmol Marcus Attphys ANJU NASCIMENTO M.D. Attphys Unavailable Nicholas Berrios Attphys [phone] RADIOLOGY, MD PROVIDER Attphys Unavailable Anju Nascimento Attphys Leonarda Christensen Attphys KEATON BRAY Admphys Unavailable Anju Nascimento Admphys Payers Payer Name Policy Type Policy Number Effective Date Expiration Date Savita silva [facility] [employer] [facility] [id number] 2018 00:00:00 [facility] Problems Condition Name Condition Details Condition Category Status Onset Date Resolution Date Last Treatment Date Treating Clinician Comments Source JIHAN /C CARDIOVERSION JIHAN /C CARDIOVERSION Active 03/09/2019 [facility] Active 2019-03-09 00:00:00 2019-03-11 11:59:00 Elissa Omer XRAY/LAB XRAY /LAB Active 05/28/2018 [facility] Active 2018-05-28 09:18:00 2018-05-28 09:26:00 Elissa Omer UNK UNK Active 04/20/2018 [facility] Active 2018-04-20 00:00:00 2018-05-10 08:56:00 Gerson Omer R91.1 R91. 1 Active 04/20/2018 [facility] Diagnosis Active 2018-04-20 00:00:00 2018-05-13 10:56:00 [facility] CT CHEST BX (RT LUNG BX) NO BEDDED OP/ CT CHEST BX (RT LUNG BX) NO Active 02/10/2018 [facility] Diagnosis Active 2018-02-10 00:00:00 2018-02-17 08:14:00 [facility] PERSISTENT ATRIAL FIBRILLATION; SOB PERSISTENT ATRIAL FIBRILLATION; SOB Active 12/24/2017 [facility] Diagnosis Active 2017-12-24 00:00:00 2018-01-21 10:15:00 [facility] CCL EP STUDY PVI ABLATION W. CARTO/ GENE CCL EP STUDY PVI ABLATION W. CARTO/ GENE Active 12/24/2017 [facility] Diagnosis Active 2017-12-24 00:00:00 2018-02-02 18:12:00 [facility] M48.06 - "SPINAL STENOSIS, LUMBAR REGION M48.06 - "SPINAL STENOSIS, LUMBAR REGION Active 07/23/2016 KALYANIJazmyn Ha,[facility] Diagnosis Active 2016-07-23 00:01:00 2016-09-22 16:53:00 [facility] Nodule of right lung Nodule of right lung Problem HL7.CCDAR2 Active [facility]icians Primary cancer of right upper lobe of lung Primary can cer of right upper lobe of lung Problem HL7.CCDAR2 Active [facility] Shortness of breath Shor tness of breath 04/29/2018 [facility] Problem 2018-04-29 11:58:49 [facility] Centrilobular emphysema Cent rilobular emphysema 05/07/2018 [facility] Problem 2018-05-07 11:22:31 [facility] Fatty (change of) liver, not elsewhere classified Fatty (change of) liver, not elsewhere classified 04/29/2018 [facility] Problem 2018-04-29 11:58:49 [facility] Thoracic aortic ectasia Thor acic aortic ectasia 04/29/2018 [facility] Problem 2018-04-29 11:58:49 [facility] Solitary pulmonary nodule Lenora tary pulmonary nodule 05/17/2018 [facility] Problem 2018-05-17 00:38:06 [facility] Type 2 diabetes mellitus with diabetic peripheral carmen 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 Type 2 diabetes mellitus with diabetic peripheral angi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 05/07/2018 [facility] Problem 2018-05-07 11:22:31 Elissa Omer Hypertensive heart disease with heart failure Hypertensive heart disease with heart failure 05/07/2018 [facility] Problem 2018-05-07 11:22:31 Naveed Omer Chronic systolic (congestive) heart failure Chronic systolic (congestive) heart failure 05/07/2018 [facility] Problem 2018-05-07 11:22:31 Burton Omer Morbid (severe) obesity due to excess calories Morbid (severe) obesity due to excess calories 05/07/2018 [facility] Problem 2018-05-07 11:22:31 Elissa Omer Nicotine dependence, cigarettes, uncomplicated Nicotine dependence, cigarettes, uncomplicated 05/07/2018 [facility] Problem 2018-05-07 11:22:31 Elissa Omer Body mass index (BMI) 38.0-38.9, adult Body mass index (BMI) 38.0-38.9, adult 05/07/2018 [facility] Problem 2018-05-07 11:22:31 Elissa Omer Supraventricular tachycardia S upraventricular tachycardia 05/07/2018 [facility] Problem 2018-05-07 11:22:31 Elissa Omer Obstructive sleep apnea (adult) (pediatric) Obstructive sleep apnea (adult) (pediatric) 05/07/2018 [facility] Problem 2018-05-07 11:22:31 Elissa emanuel Abnormal coagulation profile A bnormal coagulation profile 05/07/2018 [facility] Problem 2018-05-07 11:22:31 Elissa Omer 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 05/07/2018 [facility] Problem 2018-05-07 11:22:31 Naveed Omer Adverse effect of anticoagulants, initial encounter Adverse effect of anticoagulants, initial encounter 05/07/2018 [facility] Problem 2018-05-07 11:22:31 Naveed Omer Hypothyroidism, unspecified Hy pothyroidism, unspecified 05/07/2018 [facility] Problem 2018-05-07 11 :22:31 Elissa Omer Other chronic pain Othe r chronic pain 05/07/2018 [facility] Problem 2018-05-07 11:22:31 Elissa Omer Anemia, unspecified Anem ia, unspecified 05/07/2018 [facility] Problem 2018-05-07 11:22:31 [facility] Atrial premature depolarization Atrial premature depolarization 05/07/2018 [facility] Problem 2018-05-07 11:22:31 [facility] Dysuria Dysu sara 05/07/2018 [facility] Problem 2018-05-07 11:22:31 Elissa Omer [facility] (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 terminal worker (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 05/25/2018 [facility] Problem 2018-05-25 13:31:47 Elissa Omer Other senior living (current) drug therapy Other senior living (current) drug therapy 05/25/2018 [facility] Problem 2018-05-25 13:31:47 Elissa Kan Imaging result abnormal (finding) Imaging result abnormal (finding) Resolved Problem 03/12/2019 lower legs with stents [facility] Problem Resolved 2019-03-12 23:58: 44 Elissa Omer Peripheral vascular disease (disorder) Peripheral vascular disease (disorder) Resolved Problem 03/12/2019 [facility] Problem Resolved 2019-03-12 23:58:44 Gerson Omer Atrial fibrillation (disorder) Atrial fibrillation (disorder) Active Problem 03/12/2019 [facility] Problem Active 2019-03-12 23:58:44 Burton Omer History of - raised blood lipids (context-dependent ca tegory) History of - raised blood lipids (context-dependent category) Active Problem 03/12/2019 [facility] Problem Active 2019-03-12 23:58:44 Elissa Omer Prediabetes (finding) Pred iabetes (finding) Active Problem 03/12/2019 [facility] Problem Active 2019-03-12 23:58:44 [facility] SOLITARY PULMONARY NODULE LENORA TARY PULMONARY NODULE Active [facility] Diagnosis Active 2018-05-13 10:56:00 Elissa [place] Malignant neoplasm of upper lobe, right bronchus or henry ng Malignant neoplasm of upper lobe, right bronchus or lung 02/27/2018 05/25/2018 [facility] Problem 2018-02-27 03:19:14 2018-04 13:31:47 2018-05-25 13:31:47 Elissa Omer Persistent atrial fibrillation Persistent atrial fibrillation 02/03/2018 05/07/2018 [facility] Problem 2018-02-03 04:13:44 2018-05-07 11:22:31 2018-05-07 11:22:31 Gerson Omer Allergies, Adverse Reactions, Alerts This patient has no known allergies or adverse reactions. Social History Social Habit Start Date Stop Date Quantity Comments Source Social History 2016-08-23 04:59:00 2016-08-23 04:59:00 Elissa Omer Smoking Status Start Date Stop Date Source Current every day smoker [facility] Physicians Medications Ordered Medication Name Filled Medication Name Start Date Stop Da te Current Medication? Ordering Clinician Indication Dosage Frequency Signature (SIG) Comments Components Source Potassium Chloride 2019-03-11 14:00:00 No Notes: (Same as: K-Dur 20) "Do Not Crush" Give with food and full glass of water For patients unable to swallow tablet, dissolve in one half glass of water. Allow about 2 minutes for the tablets to disintegrate. Stir before giving to prepare slurry and administer. Please exclude Patient s with feeding tube less than 14 Omani (Dobhoff, J-tube etc) and pediatric and patients. Elissa Omer 24 HR Metoprolol Tartrate 100 MG Extended Release Tablet [To prol] 2019-03-11 14:00:00 No Notes: (Sa me as: Toprol XL) May split tab, but do not crush. Elissa Omer Aspirin 81 MG Enteric Coated Tablet 2019-03-11 14:00:00 No Notes: Do not crush or chew. (Same As: Ecotrin) Gerson Omer Metformin hydrochloride 500 MG Oral Tablet 2019-03-11 13:00:00 No Notes: (Same as: Glucophage) Take with meal Elissa Omer tiotropium 0.018 MG/ACTUAT Inhalant Powder [Spiriva] 03-11 13:00:00 No 18 microgram, 1 inhalation, Route: INHALATION, Drug form: Rod LEGER, Dosing Weight 147.636, kg, Start date: 03/11/19 8:00:00 CDT, Duration: 30 day, Stop date: 04/09/19 8:00:00 CDT Elissa Omer Thyroxine 2019-03-11 11:30:00 No Notes: Take 1 hour before or 2 hours after meal; Enteral feeds may interefere with the absorption of this medication. (Same as:Levothroid) [place] l Kan atorvastatin 2019-03-11 02:00:00 No Notes: (Same as: Lipitor) Elissa Omer Eliquis 2019-03-11 02:00:00 No Notes: Same as: Eliquis Elissa Omer Eliquis 2019-03-10 22:09:00 No Notes: Same as: Eliquis Elissa Omer Ipratropium [place] 0.2 MG/ML Inhalant Solution 2019-03-10 22:04 :00 Yes 0.5 mg = 2.5 mL, NEB, RQID, 0 Refill(s) Elissa Omer apixaban 5 mg oral tablet 2019-03-10 22:04:00 Yes 5 mg = 1 tab, PO, Q12H, 0 Refill(s) Elissa Omer AMIODarone 200 mg oral tablet 2019-03-10 22:04:00 Yes 400 mg = 2 tab, PO, BID-Meals, 0 Refill(s) Elissa Omer Furosemide 2019-03-10 22:00:00 No Notes: (Same as: Lasix) May cause GI upset. Give with food or milk. Naveed jackelin Omer Amiodarone 2019-03-10 22:00:00 No Notes: (S loyd as: Cordarone) Elissa Omer ipratropium 0.02% inhalation solution 2019-03-10 20:00:00 N o Notes: SEE RT DOCUMENTATION (Same as:Atrovent) Elissa Omer Metformin 2019-03-10 18:40:00 No Notes: (Same as: Glucophage) Take with meal Elissa Omer metoprolol 100 mg oral tablet, extended release 2019-03-10 16:58 :00 Yes 100 mg = 1 tab, PO, Daily, # 90 tab, 0 Refill(s) Elissa Omer Anoro Ellipta 62.5 mcg-25 mcg inhalation powder 2019-03-10 16:58 :00 Yes 1 puff, INHALER, Daily, # 1 ea, 3 Refill(s) Elissa Omer AMIODarone 900 mg in D5W 500 ml IV 900 mg + Dextrose 5% in W ater IV 482 mL 2019-03-10 14:50:00 No 2 mg/ml. Use Glass Bottle or Non PVC Bag "Use 0.22 micron in-line filter" Elissa bryant Nitroglycerin 2019-03-10 14:49:00 No Notes: (Same as:Nitroquick, Nitrostat) "Do Not Crush" Sublingual tablet Elissa Omer Potassium Chloride 2018-05-13 14:00:00 No Notes: (Same as: K-Dur 20) "Do Not Crush" For patients unable to swallow tablet, dissolve in one half glass of water. Allow about 2 minutes for the tablets to disintegrate. Stir before giving to prepare slurry and administer. Please exclude Patient s with feeding tube less than 14 Omani (Dobhoff, J-tube etc) and pediatric and patients. With food and full glass of water Elissa Omer Anoro Ellipta 62.5 mcg-25 mcg inhalation powder 2018-05-13 14:00 :00 No 1 puff, Route: INHALER, Drug Form: PWDR, Dosing Weight 146.909, kg, Daily, Start date: 05/13/18 9:00:00 CDT, Duration: 30 day, Stop date: 06/11/18 9:00:00 CDT Elissa Omer Lovenox 2018-05-13 14:00:00 No Notes: (Same as: Lovenox) Elissa Omer clopidogrel 2018-05-13 14:00:00 No Notes: ( Same As: Plavix) Elissa Omer tiotropium 0.018 MG/ACTUAT Inhalant Powder [Spiriva] 05-13 13:00:00 No Notes: (Same As: Spiriva). Elissa Omer Thyroxine 2018-05-13 11:30:00 No Notes: Take 1 hour before or 2 hours after meal; Enteral feeds may interefere with the absorption of this medication. (Same as:Levothroid) Denise Omer *Please bring pt's own anoro ellipta to pharmacy for label* 2018-05-13 05:00:00 No *Please br ing pt's own anoro ellipta to pharmacy for label*, ATTN:RN, Drug form: MISC, Route: MISC, QSHIFT, 05/13/18 0:00:00 CDT, Duration: 30 day, Stop date: 06/11/18 16:00:00 CDT [facility] Kan metoprolol 2018-05-13 02:00:00 No Notes: (S loyd as: Lopressor) Elissa Omer dofetilide 2018-05-13 02:00:00 No Notes: (Same as: Tikosyn) Providers should enter the orders via the "Dofetilide Initiation Orders MPP" to ensure compliance with the REMS program. Elissa Omer dofetilide 500 mcg oral capsule 2018-05-13 02:00:00 No dofetilide 500 mcg oral capsule, 500 microgram, Drug form: CAP, Route: PO, Q12H, 05/12/18 21:00:00 CDT, Duration: 30 day, Stop date: 06/11/18 9:00:00 CDT Elissa Nguyễnann atorvastatin 2018-05-13 02:00:00 No Notes: (Same as: Lipitor) Elissa Oemr Ancef + sterile water 10 mL 2018-05-13 01:00:00 No Notes: (Same As: AncefMeche) MEDICATION WASTE Product Size: 1000 mg Product Wasted: ___ mg Elissa Omer Acetaminophen 325 MG / Hydrocodone Bitartrate 5 MG Oral Tabl et [[place] 5/325] 2018-05-12 22:16:00 No Notes: (Same as: [place] 325/5) Do not exceed 4gm/day of acetaminophen. Elissa Lau nn metoprolol tartrate 100 mg oral tablet 2018-05-12 22:00:00 No metoprolol tartrate 100 mg oral tablet, 100 mg, Route: PO, BID, 05/12/18 17:00:00 CDT, Duration: 30 day, Stop date: 06/11/18 9:00:00 CDT Elissa Omer Furosemide 2018-05-12 22:00:00 No Notes: (Same as: Lasix) May cause GI upset. Give with food or milk. Memor ial Kan Albuterol 0.833 MG/ML / Ipratropium [place] 0.167 MG/ML Inha lant Solution 2018-05-12 20:15:00 No Notes: (Same as: D uoneb) Elissa Omer Aspirin 81 MG Enteric Coated Tablet 2018-05-12 20:00:00 No Notes: Do not crush or chew. (Same As: Ecotrin) Ct deja Omer neostigmine (ANES) 2018-05-12 18:42:00 No Route: IV, Drug form: INJ, ONCE, Stop date: 05/12/18 13:42:00 CDT Gerson Omer ketOROLAC (ANES) 2018-05-12 18:11:00 No IV, ONCE Elissa Omer ePHEDrine (ANES) 2018-05-12 18:06:00 No Route: IV, Drug form: INJ, ONCE, Stop date: 05/12/18 13:06:00 CDT Gerson Omer dexamethasone (ANES) 2018-05-12 18:01:00 No Route: IV, Drug form: INJ, ONCE, Stop date: 05/12/18 13:01:00 CDT Elissa Omer ceFAZolin (ANES) 2018-05-12 18:01:00 No Route: IV, Drug form: INJ, ONCE, Stop date: 05/12/18 13:01:00 CDT Gerson Omer fentaNYL (BERNIES) 2018-05-12 18:01:00 No Route: IV, Drug form: INJ, ONCE, Stop date: 05/12/18 13:01:00 CDT Gerson Omer Albuterol 0.1 MG/ACTUAT / Ipratropium Br omide 0.02 MG/ACTUAT Metered Dose Inhaler 2018-05-12 18:00:00 No Notes: Same as: Combivent Respimat WASTE: Aerosol - Return to Pharmacy Naveed Omer lidocaine ([facility]) 2018-05-12 17:56:00 No Route: IV, Drug form: INJ, ONCE, Stop date: 05/12/18 12:56:00 CDT Gerson Omer glycopyrrolate (ANES) 2018-05-12 17:56:00 No Route: IV, Drug form: INJ, ONCE, Stop date: 05/12/18 12:56:00 CDT [facility] [place] propofol (ANES) 2018-05-12 17:56:00 No Route: IV, Drug form: INJ, ONCE, Stop date: 05/12/18 12:56:00 CDT Gerson Nguyễnann midazolam ([facility]) 2018-05-12 17:56:00 No Route: IV, Drug form: SOLN, ONCE, Stop date: 05/12/18 12:56:00 CDT Gerson Omer Acetaminophen 2018-05-12 17:47:00 No Notes: Do not exceed 4 gm/day. (Same as: Tylenol) Elissa Omer Acetaminophen 325 MG / Hydrocodone Bitartrate 5 MG Oral Tabl et 2018-05-12 17:47:00 No Notes: (Sa me as: [place] 325/5) Do not exceed 4gm/day of acetaminophen. Elissa Omer normal saline 0.9% IV 1,000 mL 2018-05-12 17:47:00 No 1,000 mL, Rate: 75 ml/hr, Infuse over: 13.3 hr, Route: IV, Dosing Weight 146.909 kg, Total Volume: 1,000, Start date: 05/12/18 12:47:00 CDT, Duration: 30 day, Stop date: 06/11/18 12:46:00 CDT, 2.83, m2 Elissa Omer Hydromorphone 2018-05-12 17:47:00 No Notes: (Same as: Dilaudid) Elissa Omer rocuronium (ANES) 2018-05-12 17:31:00 No Route: IV, Drug form: INJ, ONCE, Stop date: 05/12/18 12:31:00 CDT Gerson Omer Hydralazine 2018-05-12 17:09:00 No Notes: (Same as: Apresoline) Push over 5 minutes Elissa Omer Insulin Lispro 2018-05-12 17:02:00 No Notes: (Same as: Humalog ) Roll in palms of hands gently; Do not shake `vigorously. "Single Patient Use Only " WASTE: F/P - Black; E - Municipal Trash Bin Stable for 28 days at room temperature. Expires in days from Date Elissa Omer Glucagon 2018-05-12 17:02:00 No 1 mg, Route: IM, Drug form: PDR/INJ, PRN, Dosing Weight 146.909, kg, PRN Blood Glucose Results, Start date: 05/12/18 12:02:00 CDT, Duration: 30 day, Stop date: 06/11/18 12:01:00 CDT Elissa Omer Dextrose 50% Syringe 2018-05-12 17:02:00 No 25 gm, 50 mL, Route: IVP, Drug Form: INJ, Dosing Weight 146.909, kg, PRN, PRN Blood Glucose Results, Start date: 05/12/18 12:02:00 CDT, Duration: 30 day, Stop date: 06/11/18 12:01:00 CDT Elissa Omer Sodium Chloride 0.9% IV (ANES) 1000 mL 2018-05-12 16:30:00 No Route: IV, Total Volume: 1,000, Start date: 05/12/18 11:30:00 CDT, Stop date: 05/12/18 12:30:00 CDT Elissa Omer Calcium Chloride 0.0014 MEQ/ML / Potassi um Chloride 0.004 MEQ/ML / Sodium Chloride 0.103 MEQ/ML / Sodium Lactate 0.028 MEQ/ML Injectable Solution 2018-05-12 16:17:00 No 1,000 mL, Rate: 25 ml/hr, Infuse over: 40 hr, Route: IV, Dosing Weight 146.909 kg, Total Volume: 1,000, Start date: 05/12/18 11:17:00 CDT, Duration: 30 day, Stop date: 06/11/18 11:16:00 CDT, 2.83, m2 Elissa Omer Lactated Ringers Injection IV (ANES) 1000 mL 2018-05-12 16:16:00 No Route: IV, Total Volume: 1,000, Start date: 05/12/18 11:16:00 CDT, Stop date: 05/12/18 12:16:00 CDT Elissa Omer Exparel 2018-05-12 16:00:00 No Notes: (Same as: Exparel) NOT FOR IV use Postoperative analgesia: Infiltration [...] (total dose = 30 mL [266 mg]) Elissa Omer enoxaparin 80 mg/0.8 mL subcutaneous solution 2018-05-10 15:41:0 0 No SUB-Q, Q12H, 05/10, 05/11,05/12, 0 Refill(s) Elissa Omer Albuterol 0.1 MG/ACTUAT / Ipratropium Br omide 0.02 MG/ACTUAT Metered Dose Inhaler 2018-05-10 15:38:00 No 1 p uff, INHALATION, QID, 0 Refill(s) Elissa Omer Aspirin 81 MG Enteric Coated Tablet 2018-05-10 15:38:00 Yes 81 mg = 1 tab, PO, Daily, last dose 05/06/18, # 90 tab, 3 Refill(s) Elissa Omer Anoro Ellipta 62.5 mcg-25 mcg inhalation powder 2018-05-10 15:37 :00 No 1 puff, INHALER, Daily, # 1 ea, 3 Refill(s) Elissa Omer Ondansetron 2018-02-16 18:26:00 No Notes: (Same as: Tommie) MEDICATION WASTE Product Size: 4 mg Product Wasted: ___ mg Elissa Omer Acetaminophen 325 MG / Hydrocodone Bitartrate 10 MG Oral Tab let 2018-02-16 18:26:00 No Notes: Do not exceed 4gm/day of acetaminophen. (Same as: [place] 325/10) Elissa Omer Midazolam 2018-02-16 18:00:00 No 1 mg, Route: IV, ONCE, Dosing Weight 143.636, kg, Start date: 02/16/18 13:00:00 CDT, Stop date: 02/16/18 13:00:00 CDT Elissa Omer Fentanyl 2018-02-16 18:00:00 No 50 microgram, Route: IV, ONCE, Dosing Weight 143.636, kg, Start date: 02/16/18 13:00:00 CDT, Stop date: 02/16/18 13:00:00 CDT, Elissa Omer Warfarin 2018-01-29 23:00:00 No Notes: Nurse to ensure documentation of patient education per anticoagulation policy. Avoid large intake of vitamin-K containing foods diet. WASTE: F/P - P Waste Black; E - P Waste Black (Same As: Coumadin) Elissa Omer tiotropium 0.018 MG/ACTUAT Inhalant Powder [Spiriva] 2 21:09:00 Yes 18 microgram = 1 inhalation, INHALATION, RDaily, 0 Refill(s) Elissa Omer dofetilide 2018-01-29 19:45:00 No Notes: (Same as: Tikosyn) Providers should enter the orders via the "Dofetilide Initiation Orders MPP" to ensure compliance with the REMS program. Elissa Omer dofetilide 500 mcg oral capsule 2018-01-29 17:27:00 Yes 500 microgram = 1 cap, PO, Q12H, # 60 cap, 0 Refill(s) Elissa Omer dofetilide 500 mcg oral capsule 2018-01-29 17:25:00 No 500 microgram = 1 cap, PO, Q12H, # 14 cap, 0 Refill(s) Elissa Omer Lovenox 2018-01-28 23:40:00 No Notes: Nurse to ensure documentation of patient education per anticoagulation policy. (Same as: Lovenox) Elissa Omer Warfarin 2018-01-28 23:00:00 No Notes: Nurse to ensure documentation of patient education per anticoagulation policy. Avoid large intake of vitamin- K containing foods diet. WASTE: F/P - P Waste Black; E - P Waste Black (Same As: Coumadin) Elissa Kan remove patch 2018-01-28 15:00:00 No Notes: Remove old patch before application of new patch. WASTE: F/P - P Waste Black; E - P Waste Black [facility] Lovenox 2018-01-28 00:25:00 No Notes: Nurse to ensure documentation of patient education per anticoagulation policy. (Same as: Lovenox) [facility] Warfarin 2018-01-28 00:25:00 No Notes: Nurse to ensure documentation of patient education per anticoagulation policy. Avoid large intake of vitamin- K containing foods diet. WASTE: F/P - P Waste Black; E - P Waste Black (Same As: Coumadin) [facility] Nicotine 2018-01-27 22:50:00 No 14 mg, 1 patch, Route: TOP, Drug form: ERFILM, Daily, Dosing Weight 143.636, kg, Priority: NOW, Start date: 01/27/18 16:50:00 DIRECTOR OF EVENTS, Duration: 30 day, Stop date: 02/26/18 9:00:00 CDT [facility] clopidogrel 2018-01-27 15:00:00 No Notes: ( Same As: Plavix) [facility] Potassium Chloride 2018-01-27 15:00:00 No Notes: (Same as: K-Dur 20) "Do Not Crush" With food and full glass of water [facility] pantoprazole 2018-01-27 15:00:00 No 40 mg, 1 tab, Route: PO, Drug form: ECTAB, Daily, Dosing Weight 143.636, kg, Start date: 01/27/18 9:00:00 DIRECTOR OF EVENTS, Duration: 14 day, Stop date: 02/09/18 9:00:00 CDT [facility] Warfarin 2018-01-27 15:00:00 No 7.5 mg, Route: PO, Drug form: TAB, Daily, Dosing Weight 143.636, kg, Start date: 01/27/18 9:00:00 DIRECTOR OF EVENTS, Duration: 30 day, Stop date: 02/25/18 9:00:00 CDT [facility] Furosemide 2018-01-27 15:00:00 No Notes: (Same as: Lasix) May cause GI upset. Give with food or milk. Naveed benítez [place] tiotropium 0.018 MG/ACTUAT Inhalant Powder [Spiriva] 01-27 14:00:00 No Notes: (Same As: Spiriva) [facility] Metformin hydrochloride 500 MG Oral Tablet 2018-01-27 14:00:00 No Notes: (Same as: Glucophage) Take with meal [facility] Thyroxine 2018-01-27 12:30:00 No 25 microgram, 1 tab, Route: PO, Drug form: TAB, Q630AM, Dosing Weight 143.636, kg, Start date: 01/27/18 6:30:00 DIRECTOR OF EVENTS, Duration: 30 day, Stop date: 02/25/18 6:30:00 CDT [facility] Magnesium Sulfate 2018-01-27 04:25:00 No Notes: WASTE: F/P - Sink; E - Municipal Trash Bin [facility] Insulin Lispro 2018-01-27 04:24:00 No Notes: (Same as: Humalog ) Roll in palms of hands gently; Do not shake `vigorously. "Single Patient Use Only " WASTE: F/P - Black; E - Municipal Trash Bin Stable for 28 days at room temperature. Expires in days from Date [facility] Dextrose 50% Syringe 2018-01-27 04:24:00 No 12.5 gm, 25 mL, Route: IVP, Drug Form: INJ, Dosing Weight 143.636, kg, PRN, PRN Blood Glucose Results, Start date: 01/26/18 22:24:00 DIRECTOR OF EVENTS, Duration: 30 day, Stop date: 02/25/18 23:23:00 T [facility] Glucagon 2018-01-27 04:24:00 No 1 mg, Route: IM, Drug form: PDR/INJ, PRN, Dosing Weight 143.636, kg, PRN Blood Glucose Results, Start date: 01/26/18 22:24:00 DIRECTOR OF EVENTS, Duration: 30 day, Stop date: 02/25/18 23:23:00 T [facility] atorvastatin 2018-01-27 03:00:00 No Notes: (Same as: Lipitor) [facility] metoprolol tartrate 2018-01-27 03:00:00 No Notes: (Same as: Lopressor) [facility] Saline Flush 0.9% 2018-01-27 03:00:00 No Notes: Same as: BD Posiflush Sterile [facility] Sucralfate 2018-01-27 03:00:00 No Notes: May interfere w/enteral feeds - Take 1 hr before or 2 hr after antacids, dairy pdt, meals & minerals - On empty stomach. For patients unable to swallow tablet, dissolve in 10mL - 30mL of water or juice and stir before giving. (Same As: Carafate) [facility] dofetilide 2018-01-27 03:00:00 No Notes: (Same as: Tikosyn) Providers should enter the orders via the "Dofetilide Initiation Orders MPP" to ensure compliance with the REMS program. Elissa Omer Saline Flush 0.9% 2018-01-27 00:44:00 No Notes: Same as: BD Posiflush Sterile [facility] protamine (ANES) 2018-01-26 18:10:00 No Route: IV, Drug form: INJ, ONCE, Stop date: 01/26/18 12:10:00 DIRECTOR OF EVENTS Gerson emoriden Omer Ondansetron 2018-01-26 15:48:00 No Notes: (Same as: Zofran) MEDICATION WASTE Product Size: 4 mg Product Wasted: ___ mg [facility] Fentanyl 2018-01-26 15:48:00 No Notes: (Same as: Sublimaze) Preservative free. Elissa Omer Hydralazine 2018-01-26 15:48:00 No Notes: (Same as: Apresoline) Push over 5 minutes [facility] Labetalol 2018-01-26 15:48:00 No 10 mg, 2 mL, Route: IVP, Drug form: INJ, Q5Min, Dosing Weight 143.636, kg, PRN Elevated BP, Start date: 01/26/18 9:48:00 DIRECTOR OF EVENTS, Duration: 5 doses or times, Stop date: 01/27/18 0:00:00 DIRECTOR OF EVENTS Elissa Omer Flumazenil 2018-01-26 15:48:00 No Notes: (S loyd as: Romazicon) [facility] Naloxone 2018-01-26 15:48:00 No Notes: Same as Narcan [facility] fentaNYL (ANES) 2018-01-26 15:12:00 No Route: IV, Drug form: INJ, ONCE, Stop date: 01/26/18 9:12:[address] deja Omer cisatracurium (ANES) 2018-01-26 15:12:00 No Route: IV, Drug form: INJ, ONCE, Stop date: 01/26/18 9:12:00 DIRECTOR OF EVENTS [facility] propofol (ANES) 2018-01-26 15:12:00 No Route: IV, Drug form: INJ, ONCE, Stop date: 01/26/18 9:12:[address] deja Omer Sodium Chloride 0.9% IV (ANES) 1000 mL 2018-01-26 14:08:00 No Route: IV, Total Volume: 1,000, Start date: 01/26/18 8:08:00 DIRECTOR OF EVENTS, Stop date: 01/26/18 9:08:00 DIRECTOR OF EVENTS Elissa Omer warfarin 7.5 mg oral tablet 2018-01-26 12:50:00 Yes 7.5 mg = 1 tab, PO, Daily, 0 Refill(s) Elissa Omer furosemide 80 mg oral tablet 2018-01-26 12:50:00 Yes 80 mg = 1 tab, PO, BID, 0 Refill(s) Elissa Omer Potassium Chloride 2018-01-26 12:50:00 Yes 20 mEq, PO, Daily, 0 Refill(s) Elissa Omer levothyroxine 25 mcg (0.025 mg) oral tablet 2018-01-26 12:50:00 Yes 25 microgram = 1 tab, PO, Daily, # 30 tab, 0 Refill(s) Elissa Omer metoprolol tartrate 100 mg oral tablet 2018-01-26 12:50:00 Yes 100 mg = 1 tab, PO, BID, # 60 tab, 0 Refill(s) Elissa Omer Metformin hydrochloride 500 MG Oral Tablet 2018-01-26 12:50:00 Yes 500 mg = 1 tab, PO, BID-Meals, # 30 tab, 0 Refill(s) Elissa Omer atorvastatin 40 mg oral tablet 2018-01-26 12:50:00 Yes 40 mg = 1 tab, PO, Bedtime, # 30 tab, 0 Refill(s) Elissa Omer clopidogrel 75 mg oral tablet 2018-01-26 12:50:00 Yes 75 mg = 1 tab, PO, Daily, # 30 tab, 0 Refill(s) Franc Patel NS 1,000 mL 2018-01-26 11:56:00 No 1,000 mL, Rate: 100 ml/hr, Infuse over: 10 hr, Route: IVPB, Dosing Weight 143.636 kg, Total Volume: 1,000, Start date: 01/26/18 5:56:00 DIRECTOR OF EVENTS, Duration: 30 day, Stop date: 02/25/18 5:55:00 CDT, 2.8, m2 Elissa Omer Aspirin 81 MG TABS Aspirin 81 MG TABS Yes [facility] Atorvastatin Calcium 40 MG Oral Tablet Atorvastatin Calcium 40 M G Oral Tablet Yes [facility] Clopidogrel Bisulfate 75 MG Oral Tablet Clopidogrel Bisulfat e 75 MG Oral Tablet Yes [facility] Dofetilide 500 MCG Oral Capsule Dofetilide 500 MCG Oral Capsule Yes [facility] Furosemide 80 MG Oral Tablet Furosemide 80 MG Oral Tablet Yes [facility] MetFORMIN HCl - 500 MG Oral Tablet MetFORMIN HCl - 500 MG Oral Tablet Yes [facility] Metoprolol Tartrate 100 MG Oral Tablet Metoprolol Tartrate 100 M G Oral Tablet Yes [facility] Potassium Chloride 20 MEQ TBCR Potassium Chloride 20 MEQ TBCR Yes [facility] Warfarin Sodium 7.5 MG Oral Tablet Warfarin Sodium 7.5 MG Oral Tablet Yes [facility] Levothyroxine Sodium TABS Levothyroxine Sodium TABS Yes [facility] Anoro Ellipt Anoro Ellipt Yes 1 Daily [facility] Apixaban (Eliquis) 5 Mg Tablet Apixaban (Eliquis) 5 Mg Tablet Yes Daily [facility] Atorvastatin Calcium 20 Mg Tablet Atorvastatin Calcium 20 Mg Tablet Yes 40 Bedtime [facility] Furosemide 40 Mg Tablet Furosemide 40 Mg Tablet Yes 80 Daily [facility] Ipratropium/Albuterol Sulfate (Combivent Respimat Inha l Fitzgerald) 4 Gm Aer.w.adap Ipratropium/Albuterol Sulfate (Combivent Respimat Inhal Fitzgerald) 4 Gm Aer.w.adap Yes 4 Four Times Daily as needed for Shortness Of Breath [facility] Levothyroxine Sodium 50 Mcg Tablet Levothyroxine Sodium 50 Mcg Tablet Yes 25 Daily [facility] Metformin Hcl 500 Mg Tablet Metformin Hcl 500 Mg Tablet Yes 500 Twice A Day [facility] Metoprolol Tartrate 50 Mg Tablet Metoprolol Tartrate 50 Mg Tablet Yes 100 Daily [facility] Potassium Chloride 20 Meq Tab.er.prt Potassium Chloride 20 Meq Tab. er.prt Yes 20 Daily [facility] Amiodarone Hcl (Pacerone) 400 Mg Tablet, Oral Amioda arianna Hcl (Pacerone) 400 Mg Tablet, Oral 2019-11-22 00:00:00 No Daily [facility] Aspirin (Aspirin Ec) 81 Mg Tablet., 81 Mg Oral Aspir in (Aspirin Ec) 81 Mg Tablet., 81 Mg Oral 2019-11-22 00:00:00 No 81 Da fabiano [facility] Clopidogrel Bisulfate (Clopidogrel) 75 Mg Tablet, 75 M g Oral Clopidogrel Bisulfate (Clopidogrel) 75 Mg Tablet, 75 Mg Oral 2019-11-09 00:00:00 No 75 Daily [facility] Warfarin Sodium (Coumadin) 5 Mg Tablet, 7.5 Mg Oral Wa rfarin Sodium (Coumadin) 5 Mg Tablet, 7.5 Mg Oral 2019-11-09 00:00:00 No 7.5 Use As Directed [facility] Vital Signs Vital Name Observation Time Observation Value Comments Source Systolic (mm Hg) 2019-03-10 22:54:00 [facility] [place] Diastolic (mm Hg) 2019-03-10 22:54:00 [facility] [place] Respitory Rate 2019-03-10 22:54:00 [facility] [place] Respitory Rate 2019-03-10 21:00:00 [facility] [place] Systolic (mm Hg) 2019-03-10 21:00:00 [facility] [place] Diastolic (mm Hg) 2019-03-10 21:00:00 [facility] [place] Temperature Oral (F) 2019-03-10 21:00:00 98.1 F [facility] BMI Calculated 2019-03-10 19:13:00 [facility] Weight 2019-03-10 19:13:00 [facility] Height 2019-03-10 19:13:00 193.04 cm [facility] Systolic (mm Hg) 2019-03-10 19:12:00 [facility] Diastolic (mm Hg) 2019-03-10 19:12:00 [facility] [place] Respitory Rate 2019-03-10 19:12:00 [facility] Temperature Oral (F) 2019-03-10 13:48:00 98.0 F [facility] BMI Calculated 2019-03-09 20:27:00 [facility] Weight 2019-03-09 20:27:00 [facility] Height 2019-03-09 20:27:00 193.04 cm [facility] BP Systolic 2018-05-31 10:00:00 140 mm[Hg] Location: RUPERT Positi on: Sitting [facility] BP Diastolic 2018-05-31 10:00:00 84 mm[Hg] Location: RUPERT Positi on: Sitting [facility] Height 2018-05-31 10:00:00 76 [in_us] [facility] Weight 2018-05-31 10:00:00 315 [lb_av] [facility] Body Mass Index Calculated 2018-05-31 10:00:00 38.34 kg/m2 [facility] Heart Rate 2018-05-31 10:00:00 67 /min [facility] Respitory Rate 2018-05-14 17:03:00 [facility] [place] Systolic (mm Hg) 2018-05-14 17:03:00 [facility] Diastolic (mm Hg) 2018-05-14 17:03:00 [facility] [place] Respitory Rate 2018-05-14 16:00:00 [facility] Systolic (mm Hg) 2018-05-14 16:00:00 [facility] Diastolic (mm Hg) 2018-05-14 16:00:00 [facility] Systolic (mm Hg) 2018-05-14 15:00:00 [facility] Diastolic (mm Hg) 2018-05-14 15:00:00 [facility] Respitory Rate 2018-05-14 15:00:00 [facility] Temperature Oral (F) 2018-05-14 12:00:00 98.2 F [facility] Temperature Oral (F) 2018-05-14 05:00:00 98 F [facility] Temperature Oral (F) 2018-05-14 01:00:00 98.1 F [facility] Weight 2018-05-13 11:22:00 [facility] Heart Rate 2018-05-12 13:09:00 [facility] Heart Rate 2018-05-10 15:32:00 [facility] BMI Calculated 2018-05-10 13:38:00 [facility] Weight 2018-05-10 13:38:00 [facility] [place] Height 2018-05-10 13:38:00 193.04 cm [facility] BP Systolic 2018-04-19 13:20:00 143 mm[Hg] [facility] BP Diastolic 2018-04-19 13:20:00 82 mm[Hg] [facility] Height 2018-04-19 13:20:00 76 [in_us] [facility] Weight 2018-04-19 13:20:00 314 [lb_av] [facility] Body Mass Index Calculated 2018-04-19 13:20:00 38.22 kg/m2 [facility] Respitory Rate 2018-02-16 21:30:00 [facility] [place] Systolic (mm Hg) 2018-02-16 21:30:00 [facility] [place] Diastolic (mm Hg) 2018-02-16 21:30:00 [facility] [place] Respitory Rate 2018-02-16 20:30:00 [facility] [place] Systolic (mm Hg) 2018-02-16 20:30:00 [facility] Diastolic (mm Hg) 2018-02-16 20:30:00 [facility] Respitory Rate 2018-02-16 20:00:00 [facility] Systolic (mm Hg) 2018-02-16 20:00:00 [facility] Diastolic (mm Hg) 2018-02-16 20:00:00 [facility] Weight 2018-02-16 14:08:00 [facility] [place] BMI Calculated 2018-02-16 14:08:00 [facility] [place] Height 2018-02-16 14:08:00 193.04 cm [facility] BP Systolic 2018-02-08 09:44:00 119 [facility]Hg[facility] BP Diastolic 2018-02-08 09:44:00 78 mm[Hg] [facility] Height 2018-02-08 09:44:00 76 [in_us] [facility] Weight 2018-02-08 09:44:00 312 [lb_av] [facility] Body Mass Index Calculated 2018-02-08 09:44:00 37.98 kg/m2 [facility] Temperature 2018-02-08 09:44:00 96.9 [degF] Method: Oral [facility] Heart Rate 2018-02-08 09:44:00 72 /min [facility] Respiration Rate 2018-02-08 09:44:00 18 /min [facility] O2 SAT 2018-02-08 09:44:00 96 % Source: [facility] Systolic (mm Hg) 2018-01-29 17:00:00 [facility] [place] Diastolic (mm Hg) 2018-01-29 17:00:00 [facility] Systolic (mm Hg) 2018-01-29 15:00:00 [facility] Diastolic (mm Hg) 2018-01-29 15:00:00 [facility] [place] Systolic (mm Hg) 2018-01-29 12:08:00 [facility] Diastolic (mm Hg) 2018-01-29 12:08:00 [facility] Temperature Oral (F) 2018-01-29 10:00:00 97.2 F [facility] Temperature Oral (F) 2018-01-29 06:00:00 97.6 F [facility] Temperature Oral (F) 2018-01-29 01:25:00 97.1 F [facility] Respitory Rate 2018-01-28 23:35:00 [facility] [place] Respitory Rate 2018-01-28 18:23:00 [facility] Respitory Rate 2018-01-28 15:23:00 [facility] BMI Calculated 2018-01-26 11:57:00 [facility] Weight 2018-01-26 11:57:00 [facility] [place] Height 2018-01-26 11:57:00 193.04 cm [facility] Weight 2018-01-21 16:12:00 [facility] BMI Calculated 2018-01-21 16:12:00 [facility] Height 2018-01-21 16:12:00 193.04 cm [facility] Weight 2018-01-21 15:47:00 [facility] [place] BMI Calculated 2018-01-21 15:47:00 [facility] Height 2018-01-21 15:47:00 193.04 cm [facility] Procedures Procedure Date / Time Performed Performing Clinician Sour e Computed tomography of chest without contrast 2019-11-10 00:00:0 0 KEATON BRAY [facility]] CBC (INCLUDES DIFF/PLT) 2018-05-14 00:00:00 [facility] [[facility]] BASIC METABOLIC PANEL W/EGFR 2018-05-14 00:00:00 [facility] [O] Xray CHEST 2 VIEWS FRONTAL AND LATERAL 2018-05-14 00:00:00 [facility] History of Thoracoscopy 2018-05-12 00:00:00 [facility] Biopsy, lung or mediastinum, percutaneous needle 2018-02-16 18:5 0:[address] [facility] [address] Chest biopsy needle CT guided [id number] 2018-02-08 00:00:00 [facility] Angiography<sup>1</sup> [facility] Cardiac ablation using fluoroscopy guidance [facility] Plan of Care Planned Activity Planned Date Details Comments Source Diagnostic Test Pending 2018-05-28 00:00:00 [QLH] CBC (INCLU DANIEL DIFF/PLT) [code = [QLH] CBC (INCLUDES DIFF/PLT)] [facility] Diagnostic Test Pending 2018-05-28 00:00:00 [QLH] BASIC META BOLIC PANEL W/EGFR [code = [QLH] BASIC METABOLIC PANEL W/EGFR] [facility] Diagnostic Test Pending 2018-05-28 00:00:00 [O] Xray CHEST 2 VIEWS FRONTAL AND LATERAL [code = 40124] [facility] Diagnostic Test Pending 2018-05-28 00:00:00 [QLH] CBC (INCLU DANIEL DIFF/PLT) [code = [QLH] CBC (INCLUDES DIFF/PLT)] [facility] Diagnostic Test Pending 2018-05-28 00:00:00 [QLH] BASIC META BOLIC PANEL W/EGFR [code = [QLH] BASIC METABOLIC PANEL W/EGFR] [facility] Diagnostic Test Pending 2018-05-28 00:00:00 [O] Xray CHEST 2 VIEWS FRONTAL AND LATERAL [code = 76260] [facility] Future Scheduled Test CT Chest biopsy needle [place] guided [id number] [code = 99018] After 08Feb2018 [facility] Future Scheduled Test CT Chest biopsy needle CT guided 24397 [code = 12089] After 08Feb2018 [facility] Encounters Start Date/Time End Date/Time Encounter Type Admission Type [facility] Care Department Encounter ID Source 2019-11-09 17:43:00 2019-11-22 11:50:00 Discharged Inpatient 1 KEATON BRAY [facility] [id number] [facility] 2019-03-10 14:06:00 2019-03-10 18:35:00 Outpatient Elijah Mariee [facility] [id number] 2019-03-10 14:06:00 2019-03-10 14:06:00 Outpatient [facility] CAR [facility] 2018-05-31 10:00:00 2018-05-31 10:00:00 Appointment; ANMOL MARCUS M.D. NAHAS, CESAR, M.D. [facility] Cardiothoracic and Vascular Surgery - Dr Sharron Marcus [id number] [facility] 2018-05-28 09:17:00 2018-05-28 23:59:00 [facility] [id number] 2018-05-12 05:13:00 2018-05-14 12:15:00 Outpatient [facility] [id number] 2018-04-19 13:15:00 2018-04-19 13:15:00 Appointment; ANMOL MARCUS M.D. NAHAS, CESAR, M.D. [facility] Cardiothoracic and Vascular Surgery - Dr Sharron Marcus [id number] [facility] 2018-02-22 09:15:00 2018-02-22 09:15:00 Appointment; ANJU NASCIMENTO M.D. SHARMA, SAUMYA, M.D. [facility] [id number] [facility] 2018-02-16 08:19:00 2018-02-16 18:30:00 Outpatient Kiran Meraz [facility] [id number] 2018-02-08 10:00:00 2018-02-08 10:00:00 Appointment; RADIOLOGY, PROVIDER RADIOLOGY, PROVIDER [facility] Interventional Radiology [id number] [facility] 2018-01-26 18:44:00 2018-01-29 17:35:00 Outpatient Magdy Nascimento [facility] [id number] 2018-01-21 09:38:00 2018-01-21 23:59:00 Outpatient Magdy Nascimento [facility] [id number] 2017-12-18 10:00:00 2017-12-18 10:00:00 Appointment; ANJU NASCIMENTO M.D. SHARMA, SAUMYA, M.D. [facility] [id number] [facility] 2016-08-22 06:49:00 2016-08-22 23:59:00 Outpatient Jorge Christensen [facility] [id number] Results Test Description Test Time Test Comments Results Result Comments Source Bedside Glucose 2019-11-22 08:17:00 Test Item Bedside Glucose (test code = 05320-2) 167 70-120 H Meter ID: [id number] 2019-11-21 11:37:00* Test Item Value Reference Range Interpretation Comments Sodium Level (test code = 2951-2) 137 136-145 [facility] [id number] 11:37:00* Test Item Value Reference Range Interpretation Comments Potassium Level (test code = 2823-3) 4.0 3.5-5.1 [facility]loride [id number] 11:37:00* Test Item Value Reference Range Interpretation Comments Chloride Level (test code = 2075-0) 98 98-107 [facility]Carbon Dioxide [id number] 11:37:00* Test Item Value Reference Range Interpretation Comments Carbon Dioxide Level (test code = 2028-9) 30 22-29 H [facility]cosAnion [id number] 11:37:00* Test Item Value Reference Range Interpretation Comments Anion Gap (test code = 64295-7) 13.0 8-16 [facility]cos[facility] Urea [id number] 11:37:00* Test Item Value Reference Range Interpretation Comments Blood Urea Nitrogen (test code = 3094-0) 11 7-26 [facility]inine2019-12-23 11:37:00* Test Item Value Reference Range Interpretation Comments Creatinine (test code = 2160-0) 0.91 0.72-1.25 [facility]UN/Creatinine [id number] 11:37:00* Test Item Value Reference Range Interpretation Comments BUN/Creatinine Ratio (test code = 3097-3) 12 6-25 [facility]cosEstimat Glomerular Filtration Rate 2019-11-21 11:37:00* Test Item Value Reference Range Interpretation Comments Estimat Glomerular Filtration Rate (test code = 622508246) > 60 >60 Ranges were taken from the National Kidney Disease Education Program and the [facility] Kidney Foundation literature.Reference ranges:60 or greater: Qqqduj53-85 ( for 3 consecutive months): Chronic kidney disease 15 or less: Kidney failureChristus Santa Rosa Hospital – San MarcosGlucose [id number] 11:37:00* Test Item Value Reference Range Interpretation Comments Glucose Level (test code = IDX0990) 157 74-118 H [facility]cosCalcium [id number] 11:37:00* Test Item Value Reference Range Interpretation Comments Calcium Level (test code = 06437-5) 9.0 8.4-10.2 [facility]cosWhite Blood [id number] 11:32:00* Test Item Value Reference Range Interpretation Comments White Blood Count (test code = 6690-2) 6.72 4.8-10.8 [facility]cosRed Blood [id number] 11:32:00* Test Item Value Reference Range Interpretation Comments Red Blood Count (test code = 789-8) 3.97 4.3-5.7 L [facility]Hemoglobin2019-12-23 11:32:00* Test Item Value Reference Range Interpretation Comments Hemoglobin (test code = 60061-7) 12.1 14.0-18.0 L [facility]Hematocrit2019-12-23 11:32:00* Test Item Value Reference Range Interpretation Comments Hematocrit (test code = 4544-3) 38.1 38.2-49.6 L [facility] MarcosMean Corpuscular [id number] 11:32:00* Test Item Value Reference Range Interpretation Comments Mean Corpuscular Volume (test code = 787-2) 96.0 81-99 [facility]cosMean Corpuscular [id number] 11:32:00* Test Item Value Reference Range Interpretation Comments Mean Corpuscular Hemoglobin (test code = 785-6) 30.5 28-32 [facility] MarcosMean Corpuscular Hemoglobin Concent 2019-11-21 11:32:00* Test Item Value Reference Range Interpretation Comments Mean Corpuscular Hemoglobin Concent (test code = 786-4) 31.8 31-35 [facility]cosRed Cell Distribution [id number] 11:32:00* Test Item Value Reference Range Interpretation Comments Red Cell Distribution Width (test code = 39283-2) 13.4 11.7 -14.4 [facility] MarcosPlatelet [id number] 11:32:00* Test Item Value Reference Range Interpretation Comments Platelet Count (test code = 777-3) 268 140-360 [facility]cosNeutrophils (%) (Auto)2019-11-21 11:32:00 * Test Item Value Reference Range Interpretation Comments Neutrophils (%) (Auto) (test code = 71719-7) 72.4 38.7-80.0 [facility]cosLymphocytes (%) (Auto)2019-11-21 11:32:00 * Test Item Value Reference Range Interpretation Comments Lymphocytes (%) (Auto) (test code = 736-9) 11.2 18.0-39.1 L [facility]cosMonocytes (%) (Auto)2019-11-21 11:32:00* Test Item Value Reference Range Interpretation Comments Monocytes (%) (Auto) (test code = 5905-5) 13.2 4.4-11.3 H [facility]Eosinophils (%) (Auto)2019-11-21 11:32:00 * Test Item Value Reference Range Interpretation Comments Eosinophils (%) (Auto) (test code = 713-8) 1.9 0.0-6.0 [facility]ophils (%) (Auto)2019-11-21 11:32:00* Test Item Value Reference Range Interpretation Comments Basophils (%) (Auto) (test code = 706-2) 0.3 0.0-1.0 [facility] MarcosIM GRANULOCYTES %2019-11-21 11:32:00* Test Item Value Reference Range Interpretation Comments IM GRANULOCYTES % (test code = IM GRANULOCYTES %) 1.0 0.0- 1.0 [facility]cosNeutrophils # (Auto)2019-11-21 11:32:00* Test Item Value Reference Range Interpretation Comments Neutrophils # (Auto) (test code = 751-8) 4.9 2.1-6.9 [facility]cosLymphocytes # (Auto)2019-11-21 11:32:00* Test Item Value Reference Range Interpretation Comments Lymphocytes # (Auto) (test code = 33896-9) 0.8 1.0-3.2 L [facility]cosMonocytes # (Auto)2019-11-21 11:32:00* Test Item Value Reference Range Interpretation Comments Monocytes # (Auto) (test code = 742-7) 0.9 0.2-0.8 H [facility]Eosinophils # (Auto)2019-11-21 11:32:00* Test Item Value Reference Range Interpretation Comments Eosinophils # (Auto) (test code = 711-2) 0.1 0.0-0.4 [facility]ophils # (Auto)2019-11-21 11:32:00* Test Item Value Reference Range Interpretation Comments Basophils # (Auto) (test code = 704-7) 0.0 0.0-0.1 [facility] MarcosAbsolute Immature Granulocyte (auto 2019-11-21 11:32:00* Test Item Value Reference Range Interpretation Comments Absolute Immature Granulocyte (auto (shanda t code = Absolute Immature Granulocyte (auto) 0.07 0-0.1 [facility] MarcosArterial Blood [id number] 14:21:00* Test Item Value Reference Range Interpretation Comments Arterial Blood pH (test code = 2744-1) 7.41 7.31-7.41 [facility]cosArterial Blood Partial Pressure CO2 2019-11-15 14:21:00* Test Item Value Reference Range Interpretation Comments Arterial Blood Partial Pressure CO2 (test code = 2018-8) 60 41-51 H [facility] Partial Pressure O2 2019-11-15 14:21:00* Test Item Value Reference Range Interpretation Comments Arterial Blood Partial Pressure O2 (test code = 2018-) 141 80-105 H [facility]Ar[facility] Blood PVP51766-51-02 14:21:00* Test Item Value Reference Range Interpretation Comments Arterial Blood HCO3 (test code = 1960-4) 38 23-28 H [facility] Blood Base Yturvp3289-64-31 14:21:00* Test Item Value Reference Range Interpretation Comments Arterial Blood Base Excess (test code = 1925-7) 13.0 -2-3 H [facility] Oxygen Saturation 2019-11-15 14:21:00* Test Item Value Reference Range Interpretation Comments Arterial Blood Oxygen Saturation (test code = 2708-6) 99.0 95-98 H [facility]cosFiO22019-12-17 14:21:00* Test Item Value Reference Range Interpretation Comments FiO2 (test code = FiO2) 40 [facility]cosVancomycin Level Setemn9902-48-44 10:40:00* Test Item Value Reference Range Interpretation Comments Vancomycin Level Trough (test code = 4092-3) 10.4 5.0-10.0 HH Results repeated and called to CHRIS SILVERMAN at 1037 on 11/15/19 by Jolene banda Read back and verified.[facility] Center[facility] 2019-11-15 10:25:00* Test Item Value Reference Range Interpretation Comments Sputum Culture (test code = 624-7) No Result Data Provided [facility]ST SINGLE (PORTABLE)2019-11-15 07:13:00 [place] [address] Patient Name: JACK HURLEY MR #: [id number] : 1940 Age/Sex: 79/M Req #: [id number] Adm Physician: KEATON BRAY MD Ordered by: PERNELL BURDICK MD Report #: [id number] Location: ICU Room/Bed: ICU 193-1 Procedure: [id number] DX/C HEST SINGLE (PORTABLE) Exam Date: 11/15/19 Exam Time : 519 REPORT STATUS: Signed EXA MINATION: CHEST SINGLE (PORTABLE) INDICATION: intubated [id number] COMPARISON: 11/12/2019 FINDINGS: AP view TUBES and LINES: Partially seen endotracheal tube. The tip cannot be evaluated due to underpenetration. LUNGS: Limited by body habitus. Patient's chin obscures lung apices. Pulmonary vascular congestion and mild interstitial bibiana ma. PLEURA: Bilateral small pleural effusions. No visible pneumothora x. HEART AND MEDIASTINUM: The cardiomediastinal silhouette is enlarged. BONES AND SOFT TISSUES: No acute osseous lesion. Soft tissues are unr emarkable. UPPER ABDOMEN: No free air under the diaphragm. IMPRESS ION: Limited as above. Pulmonary vascular congestion and mild interstitial edema, slightly worsened from prior exam. Small bilateral pleural effusions, increased or new from prior exam. Underlying atelectasis/pneumonia cannot be excluded. Signed by: Dr. Reynold Amezquita MD on 11/15/2019 7:16 AM Dictated By: REYNOLD AMEZQUITA MD 5 COPY TO: FELIX BURDICK MD Blood Fqurbnz0958-03-79 17:01:00* Test Item Value Reference Range Interpretation Comments Blood Culture (test code = 86253222) NO GROWTH AFTER 5 DAYS, FINAL REPORT [facility] SINGLE (PORTABLE)2019-11-14 08:55:[address], [place] [address] Patient Name: JACK HURLEY MR #: [id number] : 1940 Age/Sex: 79/M Req #: [id number] Adm Physician: KEATON BRAY MD Ordered by: PERNELL BURDICK MD Report #: [id number] Location: ICU Room/Bed: ICU [facility] Procedure: [id number] DX/C HEST SINGLE (PORTABLE) Exam Date: 11/14/19 Exam Time : 0555 REPORT STATUS: Signed EXA MINATION: CHEST SINGLE (PORTABLE) INDICATION: Respiratory failure COMPARISON: Chest radiograph 11/13/2019 FINDINGS: LINES/TUBES:En dotracheal tube terminates 3 7-m above the yeison. EKG leads overlie the chest . LUNGS:The lungs are well-inflated. There is perihilar fullness and lesvia stinctness of the pulmonary vasculature. PLEURA:No pleural effusion or pneu mothorax. MEDIASTINUM:The cardiomediastinal silhouette appears normal in si ze and shape. BONES/SOFT TISSUES:No acute osseous injury. ABDOMEN:No f ree air under the diaphragm. IMPRESSION: Mild interstitial edema. Mil d bibasilar subsegmental atelectasis. Signed by: Tiffanie Hernandez MD on 11/14/20 8:56 AM Dictated By: TIFFANIE HERNANDEZ MD 5 Transcribed By: LUIS on 11/14/19855 COPY TO: PERNELL BURDICK MD CHEST SINGLE (PORTABLE)2019-11-13 19:18:00 [facility] [address] [place] [address] Patient Name: JACK HURLEY MR #: [id number] : 1940 Age/Sex: 79/M Req #: [id number] Adm Physician: KEATON BRAY MD Ordered by: TJ BRAY DO Report #: [id number] Location: ICU Room/Bed: ICU 193 Procedure: [id number] DX/ CHEST SINGLE (PORTABLE) Exam Date: 11/13/19 Exam Ilir e: 1825 REPORT STATUS: Signed EX AMINATION: CHEST SINGLE (PORTABLE) INDICATION: Intubated, verify tube position COMPARISON: Chest x-ray 11/12/2019 FINDINGS: TUBES and LINES: ET tube tip within the mid intrathoracic trachea. LUNGS/ PLEURA: Lungs are within normal limits. Prominent pulmonary vasculature. Bilateral lower lung haziness. No pneumothorax. HEART AND MEDIASTINUM: Ca rdiac size is mildly enlarged. BONES AND SOFT TISSUES: No acute osseous l esion. Soft tissues are unremarkable. Degenerative changes in the spine and s houlders. UPPER ABDOMEN: No free air under the diaphragm. IMPRESSION: 1. ET tube tip within the mid intrathoracic trachea. 2. Mild cardiome ed and pulmonary vascular congestion. 3. Bilateral lower lung haziness may be due to atelectasis or pleural effusions. Pneumonia not excluded. Fani d by: Manish Bach DO on 11/13/2019 7:21 PM Dictated By: MANISH SUAREZ DO 20 Transcri bed By: LUIS on 11/13/191920 COPY TO: TJ BRAY DO Total Digfexdpu1852-39-80 06:50:00* Test Item Value Reference Range Interpretation Comments Total Bilirubin (test code = 1975-) 0.8 0.2-1.2 [facility]cosAspartate Amino Transf (AST/SGOT) 2019-11-13 06:50:00* Test Item Value Reference Range Interpretation Comments Aspartate Amino Transf (AST/SGOT) (test code = Aspartate Amino Transf (AST/SGOT)) 100 5-34 H [facility]cosAlanine Aminotransferase (ALT/SGPT) 2019-11-13 06:50:00* Test Item Value Reference Range Interpretation Comments Alanine Aminotransferase (ALT/SGPT) (test code = 1742-6) 88 0-55 H [facility] MarcosTotal Dsvsgyz5644-72-76 06:50:00* Test Item Value Reference Range Interpretation Comments Total Protein (test code = 2885-2) 6.1 6.5-8.1 L [facility] MarcosAlbumin2019-12-15 06:50:00* Test Item Value Reference Range Interpretation Comments Albumin (test code = 1751-7) 2.6 3.5-5.0 L [facility]cosGlobulin2019-12-15 06:50:00* Test Item Value Reference Range Interpretation Comments Globulin (test code = 65205-3) 3.5 2.3-3.5 [facility]cosAlbumin/Globulin Pqcgy3419-03-51 06:50:00 * Test Item Value Reference Range Interpretation Comments Albumin/Globulin Ratio (test code = 1759-0) 0.7 0.8-2.0 L [facility]cosAlkaline Pmrakmimnox0244-93-91 06:50:00* Test Item Value Reference Range Interpretation Comments Alkaline Phosphatase (test code = 6768-6) 57 40-150 [facility]cosDifferential Total Cells Counted 2019-11-12 08:40:00* Test Item Value Reference Range Interpretation Comments Differential Total Cells Counted (test code = Differen tial Total Cells Counted) 100 [facility]cosNeutrophils % (Manual)2019-11-12 08:40:00 * Test Item Value Reference Range Interpretation Comments Neutrophils % (Manual) (test code = 20361-5) 92 40-74 H [facility] MarcosBand Neutrophils %2019-11-12 08:40:00* Test Item Value Reference Range Interpretation Comments Band Neutrophils % (test code = 764-1) 2 [facility]cosLymphocytes % (Manual)2019-11-12 08:40:00 * Test Item Value Reference Range Interpretation Comments Lymphocytes % (Manual) (test code = 737-7) 4 19-48 L [facility]cosMonocytes % (Manual)2019-11-12 08:40:00* Test Item Value Reference Range Interpretation Comments Monocytes % (Manual) (test code = 744-3) 2 3.4-9.0 L [facility] MarcosPlatelet Koyfnsve5021-99-75 08:40:00* Test Item Value Reference Range Interpretation Comments Platelet Estimate (test code = 35019-6) ADEQUATE [facility] MarcosPlatelet Morphology Fiyfmfb5650-68-91 08:40:00* Test Item Value Reference Range Interpretation Comments Platelet Morphology Comment (test code = 81089-2) NORMAL [facility]cosMacrocytosis2019-12-14 08:40:00* Test Item Value Reference Range Interpretation Comments Macrocytosis (test code = 738-5) SLIGHT [facility] MarcosRed Cell Morphology Iqimjva3005-87-95 08:40:00* Test Item Value Reference Range Interpretation Comments Red Cell Morphology Comment (test code = 6742-1) ABNORMAL [facility]cosCHEST SINGLE (PORTABLE)2019-11-12 07:34:00 [facility] [address] [place] [address] Patient Name: JACK HURLEY MR #: [id number] : 1940 Age/Sex: 79/M Req #: [id number] Adm Physician: KEATON BRAY MD Ordered by: PERNELL BURDICK MD Report #: [id number] Location: ICU Room/Bed: ICU [facility] Procedure: [id number] DX/C HEST SINGLE (PORTABLE) Exam Date: 11/12/19 Exam Time : 0600 REPORT STATUS: Signed EXA MINATION: CHEST SINGLE (PORTABLE) INDICATION: sob [id number] 0600 COMPARISON: 11/11/2019 FINDINGS: AP view TUBES and LINES: Cardiac loop recorder overlying the left mid chest remains u nchanged. LUNGS: Lungs are well inflated. Worsening bilateral interstitia l edema. Bibasilar atelectasis are unchanged. PLEURA: Small left pleur al effusion, unchanged. No pneumothorax. HEART AND MEDIASTINUM: Stable mod erate enlargement of the cardiac silhouette. Enlarged pulmonary arteries cons istent with pulmonary hypertension. BONES AND SOFT TISSUES: No acute osseo us lesion. Soft tissues are unremarkable. UPPER ABDOMEN: No free air und er the diaphragm. IMPRESSION: Interval worsening bilateral interstit ial edema with a stable small left pleural effusion. Signed by: Dr. Swapna Juarez M.D. on 11/12/2019 7:36 AM Dictated By: CRISTI JUAREZ MD 5 COPY TO: PERNELL BURDICK CHEST SINGLE (PORTABLE)2019-11-11 09:27:00 [place] [address] Patient Name: JACK HURLEY MR #: [id number] : 1940 Age/Sex: 79/M Req #: [id number] Adm Physician: KEATON BRAY MD Ordered by: PERNELL BURDICK MD Report #: [id number] Location: ICU Room/Bed: ICU 193 1 Procedure: [id number] DX/C HEST SINGLE (PORTABLE) Exam Date: 11/11/19 Exam Time : 814 REPORT STATUS: Signed [address] [facility], portable AP view History: Pneumonia and hypoxia Comparison: Chest CT dated test IMPRESSION: The cardiac silhouette is stable in size. Un changed left pulmonary opacities in the lingula and lower lobe. No sizable ple ural effusion. No pneumothorax. No acute osseous abnormalities. Signed by : Willem Lofton MD on 11/11/2019 9:29 AM Dictated By: WLILEM Andrade MD 8 Transcribe d By: LUIS on 11/11/19928 COPY TO: PERNELL BURDICK MD Thyroid Stimulating Hormone (TSH)2019-11-11 06:04:00* Test Item Value Reference Range Interpretation Comments Thyroid Stimulating Hormone (TSH) (test code = 93931-1) 0.996 0.350-4.940 [facility]cosPhosphorus Ptpmx5183-51-56 05:52:00* Test Item Value Reference Range Interpretation Comments Phosphorus Level (test code = YWR6837) 2.6 2.3-4.7 [facility]cosMagnesium Pywuo9875-50-22 05:52:00* Test Item Value Reference Range Interpretation Comments Magnesium Level (test code = 93851-7) 2.0 1.3-2.1 [facility]cosHemoglobin A1c Jilukga6858-93-84 05:33:00 * Test Item Value Reference Range Interpretation Comments Hemoglobin A1c Percent (test code = Hemoglobin A1c Percent) 7.5 4.0-7.0 H [facility] MarcosCT CHEST WB7423-49-67 14:50:00 [facility] [address] [place] [address] Patient Name: JACK HURLEY MR #: [id number] : 1940 Age/Sex: 79/M Req #: [id number] Adm Physician: KEATON BRAY MD Ordered by: KEATON BRAY MD Report #: [id number] Location: ICU Room/Bed: ICU 193-1 Procedure: [id number] CT/CT CHEST WO Exam Date: 11/10/19 Exam Time: 1353 REPORT STATUS: Signed EXAMINATION: CT scan of the chest without contrast. TECHNIQUE: Spiral CT images of the [place] st were performed from the lung apices to the level of the adrenal glands. No intravenous contrast was administered per referring physician request. Coronal and sagittal reformatted images were obtained. COMPARISON: Chest radiog raph 11/09/2019, chest radiograph 11/10/2019 CLINICAL HISTORY:Shortness of breath, pneumonia DISCUSSION: ABSENCE OF INTRAVENOUS CONTRAST DECREASES S ENSITIVITY FOR DETECTION OF FOCAL LESIONS AND VASCULAR PATHOLOGY. LINES/T UBES: None. LUNGS AND AIRWAYS: Postsurgical changes in the anterior right lung apex. Scattered foci of bandlike atelectasis or fibrotic change in the ri ght upper lobe, lingula and, to a lesser extent the left lower lobe. Multifoca l groundglass and nodular opacities predominantly within the lingula but also affecting the lower lobes. Calcified granuloma in the right lower lobe superior segment abutting the major fissure. Otherwise no gross mass lesion. No bro nchiectasis. Filling defect in the left lower lobe posterior basal segmental b ronchus. PLEURA: No pneumothorax or pleural effusions. HEART AN D MEDIASTINUM: Visualized thyroid gland is unremarkable. No ectasia or aneury smal dilatation of the thoracic aorta. Pulmonary outflow tract is of normal ca liber. Atherosclerotic calcification of the aortic arch and iliamna coronary ar teries. No pericardial effusion. LYMPH NODES: Hilar and mediastinal lymph nodes are increased in number but not enlarged by CT criteria. ABDOMEN: V isualized portions of the liver, spleen, gallbladder, adrenals, and pancreas a re unremarkable with the exception of a subcentimeter hypoattenuating lesion i n hepatic segment 5, partially visualized, too small to further characterize b ut likely to represent a small cyst. BONES AND SOFT TISSUES: No osseous daniel tructive lesions. No focal soft tissue abnormalities. IMPRESSION: P atchy multifocal groundglass and nodular opacities predominantly within the li ngula and affecting the lower lobes to a lesser extent are nonspecific though concerning for viral or atypical infection. Left lower lobe basal segmental mucous plugging. Postsurgical changes of the right lung apex with scattered foci of bandlike atelectasis or fibrotic change. Atherosclerotic vascular disease. Signed by: Dr. Pernell Dyer M.D. on 11/10/2019 3:03 PM Dictated By: PERNELL DYER MD 1503 COPY TO: GENO BRAY MD Urine JZW9826-75-90 14:10:00* Test Item Value Reference Range Interpretation Comments Urine WBC (test code = 5821-4) NONE 0-5 [facility]cosUrine YMW3105-37-84 14:10:00* Test Item Value Reference Range Interpretation Comments Urine RBC (test code = 97945-5) 0-5 0-5 [facility] MarcosUrine Nlkopqkt2634-63-47 14:10:00* Test Item Value Reference Range Interpretation Comments Urine Bacteria (test code = 16245-7) MODERATE NONE H [facility]cosUrine Epithelial Xsvso4464-10-22 14:10:00 * Test Item Value Reference Range Interpretation Comments Urine Epithelial Cells (test code = 46894-9) FEW NONE [facility]cosUrine Amorphous Ksaogbku7820-31-01 14:10:00* Test Item Value Reference Range Interpretation Comments Urine Amorphous Sediment (test code = 8246-1) MODERATE FEW H [facility]cosUrine Gmfsy2407-64-05 14:02:00* Test Item Value Reference Range Interpretation Comments Urine Color (test code = 5778-6) YELLOW YELLOW [facility]cosUrine Qeqzhon1681-77-31 14:02:00* Test Item Value Reference Range Interpretation Comments Urine Clarity (test code = 47120-1) SL CLOUDY CLEAR H [facility] MarcosUrine Specific Larcmuu2726-40-31 14:02:00 * Test Item Value Reference Range Interpretation Comments Urine Specific Prole (test code = 5811-5) 1.030 1.010-1.02 5 H [facility]cosUrine bM3707-94-32 14:02:00* Test Item Value Reference Range Interpretation Comments Urine pH (test code = 73358-9) 6 5-7 [facility] Leukocyte Pdllcgpv5818-71-44 14:02:00* Test Item Value Reference Range Interpretation Comments Urine Leukocyte Esterase (test code = 5799-2) NEGATIVE NEGATIVE [facility] Pqgxxpa2928-01-54 14:02:00* Test Item Value Reference Range Interpretation Comments Urine Nitrite (test code = 05956-5) NEGATIVE NEGATIVE [facility] Zulscub0175-31-44 14:02:00* Test Item Value Reference Range Interpretation Comments Urine Protein (test code = 5804-0) TRACE NEGATIVE H [facility]cosUrine Glucose (UA)2019-11-10 14:02:00* Test Item Value Reference Range Interpretation Comments Urine Glucose (UA) (test code = 2349-9) 1+ NEGATIVE H [facility] Zqndprr3038-36-77 14:02:00* Test Item Value Reference Range Interpretation Comments Urine Ketones (test code = 37979-6) NEGATIVE NEGATIVE [facility] Bqxxbnbyqunz3764-09-80 14:02:00* Test Item Value Reference Range Interpretation Comments Urine Urobilinogen (test code = 97864-6) 0.2 0.2-1 [facility] Ftlnppfan1059-12-03 14:02:00* Test Item Value Reference Range Interpretation Comments Urine Bilirubin (test code = 1978-6) NEGATIVE NEGATIVE [facility] Zzzgn4192-45-69 14:02:00* Test Item Value Reference Range Interpretation Comments Urine Blood (test code = 06315-5) TRACE NEGATIVE H [facility] MarcosCreatine Kinase UR2686-56-85 11:57:00* Test Item Value Reference Range Interpretation Comments Creatine Kinase MB (test code = 90422-2) 5.70 0-5.0 H [facility]cosTroponin Y2588-71-23 11:57:00* Test Item Value Reference Range Interpretation Comments Troponin I (test code = XCC1943) 0.015 0-0.300 [facility]cosCreatine Ljnnfp4554-02-58 10:45:00* Test Item Value Reference Range Interpretation Comments Creatine Kinase (test code = 2157-6) 3321 30-200 H [facility]cosCHEST SINGLE (PORTABLE)2019-11-10 08:19:00 [facility] [address] [place] [address] Patient Name: JACK HURLEY MR #: [id number] : 1940 Age/Sex: 79/M Req #: [id number] Adm Physician: KEATON BRAY MD Ordered by: PERNELL BURDICK MD Report #: [id number] Location: ICU Room/Bed: ICU [facility] Procedure: [id number] DX/C HEST SINGLE (PORTABLE) Exam Date: 11/10/19 Exam Time : 0540 REPORT STATUS: Signed [address], 1 view, 11/10/2019. History: Shortness of breath. Comparis on: 11/09/2019. Findings: The cardiomediastinal silhouette and pulmonary va sculature are within normal limits for a portable exam. A calcified granuloma is present in the right upper lobe. Patchy opacities are present in the lingul a and left lower lobe. The right lung is clear. There are no acute osseous or soft tissue abnormalities. Impression: Left sided pulmonary opacities without significant change. Signed by: Tj Stevenson on 11/10/2019 8:21 AM Dictated By: TJ STEVENSON MD 0 Transcribed By: LUIS on 11/10/19820 COPY TO: PERNELL TRIPATHI MD Lactic Acid Rwbof8990-34-20 20:15:00* Test Item Value Reference Range Interpretation Comments Lactic Acid Level (test code = Lactic Acid Level) 1.1 0.5- 2.0 [facility]cosInfluenza Virus Types A,B Antigen 2019-11-09 18:31:00* Test Item Value Reference Range Interpretation Comments Influenza Virus Types A,B Antigen (test code = 14064-8) POSITIVE FLU A NEGATIVE H Results called to IVAN DE LA TORRE at 1830 on 11/09/19 by SHELLEY MEDINA. RB OK.Res ults LFT MSG TO RUBIO MONTALVO in infection control at 1830 on 11/09/19 by SHELLEY PUENTES.[facility]cosB-Type Natriuretic Peptide 2019-11-09 17:35:00* Test Item Value Reference Range Interpretation Comments B-Type Natriuretic Peptide (test code = 10542-5) 60.3 0-100 [facility]cosCHEST SINGLE (PORTABLE)2019-11-09 17:31:00 [place] [address] Patient Name: JACK HURLEY MR #: [id number] : 1940 Age/Sex: 79/M Req #: [id number] Adm Physician: Ordered by: TJ BRAY DO Report #: [id number] Location: ER Room/Bed: Procedure: [id number] DX/ CHEST SINGLE (PORTABLE) Exam Date: 11/09/19 Exam Ilir e: 1715 REPORT STATUS: Signed EX AM: CHEST SINGLE (PORTABLE) DATE: 11/09/2019 4:36 PM INDICATION: [place] COMPARISON: None FINDINGS: Implanted cardiac monitoring device is noted overlying the left hemithorax. The trachea is midline. Increased o pacity present within the left lower lung zone which may reflect atelectasis a nd/or small pleural effusion. There is no evidence for large focal consolidati on or pneumothorax. Suspected calcified granuloma noted overlying the right up per lung zone. The cardiomediastinal silhouette is partially obscured but a ppears grossly unremarkable. No acute osseous abnormality identified. IMPRESSION: Increased opacity within the left lower lung zone which likely reflects atelectasis and/or small pleural effusion. Underlying airspace proces s cannot be entirely excluded on the basis of this examination. Signed b y: Dr. Jackson Delgado MD on 11/09/2019 5:36 PM Dictated By: JACKSON Eldridge 35 Transcribed By: Jose Daniel BOONE on 11/09/191735 COPY TO: TJ BRAY PANEL 2019-03-09 20:35:00* Test Item Value Reference Range Interpretation Comments B/C Ratio (test code = B/C Ratio) 19 1 6-25 [facility] WBNKA2131-04-46 20:35:006.7[facility]annCHEM PANEL 2019-03-09 20:35:004.0[facility]CHE[facility] IQBCY3311-19-56 20:35:00* Test Item Value Reference Range Interpretation Comments A/G Ratio (test code = A/G Ratio) 0.8 1 0.7-1.6 [facility]annCHE[facility] DOBLO3115-86-07 20:35:0068[facility]annCHEM PANEL 2019-03-09 20:35:12052Mvajscnn HermannCHEM JYUBS9772-51-65 20:35:000.6[facility]annCHEM OVKTM6535-80-32 20:35:0034[facility]annCHEM SZGQX1912-23-00 20:35:0052[facility]annCHEM OGGIL7255-93-06 20:35:003.3[facility]annCHEM MRBGZ3833-95-90 20:35:009.0[facility]annCHE[facility] QKGXG7774-85-11 20:35:007.3 [facility]CHE[facility] TWFIQ8758-27-15 20:35:06475Hhmbunaw HermannCHEM PANEL 2019-03-09 20:35:73406Xhpkrgui HermannCHEM RLCAU9983-12-65 20:35:003.7[facility]annCHEM GCTMP5003-29-91 20:35:0030[facility]annCHEM YPCXY5749-52-47 20:35:001.06[facility]annCHE[facility] IJBJU9426-61-24 20:35:30548Avycyqmx HermannCHEM JGDML8364-22-14 20:35:0020[facility] ZiecmlvFIZLKVLCIF1437-49-12 20:35:0068.7 Memorial OknfbxjBWRDRGUPRK7691-13-35 20:35:0010.4[facility]annHEMATOLOGY 2019-03-09 20:35:0017.0[facility] HodjjulNTLRLKRXFI6961-43-27 20:35:000.1[facility] KzshuvuANCNJVCZIH4929-52-40 20:35:000.3[facility] GyqbfwpGQOOAKFGWO8771-76-53 20:35:001.7[facility] QkrjvvnQWMEJLULGY8532-93-23 20:35:006.8[facility] [place] WTXDAXZXBJ7850-43-51 20:35:000.8[facility] FlwxfugIYPXIWPSFQ8233-87-30 20:35:003.1 [facility] OlqofogNOROMKUWSI6441-27-13 20:35:001.0[facility]annHEMATOLOGY 2019-03-09 20:35:0014.2[facility] PfqxmroBOGOCUJUJI8252-13-67 20:35:43201Drlbygyc UoaxyeuKLMKVTQDVC1712-36-17 20:35:008.7[facility] XqbgafyJKVEOUSKQV9730-97-32 20:35:0014.6[facility] SamjfywVHAGJAKWGC5020-23-96 20:35:0044.1[facility] [place] PHFXIZKSLK4810-35-54 20:35:0093.1[facility] IebqnogNOEBDOMXPT8084-35-04 20:35:00 4.74[facility] TeukybfSAXRJECFEF8535-03-06 20:35:009.8[facility]annHEMATOLOGY 2019-03-09 20:35:00* Test Item Value Reference Range Interpretation Comments MCH (test code = MCH) 30.8 pg 27.0-31.0 [facility] UowbydeZQMMSGQZFX3981-83-07 20:35:0033.1[facility] HermannELECTROLYTES 2018-05-28 14:45:0030[facility] XkavqdgOEVTIWAWONRO6036-75-75 14:45:70203Dsesekwd PbxkkkjFPEZVDKNGAYG4290-31-58 14:45:004.5[facility]orial SsfqjnuAZNKDDSNQYDZ7152-50-77 14:45:13056Laqfiyjb FbxkiexDAKUOKVWNKEH5597-68-61 14:45:01028Vtyfknfd [place] QKGDKKWEEXDF5351-01-98 14:45:0022[facility] HffxoceDZQFVTVHQATS7089-71-84 14:45:00 1.11[facility] YjhwyyiHUIMYHUPDMOW6298-53-20 14:45:008.9[facility] BXEJEKLHRXGX5112-45-94 14:45:0065[facility] UaomtggGTVPDAFFMJNB1107-54-87 14:45:00 11.5[facility] JqvwsivBSBOLDEKQK9796-84-47 14:45:0010.7[facility]annHEMATOLOGY 2018-05-28 14:45:0064.5[facility] SiileszYVZFQLPZQH9423-31-70 14:45:0019.0[facility] QbkfgtxXZJNFTGPUX0408-54-87 14:45:004.9[facility] MggviggKMPTXDZUSU6757-09-38 14:45:000.9[facility] WrnsxdfAZHHAKQPFA8288-36-71 14:45:001.8[facility] YPAQIGVDTI8196-66-96 14:45:000.5[facility] JuvqruwKSXFQPZFGV0587-84-69 14:45:006.1 [facility] SusbhxjINHLPXKNUG7655-99-80 14:45:000.1[facility]annHEMATOLOGY 2018-05-28 14:45:001.0[facility] FsffyfnTFIEJRVQSF6170-73-61 14:45:0091.1[facility] IjbyvpmYQIHSMITKT3124-74-69 14:45:00* Test Item Value Reference Range Interpretation Comments MCH (test code = MCH) 29.6 pg 27.0-31.0 [facility] UgymklaHAGABVXTWE0194-49-73 14:45:0014.3[facility]annHEMATOLOGY 2018-05-28 14:45:51477Cxabgnwh PyifhygPQATTJICGT1859-37-92 14:45:009.0[facility] SaizwmwSBUGCBPDPW6602-92-99 14:45:004.71[facility] HzwhsrwADVRWOASJQ2466-87-14 14:45:0042.9[facility] XxiaehrMJFWABQVTP0185-21-13 14:45:0013.9[facility] VEAGAPKGQT5198-58-48 14:45:0032.5[facility] BvdzjgiFEGAWTXHVO8701-83-44 14:45:00 9.4[facility]annXRAY Chest 2 views [id number] 09:24:00Patient Name: JACK HURLEY : 2Age: 77 years, Male MR: [id number]: Chest 2 views DX 05/28/2018 9:25 AM CDTExamination: Chest, 2 views. Indication: Pulmonary nodule. Postoperative evaluation.Clinical information: - R91.1 Solitary pulmonary nodule.Comparison: Portable chest 05/14/2018. CT biopsy 02/16/2018Findings:Lines/tubes: None.Heart: Normal cardiac silhouette.Vessels: The pulmonary vasculature is within normal limits. Atheroscleroticcalcifi cations of the aortic arch.Mediastinum: No mediastinal or hilar mass or lymphad enopathy. Lungs: No parenchymal mass. No focal consolidation. Pulmonary nodu lemeasuring 9.9 mm projects over the right upper lobe between the right posterio r5th and 6th ribs.Pleura: No pleural effusion. No pneumothorax.Soft tissues: Normal. No axillary mass or lymphadenopathy.Bones: No acute osseous abnormal ity. Degenerative changes of the thoracicspine.IMPRESSION:No acute radiographi c abnormality.Right upper lobe pulmonary nodule.SL: [id number]--Xsai by: Luis Enrique Menchaca MDDictated Date/time: 05/28/18 10:30Electronically Signed by: Rony Menchaca MD 05/28/1810:37FINAL REPORTUn[facility] PhysiciansCHEM NDQMZ0879-19-19 11:50:0083[facility]annCHEM BGLFJ8848-80-07 11:50:000.91[facility]annCHEM QLUSY3006-78-47 11:50:38974Uykvmkpj HermannCHEM ETBXC7778-81-06 11:50:004.0[facility] HermannCHEM LTLOL0549-21-40 11:50:0027 [facility]annCHEM LJGUH2837-46-56 11:50:92303Rxpvyifr HermannCHEM PANEL 2018-05-14 11:50:0012.0[facility]annCHEM FUHKJ9540-36-51 11:50:008.4[facility] HermannCHEM VUCOO1331-87-77 11:50:0018[facility]annCHEM BBKLL2443-48-21 11:50:95482Rqhjqiyq HbcmftgRTBIFOXAOT5219-71-58 11:04:000.1[facility] ARFRTZELNN3256-62-12 11:04:000.3[facility] MvpkkwiMPVJTONOZY2012-00-06 11:04:001.0 [facility] YtbivqeEVNAZOLDPQ5937-91-85 11:04:001.9[facility]annHEMATOLOGY 2018-05-14 11:04:007.5[facility] GfszaqmEYMLFPZJYY2707-76-14 11:04:001.1[facility] BmjwgofKLXJAGPXCP5982-36-80 11:04:002.8[facility] DxfzeecDBOBSJJCET7038-10-32 11:04:009.6[facility] RqkuvakSDICDPULLI1237-84-90 11:04:0017.4[facility] SBCKDQRQHX2700-13-29 11:04:0069.1[facility] BqhwbndFRATXGCJSM0714-34-37 11:04:00 9.0[facility] JomuwgrFYZMLNTJEH6401-24-49 11:04:02405Nfhaijdm HermannHEMATOLOGY 2018-05-14 11:04:0014.4[facility] MzhmapfLDABRSUJYH7261-72-92 11:04:0091.5[facility] GdvyricWCZPQVYITA0121-77-18 11:04:0032.8[facility] HlidmikLMWFJJBCSR9689-97-34 11:04:00* Test Item Value Reference Range Interpretation Comments MCH (test code = MCH) 30.0 pg 27.0-31.0 [facility] EfzqarmETUQZIAKUQ5415-24-48 11:04:0013.8[facility]annHEMATOLOGY 2018-05-14 11:04:0042.0[facility] LwgtwajTCYFYHXKQC7547-97-34 11:04:0010.9[facility] LjobkqdGCWKHTLIOS6811-07-56 11:04:004.59[facility] HermannCHEM YIZKS0476-22-39 08:52:0063[facility] HermannCHEM EUZUC4968-19-11 08:52:09913Bqymtawe HermannCHEM APDHB2144-42-88 08:52:0025[facility] HermannCHEM CMSFP5923-43-36 08:52:004.5 [facility]annCHEM QLSMF4183-46-37 08:52:13424Hkaueivm HermannCHEM PANEL 2018-05-13 08:52:001.14[facility] HermannCHEM VVUTJ0838-98-45 08:52:0018[facility]annCHEM VRBLA3647-56-50 08:52:74300Rahjtzkv HermannCHEM VNDFT5575-12-77 08:52:008.2[facility]annCHEM QDQZW7908-96-65 08:52:0011.5[facility] RBYBQDZOKG4698-05-68 08:52:001.0[facility] YrcgvbiCIOLGEEPXU3533-39-75 08:52:000.3 [facility] KignontDINUGFVBWE8362-58-26 08:52:0012.0[facility]annHEMATOLOGY 2018-05-13 08:52:000.9[facility] SvymdiwIUQSZWEMMZ1201-77-77 08:52:0085.7[facility] PstenhqEOZPBRVKTE9696-26-86 08:52:007.3[facility] NwapqdoTLOTWNJFRE9749-62-16 08:52:006.7[facility] XzkfadsHIUFBAZUYY2784-38-21 08:52:009.2[facility] EVWAVEVTTN4403-10-63 08:52:0032.7[facility] EzpvyebRZGHXMMMJU2060-59-51 08:52:00 13.9[facility] RwatyovAIHQLRYLYL8376-03-71 08:52:00* Test Item Value Reference Range Interpretation Comments MCH (test code = MCH) 29.9 pg 27.0-31.0 [facility] JfbqpdvLZUPNCGQKV5532-80-70 08:52:03626Ofutsnlf HermannHEMATOLOGY 2018-05-13 08:52:004.43[facility] PaeiucfRJSAHYMIWY7976-36-11 08:52:0014.0[facility] QnxobjwUKBOYZSIOV8539-15-07 08:52:0091.2[facility] FaszywiZKYAZYGPVY4643-19-42 08:52:0040.4[facility] IalqhkjMQHTFIFDWD1641-38-86 08:52:0013.2[facility] WAIBAOYZKGIA0139-35-82 18:53:008.8[facility] ZdqcawmGOBCUBSNVGPW5798-71-45 18:53:0082[facility] UimbjwjVQGWNTINMECH9370-88-20 18:53:0015[facility] EJJXJGAMHZJL5875-22-10 18:53:0030[facility] CurpjlaCGZSMKZWMJEZ3015-86-77 18:53:00 0.91[facility] PxnjklyTWGGREBZGMAN0361-57-04 18:53:004.8[facility] BEDSUBDJFLLI5087-32-32 18:53:96377Meftakkt QlncvumXFZCIUSYEVBU6287-26-33 18:53:91751Hxzafhrd FbxsmgyKCACOMZXIPOY6675-44-24 18:53:008.0[facility] GWXRQRYAOPTE2879-84-37 18:53:21209Ujebxxgq VvudpklCIWKJNCEZN2364-22-67 18:53:00 206[facility] ZuiccgpYKAWFNBVAJ4430-87-18 18:53:009.0[facility] HermannHEMATOLOGY 2018-05-12 18:53:0014.0[facility] GnszqpkBJVDUHSZAD4987-63-04 18:53:0033.1[facility] MytomymTVBJGHSSUQ2249-73-48 18:53:0013.3[facility] YgbaaudTYSLBJEGZQ7527-75-95 18:53:007.1[facility] VelaufqGETKZMMVDW3821-55-58 18:53:004.37[facility] QFEFRIIMKT4219-86-88 18:53:0040.2[facility] JwaaxjwWUGTUTENRB8620-63-83 18:53:00 92.1[facility] NppelijVWYMMELAEF7832-17-23 18:53:00* Test Item Value Reference Range Interpretation Comments MCH (test code = MCH) 30.5 pg 27.0-31.0 [facility] FgbenpbLJOPQZXMAG4260-63-46 18:53:000.5[facility] HermannHEMATOLOGY 2018-05-12 18:53:000.2[facility] FilaromXGEYRABKWA8442-94-12 18:53:001.7[facility] MbmczcvOYFINSESCB5707-23-65 18:53:004.7[facility] PbalvujWISDCCVREB4601-31-75 18:53:000.6[facility] JblwfbqPBDZMIMLMX4020-03-38 18:53:0023.5[facility] MJVZMRXZFL6899-28-44 18:53:0066.2[facility] KjjbjbyQYZEBJYTTU7219-29-98 18:53:00 2.2[facility] AdcrdokJUMTSVVRPG3070-00-73 18:53:007.5[facility] HermannSPECIAL HKFJTQRKF4970-70-75 15:29:007.2[facility] HermannBLOOD BANK OSXFVYU6974-28-37 15:16:00Negative (05/10/18 10:16 AM)[facility] CjnjwlkZZQXZOMFFG5468-62-24 15:16:00 3.1[facility] GlhztcyRHRGNMCEJK4822-11-62 15:16:000.1[facility] HermannHEMATOLOGY 2018-05-10 15:16:000.3[facility] ItwpyvfDWBOQGNAYJ0207-39-90 15:16:00* Test Item Value Reference Range Interpretation Comments PTT (test code = PTT) 32.1 s 22.9-35.8 [facility] RzenkmkCBXJTOOXMB5626-63-13 15:16:00* Test Item Value Reference Range Interpretation Comments PT (test code = PT) 14.7 s 12.0-14.7 [facility] DjezhanVJHPZTVRHR3126-83-51 15:16:00* Test Item Value Reference Range Interpretation Comments INR (test code = INR) 1.15 1 0.85-1.17 [facility] JGXNA4215-60-83 15:16:00Negative (05/10/18 10:16 AM) [facility] JSUNU1635-87-78 15:16:00Negative (05/10/18 10:16 AM) [facility] ORSTT8827-17-77 15:16:00Negative *NA*(05/10/18 10:16 AM)[facility] QEEZD7404-79-15 15:16:00Negative (05/10/18 10:16 AM) [facility] KZTNN9564-29-26 15:16:002[facility] SHSXT2963-03-11 15:16:001[facility] OPSOH4105-90-61 15:16:00* Test Item Value Reference Range Interpretation Comments UA Spec Grav (test code = UA Spec Grav) 1.008 1 [facility] DMGOJ6348-03-93 15:16:00Clear (05/10/18 10:16 AM) [facility] ATSHY7175-74-03 15:16:00* Test Item Value Reference Range Interpretation Comments UA pH (test code = UA pH) 5.0 1 5.0-8.0 [facility]annBLOOD BANK VCRKXMC5530-40-96 13:39:00Product available (05/10/18 8:39 AM)[facility]annXRAY Chest 2 views [id number] 10:23:00Clinical Indication: Coughing - preop examComparison: 02/16/2018FINDINGS:The PA and lateral chest radiographs shows normal lung volumes withoutinterstitial or a irspace opacities, pleural effusions or pneumothorax.The heart size and pulmonar y vasculature are normal. The trachea is midline.There are no clinically signifi cant osseous abnormalities noted.IMPRESSION:No chest radiographic evidence of ac miles cardiopulmonary disease.SL: [id number]--Adad by: Bakari Bae ictated Date/time: 05/10/18 11:16Electronically Signed by: Bakari Bae MD 05/10/1811:16FINAL REPORTUnJordan [facility] BDACDJGJFF3671-87-48 14:54:00* Test Item Value Reference Range Interpretation Comments INR (test code = INR) 1.01 1 0.85-1.17 [facility]MvmfehgUDXSNKPFOO8407-61-08 14:54:00* Test Item Value Reference Range Interpretation Comments PT (test code = PT) 13.3 s 12.0-14.7 [facility] HospitalPkarypeGKDAUDFODV4111-92-42 14:54:00* Test Item Value Reference Range Interpretation Comments PTT (test code = PTT) 29.7 s 22.9-35.8 [facility] Chest biopsy needle CT guided [id number] 12:30:00EXAM: VIR lung biopsy with CT guidanceDATE: 02/16/2018 12:32 PM CDTPROCEDURE(S) P ERFORMED: CT guided percutaneous core biopsies of right upperlobe lung noduleIND ICATION: 77 years -old male with spiculated right upper lobe lung nodule.PRE-PRO CEDURE DIAGNOSIS: Lung nodulePOST-PROCEDURE DIAGNOSIS: SameFACULTY: Sharlene Torres ti, MDRESIDENT/FELLOW/ADJUSTER AND INSPECTOR: NoneSUPERVISION: Not applicableANESTHESIA/SEDAT ION: Moderate sedationSPECIMEN: 20 gauge core biopsy x 3DRAINS: NoneESTIMATED BL OOD LOSS: Less than 3 mLCOMPLICATIONS: NoneFINDINGS:Spiculated right upper lobe lung nodule. Trace pneumothorax post biopsy.PROCEDURE:After the risks, benefits, and alternatives of the procedure were explained tothe patient, verbal and writ ten consent were obtained. The patient was broughtto the CT suite and placed in supine position. Chief Engineer'S Helper images were obtained tolocalize the lesion. Patient was t hen prepped and draped in usual sterilefashion. A formal time-out procedure was performed.Lidocaine was used to anesthetize tissues overlying the lesion. A smal l skinincision was made. Using CT guidance, a 19-gauge needle was percutaneously advanced into the right upper lobe nodule via a right anterolateral approach.Thr ee 20-gauge core biopsies of the nodule were then performed in coaxialfashion. S pecimens were submitted to Pathology who deemed diagnostic materialto be present .The needles were removed and hemostasis was achieved. A sterile dressing wasapp lied. Post procedure images revealed a trace pneumothorax. The patienttolerated the procedure well and was transported to the recovery area in stablecondition.I MPRESSION:Successful CT-guided percutaneous core biopsies of the right upper lob e lungnodule.Dr. Todd was present for the procedure.--Read by: Sharlene Todd MDDictated Date/time: 02/25/18 12:05Electronically Signed by: Henny Todd MD 02/26/1812:13FINAL REPORTUnJordan [facility] PhysiciansCHEM UPLPR7979-56-59 11:09:002.0[facility] HermannCHEM JUIIB7166-04-98 11:09:002.2[facility] GwimjmkDWHJPEXUDTHT5121-72-42 11:09:0010.9[facility] GJXMJYIMMZTC9449-36-88 11:09:0076[facility] CrnfrjsZMIBJGSXRQCL4363-60-68 11:09:00 142[facility] PxsluwrZIDLYFMLUQFQ2844-36-93 11:09:19507[facility]igqo [facility] BKHTSIPRDFCV2794-36-68 11:09:94840Rrxvuhtf EzvxyzrLICKKFLDZRFV4602-94-85 11:09:0028[facility] WrssubsURXACDOSTVNB5757-20-78 11:09:003.9[facility] HSLGORAJFJJB7348-23-72 11:09:000.97[facility] NbyqjthHIGWUIFLBPYQ2948-65-03 11:09:0015[facility] CnggsvtMUUZEVUAHKRQ7770-98-76 11:09:008.3[facility] WZOPBHHVWF4505-54-26 11:09:0092.4[facility] KqijselKPIICZXIHT8945-99-80 11:09:00* Test Item Value Reference Range Interpretation Comments MCH (test code = MCH) 31.1 pg 27.0-31.0 [facility] AqhphkdKSUNLGPZNW7621-03-99 11:09:009.4[facility] HermannHEMATOLOGY 2018-01-29 11:09:95903Eltclvhs PrnhvryCUKMNRHOJO7169-01-19 11:09:008.7[facility] CenzxufYZGRCXVTEX3613-01-21 11:09:0033.6[facility] HhijxjbQPSDIDWGKT4696-00-71 11:09:0014.3[facility] VgogenkYJJLOXZBUR7465-54-85 11:09:0037.2[facility] ERUYZDUAQN6774-99-31 11:09:004.02[facility] MjuwrheVGXIYJREPB4343-21-17 11:09:00 12.5[facility] SbgllhuLINGDPURSD4665-37-88 11:09:001.0[facility]annHEMATOLOGY 2018-01-29 11:09:000.4[facility] UqfyxtdFSECZHJQHO9046-47-78 11:09:000.1[facility] MzdewqgJPEECZREJR4210-70-80 11:09:001.6[facility] WmkjwjhWEAUVEJBBO2878-61-14 11:09:000.9[facility] DnvmtutXYABCQNXPO0838-87-48 11:09:006.4[facility] PZKLZORMYB9123-16-41 11:09:003.8[facility] KuccoexZQBJRCPADX9923-58-59 11:09:00 68.0[facility] CnztogdROFPXCWTCS1265-15-62 11:09:0016.9[facility]annHEMATOLOGY 2018-01-29 11:09:0010.4[facility] OhmwgkbZIROUPEAMP2087-14-33 11:09:00* Test Item Value Reference Range Interpretation Comments PTT (test code = PTT) 43.9 s 22.9-35.8 [facility] BzsqwirCQGITDNGLW6233-62-04 11:09:00* Test Item Value Reference Range Interpretation Comments PT (test code = PT) 19.9 s 12.0-14.7 [facility] CykbmweZIRNGTQIEE0449-03-26 11:09:00* Test Item Value Reference Range Interpretation Comments INR (test code = INR) 1.68 1 0.85-1.17 [facility]annPARATHYROID CCVVBEQ5913-02-51 11:09:001.11[facility] PARATHYROID DASLMZJ3492-37-70 11:09:001.11[facility] HermannCHEM WMDXI6858-87-79 10:38:002.1[facility] HermannCHEM GOKFK6967-10-74 10:38:002.0[facility] HermannCHEM WKPLE5141-75-93 10:38:0085[facility] HermannCHEM WLSTK3025-97-50 10:38:17640 [facility]annCHEM YUOHB6712-34-29 10:38:20866Nbozzrkd HermannCHEM PANEL 2018-01-28 10:38:003.7[facility] HermannCHEM BIFAM2493-79-62 10:38:000.85[facility] HermannCHEM RWYNB9049-64-70 10:38:0013[facility] HermannCHEM SZOUX7294-17-13 10:38:0031[facility] HermannCHEM RQZCK1033-78-22 10:38:68878Fnujyhhg HermannCHEM GZBAY3823-05-13 10:38:008.4[facility] HermannCHEM YIGOK3894-10-05 10:38:009.7 [facility] FunfxfxCMHGJXRSCL4676-82-32 10:38:0014.4[facility]annHEMATOLOGY 2018-01-28 10:38:0073.3[facility] QiykpbxITSCQHMEYX2384-58-93 10:38:001.5[facility] CbnntxmRGOPYUHQGP6203-35-42 10:38:007.5[facility] VdqlhwgYBPJLJHORX5668-69-60 10:38:000.4[facility] WjgxtvhBCMVCZDQHG5093-30-69 10:38:003.0[facility] FIJROULMOZ4170-91-57 10:38:008.9[facility] LdaugdbKBCXTXBJJP7020-88-44 10:38:000.9 [facility] XqfqjtgLVKICVWQXT8768-38-76 10:38:000.3[facility]annHEMATOLOGY 2018-01-28 10:38:00* Test Item Value Reference Range Interpretation Comments PT (test code = PT) 18.3 s 12.0-14.7 [facility] EakeczcFHMUQVKFWR7991-74-21 10:38:00* Test Item Value Reference Range Interpretation Comments PTT (test code = PTT) 44.2 s 22.9-35.8 [facility] FtrqgrqREVQCJPMBO0858-99-83 10:38:00* Test Item Value Reference Range Interpretation Comments INR (test code = INR) 1.51 1 0.85-1.17 [facility] LbdxhpoUKPYOMRJEW3480-53-22 10:38:0033.7[facility]annHEMATOLOGY 2018-01-28 10:38:0014.1[facility] JifvtdsXQHIJDCHMR2293-73-08 10:38:0012.4[facility] QcokaxvTQYZSRCVMB7353-75-59 10:38:0036.8[facility] QhrzyjdJTTFWEOJNG6845-26-19 10:38:003.97[facility] EesdlvmQABILDHLXW2765-46-45 10:38:0092.7[facility] IPPHLODSBF1822-05-03 10:38:0010.3[facility] EpdogrsBMGGBRAFVU4921-39-41 10:38:00 8.6[facility] GzmoxksLKFGWZXLES2608-92-86 10:38:00* Test Item Value Reference Range Interpretation Comments MCH (test code = MCH) 31.3 pg 27.0-31.0 [facility] AjeqantJIMQIAPSEK6806-00-39 10:38:97280Jjmpyqbw HermannPARATHYROID QOLBFDK1851-25-64 10:38:001.09[facility] HermannPARATHYROID UHCAFPA2044-47-16 10:38:001.06[facility]annURINE AND QPAGR8549-12-79 01:06:00>182[facility]annUR[facility] AND QKXVU4763-56-20 01:06:0036[facility]annUR[facility] AND STOOL 2018-01-28 01:06:00Large *ABN*(01/27/18 7:06 PM)[facility] STOOL 2018-01-28 01:06:00Negative *NA*(01/27/18 7:06 PM)[facility] STOOL 2018-01-28 01:06:00Small *ABN*(01/27/18 7:06 PM)[facility] STOOL 2018-01-28 01:06:00Negative (01/27/18 7:06 PM)[facility] STOOL 2018-01-28 01:06:00Yellow *NA*(01/27/18 7:06 PM)[facility] STOOL 2018-01-28 01:06:00* Test Item Value Reference Range Interpretation Comments UA Spec Grav (test code = UA Spec Grav) 1.017 1 [facility] IPCZF6453-28-74 01:06:00* Test Item Value Reference Range Interpretation Comments UA pH (test code = UA pH) 5.0 1 5.0-8.0 [facility] NBLHT7363-92-10 01:06:00Slight *ABN*(01/27/18 7:06 PM) [facility] HuczobgGDVXPCRFWU7704-20-21 21:00:00* Test Item Value Reference Range Interpretation Comments PTT (test code = PTT) 40.7 s 22.9-35.8 [facility] XredfwvKKKVYZZILC7636-57-02 21:00:00* Test Item Value Reference Range Interpretation Comments PT (test code = PT) 17.8 s 12.0-14.7 [facility] IaxvemvQQHKVZQUGG6773-22-96 21:00:00* Test Item Value Reference Range Interpretation Comments INR (test code = INR) 1.46 1 0.85-1.17 [facility] HermannCHEM OKHJR0065-76-81 10:14:002.8[facility] HermannCHEM PANEL 2018-01-27 10:14:002.3[facility] HermannCHEM VQOVW4216-37-19 10:14:0089[facility] HermannCHEM ANEGK6271-66-59 10:14:008.6[facility] HermannCHEM REKNF6054-84-78 10:14:10228Upsgcxeq HermannCHEM WUNFJ9186-32-23 10:14:0011[facility] HermannCHEM RWCTI8294-31-78 10:14:000.76[facility] HermannCHEM LCHEM4198-55-02 10:14:08142 [facility]annCHEM VDQRO1341-81-74 10:14:003.9[facility] HermannCHEM PANEL 2018-01-27 10:14:50506Lsviwjoo HermannCHEM XASLM7415-69-91 10:14:0030[facility] HermannCHEM IXUCA7757-98-80 10:14:008.9[facility] EcyqbxtXKQXSOUQJD1962-33-66 10:14:000.1[facility] OtdvftbWDDCEVLHDI7854-91-95 10:14:000.1[facility] JWQBWXWEXY6506-45-85 10:14:001.1[facility] SqlhanoXXDWXPWYKD1007-01-40 10:14:000.9 [facility] TbvnzmtNAUGISDNMW0520-13-64 10:14:0081.7[facility] HermannHEMATOLOGY 2018-01-27 10:14:009.7[facility] AvbgcrvBXDFULWULU6845-88-44 10:14:000.8[facility] CiouarnHVPPDTGHMT1620-07-12 10:14:000.emorial ItaetufOZYHQMEJTW3757-55-72 10:14:009.6[facility] FqovjpsRIDQQWWLDH9638-47-25 10:14:007.3[facility] PCWWVDBNRN2235-22-28 10:14:008.5[facility] LwcikhvCJGFFOWVEQ2187-41-07 10:14:18926 [facility] EprplrySNCLUWBPXD8854-05-86 10:14:0012.8[facility] HermannHEMATOLOGY 2018-01-27 10:14:0014.3[facility] AoqaxqgYLETSHBPEG7110-24-07 10:14:0011.8[facility] GlsueilIERJBCEMCA9381-28-81 10:14:004.13[facility] PljzllyHJCJQTVMGR8400-91-75 10:14:00* Test Item Value Reference Range Interpretation Comments MCH (test code = MCH) 31.0 pg 27.0-31.0 [facility] PsjbakiBTSBZIULJA1820-60-42 10:14:0033.6[facility] HermannHEMATOLOGY 2018-01-27 10:14:0038.1[facility] BfcqtimLRINKXRAJU4618-11-38 10:14:0092.3[facility] WmqzywaYLYJJCXZOC8154-62-99 02:02:000.1[facility] PubugcrGCHSASYRJX2584-30-33 19:13:00* Test Item Value Reference Range Interpretation Comments POC Activated Clotting Time (test code = POC Activated Clotting Ilir e) 177 s [facility] HospitalYzpwveqLGQRBADZXZ4514-86-28 16:56:00* Test Item Value Reference Range Interpretation Comments POC Activated Clotting Time (test code = POC Activated Clotting Ilir e) 355 s [facility] [id number] 16:18:00* Test Item Value Reference Range Interpretation Comments POC Activated Clotting Time (test code = POC Activated Clotting Ilir e) 366 s [facility] BANK [id number] 12:02:00Negative (01/26/18 6:02 AM) [facility] CicerOOsCHEM [id number] 16:29:0059[facility] CicerOOsCHEM PANEL 2018-01-21 16:29:001.2[facility]
--- NOTE | 2020-05-11 13:00 | Emergency Department Note ---
History of Present Illnes History of Present Illness Chief Complaint: General Medicine Complaints History of Present Illness This is a 79 year old male sent by PCP for evaluation of left left pain with edema. Patient seen at bedside, denies CP or SOB . Historian: Patient Arrival Mode: Car Onset (how long ago): day(s) (2) Radiation: Reports non-radiation Severity: mild Onset quality: gradual Duration (how long): day(s) (2) Timing of current episode: constant Progression: worsening Context: Denies recent illness, Denies recent surgery, Denies recent immobilization, Denies recent travel, Denies trauma/injury, Denies new medications, Denies hx of DVT/PE, Denies non-compliance w/ medications, Denies other Relieving factors: none Exacerbating factors: none Associated symptoms: Denies fever/chills, Denies shortness of breath Treatments prior to arrival: none Past Medical/Family History Physician Review I have reviewed the patient's past medical and family history. Any updates have been documented here. Past Medical History Recent Fever: No Clinical Suspicion of Infectio: No New/Unexplained Change in Ment: No Past Medical History: Hypertension, Diabetes, CHF, CAD, Hyperlipedemia Other Medical History: Lung cancer Past Surgical History: Pacer/AICD Other Surgery: Ablation Vein stripping Social History Smoking Cessation: Never Smoker Alcohol Use: None Any Illegal Drug Use: No Other Last Tetanus: UNKNOWN Review of Systems Review of Systems Constitutional: Reports no symptoms EENTM: Reports no symptoms Cardiovascular: Reports no symptoms Respiratory: Reports no symptoms Gastrointestinal: Reports no symptoms Genitourinary: Reports no symptoms Musculoskeletal: Reports no symptoms Integumentary: Reports change in color Neurological: Reports no symptoms Psychological: Reports no symptoms Endocrine: Reports no symptoms Hematological/Lymphatic: Reports no symptoms Physical Exam Related Data Allergies: Coded Allergies: No Known Drug Allergies (Verified Allergy, Unknown, 08/04/18) Triage Vital Signs Vital Signs Date Time Temp Pulse Resp B/P (MAP) Pulse Ox O2 Delivery O2 Flow Rate FiO2 05/11/20 12:53 98.4 63 16 141/81 95 Vital signs reviewed: Yes Physical Exam CONSTITUTIONAL Constitutional: Reports morbidly obese HENT HENT: Reports normocephalic, Reports atraumatic, Reports oropharynx clear/moist, Reports nose normal HENT L/R: Reports left ext ear normal, Reports right ext ear normal EYES Eyes: Reports PERRL, Reports conjunctivae normal NECK Neck: Reports ROM normal PULMONARY Pulmonary: Reports effort normal, Reports breath sounds normal CARDIOVASCULAR Cardiovascular: Reports LLE edema (L greater than R pedal edema), Reports RLE edema GASTROINTESTINAL Abdominal: Reports soft, Reports nontender, Reports bowel sounds normal GENITOURINARY Genitourinary: Reports exam deferred SKIN Skin: Reports erythema (subtle b/l LE) MUSCULOSKELETAL Musculoskeletal: Reports ROM normal NEUROLOGICAL Neurological: Reports alert, Reports oriented x 3, Reports no gross motor or sensory deficits PSYCHOLOGICAL Psychological: Reports mood/affect normal, Reports judgement normal Results Imaging Imaging results reviewed: Yes Impressions Left Venous Duplex LE : negative for DVT Assessment & Plan Medical Decision Making MDM 79 yom with longstanding h/o of leg infection sent by PCP to r/o DVT. Venous duplex ordered and negative. No systemic signs of illness to warrant lab work. plan to discharge with Rx for abx and referral to the wound care center. Assessment & Plan Final Impression: (1) Chronic cellulitis (2) Left leg swelling Depart Disposition: HOME, SELF-CARE Last Vital Signs Date Time Temp Pulse Resp B/P (MAP) Pulse Ox O2 Delivery O2 Flow Rate FiO2 05/11/20 12:53 98.4 63 16 141/81 95 Home Meds Reported Medications Apixaban (Eliquis) 5 Mg Tablet, PO DAILY 11/09/19 Potassium Chloride (POTASSIUM CHLORIDE) 20 Meq Tab.er.prt, 20 MEQ PO DAILY 08/04/18 Metoprolol Tartrate (METOPROLOL TARTRATE) 50 Mg Tablet, 100 MG PO DAILY, TAB 08/04/18 Metformin Hcl (METFORMIN HCL) 500 Mg Tablet, 500 MG PO BID, #60 TAB 08/04/18 Levothyroxine Sodium (LEVOTHYROXINE SODIUM) 50 Mcg Tablet, 25 MCG PO DAILY, #30 TAB 08/04/18 Ipratropium/Albuterol Sulfate (COMBIVENT RESPIMAT INHAL SPRAY) 4 Gm Aer.w.adap, 4 GM IH QID PRN for SHORTNESS OF BREATH, INH 08/04/18 Furosemide (FUROSEMIDE) 40 Mg Tablet, 80 MG PO Daily, #30 TAB 08/04/18 Atorvastatin Calcium (ATORVASTATIN CALCIUM) 20 Mg Tablet, 40 MG PO HS, #30 TAB 08/04/18 [Anoro Ellipt ] No Conflict Check, 1 INH INH DAILY 62.5-25MCG/PUFF: PATIENT TO INHALE 1 PUFF BY MOUTH DAILY 08/04/18 CHRISTINE BRAY DO May 11, 2020 13:00
[2020-05-11 16:19] VITALS: BP 148/71
== END 2020-05-11 16:20 | disposition home or self-care (01) ==
LOC: ER 12:48
DX: M79.605 Pain in left leg (principal); R60.9 Edema, unspecified; L03.116 Cellulitis of left lower limb; I10 Essential (primary) hypertension; E11.9 Type 2 diabetes mellitus without complications; E78.5 Hyperlipidemia, unspecified; I25.10 Atherosclerotic heart disease of native coronary artery without angina pectoris; I50.9 Heart failure, unspecified; Z85.118 Personal history of other malignant neoplasm of bronchus and lung; Z95.810 Presence of automatic (implantable) cardiac defibrillator
CPT/HCPCS: 93971; 99283

== ENCOUNTER 2020-10-10 13:34 | Inpatient (IN) | payer MEDICARE ==
[~2020-10-10] VITALS: Ht 193 cm; Wt 114.3 kg
--- OUTSIDE RECORDS SUMMARY | 2020-10-10 16:43 | XMS REPORT | Continuity of Care Document ---
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 Role Phone [employer] Information Application Security Unavailable Un available Problems Problem Status Onset Date Classification Date Reported Comments Source JIHAN /C CARDIOVERSION Active 03/09/2019 [facility] XRAY/LAB Active 05/28/2018 [facility] UNK Active 0 04/20/2018 [facility] R91.1 Active 04/20/2018 [facility] Malignant neoplasm of upper lobe, right bronchus or lung 02/27/2018 05/25/2018 [facility] BEDDED OP/ CT CHEST BX (RT LUNG BX) NO Active 02/10/2018 [facility] Persistent atrial fibrillation 02/03/2018 05/07/2018 [facility] PERSISTENT ATRIAL FIBRILLATION; SOB Active 12/24/2017 [facility] CCL EP STUDY PVI ABLATION W. CARTO/ GENE Active 12/24/2017 [facility] M48.06 - "SPINAL STENOSIS, LUMBAR REGION Active 07/23/2016 [facility] Shortness of breath 04/29/2018 [facility] Centrilobular emphysema 05/07/2018 [facility] Fatty (change of) liver, not elsewhere classified 04/29/2018 [facility] Thoracic aortic ectasia 04/29/2018 [facility] Solitary pulmonary nodule 05/17/2018 [facility] Atrial fibrillation (disorder) Active Problem [facility] [place] History of - raised blood lipids (contex t-dependent category) Active Prob zofia 03/12/2019 [facility] Imaging result abnormal (finding) Resolved Problem lower legs with stents [facility] Peripheral vascular disease (disorder) Resolved Problem 03/12/2019 [facility] Prediabetes (finding) Active Problem 03/12/2019 [facility] [place] 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 05/07/2018 [facility] Hypertensive heart disease with heart failure 05/07/2018 [facility] Chronic systolic (congestive) heart failure 05/07/2018 [facility] Morbid (severe) obesity due to excess calories 05/07/2018 [facility] Nicotine dependence, cigarettes, uncomplicated 05/07/2018 [facility] Body mass index (BMI) 38.0-38.9, adult 05/07/2018 [facility] Supraventricular tachycardia 05/07/2018 [facility] Obstructive sleep apnea (adult) (pediatric) 05/07/2018 [facility] Abnormal coagulation profile 05/07/2018 [facility] residential (current) use of oral hypoglycemic drugs 05/07/2018 [facility] Adverse effect of anticoagulants, initial encounter 05/07/2018 [facility] Hypothyroidism, unspecified 05/07/2018 [facility] Other chronic pain 05/07/2018 [facility] Anemia, unspecified 05/07/2018 [facility] Atrial premature depolarization 05/07/2018 [facility] Dysuria 05/07/2018 [facility] residential (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 05/25/2018 [facility] 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 No Longer Active 03/11/2019 [facility] 24 HR Metoprolol Tartrate 100 MG Extende d Release Tablet [Toprol] Notes: (Same as: Toprol XL) May split t ab, but do not crush. No Longer Active 03/11/2019 [facility] Aspirin 81 MG Enteric Coated Tablet Notes: Do not crush or chew. (Same As: Ecotrin) No Longer Active 03/11/2019 [facility] Metformin hydrochloride 500 MG Oral Tablet Notes: (Same as: Glucophage) Take with meal No Longer Active 03/11/2019 [facility] tiotropium 0.018 MG/ACTUAT Inhalant Powder [Spiriva] 18 microgram, 1 inhalation, Route: INHALATION, Drug form: Rod LEGER, Dosing Weight 147.636, kg, Start date: 03/11/19 8:00:00 CDT, Duration: 30 day, Stop date: 04/09/19 8:00:00 CDT No Longer Active 03/11/2019 [facility] Thyroxine Notes: Take 1 hour b efore or 2 hours after meal; Enteral feeds may interefere with the absorption of this medication. (Same as:Levothroid) No Longer Active 03/11/2019 [facility] atorvastatin Notes: (Same as: Lipitor) Inactive 03/11/2019 [facility] Eliquis Notes: Same as: Eliquis Inactive 03/11/2019 [facility] Eliquis Notes: Same as: Eliquis Inactive 03/10/2019 [facility] Ipratropium [place] 0.2 MG/ML Inhalant Solution 0.5 mg = 2.5 mL, NEB, RQID, 0 Refill(s) Active 03/10/2019 [facility] apixaban 5 mg oral tablet 5 mg = 1 tab, PO, Q12H, 0 Refill(s) Active 03/10/2019 [facility] AMIODarone 200 mg oral tablet 400 mg = 2 tab, PO, BID- Meals, 0 Refill(s) Active 03/10/2019 [facility] Furosemide Notes: (Same as: La six) May cause GI upset. Give with food or milk. Inactive 03/10/2019 [facility] Amiodarone Notes: (Same as: Co rdarone) Inactive 03/10/2019 [facility] ipratropium 0.02% inhalation solution Notes: SEE RT DOCUMENTATION (Same as:Atrovent) Inactive 03/10/2019 [facility] Metformin Notes: (Same as: Glu cophage) Take with meal Inactive 03/10/2019 [facility] metoprolol 100 mg oral tablet, extended release 100 mg = 1 tab, PO, Daily, # 90 tab, 0 Refill(s) Active 03/10/2019 [facility] Anoro Ellipta 62.5 mcg-25 mcg inhalation powder 1 puff, INHALER, Daily, # 1 ea, 3 Refill(s) Active 03/10/2019 [facility] AMIODarone 900 mg in D5W 500 ml IV 900 m g + Dextrose 5% in Water IV 482 mL 2 mg/ml. Use Glass Bottle or Non PVC Ba g "Use 0.22 micron in-line filter" Inactive 03/10/2019 [facility] Nitroglycerin Notes: (Same as: Nitroquick, Nitrostat) "Do Not Crush" Sublingual tablet Inactive 03/10/2019 [facility] Potassium Chloride Notes: (Christos e as: K-Dur 20) "Do Not Crush" For patients unable to swallow tablet, dissolve in one half glass of water. Allow about 2 minutes for the tablets to disintegrate. Stir before giving to prepare slurry and administer. Please exclude Patients with feeding tube less than 14 [place] (Dobhoff, J-tube etc) and pediatric and patients. With food and full glass of water No Longer Active 05/13/2018 [facility] Anoro Ellipta 62.5 mcg-25 mcg inhalation powder 1 puff, Route: INHALER, Drug Form: PWDR, Dosing Weight 146.909, kg, Daily, Start date: 05/13/18 9:00:00 CDT, Duration: 30 day, Stop date: 06/11/18 9:00:00 CDT No Longer Active 05/13/2018 [facility] Lovenox Notes: (Same as: Loven ox) No Longer Active 05/13/2018 [facility] clopidogrel Notes: (Same As: P lavix) No Longer Active 05/13/2018 [facility] tiotropium 0.018 MG/ACTUAT Inhalant Powder [Spiriva] Notes: (Same As: Spiriva). No Longer Active 05/13/2018 [facility] Thyroxine Notes: Take 1 hour b efore or 2 hours after meal; Enteral feeds may interefere with the absorption of this medication. (Same as:Levothroid) No Longer Active 05/13/2018 [facility] *Please bring pt's own anoro ellipta to pharmacy for label* *Please bring pt's own anoro ellipta to pharmacy for label*, ATTN:ELIJHA, Drug form: MISC, Route: MISC, QSHIFT, 05/13/18 0:00:00 CDT, Duration: 30 day, Stop date: 06/11/18 16:00:00 CDT No Longer Active 05/13/2018 [facility] metoprolol Notes: (Same as: Lo pressor) No Longer Active 05/13/2018 [facility] dofetilide Notes: (Same as: Anson smith) Providers should enter the orders via the "Dofetilide Initiation Orders MPP" to ensure compliance with the REMS program. No Longer Active 05/13/2018 [facility] dofetilide 500 mcg oral capsule dofetilide 500 mcg oral capsule, 500 microgram, Drug form: CAP, Route: PO, Q12H, 05/12/18 21:00:00 CDT, Duration: 30 day, Stop date: 06/11/18 9:00:00 CDT Inactive 05/13/2018 [facility] atorvastatin Notes: (Same as: Lipitor) No Longer Active 05/13/2018 [facility] Ancef + sterile water 10 mL No shanda: (Same As: Meche Mcgill) MEDICATION WASTE Product Size: 1000 mg Product Wasted: ___ mg No Longer Active 05/13/2018 [facility] Acetaminophen 325 MG / Hydrocodone Noelle trate 5 MG Oral Tablet [[place] 5/325] Notes: (Same as: [place] 325/5) Do not ex ceed 4gm/day of acetaminophen. No Longer Activ e 05/12/2018 [facility] metoprolol tartrate 100 mg oral tablet metoprolol tartrate 100 mg oral tablet, 100 mg, Route: PO, BID, 05/12/18 17:00:00 CDT, Duration: 30 day, Stop date: 06/11/18 9:00:00 CDT Inactive 05/12/2018 [facility] Furosemide Notes: (Same as: La six) May cause GI upset. Give with food or milk. No Longer Active 05/12/2018 [facility] Albuterol 0.833 MG/ML / Ipratropium Brom maria e 0.167 MG/ML Inhalant Solution Notes: (Same as: Duoneb) No Longer Active 05/12/2018 [facility] Aspirin 81 MG Enteric Coated Tablet Notes: Do not crush or chew. (Same As: Ecotrin) No Longer Active 05/12/2018 [facility] neostigmine (ANES) Route: IV, Drug form: INJ, ONCE, Stop date: 05/12/18 13:42:00 CDT Inactive 05/12/2018 [facility] ketOROLAC (ANES) IV, ONCE Inactive 05/12/2018 [facility] ePHEDrine (ANES) Route: IV, Dr ug form: INJ, ONCE, Stop date: 05/12/18 13:06:00 CDT Inactive 05/12/2018 [facility] dexamethasone (ANES) Route: IV , Drug form: INJ, ONCE, Stop date: 05/12/18 13:01:00 CDT Inactive 05/12/2018 [facility] ceFAZolin (ANES) Route: IV, Dr ug form: INJ, ONCE, Stop date: 05/12/18 13:01:00 CDT Inactive 05/12/2018 [facility] fentaNYL (ANES) Route: IV, [place] g form: INJ, ONCE, Stop date: 05/12/18 13:01:00 CDT Inactive 05/12/2018 [facility] Albuterol 0.1 MG/ACTUAT / Ipratropium Br omide 0.02 MG/ACTUAT Metered Dose Inhaler Notes: Same as: Combivent Respimat WAST E: Aerosol - Return to Pharmacy Inactive 05/12/2018 [facility] lidocaine (ANES) Route: IV, Dr ug form: INJ, ONCE, Stop date: 05/12/18 12:56:00 CDT Inactive 05/12/2018 [facility] glycopyrrolate (ANES) Route: I V, Drug form: INJ, ONCE, Stop date: 05/12/18 12:56:00 CDT Inactive 05/12/2018 [facility] propofol (ANES) Route: IV, [place] g form: INJ, ONCE, Stop date: 05/12/18 12:56:00 CDT Inactive 05/12/2018 [facility] midazolam (ANES) Route: IV, Dr ug form: SOLN, ONCE, Stop date: 05/12/18 12:56:00 CDT Inactive 05/12/2018 [facility] Acetaminophen Notes: Do not ex ceed 4 gm/day. (Same as: Tylenol) No Longer Active 05/12/2018 [facility] Acetaminophen 325 MG / Hydrocodone Noelle trate 5 MG Oral Tablet Notes: (Same as: [place] 325/5) Do not ex ceed 4gm/day of acetaminophen. No Longer Active 05/12/2018 [facility] normal saline 0.9% IV 1,000 mL 1,000 mL, Rate: 75 ml/hr, Infuse over: 13.3 hr, Route: IV, Dosing Weight 146.909 kg, Total Volume: 1,000, Start date: 05/12/18 12:47:00 CDT, Duration: 30 day, Stop date: 06/11/18 12:46:00 CDT, 2.83, m2 No Longer Active 05/12/2018 [facility] Hydromorphone Notes: (Same as: Dilaudid) No Longer Active 05/12/2018 [facility] rocuronium (ANES) Route: IV, D rug form: INJ, ONCE, Stop date: 05/12/18 12:31:00 CDT Inactive 05/12/2018 [facility] Hydralazine Notes: (Same as: A presoline) Push over 5 minutes No Longer Active 05/12/2018 [facility] Insulin Lispro Notes: (Same as : Humalog ) Roll in palms of hands gently; Do not shake `vigorously. "Single Patient Use Only " WASTE: F/P - Black; E - Municipal Trash Bin Stable for 28 days at room temp erature. Expires in days from Date No Longer Active 05/12/2018 [facility] Glucagon 1 mg, Route: IM, Drug form: PDR/INJ, PRN, Dosing Weight 146.909, kg, PRN Blood Glucose Results, Start date: 05/12/18 12:02:00 CDT, Duration: 30 day, Stop date: 06/11/18 12:01:00 CDT No Longer Active 05/12/2018 [facility] Dextrose 50% Syringe 25 gm, 50 mL, Route: IVP, Drug Form: INJ, Dosing Weight 146.909, kg, PRN, PRN Blood Glucose Results, Start date: 05/12/18 12:02:00 CDT, Duration: 30 day, Stop date: 06/11/18 12:01:00 CDT No Longer Active 05/12/2018 [facility] Sodium Chloride 0.9% IV (ANES) 1000 mL Route: IV, Total Volume: 1,000, Start date: 05/12/18 11:30:00 CDT, Stop date: 05/12/18 12:30:00 CDT Inactive 05/12/2018 [facility] Calcium Chloride 0.0014 MEQ/ML / Potassi um Chloride 0.004 MEQ/ML / Sodium Chloride 0.103 MEQ/ML / Sodium Lactate 0.028 MEQ/ML Injectable Solution 1,000 mL, Rate: 25 ml/hr, Infuse over: 4 0 hr, Route: IV, Dosing Weight 146.909 kg, Total Volume: 1,000, Start date: 05/12/18 11:17:00 CDT, Duration: 30 day, Stop date: 06/11/18 11:16:00 CDT, 2.83, m2 Inactive 05/12/2018 [facility] Lactated Ringers Injection IV (ANES) 1000 mL Route: IV, Total Volume: 1,000, Start date: 05/12/18 11:16:00 CDT, Stop date: 05/12/18 12:16:00 CDT Inactive 05/12/2018 [facility] Exparel Notes: (Same as: Mervat costello) NOT [...] mL [266 mg]) No Longer Active 05/12/2018 [facility] enoxaparin 80 mg/0.8 mL subcutaneous solution SUB-Q, Q12H, 05/10, 05/11,05/12, 0 Refill(s) No Longer Active 05/10/2018 [facility] Albuterol 0.1 MG/ACTUAT / Ipratropium Br omide 0.02 MG/ACTUAT Metered Dose Inhaler 1 puff, INHALATION, QID, 0 Refill(s) No Longer Active 05/10/2018 [facility] Aspirin 81 MG Enteric Coated Tablet 81 mg = 1 tab, PO, Daily, last dose 05/06/18, # 90 tab, 3 Refill(s) Active 05/10/2018 [facility] Anoro Ellipta 62.5 mcg-25 mcg inhalation powder 1 puff, INHALER, Daily, # 1 ea, 3 Refill(s) No Longer Active 05/10/2018 [facility] Ondansetron Notes: (Same as: Nasim echeverria) MEDICATION WASTE Product Size: 4 mg Product Wasted: ___ mg No Longer Active 02/16/2018 [facility] Acetaminophen 325 MG / Hydrocodone Noelle trate 10 MG Oral Tablet Notes: Do not exceed 4gm/day of acetamin ophen. (Same as: [place] 325/10) No Longer Active 02/16/2018 [facility] Midazolam 1 mg, Route: IV, ONC E, Dosing Weight 143.636, kg, Start date: 02/16/18 13:00:00 CDT, Stop date: 02/16/18 13:00:00 CDT Inactive 02/16/2018 [facility] Fentanyl 50 microgram, Route: IV, ONCE, Dosing Weight 143.636, kg, Start date: 02/16/18 13:00:00 CDT, Stop date: 02/16/18 13:00:00 CDT, Inactive 02/16/2018 [facility] Warfarin Notes: Nurse to ensur e documentation of patient education per anticoagulation policy. Avoid large intake of vitamin-K containing foods diet. WASTE: F/P - P Waste Black; E - P Waste Black (Same As: Coumadin) Inactive 01/29/2018 [facility] tiotropium 0.018 MG/ACTUAT Inhalant Powder [Spiriva] 18 microgram = 1 inhalation, INHALATION, RDaily, 0 Refill(s) Active 01/29/2018 [facility] dofetilide Notes: (Same as: Anson smith) Providers should enter the orders via the "Dofetilide Initiation Orders MPP" to ensure compliance with the REMS program. Inactive 01/29/2018 [facility] nt dofetilide 500 mcg oral capsule 500 microgram = 1 cap, PO, Q12H, # 60 cap, 0 Refill(s) Active 01/29/2018 [facility] dofetilide 500 mcg oral capsule 500 microgram = 1 cap, PO, Q12H, # 14 cap, 0 Refill(s) Inactive 01/29/2018 [facility] ntdanie Lovenox Notes: Nurse to ensure documentation of patient education per anticoagulation policy. (Same as: Lovenox) Inactive 01/28/2018 [facility] Warfarin Notes: Nurse to ensur e documentation of patient education per anticoagulation policy. Avoid large intake of vitamin-K containing foods diet. WASTE: F/P - P Waste Black; E - P Waste Black (Same As: Coumadin) Inactive 01/28/2018 [facility] remove patch Notes: Remove old patch before application of new patch. WASTE: F/P - P Waste Black; E - P Waste Black No Longer Active 01/28/2018 [facility] Lovenox Notes: Nurse to ensure documentation of patient education per anticoagulation policy. (Same as: Lovenox) Inactive 01/28/2018 [facility] Warfarin Notes: Nurse to ensur e documentation of patient education per anticoagulation policy. Avoid large intake of vitamin-K containing foods diet. 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, Duration: 30 day, Stop date: 02/26/18 9:00:00 CDT No Longer Active 01/27/2018 [facility] clopidogrel Notes: (Same As: P lavix) No Longer Active 01/27/2018 [facility] Potassium Chloride Notes: (Christos e as: K-Dur 20) "Do Not Crush" With food and full glass of water No Longer Active 01/27/2018 [facility]ter pantoprazole 40 mg, 1 tab, Rou te: PO, Drug form: ECTAB, Daily, Dosing Weight 143.636, kg, Start date: 01/27/18 9:00:00 SALESFORCE BUSINESS ANALYST, Duration: 14 day, Stop date: 02/09/18 9:00:00 CDT No Longer Active 01/27/2018 [facility] Warfarin 7.5 mg, Route: PO, Dr ug form: TAB, Daily, Dosing Weight 143.636, kg, Start date: 01/27/18 9:00:00 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 Give with food or milk. 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 "Single Patient Use Only " WASTE: F/P - Black; E - Municipal Trash Bin Stable for 28 days at room temp erature. Expires in days from Date No Longer Active 01/27/2018 [facility] Dextrose 50% Syringe 12.5 gm, 25 mL, Route: IVP, Drug Form: INJ, Dosing Weight 143.636, kg, PRN, PRN Blood Glucose Results, Start date: 01/26/18 22:24:00 SALESFORCE BUSINESS ANALYST, Duration: 30 day, Stop date: 02/25/18 23:23:00 CDT No Longer Active 01/27/2018 [facility] Glucagon 1 mg, Route: IM, Drug form: PDR/INJ, PRN, Dosing Weight 143.636, kg, PRN Blood Glucose Results, Start date: 01/26/18 22:24:00 SALESFORCE BUSINESS ANALYST, Duration: 30 day, Stop date: 02/25/18 23:23:00 CDT No Longer Active 01/27/2018 [facility] atorvastatin Notes: (Same as: Lipitor) No Longer Active 01/27/2018 [facility] metoprolol tartrate Notes: (Sa me as: Lopressor) No Longer Active 01/27/2018 [facility] Saline Flush 0.9% Notes: Same as: BD Posiflush Sterile No Longer Active 01/27/2018 [facility] Sucralfate Notes: May interfer e w/enteral feeds - Take 1 hr before or 2 hr after antacids, dairy pdt, meals & minerals - On empty stomach. For patients unable to swallow tablet, dissolve in 10mL - 30mL of w ater or juice and stir before giving. (Same As: Carafate) No Longer Active 01/27/2018 [facility] dofetilide Notes: (Same as: Anson smith) Providers should enter the orders via the "Dofetilide Initiation Orders MPP" to ensure compliance with the REMS program. No Longer Active 01/27/2018 [facility] Saline Flush 0.9% Notes: Same as: BD Posiflush Sterile No Longer Active 01/27/2018 [facility] protamine (ANES) Route: IV, Dr ug form: INJ, ONCE, Stop date: 01/26/18 12:10:00 SALESFORCE BUSINESS ANALYST Inactive 01/26/2018 [facility] Ondansetron Notes: (Same as: Nasim echeverria) MEDICATION WASTE Product Size: 4 mg Product Wasted: ___ mg No Longer Active 01/26/2018 [facility] Fentanyl Notes: (Same as: Subl imaze) Preservative free. No Longer Active 01/26/2018 [facility] Hydralazine Notes: (Same as: A presoline) Push over 5 minutes No Longer Active 01/26/2018 [facility] Labetalol 10 mg, 2 mL, Route: IVP, Drug form: INJ, Q5Min, Dosing Weight 143.636, kg, PRN Elevated BP, Start date: 01/26/18 9:48:00 SALESFORCE BUSINESS ANALYST, Duration: 5 doses or times, Stop date: 01/27/18 0:00:00 SALESFORCE BUSINESS ANALYST No Longer Active 01/26/2018 [facility] Flumazenil Notes: (Same as: Ro mazicon) No Longer Active 01/26/2018 [facility] Naloxone Notes: Same as Narcan No Longer Active 01/26/2018 [facility] fentaNYL (ANES) Route: IV, [place] g form: INJ, ONCE, Stop date: 01/26/18 9:12:00 SALESFORCE BUSINESS ANALYST Inactive 01/26/2018 [facility] cisatracurium (ANES) Route: IV , Drug form: INJ, ONCE, Stop date: 01/26/18 9:12:00 SALESFORCE BUSINESS ANALYST Inactive 01/26/2018 [facility] propofol (ANES) Route: IV, [place] g form: INJ, ONCE, Stop date: 01/26/18 9:12:00 SALESFORCE BUSINESS ANALYST Inactive 01/26/2018 [facility] Sodium Chloride 0.9% IV (ANES) 1000 mL Route: IV, Total Volume: 1,000, Start date: 01/26/18 8:08:00 SALESFORCE BUSINESS ANALYST, Stop date: 01/26/18 9:08:00 SALESFORCE BUSINESS ANALYST Inactive 01/26/2018 [facility] warfarin 7.5 mg oral tablet 7. 5 mg = 1 tab, PO, Daily, 0 Refill(s) Active 01/26/2018 [facility] furosemide 80 mg oral tablet 8 0 mg = 1 tab, PO, BID, 0 Refill(s) Active 01/26/2018 [facility] Potassium Chloride 20 mEq, PO, Daily, 0 Refill(s) Active 01/26/2018 [facility] levothyroxine 25 mcg (0.025 mg) oral tablet 25 microgram = 1 tab, PO, Daily, # 30 tab, 0 Refill(s) Active 01/26/2018 [facility] nt metoprolol tartrate 100 mg oral tablet 100 mg = 1 tab, PO, BID, # 60 tab, 0 Refill(s) Active 01/26/2018 [facility] Metformin hydrochloride 500 MG Oral Tablet 500 mg = 1 tab, PO, BID-Meals, # 30 tab, 0 Refill(s) Active 01/26/2018 [facility]ter atorvastatin 40 mg oral tablet 40 mg = 1 tab, PO, Bedtime, # 30 tab, 0 Refill(s) Active 01/26/2018 [facility] clopidogrel 75 mg oral tablet 75 mg = 1 tab, PO, Daily, # 30 tab, 0 Refill(s) Active 01/26/2018 [facility] NS 1,000 mL 1,000 mL, Rate: 10 0 ml/hr, Infuse over: 10 hr, Route: IVPB, Dosing Weight 143.636 kg, Total Volume: 1,000, Start date: 01/26/18 5:56:00 SALESFORCE BUSINESS ANALYST, Duration: 30 day, Stop date: 02/25/18 5:55:00 CDT, 2.8, m2 No Longer Active 01/26/2018 [facility] Allergies, Adverse Reactions, Alerts No Known Medication Allergies Immunizations Immunization Date Given Site Status Last Updated Comments Source pneumococcal 23-valent vaccine 05/13/2018 Right deltoid completed [facility]ink [facility] Results Order Name Results Value Reference Range Date Interpretation Comments Source CHEM PANEL B/C Ratio 19 6 - 25 03/09/2019 [facility] CHEM PANEL AGAP 6.7 10.0 - 20.0 03/09/2019 [facility] CHEM PANEL Globulin 4.0 2.7 - 4.2 03/09/2019 [facility] CHEM PANEL A/G Ratio 0.8 0.7 - 1.6 03/09/2019 [facility] eGFR 68 03/09/2019 Result Comment: The [...] should be multiplied by the estimated BMI. [facility] CHEM PANEL Alk Phos 104 39 - [...] PANEL BUN 20 7 - 22 03/09/2019 [facility] HEMATOLOGY Segs 68.7 45.0 - 75.0 03/09/2019 [facility] HEMATOLOGY Monocytes 10.4 2.0 - 12.0 03/09/2019 [facility] HEMATOLOGY Lymphocytes 17.0 20.0 - 40.0 03/09/2019 [facility] HEMATOLOGY Basophils # 0.1 0.0 - 0.2 03/09/2019 [facility] HEMATOLOGY Eosinophils # 0.3 0.0 - 0.5 03/09/2019 [facility] HEMATOLOGY Lymphocytes # 1.7 1.0 - 5.5 03/09/2019 [facility] HEMATOLOGY Neutrophils # 6.8 1.5 - 8.1 03/09/2019 [facility] HEMATOLOGY Basophils 0.8 0.0 - 1.0 03/09/2019 [facility] HEMATOLOGY Eosinophils 3.1 0.0 - 4.0 03/09/2019 [facility] HEMATOLOGY Monocytes # 1.0 0.0 - 0.8 03/09/2019 [facility] HEMATOLOGY RDW 14.2 11.5 - 14.5 03/09/2019 [facility] HEMATOLOGY Platelet 236 133 - 450 03/09/2019 [facility] HEMATOLOGY MPV 8.7 7.4 - 10.4 03/09/2019 [facility] HEMATOLOGY Hgb 14.6 14.0 - 18.0 03/09/2019 [facility] HEMATOLOGY Hct 44.1 42.0 - 54.0 03/09/2019 [facility] HEMATOLOGY MCV 93.1 80.0 - 94.0 03/09/2019 [facility] RBC 4.74 4.70 - 6.10 03/09/2019 [facility] WBC 9.8 3.7 - 10.4 03/09/2019 [facility] MCH 30.8 27.0 - 31.0 03/09/2019 [facility] MCHC 33.1 32.0 - 36.0 03/09/2019 [facility] ELECTROLYTES CO2 30 24 - 32 05/28/2018 [facility] ELECTROLYTES Sodium Lvl 142 135 - 145 05/28/2018 [facility] ELECTROLYTES Potassium Lvl 4.5 3.5 - 5.1 05/28/2018 [facility] ELECTROLYTES Chloride Lvl 105 95 - 109 05/28/2018 [facility] ELECTROLYTES Glucose Lvl 135 70 - 99 05/28/2018 [facility] ELECTROLYTES BUN 22 7 - 22 05/28/2018 [facility] ELECTROLYTES Creatinine Lvl 1.1 1 0.50 - 1.40 05/28/2018 [facility] ELECTROLYTES Calcium Lvl 8.9 8.5 - 10.5 05/28/2018 [facility] ELECTROLYTES eGFR 65 05/28/2018 Result Comment: The [...] should be multiplied by the estimated BMI. [facility] ELECTROLYTES AGAP 11.5 10.0 - 20.0 05/28/2018 [facility] HEMATOLOGY Monocytes 10.7 2.0 - 12.0 05/28/2018 [facility] HEMATOLOGY Segs 64.5 45.0 - 75.0 05/28/2018 [facility] Lymphocytes 19.0 20.0 - 40.0 05/28/2018 [facility] HEMATOLOGY Eosinophils 4.9 0.0 - 4.0 05/28/2018 [facility] Basophils 0.9 0.0 - 1.0 05/28/2018 [facility] Lymphocytes # 1.8 1.0 - 5.5 05/28/2018 [facility] Eosinophils # 0.5 0.0 - 0.5 05/28/2018 [facility] Segs-Bands # 6.1 1.5 - 8.1 05/28/2018 [facility] Basophils # 0.1 0.0 - 0.2 05/28/2018 [facility] Monocytes # 1.0 0.0 - 0.8 05/28/2018 [facility] MCV 91.1 80.0 - 94.0 05/28/2018 [facility] MCH 29.6 27.0 - 31.0 05/28/2018 [facility] RDW 14.3 11.5 - 14.5 05/28/2018 [facility] Platelet 270 133 - 450 05/28/2018 [facility] MPV 9.0 7.4 - 10.4 05/28/2018 [facility] RBC 4.71 4.70 - 6.10 05/28/2018 [facility] Hct 42.9 42.0 - 54.0 05/28/2018 [facility] Hgb 13.9 14.0 - 18.0 05/28/2018 [facility] MCHC 32.5 32.0 - 36.0 05/28/2018 [facility] WBC 9.4 3.7 - 10.4 05/28/2018 [facility] CHEM PANEL eGFR 83 05/14/2018 Result Comment: [...] should be multiplied by the estimated BMI. [facility] CHEM PANEL Creatinine Lvl 0.91 0.50 - 1.40 05/14/2018 [facility] CHEM PANEL Sodium Lvl 139 135 - 145 05/14/2018 [facility] CHEM PANEL Potassium Lvl 4.0 3.5 - 5.1 05/14/2018 [facility] CHEM PANEL CO2 27 24 - 32 05/14/2018 [facility] CHEM PANEL Chloride Lvl 104 95 - 109 05/14/2018 [facility] CHEM PANEL AGAP 12.0 10.0 - 20.0 05/14/2018 [facility] CHEM PANEL Calcium Lvl 8.4 8.5 - 10.5 05/14/2018 [facility] CHEM PANEL BUN 18 7 - 22 05/14/2018 [facility] CHEM PANEL Glucose Lvl 118 70 - 99 05/14/2018 [facility] HEMATOLOGY Basophils # 0.1 0.0 - 0.2 05/14/2018 [facility] HEMATOLOGY Eosinophils # 0.3 0.0 - 0.5 05/14/2018 [facility] HEMATOLOGY Monocytes # 1.0 0.0 - 0.8 05/14/2018 [facility] Lymphocytes # 1.9 1.0 - 5.5 05/14/2018 [facility] HEMATOLOGY Segs-Bands # 7.5 1.5 - 8.1 05/14/2018 [facility] HEMATOLOGY Basophils 1.1 0.0 - 1.0 05/14/2018 [facility] HEMATOLOGY Eosinophils 2.8 0.0 - 4.0 05/14/2018 [facility] Monocytes 9.6 2.0 - 12.0 05/14/2018 [facility] Lymphocytes 17.4 20.0 - 40.0 05/14/2018 [facility] Segs 69.1 45.0 - 75.0 05/14/2018 [facility] MPV 9.0 7.4 - 10.4 05/14/2018 [facility] Platelet 248 133 - 450 05/14/2018 [facility] RDW 14.4 11.5 - 14.5 05/14/2018 [facility] MCV 91.5 80.0 - 94.0 05/14/2018 [facility] MCHC 32.8 32.0 - 36.0 05/14/2018 [facility] MCH 30.0 27.0 - 31.0 05/14/2018 [facility] Hgb 13.8 14.0 - 18.0 05/14/2018 [facility] Hct 42.0 42.0 - 54.0 05/14/2018 [facility] WBC 10.9 3.7 - 10.4 05/14/2018 [facility] RBC 4.59 4.70 - 6.10 05/14/2018 [facility] CHEM PANEL eGFR 63 05/13/2018 Result Comment: [...] should be multiplied by the estimated BMI. [facility] CHEM PANEL Chloride Lvl 106 95 - 109 05/13/2018 [facility] CHEM PANEL CO2 25 24 - 32 05/13/2018 [facility] CHEM PANEL Potassium Lvl 4.5 3.5 - 5.1 05/13/2018 [facility] CHEM PANEL Sodium Lvl 138 135 - 145 05/13/2018 [facility] CHEM PANEL Creatinine Lvl 1.14 0.50 - 1.40 05/13/2018 [facility] CHEM PANEL BUN 18 7 - 22 05/13/2018 [facility] CHEM PANEL Glucose Lvl 180 70 - 99 05/13/2018 [facility] CHEM PANEL Calcium Lvl 8.2 8.5 - 10.5 05/13/2018 [facility] CHEM PANEL AGAP 11.5 10.0 - 20.0 05/13/2018 [facility] HEMATOLOGY Monocytes # 1.0 0.0 - 0.8 05/13/2018 [facility] HEMATOLOGY Basophils 0.3 0.0 - 1.0 05/13/2018 [facility] Segs-Bands # 12.0 1.5 - 8.1 05/13/2018 [facility] Lymphocytes # 0.9 1.0 - 5.5 05/13/2018 [facility] Segs 85.7 45.0 - 75.0 05/13/2018 [facility] Monocytes 7.3 2.0 - 12.0 05/13/2018 [facility] Lymphocytes 6.7 20.0 - 40.0 05/13/2018 [facility] MPV 9.2 7.4 - 10.4 05/13/2018 [facility] MCHC 32.7 32.0 - 36.0 05/13/2018 [facility] RDW 13.9 11.5 - 14.5 05/13/2018 [facility] MCH 29.9 27.0 - 31.0 05/13/2018 [facility] Platelet 236 133 - 450 05/13/2018 [facility] RBC 4.43 4.70 - 6.10 05/13/2018 [facility] WBC 14.0 3.7 - 10.4 05/13/2018 [facility] MCV 91.2 80.0 - 94.0 05/13/2018 [facility] Hct 40.4 42.0 - 54.0 05/13/2018 [facility] Hgb 13.2 14.0 - 18.0 05/13/2018 [facility] ELECTROLYTES AGAP 8.8 10.0 - 20.0 05/12/2018 [facility] ELECTROLYTES eGFR 82 05/12/2018 Result Comment: The [...] should be multiplied by the estimated BMI. [facility] ELECTROLYTES BUN 15 7 - 22 05/12/2018 [facility] ELECTROLYTES CO2 30 24 - 32 05/12/2018 [facility] ELECTROLYTES Creatinine Lvl 0.9 1 0.50 - 1.40 05/12/2018 [facility] ELECTROLYTES Potassium Lvl 4.8 3.5 - 5.1 05/12/2018 [facility] ELECTROLYTES Sodium Lvl 143 135 - 145 05/12/2018 [facility] ELECTROLYTES Chloride Lvl 109 95 - 109 05/12/2018 [facility] ELECTROLYTES Calcium Lvl 8.0 8.5 - 10.5 05/12/2018 [facility] ELECTROLYTES Glucose Lvl 121 70 - 99 05/12/2018 [facility] HEMATOLOGY Platelet 206 133 - 450 05/12/2018 [facility] HEMATOLOGY MPV 9.0 7.4 - 10.4 05/12/2018 [facility] HEMATOLOGY RDW 14.0 11.5 - 14.5 05/12/2018 [facility] MCHC 33.1 32.0 - 36.0 05/12/2018 [facility] HEMATOLOGY Hgb 13.3 14.0 - 18.0 05/12/2018 [facility] HEMATOLOGY WBC 7.1 3.7 - 10.4 05/12/2018 [facility] HEMATOLOGY RBC 4.37 4.70 - 6.10 05/12/2018 [facility] HEMATOLOGY Hct 40.2 42.0 - 54.0 05/12/2018 [facility] HEMATOLOGY MCV 92.1 80.0 - 94.0 05/12/2018 [facility] MCH 30.5 27.0 - 31.0 05/12/2018 [facility] HEMATOLOGY Monocytes # 0.5 0.0 - 0.8 05/12/2018 [facility] HEMATOLOGY Eosinophils # 0.2 0.0 - 0.5 05/12/2018 [facility] HEMATOLOGY Lymphocytes # 1.7 1.0 - 5.5 05/12/2018 [facility] HEMATOLOGY Segs-Bands # 4.7 1.5 - 8.1 05/12/2018 [facility] HEMATOLOGY Basophils 0.6 0.0 - 1.0 05/12/2018 [facility] HEMATOLOGY Lymphocytes 23.5 20.0 - 40.0 05/12/2018 [facility] HEMATOLOGY Segs 66.2 45.0 - 75.0 05/12/2018 [facility] HEMATOLOGY Eosinophils 2.2 0.0 - 4.0 05/12/2018 [facility] HEMATOLOGY Monocytes 7.5 2.0 - 12.0 05/12/2018 [facility] SPECIAL CHEMISTRY Hgb A1C 7.2 <=5.6 % 05/10/2018 [facility] BLOOD BANK RESULTS ABO/Rh B POS 05/10/2018 [facility] BLOOD BANK RESULTS Antibody Scrn Negative (05/10/18 10:16 AM) 05/10/2018 [facility] HEMATOLOGY Eosinophils 3.1 0.0 - 4.0 05/10/2018 [facility] HEMATOLOGY Basophils # 0.1 0.0 - 0.2 05/10/2018 [facility] HEMATOLOGY Eosinophils # 0.3 0.0 - 0.5 05/10/2018 [facility] HEMATOLOGY PTT 32.1 22.9 - 35.8 05/10/2018 [facility] HEMATOLOGY PT 14.7 12.0 - 14.7 05/10/2018 [facility] HEMATOLOGY INR 1.15 0.85 - 1.17 05/10/2018 [facility] URINE AND STOOL UA Color Ltyellow 05/10/2018 [facility] URINE AND STOOL UA Urobilinogen <=1.0 mg/dL 0.1 - 1.0 05/10/2018 [facility] URINE AND STOOL UA Leuk Est Negative (05/10/18 10:16 AM) Negative 05/10/2018 [facility] URINE AND STOOL UA Nitrite Negative (05/10/18 10:16 AM) Negative 05/10/2018 [facility] URINE AND STOOL UA Glucose Negative mg/dL Negative mg/dL 05/10/2018 [facility] URINE AND STOOL UA Bili Negative *NA* (05/10/18 10:16 AM) Negative 05/10/2018 [facility] URINE AND STOOL UA Ketones Negative mg/dL Negative mg/dL 05/10/2018 [facility] URINE AND STOOL UA Blood Negative (05/10/18 10:16 AM) Negative 05/10/2018 [facility] URINE AND STOOL UA RBC 2 0 - 2 05/10/2018 [facility] URINE AND STOOL UA WBC 1 0 - 5 05/10/2018 [facility] URINE AND STOOL UA Protein Negative mg/dL Negative mg/dL 05/10/2018 [facility] URINE AND STOOL UA Spec Grav 1.008 <=1.030 05/10/2018 [facility] URINE AND STOOL UA Turbidity Clear (05/10/18 10:16 AM) Clear 05/10/2018 [facility] URINE AND STOOL UA Sq Epi None Seen 05/10/2018 [facility] URINE AND STOOL UA pH 5.0 5.0 - 8.0 05/10/2018 [facility] BLOOD BANK RESULTS RBC product Product available (05/10/18 8:39 AM) 05/10/2018 [facility] HEMATOLOGY INR 1.01 0.85 - 1.17 02/16/2018 [facility] HEMATOLOGY PT 13.3 12.0 - 14.7 02/16/2018 [facility] HEMATOLOGY PTT 29.7 22.9 - 35.8 02/16/2018 [facility] CHEM PANEL Magnesium Lvl 2.0 1.8 - 2.4 01/29/2018 [facility] CHEM PANEL Phosphorus 2.2 2.5 - 4.5 01/29/2018 [facility] ELECTROLYTES AGAP 10.9 10.0 - 20.0 01/29/2018 [facility] ELECTROLYTES eGFR 76 01/29/2018 Result Comment: The [...] should be multiplied by the estimated BMI. [facility] ELECTROLYTES Glucose Lvl 142 70 - 99 01/29/2018 [facility] ELECTROLYTES Sodium Lvl 141 135 - 145 01/29/2018 [facility] ELECTROLYTES Chloride Lvl 106 95 - 109 01/29/2018 [facility] ELECTROLYTES CO2 28 24 - 32 01/29/2018 [facility] ELECTROLYTES Potassium Lvl 3.9 3.5 - 5.1 01/29/2018 [facility] ELECTROLYTES Creatinine Lvl 0.9 7 0.50 - 1.40 01/29/2018 [facility] ELECTROLYTES BUN 15 7 - 22 01/29/2018 [facility] ELECTROLYTES Calcium Lvl 8.3 8.5 - 10.5 01/29/2018 [facility] HEMATOLOGY MCV 92.4 80.0 - 94.0 01/29/2018 [facility] HEMATOLOGY MCH 31.1 27.0 - 31.0 01/29/2018 [facility] HEMATOLOGY WBC 9.4 3.7 - 10.4 01/29/2018 [facility] HEMATOLOGY Platelet 221 133 - 450 01/29/2018 [facility] HEMATOLOGY MPV 8.7 7.4 - 10.4 01/29/2018 [facility] HEMATOLOGY MCHC 33.6 32.0 - 36.0 01/29/2018 [facility] HEMATOLOGY RDW 14.3 11.5 - 14.5 01/29/2018 [facility] HEMATOLOGY Hct 37.2 42.0 - 54.0 01/29/2018 [facility] HEMATOLOGY RBC 4.02 4.70 - 6.10 01/29/2018 [facility] HEMATOLOGY Hgb 12.5 14.0 - 18.0 01/29/2018 [facility] HEMATOLOGY Monocytes # 1.0 0.0 - 0.8 01/29/2018 [facility] HEMATOLOGY Eosinophils # 0.4 0.0 - 0.5 01/29/2018 [facility] HEMATOLOGY Basophils # 0.1 0.0 - 0.2 01/29/2018 [facility] HEMATOLOGY Lymphocytes # 1.6 1.0 - 5.5 01/29/2018 [facility] HEMATOLOGY Basophils 0.9 0.0 - 1.0 01/29/2018 [facility] HEMATOLOGY Segs-Bands # 6.4 1.5 - 8.1 01/29/2018 [facility] HEMATOLOGY Eosinophils 3.8 0.0 - 4.0 01/29/2018 [facility] HEMATOLOGY Segs 68.0 45.0 - 75.0 01/29/2018 [facility] HEMATOLOGY Lymphocytes 16.9 20.0 - 40.0 01/29/2018 [facility] HEMATOLOGY Monocytes 10.4 2.0 - 12.0 01/29/2018 [facility] HEMATOLOGY PTT 43.9 22.9 - 35.8 01/29/2018 [facility] HEMATOLOGY PT 19.9 12.0 - 14.7 01/29/2018 [facility] HEMATOLOGY INR 1.68 0.85 - 1.17 01/29/2018 [facility] PARATHYROID PROFILE Ca Ion WB 1.11 1.05 - 1.25 01/29/2018 [facility] PARATHYROID PROFILE Ca Norm WB 1.11 1.05 - 1.25 01/29/2018 [facility] CHEM PANEL Magnesium Lvl 2.1 1.8 - 2.4 01/28/2018 [facility] CHEM PANEL Phosphorus 2.0 2.5 - 4.5 01/28/2018 [facility] CHEM PANEL eGFR 85 01/28/2018 Result Comment: [...] should be multiplied by the estimated BMI. [facility] CHEM PANEL Sodium Lvl 143 135 - 145 01/28/2018 [facility] CHEM PANEL Chloride Lvl 106 95 - 109 01/28/2018 [facility] CHEM PANEL Potassium Lvl 3.7 3.5 - 5.1 01/28/2018 [facility] CHEM PANEL Creatinine Lvl 0.85 0.50 - 1.40 01/28/2018 [facility] CHEM PANEL BUN 13 7 - 22 01/28/2018 [facility] CHEM PANEL CO2 31 24 - 32 01/28/2018 [facility] CHEM PANEL Glucose Lvl 135 70 - 99 01/28/2018 [facility] CHEM PANEL Calcium Lvl 8.4 8.5 - 10.5 01/28/2018 [facility] CHEM PANEL AGAP 9.7 10.0 - 20.0 01/28/2018 [facility] HEMATOLOGY Lymphocytes 14.4 20.0 - 40.0 01/28/2018 [facility] HEMATOLOGY Segs 73.3 45.0 - 75.0 01/28/2018 [facility] HEMATOLOGY Lymphocytes # 1.5 1.0 - 5.5 01/28/2018 [facility] HEMATOLOGY Segs-Bands # 7.5 1.5 - 8.1 01/28/2018 [facility] HEMATOLOGY Basophils 0.4 0.0 - 1.0 01/28/2018 [facility] HEMATOLOGY Eosinophils 3.0 0.0 - 4.0 01/28/2018 [facility] HEMATOLOGY Monocytes 8.9 2.0 - 12.0 01/28/2018 [facility] HEMATOLOGY Monocytes # 0.9 0.0 - 0.8 01/28/2018 [facility] HEMATOLOGY Eosinophils # 0.3 0.0 - 0.5 01/28/2018 [facility] HEMATOLOGY PT 18.3 12.0 - 14.7 01/28/2018 [facility] HEMATOLOGY PTT 44.2 22.9 - 35.8 01/28/2018 [facility] HEMATOLOGY INR 1.51 0.85 - 1.17 01/28/2018 [facility] HEMATOLOGY MCHC 33.7 32.0 - 36.0 01/28/2018 [facility] HEMATOLOGY RDW 14.1 11.5 - 14.5 01/28/2018 [facility] HEMATOLOGY Hgb 12.4 14.0 - 18.0 01/28/2018 [facility] HEMATOLOGY Hct 36.8 42.0 - 54.0 01/28/2018 [facility] HEMATOLOGY RBC 3.97 4.70 - 6.10 01/28/2018 [facility] HEMATOLOGY MCV 92.7 80.0 - 94.0 01/28/2018 [facility] HEMATOLOGY WBC 10.3 3.7 - 10.4 01/28/2018 [facility] HEMATOLOGY MPV 8.6 7.4 - 10.4 01/28/2018 [facility] HEMATOLOGY MCH 31.3 27.0 - 31.0 01/28/2018 [facility] HEMATOLOGY Platelet 218 133 - 450 01/28/2018 [facility] PARATHYROID PROFILE Ca Ion WB 1.09 1.05 - 1.25 01/28/2018 [facility] PARATHYROID PROFILE Ca Norm WB 1.06 1.05 - 1.25 01/28/2018 [facility] URINE AND STOOL UA Protein 70 mg/dL Negative mg/dL 01/28/2018 [facility] URINE AND STOOL UA Bacteria Many /HPF None Seen /HPF 01/28/2018 [facility] URINE AND STOOL UA Glucose Negative mg/dL Negative mg/dL 01/28/2018 [facility] URINE AND STOOL UA Mucus Few /LPF None Seen /LPF 01/28/2018 [facility] URINE AND STOOL UA RBC >182 0 - 2 01/28/2018 [facility] URINE AND STOOL UA WBC 36 0 - 5 01/28/2018 [facility] URINE AND STOOL UA Sq Epi None Seen 01/28/2018 [facility] URINE AND STOOL UA Blood Large *ABN* (01/27/18 7:06 PM) Negative 01/28/2018 [facility] URINE AND STOOL UA Bili Negative *NA* (01/27/18 7:06 PM) Negative 01/28/2018 [facility] URINE AND STOOL UA Ketones Negative mg/dL Negative mg/dL 01/28/2018 [facility] URINE AND STOOL UA Urobilinogen <=1.0 mg/dL 0.1 - 1.0 01/28/2018 [facility] URINE AND STOOL UA Leuk Est Small *ABN* (01/27/18 7:06 PM) Negative 01/28/2018 [facility] URINE AND STOOL UA Nitrite Negative (01/27/18 7:06 PM) Negative 01/28/2018 [facility] URINE AND STOOL UA Color Yellow *NA* (01/27/18 7:06 PM) Yellow 01/28/2018 [facility] URINE AND STOOL UA Spec Grav 1.017 <=1.030 01/28/2018 [facility] URINE AND STOOL UA pH 5.0 5.0 - 8.0 01/28/2018 [facility] URINE AND STOOL UA Turbidity Slight *ABN* (01/27/18 7:06 PM) Clear 01/28/2018 [facility] HEMATOLOGY PTT 40.7 22.9 - 35.8 01/27/2018 [facility] HEMATOLOGY PT 17.8 12.0 - 14.7 01/27/2018 [facility] HEMATOLOGY INR 1.46 0.85 - 1.17 01/27/2018 [facility] CHEM PANEL Phosphorus 2.8 2.5 - 4.5 01/27/2018 [facility] CHEM PANEL Magnesium Lvl 2.3 1.8 - 2.4 01/27/2018 [facility] CHEM PANEL eGFR 89 01/27/2018 Result Comment: [...] should be multiplied by the estimated BMI. [facility] CHEM PANEL Calcium Lvl 8.6 8.5 - 10.5 01/27/2018 [facility] CHEM PANEL Glucose Lvl 139 70 - 99 01/27/2018 [facility] CHEM PANEL BUN 11 7 - 22 01/27/2018 [facility] CHEM PANEL Creatinine Lvl 0.76 0.50 - 1.40 01/27/2018 [facility] CHEM PANEL Sodium Lvl 142 135 - 145 01/27/2018 [facility] CHEM PANEL Potassium Lvl 3.9 3.5 - 5.1 01/27/2018 [facility] CHEM PANEL Chloride Lvl 107 95 - 109 01/27/2018 [facility] CHEM PANEL CO2 30 24 - 32 01/27/2018 [facility] CHEM PANEL AGAP 8.9 10.0 - 20.0 01/27/2018 [facility] HEMATOLOGY Basophils # 0.1 0.0 - 0.2 01/27/2018 [facility] HEMATOLOGY Eosinophils # 0.1 0.0 - 0.5 01/27/2018 [facility] HEMATOLOGY Monocytes # 1.1 0.0 - 0.8 01/27/2018 [facility] HEMATOLOGY Lymphocytes # 0.9 1.0 - 5.5 01/27/2018 [facility] HEMATOLOGY Segs 81.7 45.0 - 75.0 01/27/2018 [facility] HEMATOLOGY Segs-Bands # 9.7 1.5 - 8.1 01/27/2018 [facility] HEMATOLOGY Basophils 0.8 0.0 - 1.0 01/27/2018 [facility] HEMATOLOGY Eosinophils 0.6 0.0 - 4.0 01/27/2018 [facility] HEMATOLOGY Monocytes 9.6 2.0 - 12.0 01/27/2018 [facility] HEMATOLOGY Lymphocytes 7.3 20.0 - 40.0 01/27/2018 [facility] HEMATOLOGY MPV 8.5 7.4 - 10.4 01/27/2018 [facility] HEMATOLOGY Platelet 221 133 - 450 01/27/2018 [facility] HEMATOLOGY Hgb 12.8 14.0 - 18.0 01/27/2018 [facility] HEMATOLOGY RDW 14.3 11.5 - 14.5 01/27/2018 [facility] HEMATOLOGY WBC 11.8 3.7 - 10.4 01/27/2018 [facility] HEMATOLOGY RBC 4.13 4.70 - 6.10 01/27/2018 [facility] HEMATOLOGY MCH 31.0 27.0 - 31.0 01/27/2018 [facility] HEMATOLOGY MCHC 33.6 32.0 - 36.0 01/27/2018 [facility] HEMATOLOGY Hct 38.1 42.0 - 54.0 01/27/2018 [facility] HEMATOLOGY MCV 92.3 80.0 - 94.0 01/27/2018 [facility] HEMATOLOGY Basophils # 0.1 0.0 - 0.2 01/27/2018 [facility] HEMATOLOGY POC Activated Clotting Ti me 177 01/26/2018 [facility] HEMATOLOGY POC Activated Clotting Ti me 355 01/26/2018 [facility] HEMATOLOGY POC Activated Clotting Ti me 366 01/26/2018 [facility] BLOOD BANK RESULTS ABO/Rh B POS 01/26/2018 [facility] BLOOD BANK RESULTS Antibody Scrn Negative (01/26/18 6:02 AM) 01/26/2018 [facility] CHEM PANEL eGFR 59 01/21/2018 Result Comment: [...] should be multiplied by the estimated BMI. [facility] CHEM PANEL POC Creatinine 1.2 0.5 - 1.4 01/21/2018 [facility] Pathology Reports No Data Provided for This Section Diagnostic Reports Report Value Date Source Chest 2 views DX Patient Name: JACK MITCHELL : 1940 Age: 77 years, Male MR: [id number] Study: Chest 2 views DX 05/28/2018 9:25 [...] abnormality. Right upper lobe pulmonary nodule. SL: [id number] 05/28/2018 [facility] 1[facility] DX Chest 1view [...] right upper lung surgery. Gr anuloma. SL: [id number] 05/14/2018 [facility] 1view DX Chest 1view DX CLINICAL [...] chest with no acute abnormality noted. SL: [id number] 05/14/2018 [facility] 1view DX EXAM: XR CHEST SINGLE [...] aeration in the right upper lung. SL: [id number] 05/13/2018 [facility] 1 v for Placement DX Cli [...] pneumonitis. 2. Left basilar/retrocardiac atelectasis . 05/12/2018 [facility] Chest 2 views DX Clinical Lara cation: Coughing - preop exam Comparison: 02/16/2018 FINDINGS: The PA and lateral chest radiographs shows normal lung volumes without interstitial or airspace opacities, pleural effusions or pneumothorax. The heart size and pulmonary vasculature are normal. The trachea is midline. There are no clinically significant osseous abnormalities noted. IMPRESSION: No chest radiographic evidence of acute cardiopulmonary disease. SL: [id number] 05/10/2018 [facility] Chest 1view DX EXAM: XR CHEST 1 [...] limits. 5. No acute osseous abnormalities. 02/16/2018 [facility] Chest 1view DX EXAM: XR CHEST 1 [...] not clearly identified on this radiograph. 02/16/2018 [facility] Chest needle biopsy w guidance CT EXAM: VIR lung biopsy with CT guidance DATE: 02/16/2018 12:32 PM CDT PROCEDURE(S) PERFORMED: CT guided percutaneous core biopsies of right upper lobe lung nodule INDICATION: 77 years -old male with spiculated right upper lobe lung nodule. PRE-PROCEDURE DIAGNOSIS: Lung nodule POST-PROCEDURE DIAGNOSIS: Same FACULTY: Sharlene Todd MD RESIDENT/FELLOW/SUPERVISOR [employer]: None SUPERVISION: Not applicable ANESTHESIA/SEDATION: Moderate sedation [...] CT suite and placed in supine position. Digital Marketing Project Manager images were obtained to localize the lesion. [...] Todd was present for the procedure. 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 Fatty infiltration of the liver. 01/21/2018 [facility] Spine lumbar wo contrast MRI L UMBAR [...] Comments Source Systolic (mm Hg) 112 03/10/2019 [facility] Diastolic (mm Hg) 85 03/10/2019 [facility] Respitory Rate 15 03/10/2019 [facility] Respitory Rate 27 03/10/2019 [facility] Systolic (mm Hg) 128 03/10/2019 [facility] Diastolic (mm Hg) 83 03/10/2019 [facility] Temperature Oral (F) 98.1 F 03/10/2019 [facility] BMI Calculated 39.52 03/10/2019 [facility] Weight 147.273 03/10/2019 [facility] Height 193.04 cm 03/10/2019 [facility] Systolic (mm Hg) 113 03/10/2019 [facility] Diastolic (mm Hg) 62 03/10/2019 [facility] Respitory Rate 24 03/10/2019 [facility] Temperature Oral (F) 98.0 F 03/10/2019 [facility] BMI Calculated 39.62 03/09/2019 [facility] Weight 147.636 03/09/2019 [facility] Height 193.04 cm 03/09/2019 [facility] Respitory Rate 22 05/14/2018 [facility] Systolic (mm Hg) 142 05/14/2018 [facility] Diastolic (mm Hg) 72 05/14/2018 [facility] Respitory Rate 23 05/14/2018 [facility] Systolic (mm Hg) 133 05/14/2018 [facility] Diastolic (mm Hg) 65 05/14/2018 [facility] Systolic (mm Hg) 122 05/14/2018 [facility] Diastolic (mm Hg) 65 05/14/2018 [facility] Respitory Rate 23 05/14/2018 [facility] Temperature Oral (F) 98.2 F 05/14/2018 [facility] Temperature Oral (F) 98 F 05/14/2018 [facility] Temperature Oral (F) 98.1 F 05/14/2018 [facility] Weight 159.1 05/13/2018 [facility] Heart Rate 57 05/12/2018 [facility] Heart Rate 61 05/10/2018 [facility] BMI Calculated 39.42 05/10/2018 [facility] Weight 146.909 05/10/2018 [facility] Height 193.04 cm 05/10/2018 [facility] Respitory Rate 0 02/16/2018 [facility] Systolic (mm Hg) 127 02/16/2018 [facility] Diastolic (mm Hg) 72 02/16/2018 [facility] Respitory Rate 0 02/16/2018 [facility] Systolic (mm Hg) 140 02/16/2018 [facility] Diastolic (mm Hg) 77 02/16/2018 [facility] Respitory Rate 10 02/16/2018 [facility] Systolic (mm Hg) 149 02/16/2018 [facility] Diastolic (mm Hg) 66 02/16/2018 [facility] Weight 143.636 02/16/2018 [facility] BMI Calculated 38.55 02/16/2018 [facility] Height 193.04 cm 02/16/2018 [facility] Systolic (mm Hg) 117 01/29/2018 [facility] Diastolic (mm Hg) 56 01/29/2018 [facility] Systolic (mm Hg) 123 01/29/2018 [facility] Diastolic (mm Hg) 58 01/29/2018 [facility] Systolic (mm Hg) 121 01/29/2018 [facility] Diastolic (mm Hg) 65 01/29/2018 [facility] Temperature Oral (F) 97.2 F 01/29/2018 [facility] Temperature Oral (F) 97.6 F 01/29/2018 [facility] Temperature Oral (F) 97.1 F 01/29/2018 [facility] Respitory Rate 18 01/28/2018 [facility] Respitory Rate 18 01/28/2018 [facility] Respitory Rate 18 01/28/2018 [facility] BMI Calculated 38.55 01/26/2018 [facility] Weight 143.636 01/26/2018 [facility] Height 193.04 cm 01/26/2018 [facility] Weight 140 01/21/2018 [facility] BMI Calculated 37.57 01/21/2018 [facility] Height 193.04 cm 01/21/2018 [facility] Weight 140 01/21/2018 [facility] BMI Calculated 37.57 01/21/2018 [facility] Height 193.04 cm 01/21/2018 [facility] Encounters Location Location Details Encounter Type Encounter Number Reason For Visit Attending Provider ADM Date DC Date Status Source [facility] [place] [facility] Diag Services [id number] Jorge Christensen 08/22/2016 08/23/2016 CLAUDY [facility] Outpatient [id number] Anju Lamb 01/21/2018 01/22/2018 [facility] Inpatient [id number] Anju Lamb 01/27/2018 01/29/2018 [facility] Bedded Outpatient [id number] Kiran Berrios 8 02/16/2018 [facility] Inpatient [id number] 05/12/2018 05/14/2018 [facility] Outpatient [id number] Carlin Marcus 05/28/2018 05/29/2018 [facility] Observation [id number] Elijah Mariee 03/10/2019 03/10/2019 [facility] Procedures Procedure Code Date Perfomer Comments Source Biopsy, lung or mediastinum, percutaneous needle [id number] 02/16/2018 [facility] Angiography<sup>1</sup> [id number] 06 stents in legs [facility] Cardiac ablation using fluoroscopy guidance [id number] [facility] Assessment and Plan Assessment and Plan Date Source Extracted from:Title: Clinical Document Author: Augustina Delarosa ELECTRON BEAM PHOTO MASK MAKER Date: 05/14/18 Discharge Summary Name: Record Number: [...] oncologist. Extracted from:Title: Clinical Document Author: Augustina Dealrosa ELECTRON BEAM PHOTO MASK MAKER Date: 05/14/18 Progress Note - Daily [facility] Completed: Apr, 10:45 by Augustina Delarosa NP [...] Tot 0 0 0 05/13 24hr Tot [id number] [phone] [id number] Medications (28) Active Scheduled Meds (11): 05/12/18 aspirin (aspirin 81 mg tablet, enteric coated) 81 mg PO Daily 05/12/18 atorvastatin 40 mg PO Bedtime 05/13/18 clopidogrel 75 mg PO Daily 05/13/18 enoxaparin (Lovenox) 40 mg SUB- Q [id number] 05/12/18 furosemide 80 mg PO BID 05/13/18 [...] -Will discharge to home and follow up [facility] Dr. Marcus and his oncologist two weeks after discharge. DIAGNOSES and PROBLEMS Right lung cancer s/p right thoracoscopy with wedge resection of the right upper lobe. Ready for Discharge (Yes/No)? Yes Extracted from:Title: Clinical Document Author: Carlin Marcus MD Date: 05/12/18 OPERATIVE REPORT Date: May 12, 2018 Surgeon: Carlin Marcus MD Cafe Cook: Gurvinder Jain Preoperative diagnosis: Right lung cancer [...] confirm adenocarcinoma with clean margins. A 32 [place] chest tube was then inserted from the middle incision and positioned posteriorly and superiorly. Was used to infiltrate all the incised areas. The incision was then closed with 2-0 Vicryl subcutaneous tissue skin wa s approximated with a running septically 4-0 Monocryl. Patient tolerated procedure well. Please send a copy of this to the chart my office Dr. Valentino and Dr Lewis 05/14/2018 [facility] Extracted from:Title: EP Discharge Summa ry * [...] written and given to patient. Diagnosis Afib ([id number] I48.91, Working, Medical). Course Well controlled. Education [...] [place] [phone] [place], wherein received, to call pt per [...] with Dr. Jha Addendum by Whit Rocha ELECTRON BEAM PHOTO MASK MAKER on 02/05/2018 11:06 Hypophosphatemia- monitor level, out [...] Procedures: (no date) EPS PVI ABLATION CARTO [id number] (primary surgeon unspecified) General: Active, alert, obese male in no acute distress Head: Normocephalic, atraumatic Eyes: sclera is clear Hearing: normal to spoken voice Speech: Adequate vocabulary, no impediments Nose: [place] nasal turbinates, septum midline, no drainage or [...] IF YOU HAVE ANY QUESTIONS, PLEASE CONTACT [phone]. Addendum by Jaswinder Lynch MD on 01/27/2018 [...] primary team call our scheduling desk. 01/29/2018 [facility] Plan of Care No Data Provided for [...] cigarettes per day; entered on: 03/10/19 03/10/2019 [facility] Social History TypeResponse Alcohol Current, Type Beer, Liquor. Frequency: Daily. Smoking Status Current every day smoker; Ready to change: No; Concerns about tobacco use in household: No; Exposure to Tobacco Smoke None; Cigarette Smoking Last 365 Days No; Reg Smoking Cessation Counseling No entered on: 05/12/18 05/10/2018 [facility] No data available for this section 08/23/2016 CLAUDY Ha Family History No Data Provided for This Section Advance Directives No Data Provided for This Section Functional Status No Data Provided for This Section
--- OUTSIDE RECORDS SUMMARY | 2020-10-10 16:44 | XMS REPORT | Continuity of Care Document ---
Author Author [facility] t Organization [facility] Address 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 Attphys Unavailable Anmol Marcus Attphys ANJU NASCIMENTO M.D. Attphys Unavailable Nicholas Berrios Attphys RADIOLOGY, MD PROVIDER Attphys Unavailable Anju Nascimento Attphys Leonarda Christensen Attphys KEATON BRAY Admphys Unavailable Anju Nascimento Admphys Payers Payer Name Policy Type Policy Number Effective Date Expiration Date Savita silva [facility] [id number] 2019 00:00:00 [facility] Problems Condition Name Condition Details Condition Category Status Onset Date Resolution Date Last Treatment Date Treating Clinician Comments Source JIHAN /C CARDIOVERSION JIHAN /C CARDIOVERSION Active 03/09/2019 [facility] Active 2019-03-09 00:00:00 2019-03-11 11:59:00 Elissa Omer XRAY/LAB XRAY /LAB Active 05/28/2018 [facility] Active 2018-05-28 09:18:00 2018-05-28 09:26:00 Elissa Omer UNK UNK Active 04/20/2018 [facility] Active 2018-04-20 00:00:00 2018-05-10 08:56:00 M jenniffer Omer R91.1 R91. 1 Active 04/20/2018 [facility] Active 2018-04-20 00:00:00 2018-05-13 10:56:00 Elissa Omer BEDDED OP/ CT CHEST BX (RT LUNG BX) NO BEDDED OP/ CT CHEST BX (RT LUNG BX) NO Active 02/10/2018 [facility] Diagnosis Active 2018-02-10 00:00:00 2018-02-17 08:14:00 Elissa Omer PERSISTENT ATRIAL FIBRILLATION; SOB PERSISTENT ATRIAL FIBRILLATION; SOB Active 12/24/2017 [facility] Diagnosis Active 2017-12-24 00:00:00 2018-01-21 10:15:00 Elissa Omer CCL EP STUDY PVI ABLATION W. CARTO/ GENE CCL EP STUDY PVI ABLATION W. CARTO/ GENE Active 12/24/2017 [facility] Diagnosis Active 2017-12-24 00:00:00 2018-02-02 18:12:00 Elissa Omer M48.06 - "SPINAL STENOSIS, LUMBAR REGION M48.06 - "SPINAL STENOSIS, LUMBAR REGION Active [facility]23[facility] Diagnosis Active 2016-07-23 00:01:00 2016-09-22 16:53:00 Elissa Omer Nodule of right lung Nodule of right lung Problem HL7.CCDAR2 Active [facility] Primary cancer of right upper lobe of lung Primary can cer of right upper lobe of lung Problem HL7.CCDAR2 Active [facility] Problem Condition Active [facility] Shortness of breath Shor tness of breath 04/29/2018 [facility] Problem 2018-04-29 11:58:49 [facility] Centrilobular emphysema Cent rilobular emphysema 05/07/2018 [facility] Problem 2018-05-07 11:22:31 [facility] Fatty (change of) liver, not elsewhere classified Fatty (change of) liver, not elsewhere classified 04/29/2018 [facility] Problem 2018-04-29 11:58:49 [facility] Thoracic aortic ectasia Thor acic aortic ectasia 04/29/2018 [facility] Problem 2018-04-29 11:58:49 [facility] Solitary pulmonary nodule Lenora tary pulmonary nodule 05/17/2018 [facility] Problem 2018-05-17 00:38:06 Elissa Omer Type 2 diabetes mellitus with diabetic peripheral carmen 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 Type 2 diabetes mellitus with diabetic peripheral angi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 05/07/2018 [facility] Problem 2018-05-07 11:22:31 Elissa Omer Hypertensive heart disease with heart failure Hypertensive heart disease with heart failure 05/07/2018 [facility] Problem 2018-05-07 11:22:31 Naveed Omer Chronic systolic (congestive) heart failure Chronic systolic (congestive) heart failure 05/07/2018 [facility] Problem 2018-05-07 11:22:31 Burton Omer Morbid (severe) obesity due to excess calories Morbid (severe) obesity due to excess calories 05/07/2018 [facility] Problem 2018-05-07 11:22:31 Elissa Omer Nicotine dependence, cigarettes, uncomplicated Nicotine dependence, cigarettes, uncomplicated 05/07/2018 [facility] Problem 2018-05-07 11:22:31 Elissa Omer Body mass index (BMI) 38.0-38.9, adult Body mass index (BMI) 38.0-38.9, adult 05/07/2018 [facility] Problem 2018-05-07 11:22:31 Elissa Omer Supraventricular tachycardia S upraventricular tachycardia 05/07/2018 [facility] Problem 2018-05-07 11:22:31 Elissa Omer Obstructive sleep apnea (adult) (pediatric) Obstructive sleep apnea (adult) (pediatric) 05/07/2018 [facility] Problem 2018-05-07 11:22:31 Elissa emanuel Abnormal coagulation profile A bnormal coagulation profile 05/07/2018 [facility] Problem 2018-05-07 11:22:31 Elissa Omer 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 hypoglycemic drugs 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 hypoglycemic drugs 05/07/2018 [facility] Problem 2018-05-07 11:22:31 Naveed Omer Adverse effect of anticoagulants, initial encounter Adverse effect of anticoagulants, initial encounter 05/07/2018 [facility] Problem 2018-05-07 11:22:31 Naveed Omer Hypothyroidism, unspecified Hy pothyroidism, unspecified 05/07/2018 [facility] Problem 2018-05-07 11 :22:31 Elissa Omer Other chronic pain Othe r chronic pain 05/07/2018 [facility] Problem 2018-05-07 11:22:31 Elissa Omer Anemia, unspecified Anem ia, unspecified 05/07/2018 [facility] Problem 2018-05-07 11:22:31 Elissa Omer Atrial premature depolarization Atrial premature depolarization 05/07/2018 [facility] Problem 2018-05-07 11:22:31 Elissa Kan Dysuria Dysu sara 05/07/2018 [facility] Problem 2018-05-07 11:22:31 Elissa Omer termination clerk (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 FPC (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 05/25/2018 [facility] Problem 2018-05-25 13:31:47 Elissa Omer Other mcfp (current) drug therapy 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 05/25/2018 [facility] Problem 2018-05-25 13:31:47 Elissa Omer Imaging result abnormal (finding) Imaging result abnormal (finding) Resolved Problem 03/12/2019 lower legs with stents [facility] Problem Resolved 2019-03-12 23:58: 44 Elissa Omer Peripheral vascular disease (disorder) Peripheral vascular disease (disorder) Resolved Problem 03/12/2019 [facility] Problem Resolved 2019-03-12 23:58:44 Gerson Omer Atrial fibrillation (disorder) Atrial fibrillation (disorder) Active Problem 03/12/2019 [facility] Problem Active 2019-03-12 23:58:44 Burton Omer History of - raised blood lipids (context-dependent ca tegory) History of - raised blood lipids (context-dependent category) Active Problem 03/12/2019 [facility] Problem Active 2019-03-12 23:58:44 Elissa Omer Prediabetes (finding) Pred iabetes (finding) Active Problem 03/12/2019 [facility] Problem Active 2019-03-12 23:58:44 Elissa Omer SOLITARY PULMONARY NODULE LENORA TARY PULMONARY NODULE Active [facility] Diagnosis Active 2018-05-13 10:56:00 Elissa Omer Malignant neoplasm of upper lobe, right bronchus or henry ng Malignant neoplasm of upper lobe, right bronchus or lung 02/27/2018 05/25/2018 [facility] Problem 2018-02-27 03:19:14 2018-04 13:31:47 2018-05-25 13:31:47 Elissa Omer Persistent atrial fibrillation Persistent atrial fibrillation 02/03/2018 05/07/2018 [facility] Problem 2018-02-03 04:13:44 2018-05-07 11:22:31 2018-05-07 11:22:31 Gerson Omer Allergies, Adverse Reactions, Alerts This patient has no known allergies or adverse reactions. Social History Social Habit Start Date Stop Date Quantity Comments Source Social History 2016-08-23 04:59:00 2016-08-23 04:59:00 Elissa Omer Sex Ass[birth year] At 1940 00:[birth year]00 1940 00:00:[address] [facility] Smoking Status Start Date Stop Date Source Current every day smoker [facility] Medications Ordered Medication Name Filled Medication [...] s with feeding tube less than 14 Uzbek (Dobhoff, J-tube etc) and pediatric and patients. [...] Route: INHALATION, Drug form: CAP, RDaily, Dosing Weight 147.636, kg, Start date: 03/11/19 8:00:00 CDT, Duration: 30 day, Stop date: 04/09/19 8:00:00 CDT Elissa Omer Thyroxine 2019-03-11 11:30:00 No Notes: Take 1 hour before or 2 hours after meal; Enteral feeds may interefere with the absorption of this medication. (Same as:Levothroid) [place] dexter Omer atorvastatin 2019-03-11 02:00:00 No Notes: (Same as: Lipitor) [facility] Eliquis 2019-03-11 02:00:00 No Notes: Same as: Eliquis [facility] Eliquis 2019-03-10 22:09:00 No Notes: Same as: Eliquis [facility] Ipratropium [place] 0.2 MG/ML Inhalant Solution 2019-03-10 22:04 :00 Yes 0.5 mg = 2.5 mL, NEB, RQID, 0 Refill(s) [facility] apixaban 5 mg oral tablet 2019-03-10 22:04:00 Yes 5 mg = 1 tab, PO, Q12H, 0 Refill(s) [facility] AMIODarone 200 mg oral tablet 2019-03-10 22:04:00 Yes 400 mg = 2 tab, PO, BID-Meals, 0 Refill(s) Elissa Nguyễnann Furosemide 2019-03-10 22:00:00 No Notes: (Same as: Lasix) May cause GI upset. Give with food or milk. Naveed jackelin Omer Amiodarone 2019-03-10 22:00:00 No Notes: (S loyd as: Cordarone) [facility] ipratropium 0.02% inhalation solution 2019-03-10 20:00:00 N o Notes: SEE RT DOCUMENTATION (Same as:Atrovent) [facility] Metformin 2019-03-10 18:40:00 No Notes: (Same as: Glucophage) Take with meal Elissa Havelock metoprolol 100 mg oral tablet, extended release 2019-03-10 16:58 :00 Yes 100 mg = 1 tab, PO, Daily, # 90 tab, 0 Refill(s) Elissa Kan Anoro Ellipta 62.5 mcg-25 mcg inhalation powder [...] Nitrostat) "Do Not Crush" Sublingual tablet Elissa Nguyễnann Potassium Chloride 2018-05-13 14:00:00 No Notes: (Same as: K-Dur 20) "Do Not Crush" For patients unable to swallow tablet, dissolve in one half glass of water. Allow about 2 minutes for the tablets to disintegrate. Stir before giving to prepare slurry and administer. Please exclude Patient s with feeding tube less than 14 Uzbek (Dobhoff, J-tube etc) and pediatric and patients. With food and full glass of water Elissa Omer Anoro Ellipta 62.5 mcg-25 mcg inhalation powder 2018-05-13 14:00 :00 No 1 puff, Route: INHALER, Drug Form: PWDR, Dosing Weight 146.909, kg, Daily, Start date: 05/13/18 9:00:00 CDT, Duration: 30 day, Stop date: 06/11/18 9:00:00 CDT Elissa Nguyễnann Lovenox 2018-05-13 14:00:00 No Notes: (Same as: [...] 30 day, Stop date: 06/11/18 16:00:00 CDT Elissa Omer metoprolol 2018-05-13 02:00:00 No Notes: (S loyd as: Lopressor) [facility] Havelock dofetilide 2018-05-13 02:00:00 No Notes: (Same as: Tikosyn) Providers should enter the orders via the "Dofetilide Initiation Orders MPP" to ensure compliance with the REMS program. [facility] dofetilide 500 mcg oral capsule 2018-05-13 02:00:00 No dofetilide 500 mcg oral capsule, 500 microgram, Drug form: CAP, Route: PO, Q12H, 05/12/18 21:00:00 CDT, Duration: 30 day, Stop date: 06/11/18 9:00:00 CDT [facility] atorvastatin 2018-05-13 02:00:00 No Notes: (Same as: Lipitor) Elissa Omer Ancef + sterile water 10 mL 2018-05-13 01:00:00 No Notes: (Same As: AncefMeche) MEDICATION WASTE Product Size: 1000 mg Product Wasted: ___ mg Elissa Omer Acetaminophen 325 MG / Hydrocodone Bitartrate 5 MG Oral Tabl et [Elgin 5/325] 2018-05-12 22:16:00 No Notes: (Same as: Elgin 325/5) Do not exceed 4gm/day of acetaminophen. [...] ial Kan Albuterol 0.833 MG/ML / Ipratropium [place] 0.167 MG/ML Inha lant Solution 2018-05-12 20:15:00 No Notes: (Same as: Jazmyn avalos) Elissa Kan Aspirin 81 MG Enteric Coated Tablet 2018-05-12 20:00:00 No Notes: Do not crush or chew. (Same As: Ecotrin) Pa deja Omer neostigmine (BERNIES) 2018-05-12 18:42:00 No Route: IV, Drug form: INJ, ONCE, Stop date: 05/12/18 13:42:00 CDT Gerson winjackelin Omer ketOROLAC (ANES) 2018-05-12 18:11:00 No IV, ONCE Elissa Kan ePHEDrine (BERNIES) 2018-05-12 18:06:00 No Route: IV, Drug form: INJ, ONCE, Stop date: 05/12/18 13:06:00 CDT Gerson jenniffer Omer dexamethasone (BERNIES) 2018-05-12 18:01:00 No Route: IV, Drug form: INJ, ONCE, Stop date: 05/12/18 13:01:00 CDT Elissa Kan ceFAZolin (ANES) 2018-05-12 18:01:00 No Route: IV, Drug form: INJ, ONCE, Stop date: 05/12/18 13:01:00 CDT Gerson winomeroden Kan fentaNYL (ANES) 2018-05-12 18:01:00 No Route: IV, Drug form: INJ, ONCE, Stop date: 05/12/18 13:01:00 CDT Gerson jenniffer Omer Albuterol 0.1 MG/ACTUAT / Ipratropium Br omide 0.02 MG/ACTUAT Metered Dose Inhaler 2018-05-12 18:00:00 No Notes: Same as: Combivent Respimat WASTE: Aerosol - Return to Pharmacy Naveedkeisha Omer lidocaine (BERNIES) 2018-05-12 17:56:00 No Route: IV, Drug form: INJ, ONCE, Stop date: 05/12/18 12:56:00 CDT Gerson jenniffer Omer glycopyrrolate (BERNIES) 2018-05-12 17:56:00 No Route: IV, Drug form: INJ, ONCE, Stop date: 05/12/18 12:56:00 CDT [facility] propofol ([facility]) 2018-05-12 17:56:00 No Route: IV, Drug form: INJ, ONCE, Stop date: 05/12/18 12:56:00 CDT [facility] mid[facility]am ([facility]) 2018-05-12 17:56:00 No Route: IV, Drug form: SOLN, ONCE, Stop date: 05/12/18 12:56:00 CDT Gerson Omer Acetaminophen 2018-05-12 17:47:00 No Notes: Do not exceed 4 gm/day. (Same as: Tylenol) Elissa Omer Acetaminophen 325 MG / Hydrocodone Bitartrate 5 MG Oral Tabl et 2018-05-12 17:47:00 No Notes: (Sa me as: Elgin 325/5) Do not exceed 4gm/day of acetaminophen. [...] Notes: (Same as: Dilaudid) Elissa Omer rocuronium ([facility]) 2018-05-12 17:31:00 No Route: IV, Drug form: INJ, ONCE, Stop date: 05/12/18 12:31:00 CDT [facility] Hydralazine 2018-05-12 17:09:00 No Notes: (Same [...] 30 day, Stop date: 06/11/18 12:01:00 CDT [facility] Dextrose 50% Syringe 2018-05-12 17:02:00 No 25 gm, 50 mL, Route: IVP, Drug Form: INJ, Dosing Weight 146.909, kg, PRN, PRN Blood Glucose Results, Start date: 05/12/18 12:02:00 CDT, Duration: 30 day, Stop date: 06/11/18 12:01:00 CDT [facility] Sodium Chloride 0.9% IV (ANES) 1000 mL 2018-05-12 16:30:00 No Route: IV, Total Volume: 1,000, Start date: 05/12/18 11:30:00 CDT, Stop date: 05/12/18 12:30:00 CDT [facility] Calcium Chloride 0.0014 MEQ/ML / Potassi um Chloride 0.004 MEQ/ML / Sodium Chloride 0.103 MEQ/ML / Sodium Lactate 0.028 MEQ/ML Injectable Solution 2018-05-12 16:17:00 No 1,000 mL, Rate: 25 ml/hr, Infuse over: 40 hr, Route: IV, Dosing Weight 146.909 kg, Total Volume: 1,000, Start date: 05/12/18 11:17:00 CDT, Duration: 30 day, Stop date: 06/11/18 11:16:00 CDT, 2.83, m2 [facility] Lactated Ringers Injection IV (ANES) 1000 mL 2018-05-12 16:16:00 No Route: IV, Total Volume: 1,000, Start date: 05/12/18 11:16:00 CDT, Stop date: 05/12/18 12:16:00 CDT [facility] Exparel 2018-05-12 16:00:00 No Notes: (Same as: [...] Daily, # 1 ea, 3 Refill(s) Elissa Nguyễnann Ondansetron 2018-02-16 18:26:00 No Notes: (Same as: Tommie) MEDICATION WASTE Product Size: 4 mg Product Wasted: ___ mg Elissa Omer Acetaminophen 325 MG / Hydrocodone Bitartrate 10 MG Oral Tab let 2018-02-16 18:26:00 No Notes: Do not exceed 4gm/day of acetaminophen. (Same as: Elgin 325/10) Elissa Omer Midazolam 2018-02-16 18:00:00 No 1 mg, Route: IV, ONCE, Dosing Weight 143.636, kg, Start date: 02/16/18 13:00:00 CDT, Stop date: 02/16/18 13:00:00 CDT Elissa Nguyễnann Fentanyl 2018-02-16 18:00:00 No 50 microgram, Route: IV, ONCE, Dosing Weight 143.636, kg, Start date: 02/16/18 13:00:00 CDT, Stop date: 02/16/18 13:00:00 CDT, Elissa Omer Warfarin 2018-01-29 23:00:00 No Notes: Nurse to ensure documentation of patient education per anticoagulation policy. Avoid large intake of vitamin-K containing foods diet. WASTE: F/P - P Waste Black; E - P Waste Black (Same As: Coumadin) Elissa Nguyễnann tiotropium 0.018 MG/ACTUAT Inhalant Powder [Spiriva] 2 [...] Q12H, # 60 cap, 0 Refill(s) Elissa Nguyễnann dofetilide 500 mcg oral capsule 2018-01-29 17:25:00 No 500 microgram = 1 cap, PO, Q12H, # 14 cap, 0 Refill(s) Elissa Kan Lovenox 2018-01-28 23:40:00 No Notes: Nurse to ensure documentation of patient education per anticoagulation policy. (Same as: Lovenox) Elissa Omer Warfarin 2018-01-28 23:00:00 No Notes: Nurse to ensure documentation of patient education per anticoagulation policy. Avoid large intake of vitamin- K containing foods diet. WASTE: F/P - P Waste Black; E - P Waste Black (Same As: Coumadin) Elissa Omer remove patch 2018-01-28 15:00:00 No Notes: Remove old patch before application of new patch. WASTE: F/P - P Waste Black; E - P Waste Black Elissa Havelock Lovenox 2018-01-28 00:25:00 No Notes: Nurse to ensure documentation of patient education per anticoagulation policy. (Same as: Lovenox) [facility] Warfarin 2018-01-28 00:25:00 No Notes: Nurse to ensure documentation of patient education per anticoagulation policy. Avoid large intake of vitamin- K containing foods diet. 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, Duration: 30 day, Stop date: 02/26/18 9:00:00 CDT [facility] clopidogrel 2018-01-27 15:00:00 No Notes: ( Same As: Plavix) [facility] Potassium Chloride 2018-01-27 15:00:00 No Notes: (Same as: K-Dur 20) "Do Not Crush" With food and full glass of water [facility] pantoprazole 2018-01-27 15:00:00 No 40 mg, 1 tab, Route: PO, Drug form: ECTAB, Daily, Dosing Weight 143.636, kg, Start date: 01/27/18 9:00:00 SLAT BASKET MAKER, Duration: 14 day, Stop date: 02/09/18 9:00:00 CDT [facility] Warfarin 2018-01-27 15:00:00 No 7.5 mg, Route: PO, Drug form: TAB, Daily, Dosing Weight 143.636, kg, Start date: 01/27/18 9:00:00 SLAT BASKET MAKER, Duration: 30 day, Stop date: 02/25/18 9:00:00 CDT [facility] Furosemide 2018-01-27 15:00:00 No Notes: (Same as: Lasix) May cause GI upset. Give with food or milk. Naveed Nguyễnann tiotropium 0.018 MG/ACTUAT Inhalant Powder [Spiriva] 01-27 14:00:00 No Notes: (Same As: Spiriva) [facility] Metformin hydrochloride 500 MG Oral Tablet 2018-01-27 14:00:00 No Notes: (Same as: Glucophage) Take with meal [facility] Thyroxine 2018-01-27 12:30:00 No 25 microgram, 1 tab, Route: PO, Drug form: TAB, Q630AM, Dosing Weight 143.636, kg, Start date: 01/27/18 6:30:00 SLAT BASKET MAKER, Duration: 30 day, Stop date: 02/25/18 6:30:00 T [facility] Magnesium Sulfate 2018-01-27 04:25:00 No Notes: WASTE: F/P - Sink; E - Municipal Trash Bin [facility] Insulin Lispro 2018-01-27 04:24:00 No Notes: (Same as: Humalog ) Roll in palms of hands gently; Do not shake `vigorously. "Single Patient Use Only " WASTE: F/P - Black; E - Municipal Trash Bin Stable for 28 days at room temperature. Expires in days from Date [facility] Dextrose 50% Syringe 2018-01-27 04:24:00 No 12.5 gm, 25 mL, Route: IVP, Drug Form: INJ, Dosing Weight 143.636, kg, PRN, PRN Blood Glucose Results, Start date: 01/26/18 22:24:00 SLAT BASKET MAKER, Duration: 30 day, Stop date: 02/25/18 23:23:00 T [facility] Glucagon 2018-01-27 04:24:00 No 1 mg, Route: IM, Drug form: PDR/INJ, PRN, Dosing Weight 143.636, kg, PRN Blood Glucose Results, Start date: 01/26/18 22:24:00 SLAT BASKET MAKER, Duration: 30 day, Stop date: 02/25/18 23:23:00 T [facility] atorvastatin 2018-01-27 03:00:00 No Notes: (Same as: Lipitor) [facility] metoprolol tartrate 2018-01-27 03:00:00 No Notes: (Same as: Lopressor) [facility] Saline Flush 0.9% 2018-01-27 03:00:00 No Notes: Same as: BD Posiflush Sterile [facility] Sucralfate 2018-01-27 03:00:00 No Notes: May interfere w/enteral feeds - Take 1 hr before or 2 hr after antacids, dairy pdt, meals & minerals - On empty stomach. For patients unable to swallow tablet, dissolve in 10mL - 30mL of water or juice and stir before giving. (Same As: Carafate) [facility] dofetilide 2018-01-27 03:00:00 No Notes: (Same as: Tikosyn) Providers should enter the orders via the "Dofetilide Initiation Orders MPP" to ensure compliance with the REMS program. [facility] Saline Flush 0.9% 2018-01-27 00:44:00 No Notes: Same as: BD Posiflush Sterile [facility] protamine ([employer] [facility]) 2018-01-26 18:10:00 No Route: IV, Drug form: INJ, ONCE, Stop date: 01/26/18 12:10:00 SLAT BASKET MAKER Gerson emoriden Omer Ondansetron 2018-01-26 15:48:00 No Notes: (Same as: Zofran) MEDICATION WASTE Product Size: 4 mg Product Wasted: ___ mg [facility] Fentanyl 2018-01-26 15:48:00 No Notes: (Same as: Sublimaze) Preservative free. [facility] Hydralazine 2018-01-26 15:48:00 No Notes: (Same as: Apresoline) Push over 5 minutes [facility] Labetalol 2018-01-26 15:48:00 No 10 mg, 2 mL, Route: IVP, Drug form: INJ, Q5Min, Dosing Weight 143.636, kg, PRN Elevated BP, Start date: 01/26/18 9:48:00 SLAT BASKET MAKER, Duration: 5 doses or times, Stop date: 01/27/18 0:00:00 SLAT BASKET [employer]KER [facility] Flumazenil 2018-01-26 15:48:00 No Notes: (S loyd as: Romazicon) [facility] Naloxone 2018-01-26 15:48:00 No Notes: Same as Narcan [facility] fentaNYL ([employer] [facility]) 2018-01-26 15:12:00 No Route: IV, Drug form: INJ, ONCE, Stop date: 01/26/18 9:12:00 SLAT BASKET MAKER Pa moriden Omer cisatracurium (ANES) 2018-01-26 15:12:00 No Route: IV, Drug form: INJ, ONCE, Stop date: 01/26/18 9:12:00 SLAT BASKET [employer]KER Elissa Omer propofol (ANES) 2018-01-26 15:12:00 No Route: IV, Drug form: INJ, ONCE, Stop date: 01/26/18 9:12:00 SLAT BASKET MAKER Pa deja Kan Sodium Chloride 0.9% IV (ANES) 1000 mL 2018-01-26 14:08:00 No Route: IV, Total Volume: 1,000, Start date: 01/26/18 8:08:00 SLAT BASKET MAKER, Stop date: 01/26/18 9:08:00 SLAT B[employer]ET [employer]KER Elissa Omer warfarin 7.5 mg oral tablet [...] Total Volume: 1,000, Start date: 01/26/18 5:56:00 SLAT BASKET MAKER, Duration: 30 day, Stop date: 02/25/18 5:55:00 CDT, 2.8, m2 [facility] Aspirin 81 MG TABS Aspirin 81 MG TABS Yes [facility] Atorvastatin Calcium 40 MG Oral Tablet Atorvastatin Calcium 40 M G Oral Tablet Yes [facility] Clopidogrel Bisulfate 75 MG Oral Tablet Clopidogrel Bisulfat e 75 MG Oral Tablet Yes [facility] Dofetilide 500 MCG Oral Capsule Dofetilide 500 MCG Oral Capsule Yes [facility] Furosemide 80 MG Oral Tablet Furosemide 80 MG Oral Tablet Yes [facility] MetFORMIN HCl - 500 MG Oral Tablet MetFORMIN HCl - 500 MG Oral Tablet Yes [facility] Metoprolol Tartrate 100 MG Oral Tablet Metoprolol Tartrate 100 M G Oral Tablet Yes [facility] Potassium Chloride 20 MEQ TBCR Potassium Chloride 20 MEQ TBCR Yes [facility] Warfarin Sodium 7.5 MG Oral Tablet Warfarin Sodium 7.5 MG Oral Tablet Yes [facility] Levothyroxine Sodium TABS Levothyroxine Sodium TABS Yes [facility] Anoro Ellipt Anoro Ellipt Yes [address] [facility] Apixaban (Eliquis) 5 Mg TABLET Apixaban (Eliquis) 5 Mg TABLET Yes Daily [facility] Atorvastatin Calcium Atorvastatin Calcium Yes [address] [facility] Furosemide Furosemide Yes 80 Daily [facility] Ipratropium/Albuterol Sulfate (Combivent Respimat Inha l Axtell) 4 Gm AER.W.ADAP Ipratropium/Albuterol Sulfate (Combivent Respimat Inhal Axtell) 4 Gm AER.W.ADAP Yes 4 Four Times Daily as needed for Shortness Of Breath [facility] Levothyroxine Sodium Levothyroxine Sodium Yes [address] [facility] Metformin Hcl Metformin Hcl Yes [address] [facility] Metoprolol Tartrate Metoprolol Tartrate Yes [address] [facility] Potassium Chloride Potassium Chloride Yes [address] [facility] Amiodarone Hcl (Pacerone) 400 Mg TABLET Amiodarone Hcl (Pace arianna) 400 Mg TABLET 2019-11-22 00:00:[address] [facility] Aspirin (Aspirin Ec) 81 Mg TABLET. Aspirin (Aspirin Ec) 81 Mg TABLET. 2019-11-22 00:00:[address] [facility] Clopidogrel Bisulfate (Clopidogrel) 75 Mg TABLET Clopi dogrel Bisulfate (Clopidogrel) 75 Mg TABLET 2019-11-09 00:00:[address] [facility] Warfarin Sodium (Coumadin) 5 Mg TABLET Warfarin Sodium (Coumadin ) 5 Mg TABLET 2019-11-09 00:00:00 No 7.[address] [facility] Vital Signs Vital Name Observation Time Observation Value Comments Source Weight 2020-05-11 12:53:00 330 [lb_av] [facility] BMI (Body Mass Index) 2020-05-11 12:53:00 42.4 kg/m2 [facility] Body Temperature 2019-11-22 11:21:00 97.5 [degF] [facility] Systolic (mm Hg) 2019-03-10 22:54:00 [facility] [place] Diastolic (mm Hg) 2019-03-10 22:54:00 [facility] Respitory Rate 2019-03-10 22:54:00 [facility] Respitory Rate 2019-03-10 21:00:00 [facility] [place] Systolic (mm Hg) 2019-03-10 21:00:00 [facility]ed [facility] [place] Diastolic (mm Hg) 2019-03-10 21:00:00 [facility] Temperature Oral (F) 2019-03-10 21:00:00 98.1 F [facility] BMI Calculated 2019-03-10 19:13:00 [facility] Weight 2019-03-10 19:13:00 [facility] Height 2019-03-10 19:13:00 193.04 cm [facility] Systolic (mm Hg) 2019-03-10 19:12:00 Naveed rial [facility] Diastolic (mm Hg) 2019-03-10 19:12:00 [facility] Respitory Rate 2019-03-10 19:12:00 [facility] Temperature Oral (F) 2019-03-10 13:48:00 98.0 F [facility] BMI Calculated 2019-03-09 20:27:00 [facility] Weight 2019-03-09 20:27:00 [facility] Height 2019-03-09 20:27:00 193.04 cm [facility] BP Systolic 2018-05-31 10:00:00 140 mm[Hg] Location: LUE; Positi on: Sitting [facility] BP Diastolic 2018-05-31 10:00:00 84 mm[Hg] Location: LUE; Positi on: Sitting [facility] Height 2018-05-31 10:00:00 76 [in_us] [facility] Weight 2018-05-31 10:00:00 315 [lb_av] [facility] Body Mass Index Calculated 2018-05-31 10:00:00 38.34 kg/m2 [facility] Heart Rate 2018-05-31 10:00:00 67 /min [facility] Respitory Rate 2018-05-14 17:03:00 [facility] [place] Systolic (mm Hg) 2018-05-14 17:03:00 [facility] [place] Diastolic (mm Hg) 2018-05-14 17:03:00 [facility] Respitory Rate 2018-05-14 16:00:00 [facility] Systolic (mm Hg) 2018-05-14 16:00:00 Naveed rial [facility] Diastolic (mm Hg) 2018-05-14 16:00:00 [facility] [place] Systolic (mm Hg) 2018-05-14 15:00:00 [facility] [place] Diastolic (mm Hg) 2018-05-14 15:00:00 [facility] Respitory Rate 2018-05-14 15:00:00 [facility] Temperature Oral (F) 2018-05-14 12:00:00 98.2 F [facility] Temperature Oral (F) 2018-05-14 05:00:00 98 F [facility] Temperature Oral (F) 2018-05-14 01:00:00 98.1 F [facility] Weight 2018-05-13 11:22:00 [facility] Heart Rate 2018-05-12 13:09:00 [facility] Heart Rate 2018-05-10 15:32:00 [facility] BMI Calculated 2018-05-10 13:38:00 [facility] [place] Weight 2018-05-10 13:38:00 [facility] Height 2018-05-10 13:38:00 193.04 cm [facility] BP Systolic 2018-04-19 13:20:00 143 mm[Hg] [facility] BP Diastolic 2018-04-19 13:20:00 82 mm[Hg] [facility] Height 2018-04-19 13:20:00 76 [in_us] [facility] Weight 2018-04-19 13:20:00 314 [lb_av] [facility] Body Mass Index Calculated 2018-04-19 13:20:00 38.22 kg/m2 [facility] Respitory Rate 2018-02-16 21:30:00 [facility] Systolic (mm Hg) 2018-02-16 21:30:00 [facility]ed [facility] [place] Diastolic (mm Hg) 2018-02-16 21:30:00 [facility] [place] Respitory Rate 2018-02-16 20:30:00 [facility] Systolic (mm Hg) 2018-02-16 20:30:00 Naveed rial [facility] Diastolic (mm Hg) 2018-02-16 20:30:00 [facility] [place] Respitory Rate 2018-02-16 20:00:00 [facility] [place] Systolic (mm Hg) 2018-02-16 20:00:00 Naveed rial [facility] Diastolic (mm Hg) 2018-02-16 20:00:00 [facility] [place] Weight 2018-02-16 14:08:00 [facility] BMI Calculated 2018-02-16 14:08:00 [facility] Height 2018-02-16 14:08:00 193.04 cm [facility] BP Systolic 2018-02-08 09:44:00 119 mm[Hg] [facility] BP Diastolic 2018-02-08 09:44:00 78 mm[Hg] [facility] Height 2018-02-08 09:44:00 76 [in_us] [facility] Weight 2018-02-08 09:44:00 312 [lb_av] [facility] Body Mass Index Calculated 2018-02-08 09:44:00 37.98 kg/m2 [facility] Temperature 2018-02-08 09:44:00 96.9 [degF] Method: Oral [facility] Heart Rate 2018-02-08 09:44:00 72 /min [facility] Respiration Rate 2018-02-08 09:44:00 18 /min [facility] O2 SAT 2018-02-08 09:44:00 96 % Source: RA [facility] Systolic (mm Hg) 2018-01-29 17:00:00 [facility] [place] Diastolic (mm Hg) 2018-01-29 17:00:00 [facility] Systolic (mm Hg) 2018-01-29 15:00:00 [facility] [place] Diastolic (mm Hg) 2018-01-29 15:00:00 [facility] [place] Systolic (mm Hg) 2018-01-29 12:08:00 [facility] [place] Diastolic (mm Hg) 2018-01-29 12:08:00 [facility] [place] Temperature Oral (F) 2018-01-29 10:00:00 97.2 F [facility] Temperature Oral (F) 2018-01-29 06:00:00 97.6 F [facility] Temperature Oral (F) 2018-01-29 01:25:00 97.1 F [facility] Respitory Rate 2018-01-28 23:35:00 [facility] Respitory Rate 2018-01-28 18:23:00 [facility] Respitory Rate 2018-01-28 15:23:00 [facility] BMI Calculated 2018-01-26 11:57:00 [facility] [place] Weight 2018-01-26 11:57:00 [facility] Height 2018-01-26 11:57:00 193.04 cm [facility] Weight 2018-01-21 16:12:00 [facility] BMI Calculated 2018-01-21 16:12:00 [facility] Height 2018-01-21 16:12:00 193.04 cm [facility] Weight 2018-01-21 15:47:00 [facility] BMI Calculated 2018-01-21 15:47:00 [facility] Height 2018-01-21 15:47:00 193.04 cm [facility] Procedures Procedure Date / Time Performed Performing Clinician Sourc e RESPIRATORY VENTILATION, 24-96 CONSECUTIVE HOURS 2019-11-13 00:0 0:00 [facility] INSERTION OF ENDOTRACHEAL AIRWAY INTO TRACHEA, ENDO 2019-11-13 0 0:00:00 [facility] Computed tomography of chest without contrast 2019-11-10 00:00:[address] [facility] [QLH] CBC (INCLUDES DIFF/PLT) 2018-05-14 00:00:00 [facility] [QLH] BASIC METABOLIC PANEL W/EGFR 2018-05-14 00:00:00 [facility] [O] Xray CHEST 2 VIEWS FRONTAL AND LATERAL 2018-05-14 00:00:00 [facility] History of Thoracoscopy 2018-05-12 00:00:00 [facility] Biopsy, lung or mediastinum, percutaneous needle 2018-02-16 18:5 0:[address] [facility] [address] Chest [place] guided [id number] 2018-02-08 00:00:00 [facility] Angiography<sup>1</sup> [facility] Cardiac ablation using fluoroscopy guidance [facility] Plan of Care Planned Activity Planned Date Details Comments Source Diagnostic Test Pending 2018-05-28 00:00:00 [QLH] CBC (INCLU DANIEL DIFF/PLT) [code = [QLH] CBC (INCLUDES DIFF/PLT)] [facility] Diagnostic Test Pending 2018-05-28 00:00:00 [QLH] BASIC META BOLIC PANEL W/EGFR [code = [QLH] BASIC METABOLIC PANEL W/EGFR] [facility] Diagnostic Test Pending 2018-05-28 00:00:00 [O] Xray CHEST 2 VIEWS FRONTAL AND LATERAL [code = 23088] [facility] Diagnostic Test Pending 2018-05-28 00:00:00 [QLH] CBC (INCLU DANIEL DIFF/PLT) [code = [QLH] CBC (INCLUDES DIFF/PLT)] [facility] Diagnostic Test Pending 2018-05-28 00:00:00 [QLH] BASIC META BOLIC PANEL W/EGFR [code = [QLH] BASIC METABOLIC PANEL W/EGFR] [facility] Diagnostic Test Pending 2018-05-28 00:00:00 [O] Xray CHEST 2 VIEWS FRONTAL AND LATERAL [code = 49551] [facility] Future Scheduled Test CT Chest biopsy needle [place] guided 09668 [code = 96038] After 08Feb2018 [facility] Future Scheduled Test CT Chest [place] guided 66012 [code = 76948] After 08Feb2018 [facility] Instructions Cellulitis [facility] Encounters Start Date/Time End Date/Time En[facility] Ad[facility] ID Source 2020-05-11 12:48:00 2020-05-11 16:20:00 Departed Emergency Room [facility] [id number] [facility] 2019-11-09 16:43:00 2019-11-22 10:50:00 Discharged Inpatient 1 KEATON BRAY [facility] [id number] [facility] 2019-03-10 14:06:00 2019-03-10 18:35:00 Outpatient Elijah Mariee [facility] [id number] 2019-03-10 14:06:00 2019-03-10 14:06:00 Outpatient [facility] CAR [id number] 2018-05-31 10:00:00 2018-05-31 10:00:00 Appointment; ANMOL MARCUS M.D. NAHAS, CESAR, M.D. [facility] Cardiothoracic and Vascular Surgery - Dr Sharron Marcus [id number] [facility] 2018-05-28 09:17:00 2018-05-28 23:59:00 Outpatient Anmol Marcus SE [facility] [id number] 2018-05-12 05:13:00 2018-05-14 12:15:00 Outpatient [facility]SE [facility] [id number] 2018-04-19 13:15:00 2018-04-19 13:15:00 Appointment; ANMOL MARCUS M.D. NAHAS, CESAR, M.D. [facility] Cardiothoracic and Vascular Surgery - Dr Sharron Marcus [id number] [facility] 2018-02-22 09:15:00 2018-02-22 09:15:00 Appointment; ANJU NASCIMENTO M.D. SHARMA, SAUMYA, M.D. [facility] UTP [id number] [facility] 2018-02-16 08:19:00 2018-02-16 18:30:00 Outpatient Kiran Meraz [facility] [id number] 2018-02-08 10:00:00 2018-02-08 10:00:00 Appointment; RADIOLOGY, PROVIDER RADIOLOGY, PROVIDER UTP Interventional Radiology [id number] [facility] 2018-01-26 18:44:00 2018-01-29 17:35:00 Outpatient Magdy Nascimento [facility] [id number] 2018-01-21 09:38:00 2018-01-21 23:59:00 Outpatient Magdy Nascimento [facility] [id number] 2017-12-18 10:00:00 2017-12-18 10:00:00 Appointment; ANJU NASCIMENTO M.D. SHARMA, SAUMYA, M.D. [facility] UTP [id number] [facility] 2016-08-22 06:49:00 2016-08-22 23:59:00 Outpatient Fermin Jorge Brower [facility] [id number] Results Test Description Test Time Test Comments Results Result Comments Source Bedside Glucose 2019-11-22 08:17:00 Test Item Bedside Glucose (test code = 62787-6) 167 70-120 H Meter ID: [id number] [facility] glucose measurement by glucometer (mass/volume)2019-11-22 06:49:00* Test Item Value Reference Range Interpretation Comments Bedside Glucose (test code = 48706-2) 167 70-120 M[facility] ID: [id number] 2019-11-21 11:37:00* Test Item Value Reference Range Interpretation Comments Sodium Level (test code = 2951-2) 137 136-145 [facility] CenterPotassium [id number] 11:37:00* Test Item Value Reference Range Interpretation Comments Potassium Level (test code = 2823-3) 4.0 3.5-5.1 [facility] CenterChloride [id number] 11:37:00* Test Item Value Reference Range Interpretation Comments Chloride Level (test code = 2075-0) 98 98-107 [facility] CenterCarbon Dioxide Dqdbc0315-18-40 11:37:00* Test Item Value Reference Range Interpretation Comments Carbon Dioxide Level (test code = 2028-9) 30 22-[address] [facility] CenterAnion [id number] 11:37:00* Test Item Value Reference Range Interpretation Comments Anion Gap (test code = 31172-7) 13.0 8-16 [facility] CenterBlood Urea Chjszvew2959-21-06 11:37:00* Test Item Value Reference Range Interpretation Comments Blood Urea Nitrogen (test code = 3094-0) 11 7- [facility] CenterCreatinine2019-12-23 11:37:00* Test Item Value Reference Range Interpretation Comments Creatinine (test code = 2160-0) 0.91 0.72-1.25 [facility] CenterBUN/Creatinine Htiqo7344-00-49 11:37:00* Test Item Value Reference Range Interpretation Comments BUN/Creatinine Ratio (test code = 3097-3) 12 05-24 [facility] CenterEstimat Glomerular Filtration Rate 2019-11-21 11:37:00* Test Item Value Reference Range Interpretation Comments Estimat Glomerular Filtration Rate (test code = 115617566) > 60 >60 Ranges were taken from the National Kidney Disease Education Program and the [facility] Kidney Foundation literature.Reference ranges:60 or greater: Qumery29-30 ( for 3 consecutive months): Chronic kidney disease 15 or less: Kidney failureSt. Luke's Health – [facility] St. Luke's Medical CenterGlucose Gypwa1525-71-02 11:37:00* Test Item Value Reference Range Interpretation Comments Glucose Level (test code = TAO7181) 157 74-[address] CenterCalcium Jknwi0767-85-42 11:37:00* Test Item Value Reference Range Interpretation Comments Calcium Level (test code = 03860-3) 9.0 8.4-10.2 [facility] CenterWhite Blood Fgvnw0907-58-08 11:32:00* Test Item Value Reference Range Interpretation Comments White Blood Count (test code = 6690-2) 6.72 4.8-10.8 [facility] CenterRed Blood [id number] 11:32:00* Test Item Value Reference Range Interpretation Comments Red Blood Count (test code = 789-8) 3.97 4.3-5.[address] [facility] CenterHemoglobin2019-12-23 11:32:00* Test Item Value Reference Range Interpretation Comments Hemoglobin (test code = 45575-3) 12.1 14.0-18.[address] CenterHematocrit2019-12-23 11:32:00* Test Item Value Reference Range Interpretation Comments Hematocrit (test code = 4544-3) 38.1 38.2-49.[address] [facility] CenterMean Corpuscular Jlwkbs3746-09-47 11:32:00* Test Item Value Reference Range Interpretation Comments Mean Corpuscular Volume (test code = 787-2) 96.0 81-99 [facility] CenterMean Corpuscular Ucerwaxzli1107-36-46 11:32:00* Test Item Value Reference Range Interpretation Comments Mean Corpuscular Hemoglobin (test code = 785-6) 30.5 28-32 [facility] CenterMean Corpuscular Hemoglobin Concent 2019-11-21 11:32:00* Test Item Value Reference Range Interpretation Comments Mean Corpuscular Hemoglobin Concent (test code = 786-4) 31.8 31-35 [facility] CenterRed Cell Distribution Dmdsp8717-66-13 11:32:00* Test Item Value Reference Range Interpretation Comments Red Cell Distribution Width (test code = 57837-9) 13.4 11.7 -14.4 [facility] CenterPlatelet [id number] 11:32:00* Test Item Value Reference Range Interpretation Comments Platelet Count (test code = 777-3) 268 140-360 [facility] CenterNeutrophils (%) (Auto)2019-11-21 11:32:00 * Test Item Value Reference Range Interpretation Comments Neutrophils (%) (Auto) (test code = 59459-8) 72.4 38.7-80.0 [facility] CenterLymphocytes (%) (Auto)2019-11-21 11:32:00 * Test Item Value Reference Range Interpretation Comments Lymphocytes (%) (Auto) (test code = 736-9) 11.2 18.0-39.[address] CenterMonocytes (%) (Auto)2019-11-21 11:32:00* Test Item Value Reference Range Interpretation Comments Monocytes (%) (Auto) (test code = 5905-5) 13.2 4.4-11.[address] CenterEosinophils (%) (Auto)2019-11-21 11:32:00 * Test Item Value Reference Range Interpretation Comments Eosinophils (%) (Auto) (test code = 713-8) 1.9 0.0-6.0 [facility] CenterBasophils (%) (Auto)2019-11-21 11:32:00* Test Item Value Reference Range Interpretation Comments Basophils (%) (Auto) (test code = 706-2) 0.3 0.0-1.0 [facility] CenterIM GRANULOCYTES %2019-11-21 11:32:00* Test Item Value Reference Range Interpretation Comments IM GRANULOCYTES % (test code = IM GRANULOCYTES %) 1.0 0.0- 1.0 [facility] CenterNeutrophils # (Auto)2019-11-21 11:32:00* Test Item Value Reference Range Interpretation Comments Neutrophils # (Auto) (test code = 751-8) 4.9 2.1-6.9 [facility] CenterLymphocytes # (Auto)2019-11-21 11:32:00* Test Item Value Reference Range Interpretation Comments Lymphocytes # (Auto) (test code = 04658-5) 0.8 1.0-3.[address] CenterMonocytes # (Auto)2019-11-21 11:32:00* Test Item Value Reference Range Interpretation Comments Monocytes # (Auto) (test code = 742-7) 0.9 0.2-0.[address] CenterEosinophils # (Auto)2019-11-21 11:32:00* Test Item Value Reference Range Interpretation Comments Eosinophils # (Auto) (test code = 711-2) 0.1 0.0-0.4 [facility] CenterBasophils # (Auto)2019-11-21 11:32:00* Test Item Value Reference Range Interpretation Comments Basophils # (Auto) (test code = 704-7) 0.0 0.0-0.1 [facility] CenterAbsolute Immature Granulocyte (auto 2019-11-21 11:32:00* Test Item Value Reference Range Interpretation Comments Absolute Immature Granulocyte (auto (shanda t code = Absolute Immature Granulocyte (auto) 0.07 0-0.1 [facility] CenterBlood leukocytes automated count (number/volume)2019-11-21 10:15:00* Test Item Value Reference Range Interpretation Comments White Blood Count (test code = 6690-2) 6.72 4.8-10.8 [facility] CenterBlood erythrocytes automated count (number/volume)2019-11-21 10:15:00* Test Item Value Reference Range Interpretation Comments Red Blood Count (test code = 789-8) 3.97 4.3-5.7 [facility] CenterBlood hemoglobin measurement (moles/volume)2019-11-21 10:15:00* Test Item Value Reference Range Interpretation Comments Hemoglobin (test code = 28248-1) 12.1 14.0-18.0 [facility] CenterAutomated blood hematocrit (volume fraction)2019-11-21 10:15:00* Test Item Value Reference Range Interpretation Comments Hematocrit (test code = 4544-3) 38.1 38.2-49.6 [facility] CenterAutomated erythrocyte mean corpuscular iizsxd9598-95-21 10:15:00* Test Item Value Reference Range Interpretation Comments Mean Corpuscular Volume (test code = 787-2) 96.0 81-99 [facility] CenterAutomated erythrocyte mean corpuscular hemoglobin (mass per erythrocyte)2019-11-21 10:15:00* Test Item Value Reference Range Interpretation Comments Mean Corpuscular Hemoglobin (test code = 785-6) 30.5 28-32 [facility] CenterAutomated erythrocyte mean corpuscular hemoglobin concentration measurement (mass/volume)2019-11-21 10:15:00* Test Item Value Reference Range Interpretation Comments Mean Corpuscular Hemoglobin Concent (test code = 786-4) 31.8 31-35 [facility] Medical CenterRDW IazAb-Qfw2655-41-23 10:15:00* Test Item Value Reference Range Interpretation Comments Red Cell Distribution Width (test code = 14911-5) 13.4 11.7 -14.4 [facility] CenterAutomated blood platelet count (count/volume)2019-11-21 10:15:00* Test Item Value Reference Range Interpretation Comments Platelet Count (test code = 777-3) 268 140-360 [facility] CenterAutomated blood segmented neutrophil count as percentage of total vkiwdgjqjx5725-18-43 10:15:00* Test Item Value Reference Range Interpretation Comments Neutrophils (%) (Auto) (test code = 90022-0) 72.4 38.7-80.0 [facility] Medical CenterAutomated blood lymphocyte count as percentage ot total ppdpqjhvvx1560-94-71 10:15:00* Test Item Value Reference Range Interpretation Comments Lymphocytes (%) (Auto) (test code = 736-9) 11.2 18.0-39.1 [facility] Medical CenterAutomated blood monocyte count as percentage of total hbhbgnllkr6092-84-37 10:15:00* Test Item Value Reference Range Interpretation Comments Monocytes (%) (Auto) (test code = 5905-5) 13.2 4.4-11.3 [facility] Medical CenterAutomated blood eosinophil count as percentage of total ysweimcsvi8995-31-22 10:15:00* Test Item Value Reference Range Interpretation Comments Eosinophils (%) (Auto) (test code = 713-8) 1.9 0.0-6.0 [facility] Medical CenterAutomated blood basophil count as percentage of total agwyveqmeu1872-08-02 10:15:00* Test Item Value Reference Range Interpretation Comments Basophils (%) (Auto) (test code = 706-2) 0.3 0.0-1.0 [facility] Medical CenterFluoroscopic procedure less than one hour [id number] 10:15:00* Test Item Value Reference Range Interpretation Comments IM GRANULOCYTES % (test code = IM GRANULOCYTES %) 1.0 0.0- 1.0 [facility] Medical CenterAutomated blood neutrophil count 2019-11-21 10:15:00* Test Item Value Reference Range Interpretation Comments Neutrophils # (Auto) (test code = 751-8) 4.9 2.1-6.9 [facility] CenterBlood lymphocytes count (number/volume) 2019-11-21 10:15:00* Test Item Value Reference Range Interpretation Comments Lymphocytes # (Auto) (test code = 78761-9) 0.8 1.0-3.2 [facility] CenterBlood monocytes automated count (number/volume)2019-11-21 10:15:00* Test Item Value Reference Range Interpretation Comments Monocytes # (Auto) (test code = 742-7) 0.9 0.2-0.8 [facility] CenterAutomated blood eosinophil count 2019-11-21 10:15:00* Test Item Value Reference Range Interpretation Comments Eosinophils # (Auto) (test code = 711-2) 0.1 0.0-0.4 [facility] CenterAutomated blood basophil count (count/volume)2019-11-21 10:15:00* Test Item Value Reference Range Interpretation Comments Basophils # (Auto) (test code = 704-7) 0.0 0.0-0.1 [facility] CenterFluoroscopic procedure less than one hour evmguvov2454-29-91 10:15:00* Test Item Value Reference Range Interpretation Comments Absolute Immature Granulocyte (auto (shanda t code = Absolute Immature Granulocyte (auto) 0.07 0-0.1 [facility] Resourceserum or plasma sodium measurement (moles/volume)2019-11-21 10:15:00* Test Item Value Reference Range Interpretation Comments Sodium Level (test code = 2951-2) 137 136-145 [facility] [place] [facility] Resourceserum or plasma potassium measurement (moles/volume)2019-11-21 10:15:00* Test Item Value Reference Range Interpretation Comments Potassium Level (test code = 2823-3) 4.0 3.5-5.1 [facility] [place] [facility] Resourceserum or plasma chloride measurement (moles/volume)2019-11-21 10:15:00* Test Item Value Reference Range Interpretation Comments Chloride Level (test code = 2075-0) 98 98-107 [facility] [place] [facility] Resourceserum or plasma carbon dioxide, total measurement (moles/volume)2019-11-21 10:15:00* Test Item Value Reference Range Interpretation Comments Carbon Dioxide Level (test code = 2028-9) 30 22-29 [facility] [place] [facility] Resourceserum or plasma anion adu7656-43-95 10:15:00* Test Item Value Reference Range Interpretation Comments Anion Gap (test code = 42701-8) 13.0 8-16 [facility] [place] [facility] Resourceserum or plasma urea nitrogen measurement (mass/volume)2019-11-21 10:15:00* Test Item Value Reference Range Interpretation Comments Blood Urea Nitrogen (test code = 3094-0) 11 7-26 [facility] [place] [facility] Resourceserum or plasma creatinine measurement (mass/volume)2019-11-21 10:15:00* Test Item Value Reference Range Interpretation Comments Creatinine (test code = 2160-0) 0.91 0.72-1.25 [facility] [place] [facility] Resourceserum or plasma urea nitrogen/creatinine mass egmwg3385-02-58 10:15:00* Test Item Value Reference Range Interpretation Comments BUN/Creatinine Ratio (test code = 3097-3) 12 6-25 [facility] CenterEstimated glomerular filtration rate (GFR) spdifcdpvwksk8011-69-30 10:15:00* Test Item Value Reference Range Interpretation Comments Estimat Glomerular Filtration Rate (test code = 986292500) > 60 >60 Ranges were taken from the National Kidney Disease Education Program and the [facility] Kid[facility] Foundation literature.Reference ranges:60 or greater: Qmwkvk67-07 ( for 3 consecutive months): Chronic kidney disease 15 or less: Kidney failureSt. Luke's Health – [facility] St. Luke's Medical CenterGlucose nfycbovzvzc7126-11-35 10:15:00* Test Item Value Reference Range Interpretation Comments Glucose Level (test code = WDA6568) 157 74-118 [facility] [place] [facility] Resourceserum or plasma calcium measurement (mass/volume)2019-11-21 10:15:00* Test Item Value Reference Range Interpretation Comments Calcium Level (test code = 86448-4) 9.0 8.4-10.2 [facility] CenterArterial Blood cM9963-89-51 14:21:00* Test Item Value Reference Range Interpretation Comments Arterial Blood pH (test code = 2744-1) 7.41 7.31-7.41 [facility] CenterArterial Blood Partial Pressure CO2 2019-11-15 14:21:00* Test Item Value Reference Range Interpretation Comments Arterial Blood Partial Pressure CO2 (test code = 2018-8) 60 41-[address] [facility] [address] CenterArterial Blood Partial Pressure O2 2019-11-15 14:21:00* Test Item Value Reference Range Interpretation Comments Arterial Blood Partial Pressure O2 (test code = 2018-8) 141 80-[address] [facility] CenterArterial Blood HKN80650-93-42 14:21:00* Test Item Value Reference Range Interpretation Comments Arterial Blood HCO3 (test code = 1960-4) 38 23-[address] [facility] CenterArterial Blood Base Rjkxfl4907-85-92 14:21:00* Test Item Value Reference Range Interpretation Comments Arterial Blood Base Excess (test code = 1925-7) 13.0 -2-[address] [facility] CenterArterial Blood Oxygen Saturation 2019-11-15 14:21:00* Test Item Value Reference Range Interpretation Comments Arterial Blood Oxygen Saturation (test code = 2708-6) 99.0 95-[address] [facility] CenterFiO22019-12-17 14:21:00* Test Item Value Reference Range Interpretation Comments FiO2 (test code = FiO2) 40 [facility] CenterArterial blood pH aepwoosorui4074-04-47 12:05:00* Test Item Value Reference Range Interpretation Comments Arterial Blood pH (test code = 2744-1) 7.41 7.31-7.41 [facility] CenterpCO2 JaxG3651-14-04 12:05:00* Test Item Value Reference Range Interpretation Comments Arterial Blood Partial Pressure CO2 (test code = 2019-06) 60 41-51 [facility] CenterpCO2 QwiJ9883-91-63 12:05:00* Test Item Value Reference Range Interpretation Comments Arterial Blood Partial Pressure O2 (test code = 2019-06) 141 80-105 [facility] CenterArterial blood bicarbonate measurement (moles/volume)2019-11-15 12:05:00* Test Item Value Reference Range Interpretation Comments Arterial Blood HCO3 (test code = 1960-4) 38 23-28 [facility] CenterArterial blood base excess by calculation 2019-11-15 12:05:00* Test Item Value Reference Range Interpretation Comments Arterial Blood Base Excess (test code = 1925-7) 13.0 -2-3 [facility] CenterArterial blood oxygen saturation mgybmmbfoht6915-11-69 12:05:00* Test Item Value Reference Range Interpretation Comments Arterial Blood Oxygen Saturation (test code = 2708-6) 99.0 95-98 [facility] CenterFluoroscopic procedure less than one hour xnskrhnj3518-31-91 12:05:00* Test Item Value Reference Range Interpretation Comments FiO2 (test code = FiO2) 40 [facility] CenterVancomycin Level Cyhdol7382-47-41 10:40:00* Test Item Value Reference Range Interpretation Comments Vancomycin Level Trough (test code = 4092-3) 10.4 5.0-10.0 Results repeated and called to [place] [employer] TransmissionKEYA SILVERMAN at 1037 on 11/15/19 by Jolene banda Read back and verified.[facility] Resourcesputum Culture 2019-11-15 10:25:00* Test Item Value Reference Range Interpretation Comments Sputum Culture (test code = 624-7) No Result Data Provided [facility] Resourceserum or plasma trough vancomycin level at trough (mass/volume)2019-11-15 09:10:00* Test Item Value Reference Range Interpretation Comments Vancomycin Level Trough (test code = 4092-3) 10.4 5.0-10.0 Results repeated and called to CHRIS SILVERMAN at 1037 on 11/15/19 by Jolene banda Read back and verified.[facility] SINGLE (PORTABLE)2019-11-15 07:13:00 [facility] [address] [address] Patient Name: JACK HURLEY MR #: [id number] : 1940 Age/Sex: 79/M Req #: [id number] Adm Physician: KEATON BRAY MD Ordered by: PERNELL BURDICK MD Report #: [id number] Location: ICU Room/Bed: ICU [facility] Procedure: [id number] DX/C HEST SINGLE (PORTABLE) Exam Date: 11/15/19 [...] 5 COPY TO: FELIX BURDICK MD Blood Ireabup1396-39-68 17:01:00* Test Item Value Reference Range Interpretation Comments Blood Culture (test code = 01135719) NO GROWTH AFTER 5 DAYS, FINAL REPORT [facility] SINGLE (PORTABLE)2019-11-14 08:55:00 [facility] [address] [place] [address] Patient Name: JACK HURLEY MR #: [id number] : 1940 Age/Sex: 79/M Req #: [id number] Adm Physician: KEATON BRAY MD Ordered by: PERNELL BURDICK MD Report #: [id number] Location: ICU Room/Bed: ICU [facility] Procedure: [id number] DX/C HEST SINGLE (PORTABLE) Exam Date: 11/14/19 [...] PERNELL BURDICK MD CHEST SINGLE (PORTABLE)2019-11-13 19:18:[address] [address] Patient Name: JACK HURLEY MR #: [id number] : 1940 Age/Sex: 79/M Req #: [id number] Adm Physician: KEATON BRAY MD Ordered by: TJ BRAY DO Report #: [id number] Location: ICU Room/Bed: ICU [facility] Procedure: [id number] DX/ CHEST SINGLE (PORTABLE) Exam Date: 11/13/19 [...] bed By: LUIS on 11/13/191920 COPY TO: BRAYTJ Total Vreyxiign9187-30-60 06:50:00* Test Item Value Reference Range Interpretation Comments Total Bilirubin (test code = 1975-2) 0.8 0.2-1.2 [facility] Medical CenterAspartate Amino Transf (AST/SGOT) 2019-11-13 06:50:00* Test Item Value Reference Range Interpretation Comments Aspartate Amino Transf (AST/SGOT) (test code = Aspartate Amino Transf (AST/SGOT)) 100 5-[address] [facility] CenterAlanine Aminotransferase (ALT/SGPT) 2019-11-13 06:50:00* Test Item Value Reference Range Interpretation Comments Alanine Aminotransferase (ALT/SGPT) (test code = 1742-6) 88 0-[address] [facility] CenterTotal Ykdfcgz0003-95-78 06:50:00* Test Item Value Reference Range Interpretation Comments Total Protein (test code = 2885-2) 6.1 6.5-8.[address] [facility] CenterAlbumin2019-12-15 06:50:00* Test Item Value Reference Range Interpretation Comments Albumin (test code = 1751-7) 2.6 3.5-5.[address] [facility] CenterGlobulin2019-12-15 06:50:00* Test Item Value Reference Range Interpretation Comments Globulin (test code = 49027-7) 3.5 2.3-3.5 [facility] CenterAlbumin/Globulin Nehkm6254-27-35 06:50:00 * Test Item Value Reference Range Interpretation Comments Albumin/Globulin Ratio (test code = 1759-0) 0.7 0.8-2.[address] [facility] CenterAlkaline Jlqplkdaloi3915-56-50 06:50:00* Test Item Value Reference Range Interpretation Comments Alkaline Phosphatase (test code = 6768-6) 57 40-150 [facility] CenterDifferential Total Cells Counted 2019-11-12 08:40:00* Test Item Value Reference Range Interpretation Comments Differential Total Cells Counted (test code = Melvi guerra Total Cells Counted) 100 [facility] CenterNeutrophils % (Manual)2019-11-12 08:40:00 * Test Item Value Reference Range Interpretation Comments Neutrophils % (Manual) (test code = 54290-4) 92 40-[address] [facility] CenterBand Neutrophils %2019-11-12 08:40:00* Test Item Value Reference Range Interpretation Comments Band Neutrophils % (test code = 764-1) 2 [facility] CenterLymphocytes % (Manual)2019-11-12 08:40:00 * Test Item Value Reference Range Interpretation Comments Lymphocytes % (Manual) (test code = 737-7) 4 19-[address] [facility] CenterMonocytes % (Manual)2019-11-12 08:40:00* Test Item Value Reference Range Interpretation Comments Monocytes % (Manual) (test code = 744-3) 2 3.4-9.[address] [facility] Medical CenterPlatelet Qaisdwna1515-25-98 08:40:00* Test Item Value Reference Range Interpretation Comments Platelet Estimate (test code = 20124-4) ADEQUATE [facility] Medical CenterPlatelet Morphology Wtyaexw1462-19-94 08:40:00* Test Item Value Reference Range Interpretation Comments Platelet Morphology Comment (test code = 86903-2) NORMAL [facility] CenterMacrocytosis2019-12-14 08:40:00* Test Item Value Reference Range Interpretation Comments Macrocytosis (test code = 738-5) SLIGHT [facility] CenterRed Cell Morphology Stcaicx9984-43-96 08:40:00* Test Item Value Reference Range Interpretation Comments Red Cell Morphology Comment (test code = 6742-1) ABNORMAL [facility] CenterCHEST SINGLE (PORTABLE)2019-11-12 07:34:00 [place] [address] Patient Name: JACK HURLEY MR #: [id number] : 1940 Age/Sex: 79/M Req #: [id number] Adm Physician: KEATON BRAY MD Ordered by: PERNELL BURDICK MD Report #: [id number] Location: ICU Room/Bed: ICU [facility] Procedure: [id number] DX/C HEST SINGLE (PORTABLE) Exam Date: 11/12/19 Exam Time : 0600 REPORT STATUS: Signed EXA MINATION: CHEST SINGLE (PORTABLE) INDICATION: [id number] 4 0600 COMPARISON: 11/11/2019 FINDINGS: AP view [...] M.D. on 11/12/2019 7:36 AM Dictated By: CRISIT JUAREZ MD 5 COPY TO: PERNELL BURDICK Serum or plasma total bilirubin measurement (mass/volume)2019-11-12 03:50:00* Test Item Value Reference Range Interpretation Comments Total Bilirubin (test code = 1975-2) 0.8 0.2-1.2 [facility] CenterFluoroscopic procedure less than one hour gwfelmvs9079-15-32 03:50:00* Test Item Value Reference Range Interpretation Comments Aspartate Amino Transf (AST/SGOT) (test code = Aspartate Amino Transf (AST/SGOT)) 100 5-34 [facility] [place] [facility] Resourceserum or plasma alanine aminotransferase measurement (enzymatic activity/volume)2019-11-12 03:50:00* Test Item Value Reference Range Interpretation Comments Alanine Aminotransferase (ALT/SGPT) (test code = 1742-6) 88 0-55 [facility] [place] [facility] Resourceserum or plasma protein measurement (mass/volume)2019-11-12 03:50:00* Test Item Value Reference Range Interpretation Comments Total Protein (test code = 2885-2) 6.1 6.5-8.1 [facility] [place] [facility] Resourceserum or plasma albumin measurement (mass/volume)2019-11-12 03:50:00* Test Item Value Reference Range Interpretation Comments Albumin (test code = 1751-7) 2.6 3.5-5.0 [facility] Medical CenterPlasma globulin measurement (mass/volume) 2019-11-12 03:50:00* Test Item Value Reference Range Interpretation Comments Globulin (test code = 53790-1) 3.5 2.3-3.5 [facility] [place] [facility] Resourceserum or plasma albumin/globulin mass cuowm4388-48-24 03:50:00* Test Item Value Reference Range Interpretation Comments Albumin/Globulin Ratio (test code = 1759-0) 0.7 0.8-2.0 [facility] [place] [facility] Resourceserum or plasma alkaline phosphatase measurement (enzymatic activity/volume)2019-11-12 03:50:00* Test Item Value Reference Range Interpretation Comments Alkaline Phosphatase (test code = 6768-6) 57 40-150 [facility] CenterFluoroscopic procedure less than one hour dfcbvkxm8058-17-66 03:45:00* Test Item Value Reference Range Interpretation Comments Differential Total Cells Counted (test code = Melvi tial Total Cells Counted) 100 [facility] CenterManual blood neutrophils/100 leukocytes 2019-11-12 03:45:00* Test Item Value Reference Range Interpretation Comments Neutrophils % (Manual) (test code = 75000-7) 92 40-74 [facility] blood band neutrophils form/100 vxzxneqbxt7061-96-08 03:45:00* Test Item Value Reference Range Interpretation Comments Band Neutrophils % (test code = 764-1) 2 [facility] blood lymphocytes/100 leukocytes 2019-11-12 03:45:00* Test Item Value Reference Range Interpretation Comments Lymphocytes % (Manual) (test code = 737-7) 4 19-48 [facility] blood monocytes/100 leukocytes 2019-11-12 03:45:00* Test Item Value Reference Range Interpretation Comments Monocytes % (Manual) (test code = 744-3) 2 3.4-9.0 [facility] platelets count by estimate (number/volume)2019-11-12 03:45:00* Test Item Value Reference Range Interpretation Comments Platelet Estimate (test code = 89250-8) ADEQUATE [facility] Medical CenterPlatelet pcwrqjqfnn1797-14-99 03:45:00* Test Item Value Reference Range Interpretation Comments Platelet Morphology Comment (test code = 79990-7) NORMAL [facility] macrocytes detection by light crjafhsmkp8506-14-27 03:45:00* Test Item Value Reference Range Interpretation Comments Macrocytosis (test code = 738-5) SLIGHT [facility] CenterRB fbbiasptqr6524-41-17 03:45:00* Test Item Value Reference Range Interpretation Comments Red Cell Morphology Comment (test code = 6742-1) ABNORMAL [facility] CenterCHES SINGLE (PORTABLE)2019-11-11 09:27:00 [facility] [address] [place] [address] Patient Name: JACK HURLEY MR #: [id number] : 1940 Age/Sex: 79/M Req #: [id number] Adm Physician: KEATON BRAY MD Ordered by: PERNELL BURDICK MD Report #: [id number] Location: ICU Room/Bed: ICU [facility] Procedure: [id number] DX/C HEST SINGLE (PORTABLE) Exam Date: 11/11/19 Exam Time : 0815 REPORT STATUS: Signed [facility], portable AP view History: Pneumonia and hypoxia Comparison: Chest CT dated test IMPRESSION: The cardiac silhouette is stable in size. Un changed left pulmonary opacities in the lingula and lower lobe. No sizable ple ural effusion. No pneumothorax. No acute osseous abnormalities. Signed by : Willem Lofton MD on 11/11/2019 9:29 AM Dictated By: WILLEM Andrade MD 8 Transcribe d By: LUIS on 11/11/19928 COPY TO: PERNELL BURDICK MD Thyroid Stimulating Hormone (TSH)2019-11-11 06:04:00* Test Item Value Reference Range Interpretation Comments Thyroid Stimulating Hormone (TSH) (test code = 55813-5) 0.996 0.350-4.940 [facility] CenterPhosphorus Fhwle2104-52-33 05:52:00* Test Item Value Reference Range Interpretation Comments Phosphorus Level (test code = CMY1530) 2.6 2.3-4.7 [facility] CenterMagnesium Yuehh5657-94-51 05:52:00* Test Item Value Reference Range Interpretation Comments Magnesium Level (test code = 12752-6) 2.0 1.3-2.1 [facility] CenterHemoglobin A1c Yneelvd6121-37-30 05:33:00 * Test Item Value Reference Range Interpretation Comments Hemoglobin A1c Percent (test code = Hemoglobin A1c Percent) 7.5 4.0-7.[address] CenterFluoroscopic procedure less than one hour ecrpukyb8190-46-31 04:00:00* Test Item Value Reference Range Interpretation Comments Hemoglobin A1c Percent (test code = Hemoglobin A1c Percent) 7.5 4.0-7.0 [facility] CenterPhosphorus jfgxfrikiep1212-81-10 04:00:00 * Test Item Value Reference Range Interpretation Comments Phosphorus Level (test code = MDB2178) 2.6 2.3-4.7 [facility] [place] [facility] Resourceserum or plasma magnesium measurement (mass/volume)2019-11-11 04:00:00* Test Item Value Reference Range Interpretation Comments Magnesium Level (test code = 31112-0) 2.0 1.3-2.1 [facility] [place] [facility] Resourceserum or plasma thyrotropin measurement by detection limit <= 0.005 miu/l (units/volume)2019-11-11 04:00:00* Test Item Value Reference Range Interpretation Comments Thyroid Stimulating Hormone (TSH) (test code = 45607-2) 0.996 0.350-4.940 [facility] Medical CenterCT CHEST DS8403-80-29 14:50:00 [facility] [address] [place] [address] Patient Name: JACK HURLEY MR #: [id number] : 1940 Age/Sex: 79/M Req #: [id number] Adm Physician: KEATON BRAY MD Ordered by: KEATON BRAY MD Report #: [id number] Location: ICU Room/Bed: [address] [address] [address] Procedure: [id number] CT/CT CHEST WO Exam Date: 11/10/19 Exam Time: 1353 REPORT STATUS: Signed EXAMINATION: CT scan of the chest without contrast. TECHNIQUE: Spiral CT images of the [facility] were performed from the lung apices [...] Atherosclerotic calcification of the aortic arch and [place] coronary ar teries. No pericardial effusion. LYMPH [...] 3:03 PM Dictated By: PERNELL DYER MD 3438 COPY TO: GENO BRAY MD Urine [id number] 14:10:00* Test Item Value Reference Range Interpretation Comments Urine WBC (test code = 5821-4) NONE 0-5 [facility] CenterUrine IBE1138-73-81 14:10:00* Test Item Value Reference Range Interpretation Comments Urine RBC (test code = 03134-1) 0-5 0-5 [facility] CenterUrine Jhhjomvy0283-16-20 14:10:00* Test Item Value Reference Range Interpretation Comments Urine Bacteria (test code = 68668-3) MODERATE NONE [facility] CenterUrine Epithelial Maepz0567-22-69 14:10:00 * Test Item Value Reference Range Interpretation Comments Urine Epithelial Cells (test code = 12973-1) FEW NONE [facility] Amorphous Fdblzden6058-57-23 14:10:00* Test Item Value Reference Range Interpretation Comments Urine Amorphous Sediment (test code = 8246-1) MODERATE FEW [facility] CenterUrine Ukntm9077-26-90 14:02:00* Test Item Value Reference Range Interpretation Comments Urine Color (test code = 5778-6) YELLOW YELLOW [facility] CenterUrine Ossllui0826-40-86 14:02:00* Test Item Value Reference Range Interpretation Comments Urine Clarity (test code = 02557-6) SL CLOUDY CLEAR H [facility] CenterUrine Specific Cykucak6935-49-02 14:02:00 * Test Item Value Reference Range Interpretation Comments Urine Specific [place] (test code = 5811-5) 1.030 1.010-1.[address] [facility] CenterUrine fP0636-30-40 14:02:00* Test Item Value Reference Range Interpretation Comments Urine pH (test code = 36575-0) 6 5-7 [facility] CenterUrine Leukocyte Bwijppfd7397-87-43 14:02:00* Test Item Value Reference Range Interpretation Comments Urine Leukocyte Esterase (test code = 5799-2) NEGATIVE NEGATIVE [facility] CenterUrine Fnscdaw3332-26-19 14:02:00* Test Item Value Reference Range Interpretation Comments Urine Nitrite (test code = 10933-5) NEGATIVE NEGATIVE [facility] CenterUrine Sqoegvl9570-54-56 14:02:00* Test Item Value Reference Range Interpretation Comments Urine Protein (test code = 5804-0) TRACE NEGATIVE H [facility] CenterUrine Glucose (UA)2019-11-10 14:02:00* Test Item Value Reference Range Interpretation Comments Urine Glucose (UA) (test code = 2349-9) 1+ NEGATIVE [facility] CenterUrine Aqdhpwv7900-33-14 14:02:00* Test Item Value Reference Range Interpretation Comments Urine Ketones (test code = 07188-0) NEGATIVE NEGATIVE [facility] Hnocxxayqtas8657-09-39 14:02:00* Test Item Value Reference Range Interpretation Comments Urine Urobilinogen (test code = 17793-7) 0.2 0.2-1 [facility] CenterUrine Gjtjclirn1890-01-08 14:02:00* Test Item Value Reference Range Interpretation Comments Urine Bilirubin (test code = 1978-6) NEGATIVE NEGATIVE [facility] CenterUrine Hzvdz5469-28-57 14:02:00* Test Item Value Reference Range Interpretation Comments Urine Blood (test code = 77757-7) TRACE NEGATIVE [facility] CenterUrine color jfrphpjlfffvj8832-52-98 12:10:00* Test Item Value Reference Range Interpretation Comments Urine Color (test code = 5778-6) YELLOW YELLOW [facility] CenterUrine ublhmln7133-87-92 12:10:00* Test Item Value Reference Range Interpretation Comments Urine Clarity (test code = 54968-9) SL CLOUDY CLEAR [facility] [place] [facility] Resourcespecific gravity of Urine by Test strip 2019-11-10 12:10:00* Test Item Value Reference Range Interpretation Comments Urine Specific [place] (test code = 5811-5) 1.030 1.010-1.[address] [facility] CenterUrine pH measurement by automated test nkapk6024-08-87 12:10:00* Test Item Value Reference Range Interpretation Comments Urine pH (test code = 12766-1) 6 5-7 [facility] CenterUrine leukocyte esterase detection by njvqfwcs4967-15-47 12:10:00* Test Item Value Reference Range Interpretation Comments Urine Leukocyte Esterase (test code = 5799-2) NEGATIVE NEGATIVE [facility] CenterUrine nitrite xebdyguui4994-09-37 12:10:00* Test Item Value Reference Range Interpretation Comments Urine Nitrite (test code = 96453-7) NEGATIVE NEGATIVE [facility] CenterUrine protein measurement by test strip (mass/volume)2019-11-10 12:10:00* Test Item Value Reference Range Interpretation Comments Urine Protein (test code = 5804-0) TRACE NEGATIVE [facility] CenterUrine glucose loljqlgmy1712-91-57 12:10:00* Test Item Value Reference Range Interpretation Comments Urine Glucose (UA) (test code = 2349-9) 1+ NEGATIVE [facility] CenterUrine ketones detection by automated test yxyjq7687-45-43 12:10:00* Test Item Value Reference Range Interpretation Comments Urine Ketones (test code = 88857-4) NEGATIVE NEGATIVE [facility] CenterUrine urobilinogen measurement by test strip (mass/volume)2019-11-10 12:10:00* Test Item Value Reference Range Interpretation Comments Urine Urobilinogen (test code = 64842-5) 0.2 0.2-1 [facility] CenterUrine total bilirubin measurement (mass/volume)2019-11-10 12:10:00* Test Item Value Reference Range Interpretation Comments Urine Bilirubin (test code = 1978-6) NEGATIVE NEGATIVE [facility] CenterUrine erythrocytes tjneoalcx8583-49-50 12:10:00* Test Item Value Reference Range Interpretation Comments Urine Blood (test code = 01010-3) TRACE NEGATIVE [facility] CenterAutomated urine sediment leukocyte count by microscopy (number/high power field)2019-11-10 12:10:00* Test Item Value Reference Range Interpretation Comments Urine WBC (test code = 5821-4) NONE 0-5 [facility] CenterErythrocytes detection in urine sediment by light hernsbrlkc6954-56-69 12:10:00* Test Item Value Reference Range Interpretation Comments Urine RBC (test code = 58074-2) 0-5 0-5 [facility] CenterBacteria detection in urine sediment by light qepqtecuck0900-63-16 12:10:00* Test Item Value Reference Range Interpretation Comments Urine Bacteria (test code = 88924-5) MODERATE NONE [facility] CenterEpithelial cells detection in urine sediment by light fafbuxlvve7070-31-61 12:10:00* Test Item Value Reference Range Interpretation Comments Urine Epithelial Cells (test code = 15718-6) FEW NONE [facility] CenterAmorphous sediment detection in urine sediment by light vefggobsyn0510-71-07 12:10:00* Test Item Value Reference Range Interpretation Comments Urine Amorphous Sediment (test code = 8246-1) MODERATE FEW [facility] CenterCreatine Kinase PR9617-65-86 11:57:00* Test Item Value Reference Range Interpretation Comments Creatine Kinase MB (test code = 54967-1) 5.70 0-5.[address] [facility] CenterTroponin H9016-05-31 11:57:00* Test Item Value Reference Range Interpretation Comments Troponin I (test code = ZGH9555) 0.015 0-0.300 [facility] CenterCreatine Klfjxv8408-57-35 10:45:00* Test Item Value Reference Range Interpretation Comments Creatine Kinase (test code = 2157-6) 3321 30-200 [facility] Resourceserum or plasma creatine kinase measurement (enzymatic activity/volume)2019-11-10 09:00:00* Test Item Value Reference Range Interpretation Comments Creatine Kinase (test code = 2157-6) 3321 30-200 [facility] Resourceserum or plasma creatine kinase MB measurement (mass/volume)2019-11-10 09:00:00* Test Item Value Reference Range Interpretation Comments Creatine Kinase MB (test code = 19052-3) 5.70 0-5.0 [facility] CenterTroponin I measurement by highly sensitive enzyme lnyysyzobyv8792-32-04 09:00:00* Test Item Value Reference Range Interpretation Comments Troponin I (test code = 49164-3) 0.015 0-0.300 [facility] CenterCHEST SINGLE (PORTABLE)2019-11-10 08:19:00 [place] [address] Patient Name: JACK HURLEY MR #: [id number] : 1940 Age/Sex: 79/M Req #: [id number] Adm Physician: KEATON BRAY MD Ordered by: PERNELL BURDICK MD Report #: [id number] Location: ICU Room/Bed: ICU [facility] Procedure: [id number] DX/C HEST SINGLE (PORTABLE) Exam Date: 11/10/19 [...] COPY TO: PERNELL TRIPATHI MD Lactic Acid Ptdid0063-04-34 20:15:00* Test Item Value Reference Range Interpretation Comments Lactic Acid Level (test code = Lactic Acid Level) 1.1 0.5- 2.0 [facility] CenterFluoroscopic procedure less than one hour itfkmhtq1193-84-66 18:52:00* Test Item Value Reference Range Interpretation Comments Lactic Acid Level (test code = Lactic Acid Level) 1.1 0.5- 2.0 [facility] CenterInfluenza Virus Types A,B Antigen 2019-11-09 18:31:00* Test Item Value Reference Range Interpretation Comments Influenza Virus Types A,B Antigen (test code = 48604-6) POSITIVE FLU A NEGATIVE H Results called to IVAN DE LA TORRE at 1830 on 11/09/19 by SHELLEY MEDINA. RB OK.Res ults LFT MSG TO RUBIO MONTALVO in infection control at 1830 on 11/09/19 [address] SHE[address]ES.[facility] CenterB-Type Natriuretic Peptide 2019-11-09 17:35:00* Test Item Value Reference Range Interpretation Comments B-Type Natriuretic Peptide (test code = 05189-9) 60.3 0-100 [facility] CenterCHEST SINGLE (PORTABLE)2019-11-09 17:31:00 [facility] [address] [address] Patient Name: JACK HURLEY MR #: [id number] : 1940 Age/Sex: 79/M Req #: [id number] Adm Physician: Ordered by: TJ BRAY DO Report #: [id number] Location: ER Room/Bed: Procedure: [id number] DX/ CHEST SINGLE (PORTABLE) Exam Date: 11/09/19 [...] BOONE on 11/09/191735 COPY TO: TJ BRAY DO Influenza virus A and B antigen identification by tndhpwnkfogpvgruiu3739-34-32 16:45:00* Test Item Value Reference Range Interpretation Comments Influenza Virus Types A,B Antigen (test code = 01602-1) POSITIVE FLU A NEGATIVE Results called to IVAN DE LA TORRE at 1830 on 11/09/19 by SHELLEY MEDINA. RB OK.Res ults LFT MSG TO RUBIO MONTALVO in infection control at 1830 on 11/09/19 by SHELLEY PUENTES.[facility] CenterBNP Lly-kRiz1073-02-11 15:50:00 * Test Item Value Reference Range Interpretation Comments B-Type Natriuretic Peptide (test code = 63444-5) 60.3 0-100 [facility] CenterBlood jofspxj4111-50-97 15:50:00* Test Item Value Reference Range Interpretation Comments Blood Culture (test code = 92156304) NO GROWTH AFTER 5 DAYS, FINAL REPORT [facility] CenterBacteria identification in sputum by respiratory xapspgi3088-60-76 12:10:00* Test Item Value Reference Range Interpretation Comments Sputum Culture (test code = 624-7) COREY GLABRATA [facility] CenterCHEM UQPJN5068-29-04 20:35:00* Test Item Value Reference Range Interpretation Comments B/C Ratio (test code = B/C Ratio) 19 1 6-25 [facility]annCHE[facility] LUJEF4600-88-75 20:35:006.7[facility] HermannCHEM PANEL 2019-03-09 20:35:004.0[facility]annCHEM NYOWH7809-83-90 20:35:00* Test Item Value Reference Range Interpretation Comments A/G Ratio (test code = A/G Ratio) 0.8 1 0.7-1.6 [facility]annCHEM BNPUF2122-59-25 20:35:0068[facility] HermannCHEM PANEL 2019-03-09 20:35:07687Knqrnulu HermannCHEM HMTKG4040-58-18 20:35:000.6[facility]annCHEM FSNVH2821-47-09 20:35:0034[facility]annCHEM QPMJF7317-53-51 20:35:0052[facility]annCHEM YERFI9133-55-89 20:35:003.3[facility] HermannCHEM YXLGU1923-93-47 20:35:009.0[facility] HermannCHEM DFTKL0601-02-68 20:35:007.3 [facility]annCHEM HMFNJ6010-55-34 20:35:01426Tqkbobuu HermannCHEM PANEL 2019-03-09 20:35:45945Sbhqwpva HermannCHEM GBTPU7391-47-61 20:35:003.7[facility] HermannCHEM SGCPQ2902-70-02 20:35:0030[facility] HermannCHEM MZTUA4336-63-00 20:35:001.06[facility]annCHEM EIYSJ1354-91-71 20:35:58939Qucwpijz HermannCHEM WTQZU2348-57-85 20:35:0020[facility] RjwylfyGOJNOYXAZV3281-33-77 20:35:0068.7 [facility] LbguotfZZPCLHWRYL1879-78-85 20:35:0010.4[facility] HermannHEMATOLOGY 2019-03-09 20:35:0017.0[facility] BgfkkltLTJGARTJIL2480-09-17 20:35:000.1[facility] CwqqguiFNZHVDUDET3448-55-56 20:35:000.3[facility] ZfbtmqcQYMMSVMGVO8122-30-76 20:35:001.7[facility] YycbssfSHDUUIXTCP5682-59-62 20:35:006.8[facility] EFKQJSPRRS1282-25-95 20:35:000.8[facility] LonqrwnYKKVRBSJIR3166-11-83 20:35:003.1 [facility] RnudbkoUWQHMAYSYD6333-15-61 20:35:001.0[facility] HermannHEMATOLOGY 2019-03-09 20:35:0014.2[facility] HlqhimwARBQYFTOUF7731-18-91 20:35:94709Hmblyrpw EgheipiIBMEREDRUF8402-00-22 20:35:008.7[facility] OfbeplsNALTSWSLSO4468-69-79 20:35:0014.6[facility] TyjhvdjNAKXGPASZJ2401-40-46 20:35:0044.1[facility] PFONJYYVNU4961-98-07 20:35:0093.1[facility] TbkmpxcNDJVBPBCTX3257-51-74 20:35:00 4.74[facility] BgjopfmKMJGGZODKD8641-71-09 20:35:009.8[facility] HermannHEMATOLOGY 2019-03-09 20:35:00* Test Item Value Reference Range Interpretation Comments MCH (test code = MCH) 30.8 pg 27.0-31.0 [facility] FojrxgmLISFHYWFXR6117-56-18 20:35:0033.1[facility] HermannELECTROLYTES 2018-05-28 14:45:0030[facility] YrakqziYEGVWFXPKQBS1439-25-20 14:45:65674Gfxgvgtg KgbiitnWGFLNSFXKJFD7316-06-23 14:45:004.5[facility] FkklclwVMPZGNLYHMNM8687-62-98 14:45:85232Lsurcvms DwjnrkvYJRTAPMYQLMB8083-37-48 14:45:67070Ipeloizm Kan RTYFNTMSCPJE9453-10-35 14:45:0022[facility] JnnkxwxYKWJZKDWIBOA3551-45-89 14:45:00 1.11[facility] RknawzjWTTQQHZTWHNC0242-68-13 14:45:008.9[facility] SPVMTSRHBPQU2867-86-25 14:45:0065[facility] NobzwwuEBQNTLYSFLWR8290-86-08 14:45:00 11.5[facility] XkswiuiPKLNLSKIVB3855-11-04 14:45:0010.7[facility]annHEMATOLOGY 2018-05-28 14:45:0064.5[facility] YiqjwqcXGLWEURAJU4344-56-30 14:45:0019.0[facility] XixjjxpFRRUUCEMTN0374-49-23 14:45:004.9[facility] IrciyahNUQBUSXIHV3857-81-28 14:45:000.9[facility] JygnxjhXBPVEWCUOY4152-55-74 14:45:001.8[facility] GOMNCESEBB9166-57-79 14:45:000.5[facility] AdqhyuwAJYKPZOXCR2301-32-87 14:45:006.1 [facility] IkaziheEMHMCBSFTA9953-26-81 14:45:000.1[facility] HermannHEMATOLOGY 2018-05-28 14:45:001.0[facility] VcoddymYGYDGDZLYH6333-21-05 14:45:0091.1[facility] AiaxviwBUQVVKSYIB0661-59-76 14:45:00* Test Item Value Reference Range Interpretation Comments MCH (test code = MCH) 29.6 pg 27.0-31.0 [facility] SoimasoAKXPNRLDAV2412-61-18 14:45:0014.3[facility] HermannHEMATOLOGY 2018-05-28 14:45:56495Arlxqrcj CpzaraxAMZLZIEOST3028-59-45 14:45:009.0[facility] YcnuqkcKOSWIDHPEE7702-23-63 14:45:004.71[facility] GydceosRCABQOANCR0829-29-29 14:45:0042.9[facility] DkrxuhkYKLARXVHUT7867-72-84 14:45:0013.9[facility] OWDGXJEVEI5581-86-53 14:45:0032.5[facility] JexpigkXIISUHAWBY8771-56-98 14:45:00 9.4[facility] HermannXRAY Chest 2 views [id number] 09:24:00Patient Name: JACK HURLEY : 2Age: 77 years, Male MR: [id number]: Chest 2 views DX 05/28/2018 9:25 AM [...] radiographi c abnormality.Right upper lobe pulmonary nodule.SL: [id number]--Esip by: Luis Enrique Menchaca MDDictated Date/time: 05/28/18 10:30Electronically Signed by: Rony Menchaca MD 05/28/1810:37FINAL REPORTUnFillmore Community Medical Center PhysiciansCHEM VZIGT0684-92-32 11:50:0083[facility] HermannCHEM EGNPY4534-31-50 11:50:000.91[facility] HermannCHEM AQTTI6719-33-69 11:50:62252Lyloosjk HermannCHEM XZUGD7854-70-76 11:50:004.0[facility] HermannCHEM SKLDX0570-43-16 11:50:0027 [facility] HermannCHEM VIIKP8158-36-37 11:50:75960Xkrfbllt HermannCHEM PANEL 2018-05-14 11:50:0012.0[facility] HermannCHEM DIBHK8075-78-42 11:50:008.4[facility] HermannCHEM KUOZO4445-94-82 11:50:0018[facility] HermannCHEM OYIDR2742-50-36 11:50:18139Xfrfdxwk AiwkaksSGWIAWSUTL4527-85-36 11:04:000.1[facility] JXTAWDHECT5777-29-19 11:04:000.3[facility] RwdqhrnKJKRGUURPL7734-60-86 11:04:001.0 [facility] ZocudqiJSBAXVEOWF1630-27-14 11:04:001.9[facility] HermannHEMATOLOGY 2018-05-14 11:04:007.5[facility] ZdhabkpQBSPNZANUL4444-43-97 11:04:001.1[facility] XatouzuGCZHVHNNKE1732-78-53 11:04:002.8[facility] YlemwneLUPBSQSERR4400-72-64 11:04:009.6[facility] NgvlaxlAHWEOKFCRU0501-57-79 11:04:0017.4[facility] LDTOJQWEPS6333-64-54 11:04:0069.1[facility] LrvmkgdYZLGAFSAOB0273-09-61 11:04:00 9.0[facility] LihhgucFHDQDRYPGS0852-01-31 11:04:46860Dtscfiay HermannHEMATOLOGY 2018-05-14 11:04:0014.4[facility] NykkdbySCEBAVYFKB4528-81-51 11:04:0091.5[facility] XdtyxqpCGUDGGDZII3201-55-21 11:04:0032.8[facility] PfnthgyJYLZPQEBPA3599-17-90 11:04:00* Test Item Value Reference Range Interpretation Comments MCH (test code = MCH) 30.0 pg 27.0-31.0 [facility] YxbobhpCJPRSELIEY3656-07-34 11:04:0013.8[facility] HermannHEMATOLOGY 2018-05-14 11:04:0042.0[facility] HuyzzeaQSYPEJDCMV8809-90-89 11:04:0010.9[facility] CjkcnchOCAEPVXHSN1423-48-75 11:04:004.59[facility] HermannCHEM MSOQH2141-52-49 08:52:0063[facility] HermannCHEM QAFWF0391-16-97 08:52:28041Wwokrfip HermannCHEM XQGLX6192-45-49 08:52:0025[facility] HermannCHEM RDQAN3416-25-39 08:52:004.5 [facility] HermannCHEM VDYJB6348-38-09 08:52:57894Kozmhqkp HermannCHEM PANEL 2018-05-13 08:52:001.14[facility] HermannCHEM IGAIC8109-59-34 08:52:0018[facility] HermannCHEM EDEMI6812-14-60 08:52:43358Suttgvcx HermannCHEM LWZIS7967-92-39 08:52:008.2[facility] HermannCHEM HGAZS8339-38-22 08:52:0011.5[facility] ZFBBWRNGDH4906-44-86 08:52:001.0[facility] UwbmzajXPQZHTQYDY5704-82-85 08:52:000.3 [facility] AnpwrdmQTZYSCUCVL8844-89-48 08:52:0012.0[facility] HermannHEMATOLOGY 2018-05-13 08:52:000.9[facility] AqjvytrVOXPJDKZIG3178-79-64 08:52:0085.7[facility] ObprmebDWGWSMFSIR3810-42-14 08:52:007.3[facility] JzofohlJWSTPIIMEE0652-75-74 08:52:006.7[facility] ZrdnzwtORMUBTFDOD5095-39-46 08:52:009.2[facility] WYJXXNBTKV8202-32-31 08:52:0032.7[facility] JdxtpnpMPFFIWXYCB4043-71-54 08:52:00 13.9[facility] YfbilgwHABVAYPETH4226-97-26 08:52:00* Test Item Value Reference Range Interpretation Comments MCH (test code = MCH) 29.9 pg 27.0-31.0 [facility] TufeiqyZOVFZUZAXH7710-82-17 08:52:08640Zpzpdlmc HermannHEMATOLOGY 2018-05-13 08:52:004.43[facility] HwoxiiiABXEJDZRIW5374-15-35 08:52:0014.0[facility] JdzkmbnYDNUBCLJBA4919-16-12 08:52:0091.2[facility] CbewtqxBHCYPOVGMF1046-12-39 08:52:0040.4[facility] OebgvcfGKPKBCCXEH8545-80-02 08:52:0013.2[facility] ATNKBFRGIZKH5053-16-19 18:53:008.8[facility] EvlixmoUSNYOTIESVJL8604-23-83 18:53:0082[facility] NznononOVBAKSCUZHFD6420-90-70 18:53:0015[facility] HEUMBWHNKZRE3633-40-32 18:53:0030[facility] ZhrowykMYLMSATSIJGY6675-42-70 18:53:00 0.91[facility] AmfwrjbIJRWWPJYQPLZ4932-84-02 18:53:004.8[facility] PPSBMGDIDPAW7703-72-60 18:53:09772Egnjxqdk WvbttnsMHPGUOZQGLSO2423-64-83 18:53:70472Yqhicilq RinuvlaQPXSRMGXVFQR7157-62-80 18:53:008.0[facility] CJRVVUWAWXPL3438-11-14 18:53:84532Kuriklbs LbqiemoXUEPBODBTT7691-94-09 18:53:00 206[facility] TsonmhjAREKHAOCTK6940-91-08 18:53:009.0[facility] HermannHEMATOLOGY 2018-05-12 18:53:0014.0[facility] UculfbtIXHLXZKMYF0854-47-92 18:53:0033.1[facility] PtzdpbmSBGFBGPLZM0365-02-22 18:53:0013.3[facility] AvblgnbEYIABXXIIH1583-97-79 18:53:007.1[facility] CumytdwTRRYUJJUPC9738-37-30 18:53:004.37[facility] QXDZRYVLJP3479-46-50 18:53:0040.2[facility] JjtdvfxBUZRRNIMKD5063-60-05 18:53:00 92.1[facility] XpgceyeMDHAPTGYLM8469-51-04 18:53:00* Test Item Value Reference Range Interpretation Comments MCH (test code = MCH) 30.5 pg 27.0-31.0 [facility] OtqxavxYJUNSQMSTV3534-37-65 18:53:000.5[facility] HermannHEMATOLOGY 2018-05-12 18:53:000.2[facility] GfwubfqXINXCIVWRC2099-61-19 18:53:001.7[facility] PygjplpFBTVZUJIZS5550-13-22 18:53:004.7[facility] CrnwepkRJJVRQLJUX2800-22-24 18:53:000.6[facility] TyugqfxOMXVHGZFCM3229-04-45 18:53:0023.5[facility] COHXYTBWRH1977-13-64 18:53:0066.2[facility] QhyspkgWZRBKFUSEJ1010-87-45 18:53:00 2.2[facility] UiibnwqXPBJKBYYFE6189-62-10 18:53:007.5[facility] HermannSPECIAL HJIRYTHRP8372-07-34 15:29:007.2[facility] HermannBLOOD BANK GIYYSLV9735-50-41 15:16:00Negative (05/10/18 10:16 AM)[facility] CelmwubTMJXCGBRHR5471-03-71 15:16:00 3.1[facility] FpfslcrVHEZRMSNJP8958-35-14 15:16:000.1[facility] HermannHEMATOLOGY 2018-05-10 15:16:000.3[facility] XqvzxrrKMKRTJPJEJ3995-70-13 15:16:00* Test Item Value Reference Range Interpretation Comments PTT (test code = PTT) 32.1 s 22.9-35.8 [facility] PaaayczCOVSGDSZGR0508-40-59 15:16:00* Test Item Value Reference Range Interpretation Comments PT (test code = PT) 14.7 s 12.0-14.7 [facility] WrdqboiIQLSYVECEX1510-35-47 15:16:00* Test Item Value Reference Range Interpretation Comments INR (test code = INR) 1.15 1 0.85-1.17 [facility]annURINE AND KRWYE7030-62-84 15:16:00Negative (05/10/18 10:16 AM) [facility] AND VLDDF6829-01-62 15:16:00Negative (05/10/18 10:16 AM) [facility] IFCLB5899-45-00 15:16:00Negative *NA*(05/10/18 10:16 AM)[facility] AND LJPWN2114-61-53 15:16:00Negative (05/10/18 10:16 AM) [facility] AND YJODL3080-38-48 15:16:002[facility]annURINE AND MKQUV7746-60-95 15:16:001[facility]annUR[facility] AND FYNFC0178-71-21 15:16:00* Test Item Value Reference Range Interpretation Comments UA Spec Grav (test code = UA Spec Grav) 1.008 1 [facility] AND ACQBU7349-81-55 15:16:00Clear (05/10/18 10:16 AM) [facility] AND STENN6720-03-13 15:16:00* Test Item Value Reference Range Interpretation Comments UA pH (test code = UA pH) 5.0 1 5.0-8.0 [facility] CDKJDYU2651-57-68 13:39:00Product available (05/10/18 8:39 AM)[facility] Chest 2 views [id number] 10:23:00Clinical Indication: Coughing - preop examComparison: 02/16/2018FINDINGS:The PA and lateral chest radiographs shows normal lung volumes withoutinterstitial or a irspace opacities, pleural effusions or pneumothorax.The heart size and pulmonar y vasculature are normal. The trachea is midline.There are no clinically signifi cant osseous abnormalities noted.IMPRESSION:No chest radiographic evidence of ac miles cardiopulmonary disease.SL: [id number]--Goaq by: Bakari Bae ictated Date/time: 05/10/18 11:16Electronically Signed by: Bakari Bae MD 05/10/1811:16FINAL REPORTUnFillmore Community Medical Center Physicians PFJPAHIFAM6506-98-78 14:54:00* Test Item Value Reference Range Interpretation Comments INR (test code = INR) 1.01 1 0.85-1.17 [facility]SnlghpiTANZKIRJMD9060-78-68 14:54:00* Test Item Value Reference Range Interpretation Comments PT (test code = PT) 13.3 s 12.0-14.7 [facility] HospitalRaonegrPPZZMDNMQE3953-96-20 14:54:00* Test Item Value Reference Range Interpretation Comments PTT (test code = PTT) 29.7 s 22.9-35.8 [facility] Chest biopsy needle CT guided [id number] 12:30:00EXAM: VIR lung biopsy with CT guidanceDATE: 02/16/2018 12:32 PM CDTPROCEDURE(S) P ERFORMED: CT guided percutaneous core biopsies of right upperlobe lung noduleIND ICATION: 77 years -old male with spiculated right upper lobe lung nodule.PRE-PRO CEDURE DIAGNOSIS: Lung nodulePOST-PROCEDURE DIAGNOSIS: SameFACULTY: Sharlene Torres ti, MDRESIDENT/FELLOW/RN ONCOLOGY: NoneSUPERVISION: Not applicableANESTHESIA/SEDAT ION: Moderate sedationSPECIMEN: 20 gauge core biopsy x 3DRAINS: NoneESTIMATED BL OOD LOSS: Less than 3 mLCOMPLICATIONS: NoneFINDINGS:Spiculated right upper lobe lung nodule. Trace pneumothorax post biopsy.PROCEDURE:After the risks, benefits, and alternatives of the procedure were explained tothe patient, verbal and writ ten consent were obtained. The patient was broughtto the CT suite and placed in supine position. Thermometer Maker images were obtained tolocalize the lesion. Patient [...] 12:05Electronically Signed by: Henny Todd MD 02/26/1812:13FINAL REPORTUnFillmore Community Medical Center PhysiciansCHEM JOBQJ2250-46-07 11:09:002.0[facility] HermannCHEM MEHLY8475-98-64 11:09:002.2[facility] KkivvxfBGGXTWEKIYVD8538-33-49 11:09:0010.9[facility] TYSCPNFICDCE3416-70-24 11:09:0076[facility] XqrequpFZKDVWVSIPWE0244-72-29 11:09:00 142[facility] UuhnhobTXILITIHPZWX6714-93-68 11:09:13948Knszwtyc [place] ZFVZFVLUOXRV8808-73-41 11:09:30033Vpojkzxs FpznrcuUDGGFUXFZCWL3872-07-02 11:09:0028[facility] FiexrrzFCAAGJCQQMGM6140-42-11 11:09:003.9[facility] POXEBIBVWVON2855-83-80 11:09:000.97[facility] NsbuvlpSDKUKISJALGD0069-47-45 11:09:0015[facility] PfcowotZXDYRVJYIHPU1520-06-41 11:09:008.3[facility] DXEUQCHVWN1041-06-05 11:09:0092.4[facility] NpescmnALMIUCGTKT4566-40-89 11:09:00* Test Item Value Reference Range Interpretation Comments MCH (test code = MCH) 31.1 pg 27.0-31.0 [facility] FbxjfhiBKQUOAUZXH3317-72-29 11:09:009.4[facility] HermannHEMATOLOGY 2018-01-29 11:09:63462Lncfojur JsxxbkcLHXCAVBDSB0626-56-69 11:09:008.7[facility] YhywxqpIAZQJZUYWW5992-15-88 11:09:0033.6[facility] ChbasdwBAJIOPDZLT7535-20-92 11:09:0014.3[facility] ZuazcjqZFANSVXMGT3925-96-94 11:09:0037.2[facility] SZFCHDNXQN4704-41-87 11:09:004.02[facility] RmagjoqUFAVWZJIWW8760-65-74 11:09:00 12.5[facility] ZirrdqmONITEJBWJV6329-71-77 11:09:001.0[facility]HE[facility]OLOGY 2018-01-29 11:09:000.4[facility] JljejfjJBQOMQYFLH3621-95-42 11:09:000.1[facility] MnnmocnIMRLYKSCCH8869-42-82 11:09:001.6[facility] CfynphdOEAXUYJJUO0425-22-72 11:09:000.9[facility] FpsbrfvYPCEDICAIS6909-06-92 11:09:006.4[facility] YOTJMSDVAJ6347-57-68 11:09:003.8[facility] LwarzecSHYWFCGJXE4937-13-89 11:09:00 68.0[facility] GfuggxtKFVPUYMXIV7877-76-98 11:09:0016.9[facility]annHEMATOLOGY 2018-01-29 11:09:0010.4[facility] VijivigWSGEXCMPME2194-47-15 11:09:00* Test Item Value Reference Range Interpretation Comments PTT (test code = PTT) 43.9 s 22.9-35.8 [facility] PjfwsyvXEWVZANIQC9744-81-02 11:09:00* Test Item Value Reference Range Interpretation Comments PT (test code = PT) 19.9 s 12.0-14.7 [facility] JlnqocpEGFPFAODES3934-29-06 11:09:00* Test Item Value Reference Range Interpretation Comments INR (test code = INR) 1.68 1 0.85-1.17 [facility]annPARATHYROID CYNXEEC6612-32-70 11:09:001.11[facility] PARATHYROID KRNIJRC6766-24-29 11:09:001.11[facility] HermannCHEM LQKFO7707-53-94 10:38:002.1[facility]annCHEM NKBJJ4471-47-27 10:38:002.0[facility]annCHEM HPRTK0481-49-85 10:38:0085[facility]annCHEM YOPOU8654-19-98 10:38:01514 [facility]annCHEM HMQXT0740-37-67 10:38:99011Duxtvekf HermannCHEM PANEL 2018-01-28 10:38:003.7[facility]annCHEM QHVMV8141-08-43 10:38:000.85[facility] HermannCHEM PPUNC6018-62-29 10:38:0013[facility]annCHEM OATDS1282-85-34 10:38:0031[facility] HermannCHEM ZAWOC2490-27-22 10:38:72204Ocrmofko HermannCHEM ASVVK4969-34-46 10:38:008.4[facility]annCHEM CZCJM1658-60-89 10:38:009.7 [facility] VsrtknhZGAJIEONFN7569-22-49 10:38:0014.4[facility]annHEMATOLOGY 2018-01-28 10:38:0073.3[facility] WcoqqskLSEXZYUAMT7220-66-58 10:38:001.5[facility] OcykruaFEUTQZNSAC4602-90-68 10:38:007.5[facility] ErytmknPFLIPTQTOB8071-45-03 10:38:000.4[facility] KkydtceVHEQOWMOQR7891-73-90 10:38:003.0[facility] QHTBSXDZUL8893-74-43 10:38:008.9[facility] LxpltvzHJYQARJTXH7074-45-45 10:38:000.9 [facility] PmfqizoGGBRFVVSME2480-26-93 10:38:000.3[facility]annHEMATOLOGY 2018-01-28 10:38:00* Test Item Value Reference Range Interpretation Comments PT (test code = PT) 18.3 s 12.0-14.7 [facility] SygecabYKLQQMIIJG3746-27-35 10:38:00* Test Item Value Reference Range Interpretation Comments PTT (test code = PTT) 44.2 s 22.9-35.8 [facility] YxfnvyhPKOMWPPFCO7340-93-23 10:38:00* Test Item Value Reference Range Interpretation Comments INR (test code = INR) 1.51 1 0.85-1.17 [facility] JmpblfmPFZTJKPNGE1915-18-20 10:38:0033.7[facility]annHEMATOLOGY 2018-01-28 10:38:0014.1[facility] UpwalhrCWTUSEXNQA7544-34-18 10:38:0012.4[facility] RtihjyxIULQTVFGGK7506-83-68 10:38:0036.8[facility] WcarobvCLYRLSBOAN5349-94-98 10:38:003.97[facility] WswkitmRTUFCKKNGC5538-79-02 10:38:0092.7[facility] IPYNPBABMW8122-80-42 10:38:0010.3[facility] NqztfddEEZEWOQXYO5429-25-71 10:38:00 8.6[facility] LigpyjgNXGOWSUJAD3223-18-36 10:38:00* Test Item Value Reference Range Interpretation Comments MCH (test code = MCH) 31.3 pg 27.0-31.0 [facility] CizcetxPYYHXXLSWG5150-83-09 10:38:91622Llcbeakn HermannPARATHYROID THYSCCY3430-46-61 10:38:001.09[facility] HermannPARATHYROID TWECIUY0402-32-58 10:38:001.06[facility]annURINE AND HOXAJ2675-45-25 01:06:00>182[facility]ann[facility] AND MDEYH5199-45-75 01:06:0036[facility] STOOL 2018-01-28 01:06:00Large *ABN*(01/27/18 [...] Spec Grav) 1.017 1 [facility] [id number] 01:06:00* Test Item Value Reference Range Interpretation Comments UA pH (test code = UA pH) 5.0 1 5.0-8.0 [facility] [id number] 01:06:00Slight *ABN*(01/27/18 7:06 PM) [facility] DglyncjNZIEWCGHOA9187-06-38 21:00:00* Test Item Value Reference Range Interpretation Comments PTT (test code = PTT) 40.7 s 22.9-35.8 [facility] LturfzdWUEKEJSLMD1781-52-91 21:00:00* Test Item Value Reference Range Interpretation Comments PT (test code = PT) 17.8 s 12.0-14.7 [facility] PyrgfxbIGVTVGNOGU4535-64-89 21:00:00* Test Item Value Reference Range Interpretation Comments INR (test code = INR) 1.46 1 0.85-1.17 [facility]annCHEM LOHGT1548-93-94 10:14:002.8[facility] HermannCHEM PANEL 2018-01-27 10:14:002.3[facility] HermannCHEM WUURI7122-14-15 10:14:0089[facility] HermannCHEM JWHHI7140-20-92 10:14:008.6[facility] HermannCHEM UCWIF7623-51-59 10:14:16097Eihmphzv HermannCHEM VQDVN8565-56-91 10:14:0011[facility] HermannCHEM VYMWT8227-94-65 10:14:000.76[facility] HermannCHEM LFSSV0320-53-00 10:14:33341 [facility]annCHEM LALJF8062-16-54 10:14:003.9[facility] HermannCHEM PANEL 2018-01-27 10:14:14283Xuhhapkw HermannCHEM DAHHC8862-43-85 10:14:0030[facility] HermannCHEM LVACR2881-79-16 10:14:008.9[facility] QoqrgsvZNEZCIHUTR3063-17-62 10:14:000.1[facility] JwpudxzKJDSXIGMRZ3035-91-26 10:14:000.1[facility] GWYXWDYEST0548-79-01 10:14:001.1[facility] KifpxajMMCTCVWRPR8932-25-32 10:14:000.9 [facility] StqzbxwHPHMXNQQWB0540-24-28 10:14:0081.7[facility] HermannHEMATOLOGY 2018-01-27 10:14:009.7[facility] EdjkgkgZTRRAEKPPE7627-30-34 10:14:000.8[facility] TdwndwdVPTCILJOJS2309-05-12 10:14:000.6[facility] AqwzmfxQXZUBYPUYN8798-68-24 10:14:009.6[facility] DjzjbdzEGVEPCBZCN2540-31-66 10:14:007.3[facility] SEBWZXTLCJ1205-26-42 10:14:008.5[facility] SitrbaiZEXBGQKZMJ7334-57-43 10:14:32584 [facility] BvtqmvjWSJLIOZMYS9874-51-66 10:14:0012.8[facility] HermannHEMATOLOGY 2018-01-27 10:14:0014.3[facility] WivtmdvCQTTRKURPP7554-72-50 10:14:0011.8[facility] BtpldeuSLERCKJOCA0622-08-85 10:14:004.13[facility] UttzapnEKUDJOZIUP4359-93-32 10:14:00* Test Item Value Reference Range Interpretation Comments MCH (test code = MCH) 31.0 pg 27.0-31.0 [facility] OiiauzaUAFECTLJMJ8767-80-27 10:14:0033.6[facility] HermannHEMATOLOGY 2018-01-27 10:14:0038.1[facility] PnnjlxvOVHKYNGUIU4662-40-89 10:14:0092.3[facility] KmmvdcjMNUHWRBGUO9214-27-73 02:02:000.1[facility] OyihqsoJPUUIXSPBI6955-61-56 19:13:00* Test Item Value Reference Range Interpretation Comments POC Activated Clotting Time (test code = POC Activated Clotting Ilir e) 177 s [facility]GMJ8952[facility]21-71 16:56:00* Test Item Value Reference Range Interpretation Comments POC Activated Clotting Time (test code = POC Activated Clotting Ilir e) 355 s [facility] HospitalYvmjnoyAWOUJYBMIB1234-51-51 16:18:00* Test Item Value Reference Range Interpretation Comments POC Activated Clotting Time (test code = POC Activated Clotting Ilir e) 366 s [facility] JVJQYFM1489-99-52 12:02:00Negative (01/26/18 6:02 AM) [facility] HermannCHEM NOACK2351-40-04 16:29:0059[facility] HermannCHEM PANEL 2018-01-21 16:29:001.2[facility]
[2020-10-10 17:42] VITALS: BP 123/67
--- NOTE | 2020-10-10 18:02 | NUR ---
PATIENT IS AWAKE, ALERT, AND IN STABLE CONDITION WITH NO S/S OF RESPIRATORY DISTRESS. PATIENT DENIES PAIN. BILATERAL LOWER EXTREMITIES ARE DAVID AND EDEMATOUS. WOUND NOTED TO RIGHT LOWER LEG; DRESSING CHANGED- DRESSING IS CLEAN, DRY, AND INTACT. IV TO LEFT HAND 20G- SALINE LOCKED. PRESENT IN ROOM. CALL LIGHT IS WITHIN REACH, PATIENT INSTRUCTED TO CALL FOR ASSISTANCE NEEDED.
[2020-10-10] MEDS ORDERED: PACERONE200 MG PO (18:07)
--- NOTE | 2020-10-10 18:09 | NUR ---
CALLED AND SPOKE WITH DR. NICOLE REGARDING PATIENT'S ARRIVAL AND ORDERS SENT BY DR. GUZMAN. NO NEW ORDERS RECEIVED AT THIS TIME.
[2020-10-10 18:49] LABS: BASOPHILS % 0.5 % (0.0-1.0); EOSINOPHILS # (AUTO) 0.2 (0.0-0.4); EOSINOPHILS % 1.9 % (0.0-6.0); HEMATOCRIT 43.4 % (38.2-49.6); HEMOGLOBIN 13.6 g/dL (14.0-18.0); LYMPHOCYTES # (AUTO) 1.3 (1.0-3.2); LYMPHOCYTES % 15.7 % (18.0-39.1); MEAN CORPUSCULAR HEMOGLOBIN 29.2 pg (28-32); MEAN CORPUSCULAR HGB CONC 31.3 g/dL (31-35); MEAN CORPUSCULAR VOLUME 93.3 fL (81-99); MONOCYTES % 12.1 % (4.4-11.3); NEUTROPHILS # (AUTO) 5.9 (2.1-6.9); NEUTROPHILS % 69.1 % (38.7-80.0); PLATELET COUNT 266 x10e3/uL (140-360); RED BLOOD COUNT 4.65 x10e6/uL (4.3-5.7); RED CELL DISTRIBUTION WIDTH 13.2 % (11.7-14.4)
[2020-10-10 19:05] LABS: ANION GAP 13.8 mmol/L (8-16); BLOOD UREA NITROGEN 22 mg/dL (7-26); BUN/CREATININE RATIO 20 (6-25); CALCIUM 9.1 mg/dL (8.4-10.2); CARBON DIOXIDE 30 mmol/L (22-29); CHLORIDE 98 mmol/L (98-107); CREATININE, SERUM 1.09 mg/dL (0.72-1.25); EST GLOMERULAR FILTRATION RATE > 60 ML/MIN (60-); GLUCOSE 167 mg/dL (74-118); POTASSIUM 3.8 mmol/L (3.5-5.1); SODIUM 138 mmol/L (136-145)
--- NOTE | 2020-10-10 19:20 | NUR ---
Bedside rounds completed with morning nurse. Pt alert and oriented to name, sitting in WC at bedside, denies pain at this time. Call light within reach.
--- NOTE | 2020-10-10 19:42 | NUR ---
PATIENT IN STABLE CONDITION WITH NO S/S OF RESPIRATORY DISTRESS. NO PAIN VOICED. CALL LIGHT IS WITHIN REACH, PATIENT INSTRUCTED TO CALL FOR ASSISTANCE NEEDED. BEDSIDE SHIFT REPORT GIVEN TO ONCOMING NURSE.
[2020-10-10] MEDS ORDERED: DEXTROSE 50% SYRINGE 50 ML IV PRN (20:00)
[2020-10-10] MEDS ORDERED: SODIUM CHLORIDE 0.9% 250ML 250 ML ONE (20:00)
[2020-10-10] MEDS ORDERED: IPRATROPIUM/ALBUTEROL SULFATE 4 GM INH INH PRN (20:00)
[2020-10-10] MEDS: CEFEPIME 2 GM/NS 0.9% 100 ML 100 ML IV SCH (20:00)
[2020-10-10] MEDS: VANCOMYCIN 300 ML IV SCH (21:00)
[2020-10-10] MEDS: INSULIN LISPRO 100 UNIT/1 ML 3ML VIAL SQ SCH (21:00)
[2020-10-10 21:15] VITALS: BP 132/73
[2020-10-10] MEDS ORDERED: CEFEPIME HCL 2 GM VIAL IV SCH (22:00)
[2020-10-11] VITALS (9 sets, daily range): BP systolic 99–127; BP diastolic 40–77
[2020-10-11] MEDS: INSULIN LISPRO 100 UNIT/1 ML 3ML VIAL SQ SCH ×4 (07:30→21:00)
[2020-10-11] MEDS: ANORO ELLIPTA INH SCH (08:25)
[2020-10-11] MEDS: LEVOTHYROXINE SODIUM 50 MCG TAB PO SCH (08:35)
[2020-10-11] MEDS: CEFEPIME 2 GM/NS 0.9% 100 ML 100 ML IV SCH ×2 (08:35→20:00)
[2020-10-11] MEDS: POTASSIUM CHLORIDE 20 MEQ TAB CR PO SCH (08:36)
[2020-10-11] MEDS: APIXABAN 5 MG TABLET PO SCH ×2 (08:36→18:16)
[2020-10-11] MEDS: AMIODARONE HCL 200 MG TAB PO SCH (08:36)
[2020-10-11] MEDS: METOPROLOL TARTRATE 50 MG TAB PO SCH ×2 (08:37→17:00)
[2020-10-11] MEDS ORDERED: ACETAMINOPHEN 325 MG TAB PO PRN (10:00)
[2020-10-11] MEDS ORDERED: DEXTROSE 50% SYRINGE 50 ML IV PRN (10:00)
[2020-10-11] MEDS ORDERED: HYDROCODONE/APAP 5MG-325MG TAB PO PRN (10:00)
[2020-10-11] MEDS ORDERED: POLYETHYLENE GLYCOL 3350 17 GM PACK PO PRN (10:00)
[2020-10-11] MEDS ORDERED: GUAIFENESIN/CODEINE 10 ML CUP PO PRN (10:00)
[2020-10-11] MEDS ORDERED: ONDANSETRON HCL INJ 2MG/ML 2ML 2 MG/ML VIAL IV PRN (10:00)
[2020-10-11] MEDS ORDERED: ALBUTEROL/IPRATROPIUM 3 ML NEB NEB PRN (10:00)
[2020-10-11] MEDS ORDERED: HYDRALAZINE HCL 20 MG/ML VIAL IV PRN (10:00)
[2020-10-11] MEDS ORDERED: BENZONATATE 100 MG CAP PO PRN (10:00)
[2020-10-11] MEDS ORDERED: DOCUSATE SODIUM 100 MG CAP PO PRN (10:00)
[2020-10-11] MEDS: VANCOMYCIN 300 ML IV SCH ×2 (10:01→21:00)
[2020-10-11] MEDS: FUROSEMIDE 40 MG TAB PO SCH (11:00)
--- NOTE | 2020-10-11 11:30 | NUR ---
wound care here to see pt.
--- NOTE | 2020-10-11 13:22 | Consultation ---
DATE OF CONSULTATION: CHIEF COMPLAINT: Right leg ulcer, chronic nonhealing, recurrent. HISTORY OF PRESENT ILLNESS: A 80-year-old male patient, morbid obesity, bilateral leg edema, history of smoking for 38 years. Stopped smoking. Has seen Dr. Elijah Mariee outpatient for vein and arterial workup. Has chronic leg edema. Has a wound, came for admission for failed outpatient treatment with cellulitis. He smoked for 38 years and stopped. PAST MEDICAL HISTORY: Diabetes, hypertension, morbid obesity. MEDICATIONS: Eliquis 5 mg b.i.d., Lasix 80 mg daily, Humalog insulin, levothyroxine 25 mcg daily, metoprolol 100 mg b.i.d., potassium 20 mEq daily. ALLERGIES: NONE. PHYSICAL EXAMINATION: VITAL SIGNS: Height is 76 inches, weight 252 pounds. HEENT: Normal. NECK: No JVD. LUNGS: Bilateral air entry normal. ABDOMEN: Protuberant. Obese. LOWER EXTREMITIES: Bilateral leg edema present. Right anterior leg, the patient has a wound measuring 7 x 3 cm x 0.2 cm pink, copious serous drainage present. Lymphedema changes seen to both legs, worse on the right leg. ASSESSMENT: Bilateral chronic edema and lymphedema with ulcer to the right leg secondary to venous insufficiency. PLAN: Apply Hydrogel, Adaptic, 4 x 4, Kerlix and Coban from toe to knee, both legs and follow up. Thank you for consultation. IV antibiotic for cellulitis. MD OMID Stewart/NEO /[id number]
--- NOTE | 2020-10-11 14:30 | NUR ---
phy. barajas. here to see pt.
--- NOTE | 2020-10-11 16:22 | History and Physical ---
CHIEF COMPLAINT: Right venous stasis ulcer. HISTORY OF PRESENT ILLNESS: A 80-year-old male, who is morbidly obese, has multiple medical issues, hypothyroidism, type 2 diabetes, hypertension, presented to the [facility] as a direct admission from [facility] due to worsening right bhandari cellulitis and wound infection needing further evaluation and management. The patient was initiated on IV antibiotics and wound care has been consulted. He denies any chest pain, palpitation, nausea, vomiting. He reports that the cellulitis has been progressively getting worse for the last one week with initially performed into more of a water blister in which it was popped and progressively gotten worse. The patient reports no cough, fever, or any other complaints. No recent travel. The patient is seen and evaluated at bedside on the medical floor, he is currently doing well with no other issues at this time. REVIEW OF SYSTEMS: Pertinent positives; right lower extremity cellulitis. The rest of 14-point review of systems have been reviewed with the patient and are negative. ALLERGIES: NO KNOWN DRUG ALLERGIES. HOME MEDICATIONS: 1. Amiodarone. 2. Apixaban. 3. Furosemide. 4. Combivent. 5. Levothyroxine. 6. Metoprolol. 7. Potassium. 8. Anoro Ellipta. PAST MEDICAL HISTORY: He is morbidly obese, type 2 diabetes, hypertension, right lower extremity cellulitis. PAST SURGICAL HISTORY: Reports none. FAMILY HISTORY: Hypertension, diabetes. SOCIAL HISTORY: No drugs, no alcohol, does not smoke. He is . PHYSICAL EXAMINATION: VITAL SIGNS: Temperature is 98.1, pulse 53, respiratory rate is 20, blood pressure was 99/40, pulse ox 93% on room air. GENERAL: Not in acute distress. Alert and oriented x3. Cooperative on examination. HEENT: Head is normocephalic and atraumatic. Eyes; pupils are equal, round, and reactive to light bilaterally. Extraocular movements are intact bilaterally. Throat, no evidence of any erythema or exudates in the posterior pharynx. Has poor dentition. NECK: Supple. Good range of motion throughout. PULMONARY: Clear to auscultation bilaterally. No wheezing, rales, or rhonchi. No crackles appreciated. CARDIOVASCULAR: Positive S1-S2. No murmurs, rubs, or gallops appreciated. ABDOMEN: Soft, nondistended, and nontender to palpation. Bowel sounds present. MUSCULOSKELETAL: Strength 5/5 throughout. Lower extremity cellulitis noted and wrapped with Coban. LABORATORY DATA: Labs show white count 8.5, hemoglobin 13.6, hematocrit 43.4, and platelets of 266. Chemistry; sodium 139, potassium 3.8, chloride 90, bicarb 30, anion gap of 13, BUN is 20, creatinine is 1.09, glucose is 167, calcium is 9.1. Serology; coronavirus is pending. Microbiology, none collected. IMAGING STUDIES: Nothing new. IMPRESSION: 1. Right lower extremity cellulitis secondary to venous stasis ulcer. 2. Type 2 diabetes. 3. Hypertension. 4. Morbidly obese. 5. History of atrial fibrillation, on anticoagulation. PLAN: At this time as for his right lower extremity venous stasis ulcer, Wound Care and ID is following. He is currently on IV antibiotics for that. Provide daily wound care. As for his atrial fibrillation, he is on anticoagulation and rate control medications. Resume same home medications. I encourage ambulation. PT/OT ordered. Eliquis for DVT prophylaxis. We will monitor his electrolytes closely. He is on potassium supplements as well as oral diuretics. Otherwise, we will monitor very closely and continue same plan of care. Plan of care discussed with nursing staff. MD HUMBERTO Nathan/NEO /[id number]
--- NOTE | 2020-10-11 16:25 | NUR ---
Discontinuing PT services since patient is Mod I in functional mobility. Thank you Addendum: 10/11/20 at 1626 by Roman bethea PT Amended: Links added.
--- NOTE | 2020-10-11 16:28 | Consultation ---
DATE OF CONSULTATION: REASON FOR CONSULTATION: Cellulitis of bilateral lower extremity, cellulitis of the right leg, and right leg ulcer. HISTORY OF PRESENT ILLNESS: This patient, who is a 80-year-old white male, history of obesity, history of venous stasis dermatitis, history of varicose veins, and history of smoking, but quit recently. The patient, who comes in with redness and swelling of his bilateral feet, but mainly on the right. The patient has been dealing with this issue and swelling in his feet for some time. He could not be compliant with stocking. He does have history of obesity, diabetes mellitus, neuropathy, hypertension, and venous stasis dermatitis. PAST SURGICAL HISTORY: Denies. ALLERGIES: NKA. SOCIAL HISTORY: There is no smoking, drug abuse, or alcohol abuse currently. FAMILY HISTORY: Hypertension and diabetes. HOME MEDICATIONS: He is on Eliquis 5 b.i.d., Lasix, insulin, levothyroxine, and metoprolol. LABORATORY DATA: White count 8.53 and hemoglobin 13.6. His sodium 138, potassium 3.8 with a creatinine of 1.09. His COVID is still pending. PHYSICAL EXAMINATION: GENERAL: Currently alert, oriented, obese. VITAL SIGNS: Stable, currently afebrile. HEENT: He does not appear icteric. NECK: Supple. CHEST: Clear bilateral. HEART: S1 and S2. ABDOMEN: Soft, obese. EXTREMITIES: Bilateral lower extremities, there is edema. There is erythema noted mainly on the right. There is an ulcer noted about 5 x 5 cm on the right leg. IMPRESSION: Cellulitis of the leg. The patient was on oral antibiotics, so he failed oral antibiotic probably due to his obesity and congestive heart failure. I think the patient would benefit from IV antibiotic, vancomycin and cefepime. He has been on several oral antibiotics before he came to us. He has thigh-high elastic stocking, wound care consider Unna boot. Concerned about congestive heart failure, concerned about venous stasis and lymphedema. We will follow with you. I will see this patient. Discussed with the patient. We will follow vancomycin level. Recheck CBC. Recheck chem panel. MD ASHLEY Pacheco/NEO /[id number]
[2020-10-11] MEDS ORDERED: ENOXAPARIN SOD INJ 40 MG/0.4 ML SYR SC SCH (17:00)
--- NOTE | 2020-10-11 19:10 | NUR ---
walking rounds complete, report given to oncoming nurse
--- NOTE | 2020-10-11 19:15 | NUR ---
Bedside rounds completed with morning nurse. Pt alert and oriented to name, lying right side in bed, denies pain at this time. Call light within reach.
[2020-10-11] MEDS ORDERED: MELATONIN 5 MG TABLET PO PRN (21:00)
[2020-10-12] VITALS (8 sets, daily range): BP systolic 118–144; BP diastolic 52–84
[2020-10-12] MEDS: ANORO ELLIPTA INH SCH (06:00)
[2020-10-12 06:24] LABS: BASOPHILS % 0.5 % (0.0-1.0); EOSINOPHILS # (AUTO) 0.1 (0.0-0.4); EOSINOPHILS % 1.7 % (0.0-6.0); HEMATOCRIT 40.8 % (38.2-49.6); HEMOGLOBIN 12.9 g/dL (14.0-18.0); LYMPHOCYTES # (AUTO) 1.2 (1.0-3.2); LYMPHOCYTES % 15.8 % (18.0-39.1); MEAN CORPUSCULAR HEMOGLOBIN 29.3 pg (28-32); MEAN CORPUSCULAR HGB CONC 31.6 g/dL (31-35); MEAN CORPUSCULAR VOLUME 92.5 fL (81-99); MONOCYTES % 12.9 % (4.4-11.3); NEUTROPHILS # (AUTO) 5.2 (2.1-6.9); NEUTROPHILS % 68.6 % (38.7-80.0); PLATELET COUNT 254 x10e3/uL (140-360); RED BLOOD COUNT 4.41 x10e6/uL (4.3-5.7); RED CELL DISTRIBUTION WIDTH 13.2 % (11.7-14.4)
[2020-10-12 06:42] LABS: ALANINE AMINOTRANSFERASE 111 IU/L (0-55); ALBUMIN/GLOBULIN RATIO 0.8 (0.8-2.0); ALKALINE PHOSPHATASE 64 IU/L (40-150); ANION GAP 12.7 mmol/L (8-16); BLOOD UREA NITROGEN 14 mg/dL (7-26); BUN/CREATININE RATIO 14 (6-25); CALCIUM 8.7 mg/dL (8.4-10.2); CARBON DIOXIDE 30 mmol/L (22-29); CHLORIDE 99 mmol/L (98-107); CREATININE, SERUM 1.02 mg/dL (0.72-1.25); EST GLOMERULAR FILTRATION RATE > 60 ML/MIN (60-); GLUCOSE 177 mg/dL (74-118); POTASSIUM 3.7 mmol/L (3.5-5.1); SODIUM 138 mmol/L (136-145)
--- NOTE | 2020-10-12 06:48 | NUR ---
RECEIVED BEDSIDE SHIFT REPORT FROM OFF GOING NURSE. PATIENT IS RESTING IN BED. NO ACUTE DISTRESS NOTED. CALL LIGHT WITHIN REACH. BED IN THE LOWEST POSITION.
[2020-10-12 06:53] LABS: MAGNESIUM 1.8 MG/DL (1.3-2.1); PHOSPHORUS 2.9 MG/DL (2.3-4.7)
--- NOTE | 2020-10-12 07:15 | NUR ---
PT RESTING IN BED. PT IN STABLE CONDITION. BEDSIDE SHIFT REPORT GIVEN TO ONCOMING NURSE.
[2020-10-12] MEDS: PANTOPRAZOLE SOD 40 MG TABEC PO SCH (08:06)
[2020-10-12] MEDS: LEVOTHYROXINE SODIUM 50 MCG TAB PO SCH (08:06)
[2020-10-12] MEDS: CEFEPIME 2 GM/NS 0.9% 100 ML 100 ML IV SCH ×3 (08:08→20:46)
[2020-10-12] MEDS: AMIODARONE HCL 200 MG TAB PO SCH (09:01)
[2020-10-12] MEDS: INSULIN LISPRO 100 UNIT/1 ML 3ML VIAL SQ SCH ×4 (09:01→20:46)
[2020-10-12] MEDS: FUROSEMIDE 40 MG TAB PO SCH (09:01)
[2020-10-12] MEDS: APIXABAN 5 MG TABLET PO SCH ×2 (09:01→17:08)
[2020-10-12] MEDS: POTASSIUM CHLORIDE 20 MEQ TAB CR PO SCH (09:01)
[2020-10-12] MEDS: METOPROLOL TARTRATE 50 MG TAB PO SCH ×2 (09:02→17:08)
[2020-10-12] MEDS: VANCOMYCIN 300 ML IV SCH ×2 (10:28→22:08)
--- NOTE | 2020-10-12 19:02 | NUR ---
BEDSIDE SHIFT REPORT GIVEN TO ONCOMING NURSE. PATIENT IS RESTING IN BED, NO ACUTE DISTRESS NOTED AT THIS TIME. CALL LIGHT WITHIN REACH. BED IN THE LOWEST POSITION.
--- NOTE | 2020-10-12 20:35 | Progress Note ---
DATE: SUBJECTIVE: Mr. Mitchell is feeling better. There are no new complaints. REVIEW OF SYSTEMS: HEENT: Negative. PULMONARY: Negative. CARDIAC: Negative. PHYSICAL EXAMINATION: GENERAL: Currently, alert and oriented. VITAL SIGNS: Stable. Currently, afebrile. HEENT: He is not icteric. NECK: Supple. CHEST: Clear. HEART: S1, S2. ABDOMEN: Soft. Bowel sounds present. EXTREMITIES: No edema. SKIN: No skin rash. He has bilateral lower extremities thigh-high stocking on. IMPRESSION: Cellulitis of the leg, venous stasis dermatitis, venous stasis, lymphedema, venous stasis dermatitis, bilateral lower extremities lymphedema. Continue IV antibiotic as ordered. Continue supportive care. Agree with Lasix. Recheck CBC. Recheck Chem panel. We will follow. MD ASHLEY Pacheco/NEO /[id number]
--- NOTE | 2020-10-12 21:35 | Consultation ---
DATE OF CONSULTATION: Cardiology Consultation HISTORY OF PRESENT ILLNESS: This is a 80-year-old man with a history of atrial fibrillation, hypertension, diabetes mellitus, chronic lymphedema, peripheral artery disease, status post intervention, chronic lower extremity cellulitis, morbid obesity, who presented as a direct admission for right lower extremity swelling with cellulitic changes and a right lower extremity wound. Cellulitis has proven progressively worse associated with significant edema. He has previous vein treatment in the past. He was unable to afford lymphatic pumps due to cost as an outpatient. REVIEW OF SYSTEMS: A 12-point review of system was conducted, is negative except as stated above in the HPI. PAST MEDICAL HISTORY: As stated above in the HPI. PAST SURGICAL HISTORY: None recent. PAST FAMILY HISTORY: Noncontributory to current illness. SOCIAL HISTORY: No illicit drug, alcohol, or tobacco use. ALLERGIES: NO KNOWN DRUG ALLERGIES. MEDICATIONS: See medication reconciliation form. PHYSICAL EXAMINATION: VITAL SIGNS: Temperature is 97.8, heart rate 84, respirations are 22, blood pressure is 141/71, oxygen saturation 93% on room air. GENERAL: He is a chronically ill-appearing elderly man, lying comfortably in bed. Alert and oriented x3. HEAD: Normocephalic and atraumatic. EYES: The extraocular muscles are intact. Conjunctivae are clear. NECK: No JVD. No bruits. CARDIOVASCULAR: Regular rate and rhythm. No murmurs. LUNGS: Clear to auscultation. ABDOMEN: Soft, nontender, obese. EXTREMITIES: Lower extremities wrapped and dressed. NEUROLOGIC: No focal deficits noted. CARDIOVASCULAR MEDICATIONS: Reviewed include metoprolol tartrate, Lasix, Eliquis, amiodarone. LABORATORY DATA: Reviewed. Hemoglobin 12.9, creatinine 1.02, AST is 85, ALT 111. IMPRESSION: 1. Chronic lymphedema. 2. Lower extremity cellulitis with venous stasis ulcer. 3. Diabetes mellitus. 4. Hypertension. 5. Atrial fibrillation. 6. Elevated LFTs. RECOMMENDATIONS: Continue local wound care and compression wraps. Consider increasing Lasix to intravenously q.12 hours. Otherwise, continue all current cardiovascular medications. The patient will need followup for his venous insufficiency and lymphedema as an outpatient. Angelo De La Torre DO BM/MODL /[id number]
[2020-10-13] VITALS (8 sets, daily range): BP systolic 120–138; BP diastolic 53–92
--- NOTE | 2020-10-13 01:24 | NUR ---
Pt sleeping but easy to aroused, no distress. call light within reach.
[2020-10-13] MEDS: ANORO ELLIPTA INH SCH (06:00)
[2020-10-13] MEDS: LEVOTHYROXINE SODIUM 25 MCG TABLET PO SCH (06:05)
[2020-10-13] MEDS: PANTOPRAZOLE SOD 40 MG TABEC PO SCH (08:30)
[2020-10-13] MEDS: INSULIN LISPRO 100 UNIT/1 ML 3ML VIAL SQ SCH ×3 (08:30→17:02)
[2020-10-13] MEDS: POTASSIUM CHLORIDE 20 MEQ TAB CR PO SCH (09:00)
[2020-10-13] MEDS: AMIODARONE HCL 200 MG TAB PO SCH (09:00)
[2020-10-13] MEDS: FUROSEMIDE 40 MG TAB PO SCH (09:00)
[2020-10-13] MEDS: METOPROLOL TARTRATE 50 MG TAB PO SCH ×2 (09:00→16:08)
[2020-10-13] MEDS: APIXABAN 5 MG TABLET PO SCH ×2 (09:00→17:01)
[2020-10-13] MEDS: CEFEPIME 2 GM/NS 0.9% 100 ML 100 ML IV SCH ×2 (09:00→20:47)
[2020-10-13] MEDS: DOCUSATE SODIUM 100 MG CAP PO SCH ×2 (09:00→16:10)
[2020-10-13] MEDS: VANCOMYCIN 300 ML IV SCH ×2 (10:32→21:36)
--- NOTE | 2020-10-13 11:31 | Progress Note ---
DATE: 10/12/2020 Medicine Progress Note SUBJECTIVE: The patient is currently doing well with no complaints. He was sitting on the edge of the bed with no complaints. Nursing staff was present throughout the entire conversation. OBJECTIVE: VITAL SIGNS: Afebrile, normotensive. LUNGS: Respiratory rate is good. LABORATORY DATA: CBC stable. Chemistry reviewed, stable. MICROBIOLOGY: Nothing new. IMAGING STUDIES: Nothing. PHYSICAL EXAMINATION: GENERAL: Not in acute distress. Alert and oriented x3. He is cooperative on examination. HEENT: Head is normocephalic and atraumatic. Eyes; pupils reactive to light bilaterally. Throat, no evidence of any erythema or exudates in the posterior pharynx. Has poor dentition. NECK: Supple. Good range of motion throughout. PULMONARY: Clear to auscultation bilaterally. No wheezing, no rales, no rhonchi, no crackles are appreciated. CARDIOVASCULAR: Positive S1, S2. No murmurs, rubs, or gallops appreciated. ABDOMEN: Soft, nontender, nondistended to palpation. Bowel sounds are present. MUSCULOSKELETAL: Strength 5/5 throughout. IMPRESSION: 1. Right lower extremity cellulitis secondary to venous stasis ulcer. 2. Type 2 diabetes. 3. Hypertension. 4. Morbid obesity. 5. History of atrial fibrillation on anticoagulation. PLAN: At this time, I consulted with Cardiology, they recommend no further workup. In the hospital, outpatient followup in the office. As for wound care, local wound care will be provided. Continue with IV antibiotics as per ID recommendations. We will continue with cardioprotective medications as well as same home medications. Get morning labs. Monitor very closely. PT, OT as ordered. Eliquis for DVT prophylaxis. MD HUMBERTO Nathan/MODL /[id number]
--- NOTE | 2020-10-13 15:42 | Progress Note ---
DATE: 10/13/2020 Medicine Progress Note SUBJECTIVE: The patient is doing much better today with no complaints. Cardiology recommendations noted. No further workup needed. Local wound care is being provided. Antibiotics are being provided by ID. PHYSICAL EXAMINATION: VITAL SIGNS: Temperature is 97.5, pulse 52, respiratory rate is 22, blood pressure 130/77, and pulse ox 94% on room air. GENERAL: Not in acute distress. Alert and oriented x3. Cooperative on examination. HEENT: Head; normocephalic, atraumatic. Eyes; pupils are equal, round, and reactive to light bilaterally. PULMONARY: Clear to auscultation bilaterally. No wheezing, no rales, no rhonchi, no crackles appreciated. CARDIOVASCULAR: Positive S1 and S2. No murmurs, rubs, or gallops appreciated. ABDOMEN: Soft, nondistended, and nontender to palpation. Bowel sounds present. MUSCULOSKELETAL: Strength is 5/5 throughout. LABORATORY DATA: Show white count 7.5, hemoglobin 12.9, hematocrit is 41, and platelets of 254. Chemistries reviewed, stable. MICROBIOLOGY: None. IMAGING DATA: Arterial Doppler shows monophasic waves in the left popliteal, anterior tibial and dorsalis pedis, suggestive of hemodynamically significant stenosis proximally. They recommended a lower extremity angiogram. I will speak to Cardiology about that. IMPRESSION: 1. Right lower extremity cellulitis secondary to venous stasis ulcer. 2. Concerns for peripheral arterial disease. 3. Type 2 diabetes. 4. Hypertension. 5. Morbid obesity. 6. Atrial fibrillation, on anticoagulation. PLAN: At this time, I consulted with Cardiology. Their note states that they did need no further workup, but according to the arterial Doppler, there are some concerns of some stenosis. I will communicate with Cardiology and see if they have any other recommendations. If they want to do any interventions here or do it as an outpatient. As per ID, continue with IV antibiotics for now. We would like to speak with ID about either or IV antibiotics. The patient is ready to go home. As for wound care, local wound care will be provided. The patient seems to be doing much better with no other issues. Get a.m. labs. PT/OT evaluation. Eliquis for DVT prophylaxis. MD HUMBERTO Nathan/KATHYAL /[id number]
--- NOTE | 2020-10-13 18:13 | Progress Note ---
DATE: SUBJECTIVE: Mr. Mitchell is doing better. There are no new complaints. The leg seems to be getting better. REVIEW OF SYSTEMS: HEENT: Negative. PULMONARY: Negative. CARDIAC: Negative. PHYSICAL EXAMINATION: GENERAL: He is currently alert, oriented. VITAL SIGNS: Stable, currently afebrile. HEENT: Not pale. Not icteric. NECK: Supple. CHEST: Clear. HEART: S1, S2. ABDOMEN: Soft. Bowel sounds present. EXTREMITIES: No edema. IMPRESSION: Cellulitis of the leg seems to be getting better. The plan is to continue IV antibiotic for another day or two. Discharge home Thursday with oral doxycycline, thigh-high elastic stocking. Local care to keep the wound clean and dry. Apply local Neosporin and then 4 x 4, and then thigh-high elastic stocking. MD ASHLEY Pacheco/NEO /[id number]
[2020-10-13] MEDS ORDERED: IOPAMIDOL 370 MG/ML 200 ML INFUS..BTL INJ ONE (18:23)
[2020-10-13] MEDS ORDERED: SODIUM CHLORIDE 0.9% 100 ML ONE (18:23)
--- NOTE | 2020-10-13 18:23 | Progress Note ---
DATE: 10/13/2020 Cardiology Progress Note SUBJECTIVE: The patient denies chest pain or shortness of breath. OBJECTIVE: VITAL SIGNS: Temperature 97.5 degrees, pulse 52, respiratory rate 22, blood pressure 138/77, and oxygen saturation 94% on room air. GENERAL: Awake, alert, in no acute distress. LUNGS: Clear to auscultation bilaterally. No wheezes or crackles. CARDIOVASCULAR: Normal rate. Regular rhythm. No murmur. Normal S1 and S2. ABDOMEN: Soft and nontender. EXTREMITIES: 1+ edema with dressings present on right lower extremity. CARDIAC MEDICATIONS: Apixaban 5 mg p.o. b.i.d., Lasix 80 mg p.o. daily, potassium 20 mEq p.o. daily, amiodarone 200 mg p.o. daily, levothyroxine 25 mcg p.o. daily, and metoprolol 100 mg p.o. b.i.d.. LABORATORY DATA: None today. IMPRESSION: 1. Lower extremity cellulitis with venous stasis ulcer. 2. Chronic lymphedema. 3. Diabetes mellitus. 4. Hypertension. 5. Atrial fibrillation. 6. Elevated LFTs. RECOMMENDATIONS: Bilateral lower extremity arterial Doppler was reviewed. It was a technically difficult study. Waveforms suggests peripheral arterial disease, however, the patient's ulcer is not consistent with ulcer secondary to arterial disease. We will order a CTA of the abdomen and pelvis with runoff for further evaluation. Antibiotics per Infectious Disease. Continue wound care. Continue current cardiac medications. We will increase Lasix to b.i.d. while the patient is admitted after checking a BNP. Thank you for this consult. We will continue to follow. Crys Solomon MD ABS/MODL /[id number]
[2020-10-14] VITALS (8 sets, daily range): BP systolic 119–148; BP diastolic 61–75
[2020-10-14] MEDS: ANORO ELLIPTA INH SCH (06:00)
[2020-10-14] MEDS: INSULIN LISPRO 100 UNIT/1 ML 3ML VIAL SQ SCH ×5 (06:03→21:00)
--- NOTE | 2020-10-14 07:08 | Diagnostic Imaging Report ---
EXAM: CTA Abdomen and Pelvis and Lower Extremity, WITH Contrast. INDICATION: ^possible pad ^[id number] ^[id number] COMPARISON: None. TECHNIQUE: Multidetector [address] scanning with 2 mm cuts of the abdomen, pelvis and bilateral thighs after administration of 100 cc IV of Omnipaque 350. Coronal and sagittal multiplanar, MIP thin and thick cuts, and 3-D volume-rendering reformations were obtained. IV CONTRAST: 100 mL of Isovue 370 ORAL CONTRAST: None COMPLICATIONS: None RADIATION DOSE: Total DLP: ... 667 mGy*cm Estimated effective dose: (DLP x 0.015 x size factor) mSv CTDIvol has been reviewed. It is below the limits set by the Radiation Protocol Committee (RPC). FINDINGS: INTRA-ABDOMINAL ARTERIES Patent aorta, celiac, renal, superior mesenteric, and inferior mesenteric arteries. A 3.6 cm infrarenal abdominal aortic aneurysm. PELVIS VESSELS: The distal aspect of the left external iliac artery has calcifications which limits evaluation. RIGHT LOWER EXTREMITY: Right common femoral, profundus femoral, superficial femoral, and popliteal arteries are patent. There is a patent trifurcation with both anterior and posterior tibial arteries supply the foot. LEFT LOWER EXTREMITY: Left common femoral, profundus femoral, superficial femoral, and popliteal arteries are patent. Patent mid/distal left superficial femoral artery stent. There is a patent trifurcation with both anterior and posterior tibial arteries supply the foot. The left dorsalis pedis artery is diminutive Minimal nonstenotic atherosclerosis. NON-VASCULAR FINDINGS: LOWER CHEST: Unremarkable. ABDOMEN: Enlarged hypodense liver. The gallbladder, spleen, and pancreas appear normal. The adrenal glands appear normal. Both kidneys are normal in size, shape, and density. There is no abnormal mass or hydronephrosis. Mild bilateral perinephric fat stranding. Calcified upper abdominal lymph nodes. PELVIS: There is no significant retroperitoneal adenopathy. No free fluid or free air within the abdomen or pelvis. The bowel appears unremarkable. The urinary bladder appears normal. BONES: No acute osseous abnormalities. Degenerative changes. SOFT TISSUES: Extensive subcutaneous edema at/below the knees. Calcification in the proximal left gastrocnemius muscle. IMPRESSION: The distal aspect of the left external iliac artery has calcifications which limits evaluation, a stenosis is possible. Consider left lower extremity arterial ultrasound duplex evaluation. Patent mid/distal left superficial femoral artery stent. Patent aorta, right iliac, and bilateral femoral, popliteal, and infrapopliteal arteries, with minimal nonstenotic atherosclerosis. The left dorsalis pedis artery is diminutive. A 3.6 cm infrarenal abdominal aortic aneurysm. Extensive subcutaneous edema at/below the knees. Signed by: Manish Flores DO on 10/14/2020 7:04 AM
[2020-10-14] MEDS: LEVOTHYROXINE SODIUM 25 MCG TABLET PO SCH (07:27)
[2020-10-14] MEDS: AMIODARONE HCL 200 MG TAB PO SCH (08:13)
[2020-10-14] MEDS: DOCUSATE SODIUM 100 MG CAP PO SCH ×2 (08:13→17:08)
[2020-10-14] MEDS: POTASSIUM CHLORIDE 20 MEQ TAB CR PO SCH (08:13)
[2020-10-14] MEDS: APIXABAN 5 MG TABLET PO SCH ×2 (08:13→17:08)
[2020-10-14] MEDS: PANTOPRAZOLE SOD 40 MG TABEC PO SCH (08:13)
[2020-10-14] MEDS: FUROSEMIDE 40 MG TAB PO SCH (08:13)
[2020-10-14] MEDS: VANCOMYCIN 300 ML IV SCH ×2 (08:14→21:00)
[2020-10-14] MEDS: METOPROLOL TARTRATE 50 MG TAB PO SCH ×2 (08:14→17:08)
[2020-10-14] MEDS: CEFEPIME 2 GM/NS 0.9% 100 ML 100 ML IV SCH ×2 (11:18→20:45)
--- NOTE | 2020-10-14 14:27 | Progress Note ---
DATE: 10/14/2020 Medicine Progress Note SUBJECTIVE: The patient is doing well today with no complaints. No overnight events. PHYSICAL EXAMINATION: VITAL SIGNS: Temperature is 97.7, pulse 84, respiratory rate 20, blood pressure 141/75, pulse ox 94% on room air. GENERAL: No acute distress. Alert and oriented x3. Cooperative on exam. PULMONARY: Clear to auscultation bilaterally. No wheezing, rales, or rhonchi. No crackles appreciated. CARDIOVASCULAR: Positive S1, S2. No murmurs, rubs, or gallops appreciated. ABDOMEN: Soft, nondistended, and nontender to palpation. Bowel sounds present. MUSCULOSKELETAL: Strength 5/5 throughout. No evidence of any muscle deficits on examination. NEUROLOGICAL: Cranial nerves II to XII grossly intact. LABORATORY DATA: Show CBC stable. Chemistry reviewed and stable. MICROBIOLOGY: Nothing new. IMAGING STUDIES: CT lower extremity angiogram shows distal aspect of left external iliac artery calcifications. Consider left lower extremity arterial Doppler duplex. There is a patent mid distal left superficial femoral artery stent. Rest of the vessel seems to be patent. There is a 3.6 cm infrarenal AAA noted. Has significant edema in the lower extremities. IMPRESSION: 1. Right lower extremity cellulitis with underlying venous stasis ulcerations. 2. History of PAD. 3. Type 2 diabetes. 4. Hypertension. 5. Morbid obesity. 6. Atrial fibrillation on anticoagulation. PLAN: At this time, I spoke with Cardiology and the lower extremity CT angiogram was found to be normal. No further workup needed by Cardiology. In fact, they cleared the patient for discharge. As for wound care, the patient will follow up as an outpatient in his office for local wound care. As per ID, I spoke with them yesterday. They recommend continue with IV antibiotics until tomorrow, then discharge on oral antibiotics as per their recommendations. Continue same plan of care and monitor very closely. Encourage ambulation. He is on Eliquis for DVT prophylaxis. Discharge tomorrow. MD HUMBERTO Nathan/NEO /[id number]
--- NOTE | 2020-10-14 17:32 | Progress Note ---
DATE: 10/14/2020 Cardiology Progress Note SUBJECTIVE: The patient denies chest pain or shortness of breath. OBJECTIVE: VITAL SIGNS: Temperature 97.3 degrees, pulse 84, respiratory rate 20, blood pressure 141/75, oxygen 95%. GENERAL: Awake, alert, no acute distress. LUNGS: Clear to auscultation bilaterally. No wheezes or crackles. CARDIOVASCULAR: Normal rate. Regular rhythm. No murmur. Normal S1 and S2. ABDOMEN: Soft, nontender. EXTREMITIES: 1+ pitting edema. Dressing present on bilateral lower extremities. CARDIAC MEDICATIONS: Metoprolol 100 mg p.o. b.i.d., furosemide 80 mg p.o. daily, apixaban 5 mg p.o. b.i.d., amiodarone 200 mg p.o. daily, levothyroxine 25 mcg p.o. daily. LABORATORY DATA: None today. CT of the abdomen and pelvis with lower extremity runoff demonstrated patent mid to distal left superficial femoral artery stent, patent aorta, right iliac and bilateral femoral popliteal and infrapopliteal arteries with minimal noncyanotic atherosclerosis. He has calcifications in the distal left external iliac artery, which limits evaluation as well as 3.6 cm infrarenal abdominal aortic aneurysm. IMPRESSION: 1. Lower extremity cellulitis with venous stasis ulcer. 2. Chronic lymphedema. 3. Peripheral arterial disease. 4. Diabetes mellitus. 5. Hypertension. 6. Atrial fibrillation. 7. Elevated LFTs. RECOMMENDATIONS: Based on CT and arterial Doppler, doubt he has significant peripheral arterial disease to explain his ulcer. Continue wound care. Antibiotics per Infectious Disease. BNP did not result. We will re-order. Please have the patient follow up in the office in 2 weeks after discharge. Thank you for this consult. We will continue to follow. Crys Solomon MD ABS/MODL /[id number]
[2020-10-15 04:59] VITALS: BP 118/72
[2020-10-15] MEDS: ANORO ELLIPTA INH SCH (06:00)
[2020-10-15 06:34] LABS: ALANINE AMINOTRANSFERASE 87 IU/L (0-55); ALBUMIN/GLOBULIN RATIO 0.8 (0.8-2.0); ALKALINE PHOSPHATASE 63 IU/L (40-150); ANION GAP 9.3 mmol/L (8-16); BLOOD UREA NITROGEN 10 mg/dL (7-26); BUN/CREATININE RATIO 11 (6-25); CALCIUM 8.3 mg/dL (8.4-10.2); CARBON DIOXIDE 28 mmol/L (22-29); CHLORIDE 105 mmol/L (98-107); CREATININE, SERUM 0.89 mg/dL (0.72-1.25); EST GLOMERULAR FILTRATION RATE > 60 ML/MIN (60-); GLUCOSE 158 mg/dL (74-118); POTASSIUM 4.3 mmol/L (3.5-5.1); SODIUM 138 mmol/L (136-145)
[2020-10-15] MEDS: LEVOTHYROXINE SODIUM 25 MCG TABLET PO SCH (06:41)
[2020-10-15] MEDS: INSULIN LISPRO 100 UNIT/1 ML 3ML VIAL SQ SCH ×2 (07:36→11:30)
[2020-10-15 07:52] VITALS: BP 149/74
[2020-10-15] MEDS: PANTOPRAZOLE SOD 40 MG TABEC PO SCH (07:56)
[2020-10-15] MEDS: AMIODARONE HCL 200 MG TAB PO SCH (08:32)
[2020-10-15] MEDS: POTASSIUM CHLORIDE 20 MEQ TAB CR PO SCH (08:32)
[2020-10-15] MEDS: APIXABAN 5 MG TABLET PO SCH ×2 (08:32→17:20)
[2020-10-15] MEDS: FUROSEMIDE 40 MG TAB PO SCH (08:32)
[2020-10-15] MEDS: METOPROLOL TARTRATE 50 MG TAB PO SCH ×2 (08:32→17:20)
[2020-10-15] MEDS: VANCOMYCIN 300 ML IV SCH (09:00)
[2020-10-15] MEDS: DOCUSATE SODIUM 100 MG CAP PO SCH ×2 (09:00→17:20)
[2020-10-15 09:05] VITALS: BP 149/74
[2020-10-15] MEDS: CEFEPIME 2 GM/NS 0.9% 100 ML 100 ML IV SCH (09:38)
[2020-10-15 11:36] VITALS: BP 129/77
--- NOTE | 2020-10-15 13:10 | NUR ---
EDUCATED ABOUT IMM, SIGNED, FILED IN CHART, WITH COPY LEFT WITH FAMILY AT BEDSIDE.
--- NOTE | 2020-10-15 13:17 | Progress Note ---
DATE: SUBJECTIVE: Mr. Mitchell is feeling better. There is no new complaint. The leg is doing much better. The redness has subsided. PHYSICAL EXAMINATION: GENERAL: He is currently alert, oriented. VITAL SIGNS: Stable, currently afebrile. HEENT: Not pale, not icteric. NECK: Supple. CHEST: Clear. HEART: S1, S2. ABDOMEN: Soft. Bowel sounds present. EXTREMITIES: No edema. The leg still with some edema, but there is minimal erythema. IMPRESSION: Cellulitis of bilateral lower extremities, venous stasis dermatitis, bilateral lower extremities lymphedema, venous stasis ulcer. From Infectious Disease point of view, can switch to oral doxycycline 100 mg p.o. b.i.d. for 2 weeks. Thigh-high elastic stocking to be placed on every morning on both legs. Discussed with the patient to see me back in 3 weeks. MD ASHLEY Pacheco/NEO /[id number]
[2020-10-15 15:29] VITALS: BP 144/54
--- NOTE | 2020-10-15 17:22 | NUR ---
Patient discharged home, Alert with no distress, Prescription given, IV canula removed with tip intact, no ss of infiltration noted, Discharge instruction given, patient verbalized understanding. transported via wheelchair to front lobby, here to pick him
[2020-10-15] MEDS ORDERED: DOXYCYCLINE HY100 MG PO (17:31)
--- NOTE | 2020-10-15 18:15 | NUR ---
Nutrition Screen Note RD Recommendation for Physician: -Recommend ADA diet Plan of Care: RD following, monitoring for tolerance and adequacy Nutrition reason for involvement: length of stay Primary Diagnose(s): cellulitis of right leg and venous statis ulcer PMH: morbidly obese, type 2 diabetes, hypertension, right lower extremity cellulitis. Ht: 76 in Wt:252 lb BMI: 30.7 kg/m2 IBW:[address] Assessment: (10/15/20) Chart reviewed. Labs and meds reviewed. Pt is a 80 year old male admitted with cellulitis of right leg and venous stasis ulcer. There are no reports of decreased appetite or recent unintentional weight loss upon admission. It is recorded that pt has been consuming 100% of meals. Will continue to monitor. Current Diet: regular Malnutrition Evaluation (10/15/20) The patient does not meet criteria for a specified degree of malnutrition at this time. Will re-evaluate at follow-up as appropriate. Diet Education Needs Assessment: RD is available for diet education as needed. Nutrition Care Level: low Signed: Inez Sanford, [place], LD
--- NOTE | 2020-10-15 19:53 | Discharge Summary ---
FINAL DISCHARGE DIAGNOSES: 1. Right lower extremity venous stasis wound infection, status post IV antibiotics with much improvement, discharged on oral doxycycline for 2 weeks. 2. History of peripheral arterial disease. 3. Type 2 diabetes. 4. Hypertension. 5. Morbidly obese. 6. Atrial fibrillation. CONSULTANTS: Cardiology, Wound Care, ID. VITAL SIGNS: Temperature is 97.8, pulse 51, respiratory rate is 19, blood pressure 144/54, pulse ox 96% on room air. LABORATORY FINDINGS: Show white count 7.5, hemoglobin 12.9, hematocrit is 41, and platelets of 254. Chemistry; sodium 138, potassium 4.3, chloride 105, bicarb 20, anion gap of 9.3, BUN is 10, creatinine 0.89, glucose is 158, calcium is 8.1. LFTs; total bilirubin 0.4, AST 67, ALT is 87. BNP 138. Albumin was 3, phosphorus 2.9, magnesium 1.9. SEROLOGY: Coronavirus not detected. MICROBIOLOGY: None. IMAGING STUDIES: Lower extremity runoff shows distal aspect of the left external iliac artery is calcification, which was limited evaluation. Consider left lower extremity arterial duplex evaluation. Patent mid and distal left superficial femoral artery stent. Patent aortic, right iliac, and bilateral femoropopliteal and infrapopliteal arteries with minimal noncyanotic atherosclerosis. There is a left dorsalis pedis artery diminutive. There is a 3.6 infrarenal AAA. Lower extremity arterial Doppler shows some monophasic waves in the left popliteal, anterior tibial, and dorsalis pedis artery, suggestive of some hemodynamically significant stenosis proximally. HOSPITAL COURSE: A 80-year-old male, comes in as a direct admission from Infectious Disease, Dr. Miles's office due to worsening venous stasis ulcerations and infection. The patient also has chronic lymphedema. The patient is on broad-spectrum IV antibiotic therapy. Wound Care was consulted with local wound care provided to him. Cardiology was consulted. Apparently, the patient has had PAD workup as an outpatient as well as venous stripping as an outpatient with Dr. Mariee, Cardiology as an outpatient. CT angiogram of the lower extremities results above. I spoke with Cardiology, Dr. Solomon. She reports no intervention is needed and was cleared for discharge from Cardiology. As per Wound Care, the patient will continue with local wound care at home and follow up as an outpatient with the [facility]ound Care [facility]. As per ID, I spoke with Infectious Disease. They recommended two weeks of oral doxycycline with discharge to home. The patient was stable prior to being discharged to home. He was cleared for discharge by all consultants. On the day of discharge, vital signs were stable, labs reviewed and stable. The patient is seen and evaluated and examined thoroughly on the day of discharge with no other complaints. The patient verbalized understanding and agrees to plan of care to follow up accordingly as an outpatient with primary care physician in 1 week, Infectious Disease in 1 to 2 weeks' time, Wound Care Clinic in 1 week time. Follow up with the beam builder helper in 2 weeks' time. MEDICATIONS: See med reconciliation form. DISPOSITION: Home. CONDITION: Stable. DIET: Heart healthy. In the event of any worsening symptoms, the patient was advised to come back to the ED for further evaluation. Discharge summary took greater than 35 minutes. MD HUMBERTO Nathan/NEO /[id number]
== END 2020-10-15 17:49 | disposition home or self-care (01) | DRG 300 ==
LOC: MED/SURG3 16:34
PROVIDERS: ADMIT Internal Medicine; ATTEND Internal Medicine
DX: E11.51 Type 2 diabetes mellitus with diabetic peripheral angi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 (principal); L97.929 Non-pressure chronic ulcer of unspecified part of left lower leg with unspecified severity; L03.116 Cellulitis of left lower limb; L03.115 Cellulitis of right lower limb; I87.2 Venous insufficiency (chronic) (peripheral); I89.0 Lymphedema, not elsewhere classified; E66.01 Morbid (severe) obesity due to excess calories; Z68.30 Body mass index [BMI] 30.0-30.9, adult; I70.203 Unspecified atherosclerosis of native arteries of extremities, bilateral legs; Z79.899 Other long term (current) drug therapy; I48.91 Unspecified atrial fibrillation; Z79.01 Long term (current) use of anticoagulants; E11.40 Type 2 diabetes mellitus with diabetic neuropathy, unspecified; Z20.828 Contact with and (suspected) exposure to other viral communicable diseases
CPT/HCPCS: 36415; 75635; 80048; 80053; 80202; 82948; 83735; 83880; 84100; 85025; 93925; 99251; J7050; Q9967; U0002